=== PATIENT | male | born 1955 | race Caucasian/White ===

== ENCOUNTER 2016-07-26 18:18 | Inpatient (IN) | payer OTHER ==
[~2016-07-26] VITALS: Ht 182.9 cm; Wt 72.1 kg
[~2016-07-26 18:18] MED LIST: ALBU8.5H2 INHALATION; BUDE10.2 INHALATION; ETOD400T PO; GABA-502 PO; LORA-303 PO; METH750T3 PO; METR45GE TOP; MORP-32 PO; PREN1TAB25 PO; TIOT18CA3 IH; TRAM50TA2 PO; Thiamine PO; VENL150C98 PO; [UNRECOGNIZED DRUG - CODE] PO
[2016-07-26] MEDS ORDERED: Ketamine 100 mg/mL 5 mL Inj IV ONE (18:25)
[2016-07-26] MEDS ORDERED: 0.9% Sodium Chloride 1,000 ML IV ONE ×2 (18:25)
--- NOTE | 2016-07-26 18:29 | ED.REPORT ---
HPI-Altered Mental Status Date of Service Jul 26, 2016 ED Provider: Chet Avina MD Pt is a 61 year old male with a hx of ETOH, marijuana, and morphine abuse and possible lung cancer (per EMS, not confirmed by records from [facility]) presenting to the ED via EMS due to being found unresponsive in his chair by his neighbor. The pt's neighbor last saw the pt normal several hours ago. EMS reports that the neighbor indicates patient is heavy ETOH abuser. Medics report that the pt had aspirated vomit when they firest arrived and his highest GCS for them was 7. The pt's blood pressure in the field was 60/p and he was intubated by medics - the indicate he waas a difficult airway. . The pt was given 30 etomidate, 100 succinylcholine, 200 ketamine at 1815. Nursing Notes Stated Complaint: UNRESPONSIVE Chief Complaint: DECREASED LOC Nursing Notes Reviewed: Yes (Zuldi, SheerID not reconciled) Allergies: Coded Allergies: No Known Allergies (Verified , 06/02/16) Uncoded Allergies: No Known Allergies (Allergy, Severe, 08/02/03) Scheduled ([Thiamine]) 100 MG TABLET 100 MG PO DAILY Budesonide/Formoterol 80-4.5 mcg Inh (Symbicort 80-4.5 mcg Inh) 120 Puff Inhaler 2 PUFF INHALATION BID Etodolac (Etodolac) 400 Mg Tablet 400 MG PO BID Gabapentin (Gabapentin) 300 Mg Capsule 600 MG PO TID Metronidazole (Metronidazole Gel) 1 Applic/0.25 Gm Gel 1 APPLIC TOP DAILY for Rosacea Morphine Sulfate ER (Morphine Sulfate ER) 15 Mg Tablet 15 MG PO BID Vit#96/Ferrous Fum/FA ( Tablet) 1 Each Tablet 1 TABLET PO DAILY Tiotropium [place] (Spiriva) 18 Mcg Cap.w.dev 18 MCG IH DAILY Venlafaxine ER (Venlafaxine ER) 150 Mg Cap.er.24h 150 MG PO HS Scheduled PRN Albuterol HFA (Proair HFA) 8.5 Gm Hfa.aer.ad 2 PUFFS INHALATION Q4H PRN PRN For Shortness of Breath Guaifenesin/Dextromethorphan (Robafen Dm Cgh-Chest Compa Liq) 100 Mg-10 Mg/5 Ml Liquid 15 ML PO TID PRN PRN For Cough Lorazepam (Ativan) 1 Mg Tablet 1 MG PO TID PRN PRN For Anxiety Methocarbamol (Methocarbamol) 750 Mg Tablet 1-2 TABLET PO TID PRN PRN For Spasm Tramadol (Tramadol) 50 Mg Tablet 50 MG PO BID PRN PRN LAST FILLED 12/13/15 56# Miscellaneous Medications Grape Seed Extract (Grape Seed) 50 Mg Tablet 50 MG PO [place]-3 Fatty Acids/Fish Oil (Fish Oil Dr 1,000 mg Softgel) 1 Each Capsule.dr 1 EACH PO General Time Seen by MD: 18:19 Chief Complaint Unresponsive Hx Obtained From: EMS Arrived By: Ambulance Sudden in Onset?: Yes Onset Occurred: Onset unknown Symptom Duration: Since onset Progression since Onset: Unchanged Recent Healthcare: No recent doctor visit, No recent hospitalization Past Medical History Past Medical History Initially unknown, records obtained from the [facility]: Chronic shoulder and left elbow and left knee pain COPD History of obstructive sleep apnea History of alcohol use History of hospitalization for pneumonia in September 2015 History of colon polyps History of orthostasis Past Surgical History Unknown (none listed in records obtained from [facility]) Smoking History Never Smoker (her records at [facility]) Social History Alcohol Use: >5 per day (per neighbor per EMS) Drug Use: Den[facility]) Review of Systems Unable to Obtain ROS Intubated Physical Exam Initial Vital Signs See RN, patient afebile, normal o2 on 100%, vented, hypotensive Initial VS: Reviewed, Vital signs abnormal Lymphatic: No lymphadenopathy General/Constitutional: Not toxic appearing Unresponsive and intubated. Please note EMS report difficult intubation. Highest GCS was 7. No visible signs of trauma. Lots of secretions. Head / Eyes: No nystagmus, Conjunctiva NL, Cornea clear Pupils 5mm minimally reactive bilaterally. Neck: Atraumatic Respiratory / Chest: Atraumatic Rales / Rhonchi: Positive: Rhonchi diffuse (In all tracy) Cardiovascular: No gallop, No murmurs, No rubs Decreased pulses Abdomen: Soft, Non-tender Skin: Warm Upper Extremity / MS: No edema No purposeful movement of extremities. No modeling. Lower Extremity / Pelvis / MS: No edema Interpretation & Diagnostics Lab Results Interpretation Result Diagram: 07/26/16 1830 07/26/16 1830 Test 07/26/16 18:30 07/26/16 18:32 White Blood Count 13.5th/mm3 (3.8-10.1) Red Blood Count 4.32mil/mm3 (4.40-5.80) Hemoglobin 14.2g/dL (13.8-17.2) Hematocrit 42.6% (41.0-50.0) Mean Corpuscular Volume 98.6fL (81-100) Mean Corpuscular Hemoglobin 32.9pg (27.0-35.0) Mean Corpuscular Hemoglobin Concent 33.3% (32.0-37.0) Red Cell Distribution Width 14.0% (12.3-15.4) Platelet Count 270bil/L (150-400) Neutrophils (%) (Auto) 78.3% (40-74) Lymphocytes (%) (Auto) 14.9% (14-46) Monocytes (%) (Auto) 6.3% (4-12) Eosinophils (%) (Auto) 0.1% (0-5) Basophils (%) (Auto) 0.3% (0-3) Prothrombin Time 9.1sec (8.1-12.5) Prothromb Time International Ratio 0.85ratio Sodium Level 137mEq/L (134-144) Potassium Level 3.9mEq/L (3.5-5.2) Chloride Level 93mEq/L (97-108) Carbon Dioxide Level 21mmol/L (18-29) Blood Urea Nitrogen 15mg/dL (8-27) Creatinine 0.60mg/dL (0.76-1.27) Estimat Glomerular Filtration Rate 146mL/min (>59) Glucose Level 89mg/dL (60-99) Lactic Acid Level 3.4mmol/L (0.4-2.0) Calcium Level 8.5mg/dL (8.5-10.1) Magnesium Level 2.0mg/dL (1.6-2.6) Total Bilirubin 0.5mg/dL (0.0-1.2) Aspartate Amino Transf (AST/SGOT) 52U/L (0-50) Alanine Aminotransferase (ALT/SGPT) 38U/L (0-44) Alkaline Phosphatase 104U/L (25-160) Total Creatine Kinase 109U/L (21-232) Troponin T < 0.010ug/L (0.0-0.011) Total Protein 7.4g/dL (6.4-8.4) Albumin 4.1g/dL (3.4-5.0) Salicylates Level < 3.0ug/mL (30-250) Acetaminophen Level < 15.0ug/mL Rx (10-25) Alcohol, Quantitative 567mg/dL (0-10) Urine Color Yellow (YELLOW) Urine Appearance Clear (CLEAR,HAZY) Urine pH 6.0 (5.0-8.0) Urine Specific [place] 1.020 (1.003-1.035) Urine Protein Tracemg/dL (NEG,TRACE) Urine Glucose (UA) Negativemg/dL (NEGATIVE) Urine Ketones 15mg/dL (NEGATIVE) Urine Occult Blood Trace (NEGATIVE) Urine Nitrite Negative (NEGATIVE) Urine Bilirubin Negative (NEGATIVE) Urine Urobilinogen Normalmg/dL (NORMAL) Urine Leukocyte Esterase Negative (NEGATIVE) Urine RBC 0-2/hpf (0-2) Urine WBC 0-5/hpf (0-5) Urine Epithelial Cells Few/hpf (NONE-MOD) Urine Crystals Amorphous urates (NONE Urine Bacteria Few/hpf (NONE-FEW) Urine Hyaline Casts None/lpf (NONE) Urine Granular Casts None seen (NONE SEEN) Urine Waxy Casts None seen (NONE SEEN) Urine Red Blood Cell Casts None seen (NONE SEEN) Urine White Blood Cell Casts None seen (NONE SEEN) Urine Mucus Present (None Seen) Urine Trichomonas None seen (NONE SEEN) Urine Yeast None (NONE SEEN) Urinalysis Comment None Urine Culture Reflexed Not indicated Lab Results Interpretation: CBC positive leukocytosis next point seem P normal History of severely elevated Lactic acid elevated Tylenol negative Salicylates negative next one U tox positive for THC Blood cultures 2 pending Tracheal aspirate sputum culture pending Arterial BLOOD GAS: pH: 7.330 pCO2: 42 pO2: 114.0 cHCO3: 21.3 ECG Interpretation ECG Interpretation: Rate 77. No ischemic changes. No QRS widening. Prolonged QTC of 519 unclear if artefact related. Time: 19:08 Interpreted by: ED physician Normal ECG Interpretation: Normal sinus rhythm X-Ray Chest Interpretation Chest Xray Interpretation: IMPRESSION: ET and NG tube as described above. Trace right-sided pleural fluid collection. Dictated by: Alma Chen MD, PhD on 07/26/2016 at 19:02 View: Portable, 1 view Interpretation / Wet Read by: Interpret - Radiologist CT Head Interpretation IMPRESSION: No acute intracranial disease process. Dictated by: Alma Chen MD, PhD on 07/26/2016 at 19:19 Study: Head CT no contrast Interpretation / Wet Read by: Interpret - Radiologist Re-Eval/Medical Decision Med Decision/Clinical Course This is a 61-year-old male brought by EMS intubated at the scene. It was a difficult airway per EMS. They report that the neighbor knows the patient and the neighbor reports the patient is a long-term alcoholic, neighbor last saw the patient number of hours ago went to check on him, and found him unresponsive covered in vomit, with alcohol surrounding. No known overt signs of trauma. Patient had a GCS of 7, blood pressure and the 60s-so was intubated in the field. Accu-Chek was normal. Medical history was was definite, the neighbor indicated a possible history of lung CA[facility] and I do not see a clear confirming history of this on the records that they have sent us. Patient is unresponsive, covered in emesis, and had thick secretions require tracheal suctioning to the ET tube. There is good end-tidal CO2, chest x-ray confirms tube placement, there may be a trace pleural effusion but no anurag infiltrate or foreign bodies evident radiographically at this time. Baseline blood cultures were drawn. CT of the brain was negative. Blood work is notable for an elevated white count, a lactic acidosis, and a severely elevated alcohol that may be explanatory of the entire presentation. Patient was initially hypotensive, blood pressures responded to crystalloid resuscitation by the time 2 L were administered, the patient's blood pressures have normalized. He initially received additional ketamine for sedation to permit evaluation while waiting for his blood pressures to improve in response to resuscitation, but then once blood pressures normalized he received benzodiazepines, and was started on a propofol drip. Patient is being admitted for continued management. Source of Hx: Old records (none in EMR), EMS Re-Evaluation/Progress #1: Time of Eval: 19:13 Patient Status: Condition improved Re-Evaluation/Progress Note: The pt's eyes are now open but he does not respond to verbal stimulation. Re-Evaluation/Progress #2: Time of Eval: 18:50 Patient Status: Condition improved Re-Evaluation/Progress Note: PT is in CT. Re-Evaluation/Progress #3: Time of Eval: 19:37 Patient Status: Condition improved Re-Evaluation/Progress Note: BP: 130/89 Re-Evaluation/Progress #4: Time of Eval: 19:38 Patient Status: Condition improved Re-Evaluation/Progress Note: Pt is doing much better. Consultation : Referral / Consult Name: Tyler Mai MD Consulted With: Hospitalist Call Returned at: 19:43 Product Design Specialist: Will see patient, Agrees with plan, Accepts admit Counseled Regarding: Diagnosis, Lab results, Need for follow-up, When/why to return to ED Patient Discharge & Departure Impression: Primary Impression: Alcohol intoxication Complication of substance-induced condition: uncomplicated Qualified Code: F10.120 - Alcohol abuse with intoxication, uncomplicated Additional Impressions: Alcohol abuse Aspiration into airway Encounter type: initial encounter Qualified Code: T17.908A - Unspecified foreign body in respiratory tract, part unspecified causing other injury, initial encounter Altered mental status Altered mental status type: unspecified Qualified Code: R41.82 - Altered mental status, unspecified Disposition: ADMITTED TO HOSPITAL Discharge Condition All VS Reviewed: Yes Condition: Improved Crit Care Except Billable Proc Time Spent: 30-74 minutes Services Performed: Patient management by me, Time spent at bedside, Reviewing test results, Reviewing imaging, Discussing patient care, Documentation in record Scribe Attestation Portions of this note were transcribed by Margoth Couch. I, Dr. Avina personally performed the history, physical exam and medical decision-making; I reviewed and confirmed the accuracy of the information in the transcribed note. Signed by: Lamine Sevilla, 07/26/16 and 2011. Chet Avina MD Jul 26, 2016 18:28 MARGOTH COUCH Jul 26, 2016 18:34
--- NOTE | 2016-07-26 18:35 | ABG ---
DateTimeAnalyzed 18:29:00 -_ pH ____7.330 - 7.201 7.300 pCO2 ___41.6__ -mmHg 40.0 50.9 pO2 114 -mmHg 45.0 70.0 HCO3- ___21.3__ -mmol/L 20.0 24.0 ABE ___-3.9__ -mmol/L tHb ___13.0__ -g/dL O2Hb ___93.6__ -% COHb ____1.8__ -% MetHb ____1.1__ -% sO2 ___96.4__ -% FIO2 ___50.0__ -% PEEP ____5.0__ -cmH2O Set_RR ___16.0__ -b/min Vt __500.0__ -L Drawn By as - Date/Time Notified____ 18:34:00 -_ Oxygen Device 1 VENTILATOR - Notified By AMS - Notified Whom DR STEPHEN - B 751 -mmHg tO2 ___17.2__ -Vol% Regan test N/A -
[2016-07-26 18:44] LABS: BASOPHILS % (AUTO) 0.3 % (0-3); EOSINOPHILS % (AUTO) 0.1 % (0-5); MONOCYTES % (AUTO) 6.3 % (4-12); Mean Corpuscular Hemoglobin 32.9 pg (27.0-35.0); Mean Corpuscular Volume 98.6 fL (81-100); NEUTROPHILS % (AUTO) 78.3 % (40-74); Platelet Count 270 bil/L (150-400)
--- NOTE | 2016-07-26 19:03 | DRSVH ---
PROCEDURE: X-RAY CHEST ONE VIEW, PORTABLE ([id number]) INDICATIONS: post intubation TECHNIQUE: One view of the chest was acquired. COMPARISON: None. FINDINGS: Surgical changes and devices: ET tube projects approximately 4.2 cm superior to the olayinka. NG tube projects across the GE junction. Surgical sutures project over the right hilum. Lungs and pleura: Trace right-sided pleural fluid collection. Lungs are clear. Mediastinum: Mediastinal contours appear normal. Heart size is normal. Bones and chest wall: No suspicious bony lesions. Overlying soft tissues appear unremarkable. IMPRESSION: ET and NG tube as described above. Trace right-sided pleural fluid collection. Dictated by: Alam Chen MD, PhD on 07/26/2016 at 19:02 Approved by: Alma Chen MD, PhD on 07/26/2016 at 19:02
[2016-07-26 19:05] LABS: INR 0.85 ratio
[2016-07-26] MEDS ORDERED: ETOD400T PO (19:07)
[2016-07-26] MEDS ORDERED: GABA-502 PO (19:07)
[2016-07-26] MEDS ORDERED: GARL600T2 PO ×2 (19:07→22:08)
[2016-07-26] MEDS ORDERED: METH750T3 PO ×2 (19:07→22:08)
[2016-07-26] MEDS ORDERED: CHOL10008 PO (19:07)
[2016-07-26] MEDS ORDERED: MULT-1073 PO (19:07)
[2016-07-26] MEDS ORDERED: OMEG500C PO (19:07)
[2016-07-26] MEDS ORDERED: CYAN500 PO (19:07)
[2016-07-26] MEDS ORDERED: MORP15TA PO (19:07)
[2016-07-26] MEDS ORDERED: VENL75TA3 PO (19:07)
[2016-07-26] MEDS ORDERED: GRAP25CA PO (19:07)
[2016-07-26 19:15] LABS: TROPONIN T < 0.010 ug/L (0.0-0.011)
[2016-07-26] MEDS ORDERED: Propofol 10,000 mCg/mL 100 mL Inj ONE (19:20)
[2016-07-26] MEDS: Propofol Inj 1,000,000 MCG in IV Premix 1 EACH IV SCH (19:20)
[2016-07-26 19:30] VITALS: O2SAT 99
[2016-07-26] MEDS ORDERED: Multivitamin w/Vit K Inj 10 ML, Thiamine Inj 100 MG, Folic Acid Inj 1 MG, Magnesium Sul... IV ONE ×10 (19:38→21:12)
--- NOTE | 2016-07-26 19:44 | PCM.HPMED ---
Subjective Date of Service Jul 26, 2016 Primary Provider: Admitting Physician: Primary Care Physician: Gabriel Collins MD Attending Physician: Chief Complaint: Found unconscious surrounded by alcohol with a blood alcohol of 518 History of Present Illness: 61-year-old with known all abuse history and COPD found down by a neighbor now intubated. Remainder of history and physical is obtained from the chart and physical exam as patient is unconscious and nothing else is known and he is not able to respond. Review of Systems: Not obtainable as patient is intubated and unconscious Allergies Coded Allergies: No Known Allergies (Verified , 06/02/16) Uncoded Allergies: No Known Allergies (Allergy, Severe, 08/02/03) Home Medications Per January 2016 discharge summary Budesonide/Formoterol 80-4.5 mcg Inh (Symbicort 80-4.5 mcg Inh) 120 Puff Inhaler 2 PUFF INHALATION BID (Reported) Etodolac (Etodolac) 400 Mg Tablet 400 MG PO BID (Reported) Gabapentin (Gabapentin) 300 Mg Capsule 600 MG PO TID (Reported) Metronidazole (Metronidazole Gel) 1 Applic/0.25 Gm Gel 1 APPLIC TOP DAILY ( Reported) for Rosacea Morphine Sulfate ER (Morphine Sulfate ER) 15 Mg Tablet 15 MG PO BID (Reported) Prednisone (Deltasone) 20 Mg Tablet 40 MG PO DAILY Prescribed by: KOSTA MOLINA MD Tiotropium [place] (Spiriva) 18 Mcg Cap.w.dev 18 MCG IH DAILY (Reported) Venlafaxine ER (Venlafaxine ER) 150 Mg Cap.er.24h 150 MG PO HS (Reported) As needed Albuterol HFA (Proair HFA) 8.5 Gm Hfa.aer.ad 2 PUFFS INHALATION Q4H PRN PRN For Shortness of Breath (Reported) Guaifenesin/Dextromethorphan (Robafen Dm Cgh-Chest Compa Liq) 100 Mg-10 Mg/5 Ml Liquid 15 ML PO TID PRN PRN For Cough (Reported) Methocarbamol (Methocarbamol) 750 Mg Tablet 1-2 TABLET PO TID PRN PRN For Spasm (Reported) Tramadol (Tramadol) 50 Mg Tablet 50 MG PO BID PRN PRN For Pain (Reported) PMH Obtained from last H&P done in January 2016 COPD Alcohol dependence Obstructive sleep apnea Surgical History Bilateral total hip arthroplasty Right lower lobe lobectomy Ear surgery Family History Father: Coronary artery disease Social History Hx Alcohol Use: Yes (last drink 06/25/13) Hx Substance Use: No Hx Tobacco Use: No Smoking Status: Former Smoker Exam Vital Signs 120/60 with a rate 72, oxygen 100% on ventilator, afebrile Exam Gen.-Patient actually opens his eyes and head squeeze my hand to command no apparent distress. Eyes- open conjunctiva clear, pupils equal nonicteric, pupils still dilated secondary to ketamine ENT- ears normal, nose normal Neck- supple/trach midline CVS- RRR no murmur or gallop Lungs CTA, vent sounds GI- NABS/NT soft Musc- moving 4 no obvious deformity Neuro- cranial nerves II through XII intact to gross examination, nonfocal Skin- warm and dry Psych-intubated, but wakes up and needed propofol for sedation Lab and Diagnostics Result Diagram: 07/26/16182907/26/161829 X-Rays, CTs and MRIs CXR clear, no active cardiopulmonary disease, ET and NG tube in place personally reviewed by me 12-lead ECG Sinus rhythm rate 77, QTC 519 ms, no acute ST segment changes personally reviewed by me Additional Diagnostics: Troponin normal, LFTs only mildly elevated, lactic acid 3.4 probably from being down and hypoxic Assessment & Plan Patient arrives intubated with a lethal dose of alcohol on board. I do not have urine toxicology to suggest whether something else is there in addition. I have ordered this. Patient is intubated despite having been noted to be a DO NOT RESUSCITATE at the time of the last admission. Prior to that and his age would suggest that perhaps we should reevaluate this and wait till the patient is awake and coherent and determine whether this was a suicide attempt and whether he needs inpatient psychiatry or simply aggressive drug and alcohol cessation counseling and management. Patient arrives as a carbon copy of his last admission except that his respiratory status is worse, he was found down surrounded by alcohol and urine. Acute respiratory failure-patient is on a ventilator, when patient wakes up to probably be extubated he does not need any sedation he did that himself Acute alcohol intoxication-[facility] protocol, alcohol cessation Probable polypharmacy whether this is legal or prescribed drugs not clear- checking urine toxicology COPD/bronchiectasis-patient does not seem to be having an acute event, not giving steroids or antibiotics continuing bronchodilators as able Chronic continuous opiate abuse with chronic pain-hold all narcotics and sedatives for now until the patient wakes up then we will likely need to resume some to prevent withdrawal Depression?-Patient might benefit from psychiatric consult in addition to regular social work Rosacea-home med ordered GIORGIO with sleep apnea on CPAP-perhaps his roommate will bring him his CPAP when he is extubated Hx prediabetes-we will place the patient on sliding scale insulin Prophylaxis-DVT patient will be on Lovenox and SCDs, GI patient will be placed on PPI IV Disposition- not entirely clear patient was DO NOT RESUSCITATE last visit but full code the last visit comes from home where somebody found him, so he does not appear to be completely homeless unless of course he is couch surfing. At the time I saw the patient he required propofol to remain sedated. I had a long discussion with his daughter who lives in [place] they do not really know much about him. They simply get the phone calls. She describes last time in May that staff here tried to get her to "commit him" which does not make any sense. She would like him in treatment, but my sense is this patient is waking up and might be lucid by tomorrow and might even extubate himself without propofol he might even do it with propofol. I think his blood alcohol level normalized and he will be cleared for discharge. She is understandably worried about what happens next time when he does he actually kill himself. She denies that he is ever even gone through withdrawal nothing happened to him during his May hospitalization and then they do not really know what happened. I reassured her at this point time. It does not appear that he is going to now, but I could not see anything as to what was going to happen tomorrow or in the future given his extreme alcohol intake and tolerance. Greater than 90 minutes of ICU time Tyler Mai MD Jul 26, 2016 19:44
[2016-07-26 20:04] LABS: APPEARANCE,URINE CLEAR (CLEAR,HAZY); COLOR,URINE YELLOW (YELLOW)
[2016-07-26 20:05] LABS: OCCULT BLOOD,URINE TRACE (NEGATIVE); UROBILINOGEN,URINE NORMAL (NORMAL)
[2016-07-26] MEDS ORDERED: Ondansetron 2 mg/mL 2 mL Inj IVPUSH ONE (20:05)
[2016-07-26] MEDS ORDERED: Alum-Mag Hydrox-Simeth 30 mL Suspension PO PRN (20:20)
[2016-07-26] MEDS ORDERED: Ondansetron 2 mg/mL 2 mL Inj IVPUSH PRN (20:20)
[2016-07-26] MEDS ORDERED: diphenhydrAMINE 25 mg Capsule PO PRN (21:15)
[2016-07-26] MEDS ORDERED: Thiamine Inj 100 MG, Folic Acid Inj 1 MG, Magnesium Sulfate 50% Inj 2 GM, Multivitamins... IV ONE ×5 (21:15)
[2016-07-26] MEDS ORDERED: guaiFENesin DM 200-20 mg/10 mL Syrup PO PRN (21:25)
[2016-07-26 21:35] VITALS: BP 109/69; PULSE 78; RESP 22; O2SAT 100
[2016-07-26 21:55] VITALS: BP 121/74; PULSE 87; RESP 18; O2SAT 99
[2016-07-26] MEDS ORDERED: GRAP50TA2 PO (22:01)
[2016-07-26] MEDS ORDERED: FISH OIL DR 1,1 EAC1 PO (22:01)
[2016-07-26] MEDS ORDERED: CYAN10008 PO (22:08)
[2016-07-26] MEDS ORDERED: Glucose 40% Oral Gel 15 Gm Tube PO PRN (22:15)
[2016-07-26] MEDS ORDERED: CHOL200047 PO (22:16)
[2016-07-26] MEDS: D5 0.45% NaCl + KCl 20 mEq/L 1,000 ML IV SCH (22:27)
[2016-07-26] MEDS: Multivit-Miner-Folic Acid-Iron Tablet PO SCH ×2 (22:31→23:24)
[2016-07-26] MEDS: Pantoprazole 4 mg/mL 10 mL Inj IVPUSH SCH (22:31)
[2016-07-26] MEDS: 0.9% Sodium Chloride 1,000 ML IV SCH (22:31)
[2016-07-26 23:55] VITALS: BP 116/77; O2SAT 99
[2016-07-27] VITALS (9 sets, daily range): BP systolic 88–127; BP diastolic 48–66; PULSE 61–106; RESP 16–20; O2SAT 95–100
[2016-07-27] MEDS: Albuterol HFA 60 Puff 8 Gm Inhaler INHALATION SCH ×3 (00:30→16:30)
[2016-07-27] MEDS: Ondansetron 2 mg/mL 2 mL Inj IVPUSH PRN (02:45)
[2016-07-27] MEDS: Ampicillin-Sulbactam Inj 3,000 MG in 0.9% Sodium Chloride 100 ML IV SCH ×4 (02:58→21:09)
[2016-07-27 03:40] LABS: BASOPHILS % (AUTO) 0.3 % (0-3); EOSINOPHILS % (AUTO) 0.1 % (0-5); MONOCYTES % (AUTO) 6.7 % (4-12); Mean Corpuscular Hemoglobin 32.8 pg (27.0-35.0); Mean Corpuscular Volume 100.3 fL (81-100); NEUTROPHILS % (AUTO) 83.3 % (40-74); Platelet Count 175 bil/L (150-400)
[2016-07-27] MEDS ORDERED: Calcium GLUCO 10% (Gm) Inj 2 GM in Dextrose 5% 100 ML IV ONE (04:50)
--- NOTE | 2016-07-27 05:51 | NUR ---
Admission Pt admitted to CCU Room # 2015 from the ER. Pt accompanied by his daughter, RT and TESTER OPERATOR HELPER. Pt intubated and ventilated with ambu-bag. Propofol gtt at 10mcg/kg/minute. Pt incontinent of urine and smelling strongly of vomiting and alcohol. Banana bag infusing at 500ml/hour. x2 PIV patent and infusing in bilateral wrists. MRSA swab collected and sent for analysis as per CCU protocol. All medications reviewed and sent to pharmacy; Morphine SO4 placed & counted with Commercial Attorney down in pharmacy along with additional single empty bottle of Morphine SO4. Pupils dilated and slow to react to light and accommodation. Critical Lab value Calcium=6.6, 2,000mg Ca Gluconate administered per MD order. D5 1/2NS with 20Meq KCL infusing at 100ml/hour along with NS at 100ml/hour. Propofol titrated per effect and currently near maximum of 45mcg/kg/minute (50 MAX). Pt only mildly sedated and remains easy to arouse. Secretions frequently suctioned with Yankauer from oral along with ET suction.
[2016-07-27] MEDS: Insulin LISPRO 300 Unit/3 mL Inj SUBQ SCH ×4 (08:00→22:00)
[2016-07-27] MEDS: D5 0.45% NaCl + KCl 20 mEq/L 1,000 ML IV SCH (08:09)
[2016-07-27] MEDS: 0.9% Sodium Chloride 1,000 ML IV SCH ×2 (08:10→18:28)
[2016-07-27] MEDS: Pantoprazole 4 mg/mL 10 mL Inj IVPUSH SCH (08:10)
[2016-07-27] MEDS: Influenza (Adult) Vaccine 0.5 mL Syringe IM ONE ×2 (08:21→08:26)
[2016-07-27] MEDS: Tiotropium 18mcg/Cap 5 Capsule Inhaler Kit INHALATION SCH (08:30)
[2016-07-27] MEDS: fentaNYL 2,500 mCg/250 mL 2,500 MCG in IV Premix 1 EACH IV SCH (11:55)
[2016-07-27] MEDS: Thiamine Inj 100 MG in Dextrose 5% 50 ML IV SCH (11:56)
[2016-07-27] MEDS: Dexmedetomidine 400 mCg/100 mL 400 MCG in IV Premix 1 EACH IV SCH (11:56)
[2016-07-27] MEDS: LORazepam 0.5 mg Tablet PO PRN (11:57)
[2016-07-27] MEDS: Propofol Inj 1,000,000 MCG in IV Premix 1 EACH IV SCH ×2 (11:57→19:00)
--- NOTE | 2016-07-27 16:29 | NUR ---
Intermittent violent shaking/tremors, somewhat "seizure like", but patient opens eyes and tracks, follows commands during them. Fentanyl, Precedex started, titrating Propofol rate down; receiving IV Valium and Ativan as well. Labs noted, Lactic acid decreasing. MD updated throughout the shift. Appears comfortable with intermittent awakening, responding to bolus doses of propofol and fentanyl. Blood sugars 130s, stopping D5 IVFs per MD; continue SQ insulin protocol. Daughter updated by phone this morning. Sinus rhythm on tele, occasional PVC.
--- NOTE | 2016-07-27 17:48 | PCM.PNMED ---
Subjective Date of Service Jul 27, 2016 Subjective Patricio Cardozo is a 61-year-old male with a history of substance abuse including : alcohol, marijuana and morphine, COPD, GIORGIO and right lower lobe lobectomy who presented to the ED via EMS after he was found unconscious by neighbor and intubated in the field. Admitted for acute alcohol intoxication with a blood alcohol level of 567 and acute respiratory failure. Hospital day #1. Admitted to the CCU overnight. Patient is intubated and mechanically ventilated. Unable to obtain history or review of systems due to patient condition. He appears comfortable and in no acute distress. Thick, dark secretions noted in ET tube. Exam Vital Signs Vital Sign - Last Date Time Temp Pulse Resp B/P Pulse Ox O2 Delivery O2 Flow Rate FiO2 07/27/16 08:00 107 106/61 95 40 07/27/16 08:00 36.6 18 Mechanical Ventilator Intake and Output 07/26/16 07/26/16 07/27/16 Cumulative From/Thru 15:00 23:00 07:00 07/26/16 19:00 - 07/27/16 06:13 Intake Total 3000 ml 2659 ml 5659 ml Output Total 2950 ml 2950 ml Balance 3000 ml -291 ml 2709 ml Intake Oral 0 ml 0 ml IV Total 3000 ml 2659 ml 5659 ml Output Urine Total 2750 ml 2750 ml Gastric Drainage Total 200 ml 200 ml # Bowel Movements 0 0 Exam General: Patient sedated, Intubated and mechanically ventilated. In no acute distress. HEENT: Normocephalic, atraumatic. External ears without defect. PERRLA, no scleral icterus, mucosa moist. Neck: No jugular venous distension. No bruits. No lymphadenopathy or thyromegaly. Cardiovascular: Regular rate and rhythm with no murmurs, rubs, or gallops appreciated Pulmonary: Symmetric chest rise with equal air entry bilaterally, lungs overall clear to auscultation bilaterally with no crackles, wheezes, or rhonchi. Abdomen: Bowel tones present. Soft, nondistended. No hepatosplenomegaly or masses appreciated. Extremities: No clubbing, cyanosis, edema, or lymphadenopathy appreciated. Skin: Normal temperature, turgor, and texture; no rash, ulcers, or subcutaneous nodules appreciated. Neurological: Difficult to asses due to patient condition. Pt is moving all four extremities, withdraws from pain. No known gait impairment. Psychiatric: Will need to revaluate when patient more awake. IVs and Medications Medications Reviewed: Medications were reviewed in detail Lab and Diagnostics White Blood Count 7.9, Red Blood Count 3.60, Hemoglobin 11.8, Hematocrit 36.1, Mean Corpuscular Volume 100.3, Mean Corpuscular Hemoglobin 32.8, Mean Corpuscular Hemoglobin Concent 32.7, Red Cell Distribution Width 14.0, Platelet Count 175, Neutrophils (%) (Auto) 83.3, Lymphocytes (%) (Auto) 9.5, Monocytes (% ) (Auto) 6.7, Eosinophils (%) (Auto) 0.1, Basophils (%) (Auto) 0.3 Sodium Level 143, Potassium Level 4.1, Chloride Level 107, Carbon Dioxide Level 19, Blood Urea Nitrogen 12, Creatinine 0.55, Estimat Glomerular Filtration Rate 161, Glucose Level 95, Lactic Acid Level 3.0 Calcium Level 7.2, Procalcitonin 1.62, Thyroid Stimulating Hormone (TSH) 1.330 Result Diagram: 07/27/16 0333 07/27/16 0333 Microbiology Influenza scree negative. Sputum culture with few gram positive cocci, rare epithelial cells and rare polys. MRSA screen and blood cultures pending. X-Rays, CTs and MRIs X-RAY CHEST ONE VIEW, PORTABLE (07/26/16) IMPRESSION: ET and NG tube as described above. Trace right-sided pleural fluid collection. Dictated and approved by: Alma Chen MD, PhD on 07/26/2016 at 19:02 12-lead ECG Sinus rhythm rate 77, QTC 519 ms, no acute ST segment changes Assessment & Plan Patricio Cardozo is a 61-year-old male with a history of substance abuse including : alcohol, marijuana and morphine, COPD, GIORGIO and right lower lobe lobectomy who presented to the ED via EMS after he was found unconscious by neighbor and intubated in the field. Admitted for acute alcohol intoxication with a blood alcohol level of 567 and acute respiratory failure. Hospital day #1. 1. Possible acute respiratory failure, present on admission. Active - Pt with hx of heavy alcohol abuse, COPD and possible polysubstance use. Found by a neighbor unresponsive and covered in vomit. - Reported by medics to have a GCS of 7. Pt Intubated in the field, despite being DNR/DNI during last admission. - CXR- trace right-sided pleural fluid, no infiltrate. - Pt with lethal dose of alcohol, on admission. Noted by EMS to have aspirated vomit. - Lactic acid, WBC trending down (elevated on admission, likely due to hypoxia) . - Continue ventilatory support, pressure support trial with possible extubation tomorrow. 2. Acute alcohol intoxication, present on admission. Active. - Unclear whether this was a suicide attempt. CT of the brain was negative. - CIWA protocol and IV thiamine, start Dexmedetomidine as well as scheduled lorazepam while pt mechanically ventilated - Will need to reevaluate, as pt is more awake. - Consider inpatient psychiatry or simple drug and alcohol cessation counseling 3. Probable polypharmacy, present on admission. Active. - Urine toxicology screen positive for Cannabinoids. - Reportedly hx of morphine abuse. - Discharge summary January 2016, morphine sulfate 15mg po bid on active med list. - Start Fentanyl drip and monitored for signs/symptoms of opioid withdrawal. 4. COPD, present on admission. Active. - Does not appear in acute exacerbation. - Continue bronchodilators and antibiotics - Pressure support trial when pt more awake 5. Chronic pain with long-term opiate use, present on admission. Active. - Monitor for signs/symptoms of withdrawal and continue Fentanyl, as above. - Reassess narcotics as patient wakes up. 6. History of depression, present on admission. Active. - Patient reportedly with hx of mental health issues, heavy alcohol and opiate abuse. - Unclear whether this was a suicide attempt. Patient's daughter is listed as DPOA. - Reevaluate when extubated and more awake. - Consider psychiatric consult in addition to regular social work. 7. Rosacea, chronic. present on admission. Active. -Continue home Metronidazole for Rosacea 8. Obstructive sleep apnea, chronic and reportedly with CPAP at home. present on admission. - Pt intubated and mechanically ventilated. - Will re-evaluate once extubated. - Attempt to contact pt's roommate, to potentially bring home CPAP 9. History of prediabetes, present on admission. Active - Serum glucose on admission, 89. Today 95. - HbA1c pending, continue to bedside glucose monitoring. - Add low-dose correctional insulin, if necessary. Acetaminophen-fever/headache/mild/moderate pain Antiemetics, as needed Bowel regimen, as needed. Disposition: Anticipated discharge in 2-3 days pending resolution of alcohol withdrawal and evaluation of patient's mental status when more awake and extubated. High-risk medication: IV fentanyl, lorazepam, and diazepam. Pain Evaluation: Adequate Pain Control GI Prophylaxis: Proton Pump Inhibitor VTE Prophylaxis: Sub-Q Enoxaparin VTE Mechanical Devices: Intermittant Pneumatic CD Resuscitation Status: CPR: Attempt Resuscitation Limited Interventions: Compressions Attending Statement The patient was seen and examined together with Dr. Pan on 07-27-16 and I agree with the history, exam and plan as outlined in the note above. Elvia Pan DO Jul 27, 2016 10:50 Roderick Macedo MD Jul 28, 2016 15:47
--- NOTE | 2016-07-27 17:51 | NUR ---
Social Work Note: Screen Note Data& Assessment: EMR reviewed. Pt is intubated. Patricio Cardozo is a 61 year old male admitted on 07/26/2016 for shock. Pt was found down by neighbor with a BAL level of 518. Pt has [employer] insurance coverage and goes to the [facility] clinic for primary care. Pt lives in [place]. SW briefly met pt neighbor José Luis today, he explained that he was the one who found the pt. He was here to visit pt but realized pt was sedated at the time and will be coming back when pt is more appropriate. SW to follow up with pt regarding CD assessment and discharge planning post extubation and when appropriate. SW to continue to follow. Plan: Pt is intubated at this time. SW to follow up with pt regarding CD assessment and discharge planning post extubation and when appropriate. SW to continue to follow. WENDY Spicer
[2016-07-27] MEDS: Fluticasone-Salmeterol 100-50 Inhaler INHALATION SCH (20:30)
[2016-07-27] MEDS ORDERED: Venlafaxine XR 75 mg ER24 Capsule PO SCH (21:00)
[2016-07-28] VITALS (16 sets, daily range): BP systolic 118–138; BP diastolic 70–89; PULSE 45–77; RESP 10–17; O2SAT 98–100
[2016-07-28] MEDS: Albuterol HFA 60 Puff 8 Gm Inhaler INHALATION SCH ×3 (00:30→16:30)
[2016-07-28] MEDS: Dexmedetomidine 400 mCg/100 mL 400 MCG in IV Premix 1 EACH IV SCH ×3 (00:53→22:59)
[2016-07-28] MEDS: Propofol Inj 1,000,000 MCG in IV Premix 1 EACH IV SCH ×2 (02:06→12:56)
[2016-07-28] MEDS: Ampicillin-Sulbactam Inj 3,000 MG in 0.9% Sodium Chloride 100 ML IV SCH ×4 (02:44→20:02)
[2016-07-28] MEDS: Chlorhexidine 0.12% 15 mL Oral Solution MT SCH ×6 (02:53→20:03)
[2016-07-28 03:32] LABS: BASOPHILS % (AUTO) 0.1 % (0-3); EOSINOPHILS % (AUTO) 0.4 % (0-5); Mean Corpuscular Hemoglobin 32.7 pg (27.0-35.0); NEUTROPHILS % (AUTO) 79.4 % (40-74); Platelet Count 100 bil/L (150-400)
[2016-07-28 04:14] LABS: Magnesium 1.9 mg/dL (1.6-2.6)
[2016-07-28] MEDS: 0.9% Sodium Chloride 1,000 ML IV SCH ×3 (04:45→19:13)
--- NOTE | 2016-07-28 04:53 | NUR ---
vented/sedation .40 fio2 per vent, sats upper 90's, oral care done, hob up, resp rate 16-, ls- course scattered rhonchi, sml amount of solano sputum per ett, sedated on propofol gtt at 15mcg/kg/min--decreased from 20mcg/kg/min, precedex gtt at 0.2 up to 0.2 and now 0.3mcg/kg/hr, effective for pt's tremors and sweat on his brow, hr sinus chaz at 50, bp stable, fentanyl gtt at 50mcg/hr also, pt asleep this am with hr at 50, hr during night upper 50's-60 when awake, pt appears to understand info when spoken to, non pitting pedal/ankle/upper extremity edema, scd's on, turn q2hrs, full bed bath given, ogt placement checked -wnl, lis, brownish output, no bm, bt present, adequate thi uop per f/c, ivf per orders, piv time two, see ccu flow sheet, plan:resp support, ciwa /etoh withdrawal support, ?narcotic withdrawal support,
--- NOTE | 2016-07-28 05:12 | ABG ---
DateTimeAnalyzed 05:07:00 -_ pH ____7.448 - 7.350 7.450 pCO2 ___30.7__ -mmHg 35.0 45.0 pO2 156 -mmHg 69.0 116 HCO3- ___20.9__ -mmol/L 22.0 26.0 ABE ___-2.0__ -mmol/L -2.0 2.0 tHb ___10.2__ -g/dL O2Hb ___97.1__ -% COHb ____0.9__ -% MetHb ____1.1__ -% sO2 ___99.1__ -% 25.0 FIO2 ___40.0__ -% PEEP ____5.0__ -cmH2O Set_RR ___16.0__ -b/min Vt __370.0__ -L Drawn By AF - Date/Time Notified____ 05:12:00 -_ Spontaneous_RR ___16.0__ -b/min Oxygen Device 1 VENTILATOR - Notified By AF - Notified Whom ____Nurse - B 764 -mmHg tO2 ___14.3__ -Vol% Regan test _Positive -
[2016-07-28] MEDS: Multivit-Miner-Folic Acid-Iron Tablet PO SCH (08:00)
[2016-07-28] MEDS: Pantoprazole 4 mg/mL 10 mL Inj IVPUSH SCH (08:00)
[2016-07-28] MEDS: Insulin LISPRO 300 Unit/3 mL Inj SUBQ SCH ×4 (08:00→22:00)
[2016-07-28] MEDS: Fluticasone-Salmeterol 100-50 Inhaler INHALATION SCH ×2 (08:30→20:30)
--- NOTE | 2016-07-28 08:52 | DRSVH ---
PROCEDURE: X-RAY CHEST ONE VIEW, PORTABLE ([id number]) INDICATIONS: intubation, hx of aspiration TECHNIQUE: One view of the chest was acquired. COMPARISON: [facility], CR, XR CHEST 1VW (PORTABLE), 07/26/2016, 18:33. [facility], CR, XR CHEST 1VW (PORTABLE), 03/13/2016, 15:03. [facility], CR, XR CHEST 1VW (POR TABLE), 02/16/2016, 12:53. FINDINGS: Surgical changes and devices: An NGT is present, tip of which is in the gastric lumen. ETT is present , tip of which is roughly 55 mm above the olayinka. Lungs and pleura: No pleural effusions or pneumothorax. Mild left basilar patchy airspace opacity is present, new since the prior examination. Mediastinum: Mediastinal contours appear normal. Heart size is normal. Bones and chest wall: No suspicious bony lesions. Overlying soft tissues appear unremarkable. IMPRESSION: New left medial basilar aspiration versus atelectasis versus pneumonia. Dictated by: Anne Isaac M.D. on 07/28/2016 at 8:50 Approved by: Anne Isaac M.D. on 07/28/2016 at 8:50
--- NOTE | 2016-07-28 09:05 | PCM.PNMED ---
Subjective Date of Service Jul 28, 2016 Subjective Patricio Cardozo is a 61-year-old male with a history of substance abuse including : alcohol, marijuana and morphine, COPD, GIORGIO and right lower lobe lobectomy who presented to the ED via EMS after he was found unconscious by neighbor and intubated in the field. Admitted for acute alcohol intoxication with a blood alcohol level of 567 and acute respiratory failure. Hospital day #2. Patient is found intubated and mechanically ventilated. He appears agitated and is somewhat tremulous, received IV diazepam per protocol and shakes/agitation improved. No acute events overnight. Per nursing, patient noted to have intermittent seizure like activity but was able to follow commands during these episodes. Sedated on propofol gtt at 15mcg/kg/min--decreased from 20mcg/kg/min, Precedex gtt at 0.3mcg/kg/hr, effective for patient's tremors; Fentanyl gtt at 50mcg/hr. Exam Vital Signs Vital Sign - Last Date Time Temp Pulse Resp B/P Pulse Ox O2 Delivery O2 Flow Rate FiO2 07/28/16 05:16 45 129/78 99 40 07/28/16 04:00 Ventilator 07/28/16 04:00 36.8 16 Intake and Output 07/27/16 07/27/16 07/28/16 Cumulative From/Thru 15:00 23:00 07:00 07/26/16 19:00 - 07/28/16 06:19 Intake Total 2706 ml 2925 ml 66869 ml Output Total 700 ml 500 ml 4150 ml Balance 2006 ml 2425 ml 7140 ml Intake Oral 0 ml 0 ml 0 ml IV Total 2706 ml 2925 ml 23904 ml Output Urine Total 450 ml 450 ml 3650 ml Gastric Drainage Total 250 ml 50 ml 500 ml # Bowel Movements 0 0 0 Exam General: Patient alert, tremulous, able to follow commands, Intubated and mechanically ventilated. In no acute distress. HEENT: Normocephalic, atraumatic. External ears without defect. PERRLA, no scleral icterus, mucosa moist. Neck: No jugular venous distension. No bruits. No lymphadenopathy or thyromegaly. Cardiovascular: Regular rate and rhythm with no murmurs, rubs, or gallops appreciated Pulmonary: Symmetric chest rise with equal air entry bilaterally, lung with diffuse coarse rhonchi and expiratory wheezing. Abdomen: Bowel tones present. Soft, nondistended. No hepatosplenomegaly or masses appreciated. Extremities: Trace edema bilateral lower extremities, No clubbing, cyanosis, or lymphadenopathy appreciated. Skin: Normal temperature, turgor, and texture; no rash, ulcers, or subcutaneous nodules appreciated. Neurological: Difficult to asses due to patient condition. Pt is moving all four extremities, withdraws from pain. No known gait impairment. Psychiatric: Will need to revaluate when patient more awake. IVs and Medications Medications Reviewed: Medications were reviewed in detail Lab and Diagnostics White Blood Count 7.7, Red Blood Count 3.06, Hemoglobin 10.0, Hematocrit 31.2, Mean Corpuscular Volume 102.0, Mean Corpuscular Hemoglobin 32.7, Mean Corpuscular Hemoglobin Concent 32.1, Red Cell Distribution Width 13.6, Platelet Count 100, Neutrophils (%) (Auto) 79.4, Lymphocytes (%) (Auto) 12.3, Monocytes ( %) (Auto) 7.0, Eosinophils (%) (Auto) 0.4, Basophils (%) (Auto) 0.1 Sodium Level 144, Potassium Level 4.1, Chloride Level 111, Carbon Dioxide Level 21, Blood Urea Nitrogen 13, Creatinine 0.64, Estimat Glomerular Filtration Rate 135, Glucose Level 158, Calcium Level 7.5, Magnesium Level 1.9, Total Bilirubin 0.6, Aspartate Amino Transf (AST/SGOT) 27, Alanine Aminotransferase (ALT/SGPT) 24, Alkaline Phosphatase 57, Total Protein 4.5, Albumin 2.6 Result Diagram: 07/28/16 0307 07/28/16 0307 Microbiology Influenza screen negative. Sputum culture with few gram positive cocci, rare epithelial cells and rare polys.Blood cultures with no growth. MRSA screen pending. X-Rays, CTs and MRIs X-RAY CHEST ONE VIEW, PORTABLE (07/26/16) IMPRESSION: ET and NG tube as described above. Trace right-sided pleural fluid collection. Dictated and approved by: Alma Chen MD, PhD on 07/26/2016 at 19:02 12-lead ECG Sinus rhythm rate 77, QTC 519 ms, no acute ST segment changes Additional Diagnostics Troponin normal, LFTs only mildly elevated, lactic acid 3.4 probably from being down and hypoxic Assessment & Plan Patricio Cardozo is a 61-year-old male with a history of substance abuse including : alcohol, marijuana and morphine, COPD, GIORGIO and right lower lobe lobectomy who presented to the ED via EMS after he was found unconscious by neighbor and intubated in the field. Admitted for acute alcohol intoxication with a blood alcohol level of 567 and acute respiratory failure. Hospital day #2 1. Possible acute respiratory failure, present on admission. Active - Pt with hx of heavy alcohol abuse, COPD and possible polysubstance use. Found by a neighbor unresponsive and covered in vomit. - Reported by medics to have a GCS of 7. Pt Intubated in the field, despite being DNR/DNI during last admission. - CXR- trace right-sided pleural fluid, no infiltrate. - Pt with lethal dose of alcohol, on admission. Noted by EMS to have aspirated vomit. - Lactic acid, WBC trending down (elevated on admission, likely due to hypoxia) . - Continue ventilatory support, pressure support trial this morning. Pt with agitation, tremors. - Pulmonology consulted and following. Possible extubation today. 2. Acute alcohol intoxication, present on admission. Active. - Unclear whether this was a suicide attempt. CT of the brain was negative. - Continue IV thiamine, dexmedetomidine and CIWA protocol (diazepam) - Will need to reevaluate, as pt is more awake. - Consider inpatient psychiatry or simple drug and alcohol cessation counseling 3. Probable polypharmacy, present on admission. Active. - Urine toxicology screen positive for Cannabinoids. - Reportedly hx of morphine abuse. - Discharge summary January 2016, morphine sulfate 15mg po bid on active med list. - Continue Fentanyl drip and monitored for signs/symptoms of opioid withdrawal. 4. COPD, present on admission. Active. - Does not appear in acute exacerbation. - Continue bronchodilators and antibiotics - Pressure support trial when pt more not actively withdrawing from alcohol. 5. Chronic pain with long-term opiate use, present on admission. Active. - Monitor for signs/symptoms of withdrawal and continue Fentanyl, as above. - Reassess narcotics as patient wakes up. 6. History of depression, present on admission. Active. - Patient reportedly with hx of mental health issues, heavy alcohol and opiate abuse. - Unclear whether this was a suicide attempt. Patient's daughter is listed as DPOA. - Reevaluate when extubated and more awake. - Consider psychiatric consult in addition to regular social work. 7. Rosacea, chronic. present on admission. Active. -Continue home Metronidazole for Rosacea 8. Obstructive sleep apnea, chronic and reportedly with CPAP at home. present on admission. - Pt intubated and mechanically ventilated. - Will re-evaluate once extubated. - Attempt to contact pt's roommate, to potentially bring home CPAP 9. History of prediabetes, present on admission. Active - Serum glucose on admission, 89. Today 95. - HbA1c pending, continue to bedside glucose monitoring. - Add low-dose correctional insulin, if necessary. Acetaminophen-fever/headache/mild/moderate pain Antiemetics, as needed Bowel regimen, as needed. Disposition: Anticipated discharge in 2-3 days pending resolution of alcohol withdrawal and evaluation of patient's mental status when more awake and extubated. High-risk medication: IV fentanyl, lorazepam, and diazepam. Pain Evaluation: Adequate Pain Control GI Prophylaxis: Proton Pump Inhibitor VTE Prophylaxis: Sub-Q Enoxaparin VTE Mechanical Devices: Intermittant Pneumatic CD Resuscitation Status: CPR: Attempt Resuscitation Attending Statement The patient was seen and examined together with Dr. Pan on 07-28-16 and I agree with the history, exam and plan as outlined in the note above. Elvia Pan DO Jul 28, 2016 07:45 Roderick Macedo MD Jul 29, 2016 08:05
[2016-07-28] MEDS: Thiamine Inj 100 MG in Dextrose 5% 50 ML IV SCH (09:17)
[2016-07-28] MEDS: Azithromycin Inj 500 MG in Dextrose 5% w/Vial Mate 250 ML IV SCH (09:59)
[2016-07-28] MEDS: Tiotropium 18mcg/Cap 5 Capsule Inhaler Kit INHALATION SCH (10:03)
--- NOTE | 2016-07-28 10:19 | NUR ---
NUTRITION ASSESSMENT Assess: 61 YO M admitted to CCU with shock, acute alcohol intoxication, and aspiration pneumonia requiring intubation. Pt has been NPO X 2 days. Pt on CIWA. Pt on pressure support trials. PMHX: COPD, ETOH abuse, GIORGIO. DIET: NPO. LABS: Cr 0.64, Glu 158, Ca 7.5, Alb 2.6 MEDICATIONS: Reviewed. Precedex, Fentanyl, Propofol at 7 ml/hr providing 185 kcal/day. GI: No BM noted. SKIN: Wound eval pending. WEIGHT: 78.8 kg, BMI 23.6 kg/m2, Admit wt: 74.6 kg. ESTIMATED NEEDS: VENT Calories: 2043-5024 kcal/day (20-25 kcal/kg BW) Protein: 118-142 g/day (1.5-1.8 g/kg BW) NUTRITION DIAGNOSIS: 1) Inadequate oral intake related to decreased ability to consume sufficient energy as evidenced by NPO/Vent status. INTERVENTION: 1) If pt unable to be extubated, recommend starting nutrition support in the next 24 hours. MONITOR/EVALUATE: NPO/Vent status, labs, POC, GI/nutrition status. Follow per high nutrition risk guidelines.
[2016-07-28] MEDS: fentaNYL 2,500 mCg/250 mL 2,500 MCG in IV Premix 1 EACH IV SCH (10:45)
--- NOTE | 2016-07-28 11:56 | CONS ---
[address] [address] CONSULTATION REPORT PATIENT: MARINA JOSUE : 1955 MR#: [id number] ADMIT: 07/26/2016 JOB ID: [id number] DATE OF SERVICE: 07/28/2016 PULMONARY CONSULTATION: PROBLEM: 1. Acute alcohol intoxication. 2. Alcohol withdrawal. 3. Loss of consciousness. 4. Intubated. 5. Chronic obstructive pulmonary disease. HISTORY PRESENT ILLNESS: The patient unable to give any history whatsoever. Chart notes indicate he was admitted two days ago. He was found down by a neighbor. Has apparently been admitted on previous occasions for acute and chronic alcohol abuse requiring withdrawal protocols. Past medical history listed are COPD, continuous pain utilizing opiates, rosacea, obstructive sleep apnea requiring CPAP for control. The patient required intubation in the field, apparently. No further details were not obtainable at this time. The staff has been having problems sedating him. Currently receiving fentanyl for his opiate withdrawal to protect him against opiate withdrawal, Ativan and dexmedetomidine. Getting routine meds along with considerable amounts of IV supplement medication. ALLERGIES: None known. REVIEW OF SYSTEMS: Unable. OBJECTIVE: Temperature 37, pulse 52-64, respiratory rate 10-12, blood pressure 127/85, O2 sat on FiO2 of 40% and PEEP of 5 is 98%. General appearance: Currently sedated on a ventilator. Nurses have just given him medications for agitation, requiring them quite frequently. Chest: Slightly decreased breath sounds. Lung tracy are relatively clear. Maybe a suggestion of a few pulmonary adventitial sounds. No wheeze. The patient currently on pressure support with variable response depending on his level of sedation. At times quite animated, other times quite lethargic. Heart: Distant tones. Heart tones seem normal. Abdomen is soft. Quiet. Extremities: No pretibial edema. IMAGING: Chest x-ray shows right-sided pleural fluid with the lungs otherwise clear. Repeat study describes some patchy left basilar opacification. LABORATORY DATA: Shows white count of 7700 with 79 polymorphonuclears, 12 lymphs, 7 monocytes. Hemoglobin 10, down from 14.2 (the patient 4.7 L positive over the past 24 hours). Sodium 144, potassium 4.1, chloride 111, CO2 is 21, BUN 13, creatinine 0.6, glucose 158. Lactic acid 1.9, being 3.4 on admission. Calcium 7.5, with albumin of 2.6. Transaminases, total bilirubin and alkaline phosphatase all normal. Procalcitonin 1.66. INR is 0.85. Platelet count has gone from 270 to 100 in approximately 33 hours. ASSESSMENT: 1. I think rather than have the patient on a pressure support trial where agitation related to the pressure support trial plus alcohol withdrawal are potential problems interfering with evaluation of his agitation versus just alcohol withdrawal alone are both in play at this point. Therefore, I think the easier approach would be to place the patient on PRBC, get control of his withdrawal symptoms and then decide whether he can be extubated. Currently taking goodly doses of fentanyl, dexmedetomidine and some benzodiazepine. By having him on the ventilator, agitation would presumably be due to the alcohol withdrawal. We can determine his medication needs and see if he could spontaneously breathe. 2. Platelet count has dropped considerably. Possibly representing disseminated intravascular coagulation. Would wonder about aspiration. His hemoglobin has dropped. It seems to be a bit more than one would expect from hemodilution alone. White count, however, has decreased. Whether this represents a response to the stress and its improvement or whether represents some element of marrow failure is unclear. 3. Chest x-ray shows a left basilar infiltrate. Would wonder about aspiration. Currently on appropriate antibiotics for aspiration pneumonia. Influenza screen is negative. Given the paucity of historical details, would consider respiratory viral panel, as the community is being inundated with variants at the moment. PLAN: 1. Place the patient back on PRBC. 2. Continue with alcohol withdrawal program determining his needs for sedation. 3. Viral respiratory panel. 4. Urine for strep and legionella antigen. 5. Evaluation for DIC. Thank you so much, Dr. Pan for asking the Pulmonary service to evaluate this most interesting and ill individual. Will follow his respiratory status closely along with you.
--- NOTE | 2016-07-28 16:26 | NUR ---
Pressure ulcer protocol Spoke with RN no issues related to pressure and skin at this time, pt on appropriate bed.
--- NOTE | 2016-07-28 16:37 | NUR ---
Attempted PS trial this morning, anxious, coughing, overbreathing vent. Unable to find comfortable spot with sedation and wakefulness for successful weaning trial, returned to sedation per MD. Appears comfortable and calm this afternoon, less tremulous when he does wake up, sleeping in intervals. Does not follow commands, but makes eye contact, appears tracking. Vitals stable, SR, SB on tele, afebrile. UOP low/no change. Remains NPO. No vent changes this shift. Thick solano ETT secretions, lungs sound coarse. Skin intact; redness to bottom, frequent turning/repositioning.
[2016-07-29] VITALS (13 sets, daily range): BP systolic 107–134; BP diastolic 77–88; PULSE 42–66; RESP 16–22; O2SAT 98–100
[2016-07-29] MEDS: Propofol Inj 1,000,000 MCG in IV Premix 1 EACH IV SCH ×3 (00:01→15:28)
[2016-07-29] MEDS: Chlorhexidine 0.12% 15 mL Oral Solution MT SCH ×6 (00:02→20:54)
[2016-07-29] MEDS: fentaNYL 2,500 mCg/250 mL 2,500 MCG in IV Premix 1 EACH IV SCH (00:17)
[2016-07-29] MEDS: Albuterol HFA 60 Puff 8 Gm Inhaler INHALATION SCH ×2 (00:30→07:58)
[2016-07-29] MEDS ORDERED: 0.9% Sodium Chloride 500 ML IV ONE (00:35)
[2016-07-29] MEDS: Ampicillin-Sulbactam Inj 3,000 MG in 0.9% Sodium Chloride 100 ML IV SCH ×4 (02:03→20:54)
[2016-07-29 03:46] LABS: Mean Corpuscular Hemoglobin 32.2 pg (27.0-35.0); Mean Corpuscular Volume 101.8 fL (81-100)
--- NOTE | 2016-07-29 06:42 | NUR ---
P) DT's/cardiac/ Pt. wakes easily, agitated, severe tremors when awake, eyes track and he follows some commands, cardiac rhythm sinus chaz, generally in the 40's with some brief dips into the 30's, maintaining BP WNL. Urine very dark thi, foul odor, averaging 30ml/hr. T-max 37.3 orally I) Discussed with hospitalist, 500ml NS challenge given, output increased to 47ml for 1 hour only. Consulted hospitalist again, will discuss with day crew. Passive cooling measures, turning q2h and floating heels as pt. allows. E) Currently resting quietly with eyes closed.
[2016-07-29] MEDS: Insulin LISPRO 300 Unit/3 mL Inj SUBQ SCH ×4 (07:41→22:00)
[2016-07-29] MEDS: Azithromycin Inj 500 MG in Dextrose 5% w/Vial Mate 250 ML IV SCH (07:42)
[2016-07-29] MEDS: Pantoprazole 4 mg/mL 10 mL Inj IVPUSH SCH (07:43)
[2016-07-29] MEDS: Multivit-Miner-Folic Acid-Iron Tablet PO SCH (07:43)
[2016-07-29] MEDS: Dexmedetomidine 400 mCg/100 mL 400 MCG in IV Premix 1 EACH IV SCH ×2 (07:46→18:45)
[2016-07-29] MEDS: Thiamine Inj 100 MG in Dextrose 5% 50 ML IV SCH (07:54)
[2016-07-29] MEDS: Tiotropium 18mcg/Cap 5 Capsule Inhaler Kit INHALATION SCH (07:54)
[2016-07-29] MEDS: Fluticasone-Salmeterol 100-50 Inhaler INHALATION SCH (07:58)
--- NOTE | 2016-07-29 08:02 | PCM.PNMED ---
Subjective Date of Service Jul 29, 2016 Subjective Patricio Cardozo is a 61-year-old male with a history of substance abuse including : alcohol, marijuana and morphine, COPD, GIORGIO and right lower lobe lobectomy who presented to the ED via EMS after he was found unconscious by neighbor and intubated in the field. Admitted for acute alcohol intoxication with a blood alcohol level of 567 and acute respiratory failure. Hospital day #2. No acute events overnight. Per nursing, patient wakes easily and appears agitated with tremors when awake. Sinus bradycardia with heart rate in the 40s and urine output decreased to about 30ml/hr. Today, patient remains bradycardic and nursing titrating drips. Current gtt Fentanyl 50mcg/hr, propofol 25mcg/kg/min and Precedex 0.4mcg/kg/min. Patient maintaining normal BP. He opens his eyes on command and instantly appears quite agitated and starts to shake his head but calms down when left alone. Exam Vital Signs Vital Sign - Last Date Time Temp Pulse Resp B/P Pulse Ox O2 Delivery O2 Flow Rate FiO2 07/29/16 04:35 42 130/84 100 40 07/29/16 04:00 36.7 22 Mechanical Ventilator Intake and Output 07/28/16 07/28/16 07/29/16 Cumulative From/Thru 15:00 23:00 07:00 07/26/16 19:00 - 07/29/16 06:36 Intake Total 1283 ml 2216 ml 72954 ml Output Total 350 ml 450 ml 4950 ml Balance 933 ml 1766 ml 9839 ml Intake Oral 0 ml 0 ml IV Total 1283 ml 2216 ml 04237 ml Output Urine Total 350 ml 300 ml 4300 ml Gastric Drainage Total 150 ml 650 ml # Bowel Movements 0 Exam General: Sedated but wakes easily, tremulous, Intubated and mechanically ventilated. In no acute distress. HEENT: Normocephalic, atraumatic. External ears without defect. PERRLA, no scleral icterus, mucosa moist. Neck: No jugular venous distension. No bruits. No lymphadenopathy or thyromegaly. Cardiovascular: Regular rate and rhythm with no murmurs, rubs, or gallops appreciated Pulmonary: Symmetric chest rise with equal air entry bilaterally, mild expiratory wheezing. Abdomen: Bowel tones present. Soft, nondistended. No hepatosplenomegaly or masses appreciated. Extremities: Trace edema bilateral lower extremities, No clubbing, cyanosis, or lymphadenopathy appreciated. Skin: Normal temperature, turgor, and texture; no rash, ulcers, or subcutaneous nodules appreciated. Neurological: Difficult to asses due to patient condition. Pt is moving all four extremities, withdraws from pain. No known gait impairment. Psychiatric: Will need to revaluate when patient more awake. IVs and Medications Medications Reviewed: Medications were reviewed in detail Lab and Diagnostics White Blood Count 8.7, Red Blood Count 3.29, Hemoglobin 10.6, Hematocrit 33.5, Mean Corpuscular Volume 101.8, Mean Corpuscular Hemoglobin 32.2, Mean Corpuscular Hemoglobin Concent 31.6, Red Cell Distribution Width 13.6, Platelet Count 106 Sodium Level 144, Potassium Level 3.9, Chloride Level 109, Carbon Dioxide Level 20, Blood Urea Nitrogen 14, Creatinine 0.51, Estimat Glomerular Filtration Rate 176, Glucose Level 126, Calcium Level 7.7, Total Bilirubin 0.4, Aspartate Amino Transf (AST/SGOT) 29, Alanine Aminotransferase (ALT/SGPT) 22, Alkaline Phosphatase 77, Total Protein 4.6, Albumin 2.6 Result Diagram: 07/29/16 0300 07/29/16 0300 Microbiology Influenza screen negative. Sputum culture with few gram positive cocci, rare epithelial cells and rare polys.Blood cultures with no growth. MRSA screen pending. X-Rays, CTs and MRIs X-RAY CHEST ONE VIEW, PORTABLE (07/26/16) IMPRESSION: ET and NG tube as described above. Trace right-sided pleural fluid collection. Dictated and approved by: Alma Chen MD, PhD on 07/26/2016 at 19:02 X-RAY CHEST ONE VIEW, PORTABLE (07/28/16) IMPRESSION: New left medial basilar aspiration versus atelectasis versus pneumonia. Dictated and approved by: Anne Isaac M.D. on 07/28/2016 at 8:50 12-lead ECG Sinus rhythm rate 77, QTC 519 ms, no acute ST segment changes Additional Diagnostics Troponin normal, LFTs only mildly elevated, lactic acid 3.4 probably from being down and hypoxic Assessment & Plan Patricio Cardozo is a 61-year-old male with a history of substance abuse including : alcohol, marijuana and morphine, COPD, GIORGIO and right lower lobe lobectomy who presented to the ED via EMS after he was found unconscious by neighbor and intubated in the field. Admitted for acute alcohol intoxication with a blood alcohol level of 567 and acute respiratory failure. Hospital day #4 1. Acute respiratory failure, present on admission. Active - hx of COPD and heavy alcohol abuse with a lethal dose of alcohol on admission. Found by a neighbor unresponsive and covered in vomit. - GCS of 7, per Medics and pt intubated in the field, despite being DNR/DNI during last admission. - CXR 07/28/16- shows new left medial basilar aspiration vs atelectasis vs pneumonia. - Lactic acid, WBC normalized (elevated on admission, likely due to hypoxia). - Continue ventilatory support and pressure support trials, per Pulmonology. 2. Acute alcohol intoxication, present on admission. Active. - Unclear whether this was a suicide attempt. CT of the brain was negative. - Continue IV thiamine, dexmedetomidine and CIWA protocol (diazepam) - Will need to reevaluate, as pt is more awake. - Consider inpatient psychiatry or simple drug and alcohol cessation counseling 3. Probable polypharmacy, present on admission. Active. - Urine toxicology screen positive for Cannabinoids. - Reportedly hx of morphine abuse. - Discharge summary January 2016, morphine sulfate 15mg po bid on active med list. - Continue Fentanyl drip and monitored for signs/symptoms of opioid withdrawal. 4. COPD, present on admission. Active. - Does not appear in acute exacerbation. - Continue bronchodilators and antibiotics - Pressure support trial when pt more not actively withdrawing from alcohol. 5. Chronic pain with long-term opiate use, present on admission. Active. - Monitor for signs/symptoms of withdrawal and continue Fentanyl, as above. - Reassess narcotics as patient wakes up. 6. History of depression, present on admission. Active. - Patient reportedly with hx of mental health issues, heavy alcohol and opiate abuse. - Unclear whether this was a suicide attempt. Patient's daughter is listed as DPOA. - Reevaluate when extubated and more awake. - Consider psychiatric consult in addition to regular social work. 7. Rosacea, chronic. present on admission. Active. -Continue home Metronidazole for Rosacea 8. Obstructive sleep apnea, chronic and reportedly with CPAP at home. present on admission. - Pt intubated and mechanically ventilated. - Will re-evaluate once extubated. - Attempt to contact pt's roommate, to potentially bring home CPAP 9. History of prediabetes, present on admission. Active - Serum glucose on admission, 89. Today 95. - HbA1c pending, continue to bedside glucose monitoring. - Add low-dose correctional insulin, if necessary. Acetaminophen-fever/headache/mild/moderate pain Antiemetics, as needed Bowel regimen, as needed. Disposition: Anticipated discharge in 2-3 days pending resolution of alcohol withdrawal and evaluation of patient's mental status when more awake and extubated. High-risk medication: IV fentanyl, lorazepam, and diazepam Pain Evaluation: Adequate Pain Control GI Prophylaxis: Proton Pump Inhibitor VTE Prophylaxis: Sub-Q Enoxaparin VTE Mechanical Devices: Intermittant Pneumatic CD Resuscitation Status: CPR: Attempt Resuscitation Limited Interventions: Compressions Attending Statement The patient was seen and examined together with Dr. Pan on 07-29-16 and I agree with the history, exam and plan as outlined in the note above. Elvia Pan DO Jul 29, 2016 06:48 Roderick Macedo MD Jul 30, 2016 08:01
[2016-07-29] MEDS: Polyethylene Glycol (PEG) 17 Gm Powder PO PRN (09:36)
--- NOTE | 2016-07-29 10:17 | DRSVH ---
CORRECTED MRN NUMBER ON 07/29/16 PROCEDURE: CT BRAIN WITHOUT CONTRAST ([id number]) INDICATIONS: altered LOC TECHNIQUE: Noncontrast 4.5 mm thick angled axial sections acquired from the foramen magnum to the vertex, with c oronal reformats. COMPARISON: None. FINDINGS: Image quality: Excellent. CSF spaces: Basal cisterns are patent. No extra-axial fluid collections. The ventricles are symmet damon in size and shape. Brain: No intracranial bleeds or masses. There is cerebral volume loss for age, with resultant vent ricular and sulcal prominence. There are periventricular and deep white matter chronic small vessel ischemic changes. Incidental note made of cavum septum pellucidum. There is intracranial internal ca rotid artery atherosclerosis. Skull and face: Calvarium and visualized facial bones appear intact, without suspicious lesions. Sinuses: Mild mucosal thickening noted in the maxillary sinuses bilaterally. The mastoids are clear . IMPRESSION: No acute intracranial disease process. Dictated by: Alma Chen MD, PhD on 07/26/2016 at 19:19 Approved by: Alma Chen MD, PhD on 07/26/2016 at 19:19
[2016-07-29] MEDS: Budesonide 0.5 mg/2 mL Inhalation Solution NEB SCH ×2 (11:17→20:02)
[2016-07-29] MEDS: Albuterol 2.5 mg/3 mL Inhalation Solution NEB PRN ×2 (11:17→15:59)
--- NOTE | 2016-07-29 11:29 | PCM.PNMED ---
Subjective Date of Service Jul 29, 2016 Subjective ICU/Pulmonology progress note: This is a 61 year old male who presented after being found down. He was intubated in the field. Blood alcohol level on admission was 567 and tox screen positive for cannabinoids. The patient remains intubated and sedated today. ROS not obtainable. Exam Vital Signs Vital Sign - Last Date Time Temp Pulse Resp B/P Pulse Ox O2 Delivery O2 Flow Rate FiO2 07/29/16 08:00 36.1 42 16 121/79 99 Mechanical Ventilator 40 Intake and Output 07/28/16 07/28/16 07/29/16 Cumulative From/Thru 15:00 23:00 07:00 07/26/16 19:00 - 07/29/16 06:36 Intake Total 1283 ml 2216 ml 37291 ml Output Total 350 ml 450 ml 4950 ml Balance 933 ml 1766 ml 9839 ml Intake Oral 0 ml 0 ml IV Total 1283 ml 2216 ml 78184 ml Output Urine Total 350 ml 300 ml 4300 ml Gastric Drainage Total 150 ml 650 ml # Bowel Movements 0 Exam General: Intubated and sedated. HEENT: Normocephalic, atraumatic. External ears without defect. no scleral icterus Neck: No jugular venous distension. Cardiovascular: Regular rate and rhythm with no murmurs, rubs, or gallops appreciated Pulmonary: Clear to auscultation bilaterally. Abdomen: Bowel tones present. Soft, nondistended. No hepatosplenomegaly or masses appreciated. Extremities: Trace edema bilateral lower extremities, No clubbing, cyanosis, or lymphadenopathy appreciated. Skin: Normal temperature, turgor, and texture; no rash, ulcers, or subcutaneous nodules appreciated. Psychiatric: Intubated and sedated. Lab and Diagnostics Result Diagram: 07/29/16 0300 07/29/16 0300 Microbiology Influenza screen negative. Sputum culture with few gram positive cocci, rare epithelial cells and rare polys.Blood cultures with no growth. MRSA screen pending. X-Rays, CTs and MRIs X-RAY CHEST ONE VIEW, PORTABLE (07/26/16) IMPRESSION: ET and NG tube as described above. Trace right-sided pleural fluid collection. Dictated and approved by: Alma Chen MD, PhD on 07/26/2016 at 19:02 X-RAY CHEST ONE VIEW, PORTABLE (07/28/16) IMPRESSION: New left medial basilar aspiration versus atelectasis versus pneumonia. Dictated and approved by: Anne Isaac M.D. on 07/28/2016 at 8:50 12-lead ECG Sinus rhythm rate 77, QTC 519 ms, no acute ST segment changes Additional Diagnostics Troponin normal, LFTs only mildly elevated, lactic acid 3.4 probably from being down and hypoxic Assessment & Plan This is a 61 year old male who presented after being intubated in the field after he was found unresponsive and subsequently found to have blood alcohol level of 567: Acute respiratory failure: -Intubated and sedated. -Unasyn and azithromycin for potential pneumonia (likely aspiration). Acute Alcohol Withdrawal: -Patient continues to be intubated. -Patient to remain intubated as we treat his withdrawal. -Sedated with propofol, Precedex, and fentanyl. -Ativan given for withdrawal symptoms. -Thiamin and multivitamin. COPD: -History noted of COPD. -Continue on albuterol, Spiriva, and Advair. Thrombocytopenia: -Initial platelet count 270. On 07/29/2015 platelet count 106. -Possibly due to stress response, BM suppression due alcohol use, polysubstance abuse, hemodilution. GI prophylaxis: protonix. DVT prophylaxis with enoxaparin GI Prophylaxis: Proton Pump Inhibitor VTE Prophylaxis: Sub-Q Enoxaparin VTE Mechanical Devices: Intermittant Pneumatic CD Resuscitation Status: CPR: Attempt Resuscitation Limited Interventions: Compressions Attending Statement The patient was seen and examined together with Dr. Miles on 07/29/2016 and I agree with the history, exam and plan as outlined in the note above. Jeremiah Miles DO Jul 29, 2016 11:29 Jeremy Gresham MD Aug 26, 2016 17:18
--- NOTE | 2016-07-29 12:52 | NUR ---
NUTRITION FOLLOW-UP: Assess: 61 YO M admitted to CCU with shock, acute alcohol intoxication, and aspiration pneumonia requiring intubation. Pt is on CIWA protocol. Received verbal orders to start TF today. Pt has been NPOx3 days. PMHX: COPD, ETOH abuse, GIORGIO. DIET: NPO. LABS: Reviewed. Cl 109, Ignition Specialist .51, Glu 126, Ca 7.7, Alb 2.6 MEDICATIONS: Reviewed. Precedex, Fentanyl, Propofol at 9 ml/hr providing 237 kcal/day. GI: No BM noted. SKIN: no PU per WC WEIGHT: 81.3kg, BMI 24.3 kg/m2, Admit wt: 74.6 kg. ESTIMATED NEEDS: VENT Calories: 4006-1304 kcal/day (20-25 kcal/kg BW) Protein: 115-140 g/day (1.5-1.8 g/kg BW) Fluids: ~1970ml/day (25cc/kg) NUTRITION DIAGNOSIS: 1) Inadequate oral intake related to decreased ability to consume sufficient energy as evidenced by NPO/Vent status.--PERSISTS INTERVENTION: 1) Received verbal orders to start TF. Recommend start Pulmocare at 10ml/hr. Once tolerated, advance TF by 10ml q 4 hrs until reach goal rate of 53ml/hr to provide 1749kcal (1986kcal w/propofol) and 73g pro (100% kcal and 65% pro needs) . If no IVF, flush 125ml q 3 hrs. 2) Once at goal rate, recommend addition of 1 packet prosource QID to better meet pro needs. 3) Adjust goal rate based on propofol rate MONITOR/EVALUATE: NPO/Vent status, TF start/staci, labs, POC, GI/nutrition status. Follow per high nutrition risk guidelines.
--- NOTE | 2016-07-29 17:37 | NUR ---
Less tremulous today and evening. Opens eyes to voice, does not follow commands or answer to yes/no questions. Purposefully turns away, shaking his head to oral care or face washing. Skin intact, buttocks & [place] red, blanchable. Morrell cath in place, UOP 450 for 12 hours, which is an improvement. Appears comfortable and less distressed when awake. Remains on Propofol, Fentanyl and Precedex with bolus' of scheduled Ativan and PRN Valium for sedation, DTs, discomfort. No PS trial done today. Maintaining sats 90s, no vent changes today. Suctioning thick, solano ETT secretions. No fevers. BP stable. Sinus/bradycardia on tele. Blood sugars normal, no insulin indicated. Daughter and DPOA, Radha, called today for update, asked that the patient's brother, Jose, be allowed information on the patient should he call for an update.
[2016-07-29] MEDS: 0.9% Sodium Chloride 1,000 ML IV SCH (20:54)
[2016-07-30] VITALS (10 sets, daily range): BP systolic 94–138; BP diastolic 62–96; PULSE 60–102; RESP 15–24; O2SAT 96–99
[2016-07-30] MEDS: fentaNYL 2,500 mCg/250 mL 2,500 MCG in IV Premix 1 EACH IV SCH (00:16)
[2016-07-30] MEDS: Chlorhexidine 0.12% 15 mL Oral Solution MT SCH ×3 (00:37→10:05)
[2016-07-30] MEDS: Propofol Inj 1,000,000 MCG in IV Premix 1 EACH IV SCH ×2 (01:39→07:29)
[2016-07-30] MEDS: Ampicillin-Sulbactam Inj 3,000 MG in 0.9% Sodium Chloride 100 ML IV SCH ×4 (02:26→20:08)
[2016-07-30 03:34] LABS: BASOPHILS % (AUTO) 0.4 % (0-3); EOSINOPHILS % (AUTO) 2.6 % (0-5); MONOCYTES % (AUTO) 13.2 % (4-12); Mean Corpuscular Hemoglobin 32.6 pg (27.0-35.0); NEUTROPHILS % (AUTO) 58.6 % (40-74); Platelet Count 90 bil/L (150-400)
[2016-07-30] MEDS: Dexmedetomidine 400 mCg/100 mL 400 MCG in IV Premix 1 EACH IV SCH ×4 (03:42→22:20)
[2016-07-30 03:57] LABS: Magnesium 1.6 mg/dL (1.6-2.6); Phosphorus 2.8 mg/dL (2.5-4.9)
--- NOTE | 2016-07-30 04:58 | ABG ---
DateTimeAnalyzed 04:54:00 -_ pH ____7.490 - 7.350 7.450 pCO2 ___32.7__ -mmHg 35.0 45.0 pO2 ___91.5__ -mmHg 69.0 116 HCO3- ___24.7__ -mmol/L 22.0 26.0 ABE ____2.0__ -mmol/L -2.0 2.0 tHb ___10.0__ -g/dL O2Hb ___95.6__ -% COHb ____0.9__ -% MetHb ____1.0__ -% sO2 ___97.5__ -% 25.0 FIO2 ___40.0__ -% PEEP ____5.0__ -cmH2O Vt __500.0__ -L Drawn By af - Date/Time Notified____ 04:58:00 -_ Spontaneous_RR ___16.0__ -b/min Oxygen Device 1 VENTILATOR - Notified By AF - Notified Whom ____nurse - B 766 -mmHg tO2 ___13.6__ -Vol% Regan test _Positive -
[2016-07-30] MEDS ORDERED: Potassium Chloride 20 mEq/15 mL 15mL Oral Soln TUBE ONE (05:30)
[2016-07-30] MEDS: Budesonide 0.5 mg/2 mL Inhalation Solution NEB SCH ×2 (07:55→20:14)
[2016-07-30] MEDS: Albuterol 2.5 mg/3 mL Inhalation Solution NEB PRN ×2 (07:56→20:14)
[2016-07-30] MEDS: Insulin LISPRO 300 Unit/3 mL Inj SUBQ SCH ×4 (08:00→22:00)
[2016-07-30] MEDS: Tiotropium 18mcg/Cap 5 Capsule Inhaler Kit INHALATION SCH ×2 (08:30→17:45)
--- NOTE | 2016-07-30 09:09 | DRSVH ---
PROCEDURE: X-RAY CHEST ONE VIEW, PORTABLE ([id number]) INDICATIONS: On vent TECHNIQUE: One view of the chest was acquired. COMPARISON: [facility], CR, XR CHEST 1VW (PORTABLE), 07/28/2016, 3:17. FINDINGS: Surgical changes and devices: None. Lungs and pleura: Multifocal areas of patchy opacity are present within the left lung as well as the right base. It is most prominent in the retrocardiac region. Overall appearance is more prominent whe n compared to prior exam. Mediastinum: Mediastinal contours appear normal. Heart size is normal. Bones and chest wall: No suspicious bony lesions. Overlying soft tissues appear unremarkable. IMPRESSION: Prominent appearance of multifocal opacities suggestive of airspace disease including pne umonia and/or atelectasis. Small areas of underlying edema cannot be definitively excluded. Dictated by: Margarita Briggs M.D. on 07/30/2016 at 9:06 Approved by: Margarita Briggs M.D. on 07/30/2016 at 9:06
[2016-07-30] MEDS: LORazepam 0.5 mg Tablet PO PRN ×2 (10:00→17:50)
[2016-07-30] MEDS: Pantoprazole 4 mg/mL 10 mL Inj IVPUSH SCH (10:04)
[2016-07-30] MEDS: Multivit-Miner-Folic Acid-Iron Tablet PO SCH (10:05)
--- NOTE | 2016-07-30 11:27 | PROG NOTE ---
[address] [address] PROGRESS NOTE PATIENT: MARINA JOSUE : 1955 MR#: [id number] ADMIT: 07/26/2016 JOB ID: [id number] DATE: 07/30/2016 NOTE: The patient was seen and evaluated with resident physician, Dr. Antonio Miles. Refer to his separate detailed note for additional information. The following is an addendum. PULMONARY CRITICAL CARE PROGRESS NOTE: The patient is a 61-year-old man with history of alcohol abuse, found down at home, unresponsive in respiratory failure, intubated, being treated for alcohol withdrawal. INTERVAL HISTORY: He is passing a spontaneous breathing trial currently, doing well. He continues to require IV Valium for alcohol withdrawal. He is on multiple sedative meds. REVIEW OF SYSTEMS: Unable to obtain. PHYSICAL EXAM: Vital signs reviewed and notable for vent with FiO2 of 40%, PEEP of 5 cm. General: Eyes open, tracking. Chest clear to auscultation. LABORATORIES: Reviewed. Show normal CBC, chemistry, and a procalcitonin 1.66 on July 28, unchanged compared. Cultures, no growth on blood cultures. Sputum growing strep pneumoniae. Respiratory viral PCR is negative. Chest x-ray reviewed and shows left greater than right infiltrates. ASSESSMENT AND RECOMMENDATIONS: 1. Acute hypoxic respiratory failure. 2. Aspiration pneumonitis/pneumonia. 3. Acute alcohol withdrawal. 4. Sepsis. 5. Streptococcus pneumoniae pneumonia. A 61-year-old man with history of alcohol abuse found down at home, unresponsive, intubated for respiratory failure and treated for aspiration pneumonia. Sputum culture was positive for streptococcus pneumoniae. He is doing well on a spontaneous breathing trial today, so we will go ahead and extubate him. He is on Augmentin for aspiration pneumonia. Erythromycin was discontinued today. He is on appropriate deep venous thrombosis and gastrointestinal prophylaxis. From an alcohol withdrawal standpoint, currently he is on propofol, Precedex, as well as p.r.n. Valium. We are going to stop the propofol for extubation, switch to a nasal feeding tube so he can be given medications as needed, and schedule the diazepam 5 mg every 4 hours in anticipation of withdrawal issues. I would like to also weaned off the Precedex as tolerated once we have the diazepam going. CRITICAL CARE TIME: 45 minutes.
[2016-07-30] MEDS: 0.9% Sodium Chloride 1,000 ML IV SCH ×2 (12:21→17:44)
[2016-07-30] MEDS: Morphine 20 mg/mL Oral Syringe SL/PO SCH ×3 (12:30→20:30)
--- NOTE | 2016-07-30 12:38 | PCM.PNMED ---
Subjective Date of Service Jul 30, 2016 Subjective ICU/Pulmonology progress note: This is a 61 year old male who presented after being found down. He was intubated in the field. Blood alcohol level on admission was 567 and tox screen positive for cannabinoids. The patient remains intubated and sedated today. His sedation has been decreased overnight and he is able to follow commands. He remains tremulous. ROS not obtainable. Exam Vital Signs Vital Sign - Last Date Time Temp Pulse Resp B/P Pulse Ox O2 Delivery O2 Flow Rate FiO2 07/30/16 08:06 71 94/62 99 40 07/30/16 04:30 36.8 16 Mechanical Ventilator Intake and Output 07/29/16 07/29/16 07/30/16 Cumulative From/Thru 15:00 23:00 07:00 07/26/16 19:00 - 07/30/16 06:08 Intake Total 1712 ml 2021 ml 45461 ml Output Total 450 ml 1800 ml 7200 ml Balance 1262 ml 221 ml 19737 ml Intake Oral 0 ml 0 ml IV Total 1642 ml 1604 ml 62656 ml Tube Feeding 30 ml 297 ml 327 ml Tube Irrigant 40 ml 120 ml 160 ml Output Urine Total 450 ml 1800 ml 6550 ml Gastric Drainage Total 0 ml 0 ml 650 ml # Bowel Movements 0 0 0 Exam General: Intubated and sedated. HEENT: Normocephalic, atraumatic. External ears without defect. no scleral icterus Neck: No jugular venous distension. Cardiovascular: Regular rate and rhythm with no murmurs, rubs, or gallops appreciated Pulmonary: Clear to auscultation bilaterally. Abdomen: Bowel tones present. Soft, nondistended. No hepatosplenomegaly or masses appreciated. Extremities: Trace edema bilateral lower extremities, No clubbing, cyanosis, or lymphadenopathy appreciated. Skin: Normal temperature, turgor, and texture; no rash, ulcers, or subcutaneous nodules appreciated. Psychiatric: Intubated and sedated. Lab and Diagnostics Result Diagram: 07/30/1631407/30/16314 Microbiology Influenza screen negative. Sputum culture with few gram positive cocci, rare epithelial cells and rare polys.Blood cultures with no growth. MRSA screen pending. X-Rays, CTs and MRIs X-RAY CHEST ONE VIEW, PORTABLE (07/26/16) IMPRESSION: ET and NG tube as described above. Trace right-sided pleural fluid collection. Dictated and approved by: Alma Chen MD, PhD on 07/26/2016 at 19:02 X-RAY CHEST ONE VIEW, PORTABLE (07/28/16) IMPRESSION: New left medial basilar aspiration versus atelectasis versus pneumonia. Dictated and approved by: Anne Isaac M.D. on 07/28/2016 at 8:50 12-lead ECG Sinus rhythm rate 77, QTC 519 ms, no acute ST segment changes Additional Diagnostics Troponin normal, LFTs only mildly elevated, lactic acid 3.4 probably from being down and hypoxic Assessment & Plan This is a 61 year old male who presented after being intubated in the field after he was found unresponsive and subsequently found to have blood alcohol level of 567: Acute respiratory failure: -Intubated and sedated. -SBT today with planned extubation. Aspiration pneumonia: -Sputum culture positive for strep pneumo. -Unasyn. Stopped Azithromycin. Acute Alcohol Withdrawal: -Patient continues to be intubated. -Patient to remain intubated as we treat his withdrawal. -Sedated with propofol, Precedex, and fentanyl. Will add scheduled diazepam 5mg q4h. COPD: -History noted of COPD. -Continue on albuterol, Spiriva, and Advair. Thrombocytopenia: -Initial platelet count 270. On 07/29/2015 platelet count 106. -Possibly due to stress response, BM suppression due alcohol use, polysubstance abuse, hemodilution. GI prophylaxis: protonix. DVT prophylaxis with enoxaparin GI Prophylaxis: Proton Pump Inhibitor VTE Prophylaxis: Sub-Q Enoxaparin VTE Mechanical Devices: Intermittant Pneumatic CD Resuscitation Status: CPR: Attempt Resuscitation Limited Interventions: Compressions Attending Statement I have seen and examined this patient with the resident physician. Vital signs , labs, imaging have been reviewed. I agree with the assessment and plan above. Please refer to my separately dictated progress note for any modifications to above. Eram Bailon M.D. Pulmonary and Critical Care medicine Pager [phone] Jeremiah Miles DO Jul 30, 2016 10:35 Erma Bailon MD Jul 31, 2016 14:43
--- NOTE | 2016-07-30 13:00 | NUR ---
Extubated to 2Lnc/CIWA/Pt safety Pt following direction intermittently; forgetful, disoriented. CIWA 26; Diazepam q4h with prn IV extra doses for agitation, tremors as per CIWA. Also Lorazepam, Oral Morphine admin. For pt safety [place] alarm on as per protocol, plus soft wrist restraints necessary as pt repeatedly pulling out NGT.
--- NOTE | 2016-07-30 13:23 | PCM.PNMED ---
Subjective Date of Service Jul 30, 2016 Subjective Patricio Cardozo is a 61-year-old male with a history of substance abuse including : alcohol, marijuana and morphine, COPD, GIORGIO and right lower lobe lobectomy who presented to the ED via EMS after he was found unconscious by neighbor and intubated in the field. Admitted for acute alcohol intoxication with a blood alcohol level of 567 and acute respiratory failure. Hospital day #5 No acute events overnight. Patient intubated and sedated but arouses easily, appears comfortable. In No acute distress. Per nursing, patient less tremulous and opening eyes to voice but not following commands or answer to yes/no questions. Exam Vital Signs Vital Sign - Last Date Time Temp Pulse Resp B/P Pulse Ox O2 Delivery O2 Flow Rate FiO2 07/30/16 08:06 71 94/62 99 40 07/30/16 04:30 36.8 16 Mechanical Ventilator Intake and Output 07/29/16 07/29/16 07/30/16 Cumulative From/Thru 15:00 23:00 07:00 07/26/16 19:00 - 07/30/16 06:08 Intake Total 1712 ml 2021 ml 95306 ml Output Total 450 ml 1800 ml 7200 ml Balance 1262 ml 221 ml 31371 ml Intake Oral 0 ml 0 ml IV Total 1642 ml 1604 ml 66975 ml Tube Feeding 30 ml 297 ml 327 ml Tube Irrigant 40 ml 120 ml 160 ml Output Urine Total 450 ml 1800 ml 6550 ml Gastric Drainage Total 0 ml 0 ml 650 ml # Bowel Movements 0 0 0 Exam General: Sedated but wakes easily, tremulous, Intubated and mechanically ventilated. In no acute distress. HEENT: Normocephalic, atraumatic. External ears without defect. PERRLA, no scleral icterus, mucosa moist. Neck: No jugular venous distension. No bruits. No lymphadenopathy or thyromegaly. Cardiovascular: Regular rate and rhythm with no murmurs, rubs, or gallops appreciated Pulmonary: Symmetric chest rise with equal air entry bilaterally, mild expiratory wheezing. Abdomen: Bowel tones present. Soft, nondistended. No hepatosplenomegaly or masses appreciated. Extremities: Trace edema bilateral lower extremities, No clubbing, cyanosis, or lymphadenopathy appreciated. Skin: Normal temperature, turgor, and texture; no rash, ulcers, or subcutaneous nodules appreciated. Neurological: Difficult to asses due to patient condition. Pt is moving all four extremities, withdraws from pain. No known gait impairment. Psychiatric: Will need to revaluate when patient more awake. IVs and Medications Medications Reviewed: Medications were reviewed in detail Lab and Diagnostics White Blood Count 5.7, Red Blood Count 3.04, Hemoglobin 9.9, Hematocrit 30.7, Mean Corpuscular Volume 101.0, Mean Corpuscular Hemoglobin 32.6, Mean Corpuscular Hemoglobin Concent 32.2, Red Cell Distribution Width 13.3, Platelet Count 90, Neutrophils (%) (Auto) 58.6, Lymphocytes (%) (Auto) 24.5, Monocytes (% ) (Auto) 13.2, Eosinophils (%) (Auto) 2.6, Basophils (%) (Auto) 0.4 Sodium Level 145, Potassium Level 3.3, Chloride Level 106, Carbon Dioxide Level 23, Blood Urea Nitrogen 9, Creatinine 0.42, Estimat Glomerular Filtration Rate 220, Glucose Level 96, Calcium Level 7.7, Phosphorus Level 2.8, Magnesium Level 1.6, Total Bilirubin 0.3, Aspartate Amino Transf (AST/SGOT) 23, Alanine Aminotransferase (ALT/SGPT) 18, Alkaline Phosphatase 84, Total Protein 4.3, Albumin 2.4, Prealbumin 11 Result Diagram: 07/30/16 0315 07/30/16 0315 Microbiology Influenza screen negative. Sputum culture with few gram positive cocci, rare epithelial cells and rare polys.Blood cultures with no growth. MRSA screen pending. X-Rays, CTs and MRIs X-RAY CHEST ONE VIEW, PORTABLE (07/26/16) IMPRESSION: ET and NG tube as described above. Trace right-sided pleural fluid collection. Dictated and approved by: Alma Chen MD, PhD on 07/26/2016 at 19:02 X-RAY CHEST ONE VIEW, PORTABLE (07/28/16) IMPRESSION: New left medial basilar aspiration versus atelectasis versus pneumonia. Dictated and approved by: Anne Isaac M.D. on 07/28/2016 at 8:50 X-RAY CHEST ONE VIEW, PORTABLE (07/30/16)) IMPRESSION: Prominent appearance of multifocal opacities suggestive of airspace disease including pneumonia and/or atelectasis. Small areas of underlying edema cannot be definitively excluded. Dictated and approved by: Margarita Briggs M.D. on 07/30/2016 at 9:06 CT BRAIN WITHOUT CONTRAST (07/26/16) IMPRESSION: No acute intracranial disease process. Dictated and approved by: Alma Chen MD, PhD on 07/26/2016 at 19:19 12-lead ECG Sinus rhythm rate 77, QTC 519 ms, no acute ST segment changes Assessment & Plan Patricio Cardozo is a 61-year-old male with a history of substance abuse including : alcohol, marijuana and morphine, COPD, GIORGIO and right lower lobe lobectomy who presented to the ED via EMS after he was found unconscious by neighbor and intubated in the field. Admitted for acute alcohol intoxication with a blood alcohol level of 567 and acute respiratory failure. Hospital day #5 1. Acute hypoxic respiratory failure, present on admission. Active - hx of COPD and heavy alcohol abuse with a lethal dose of alcohol on admission. - Found by a neighbor unresponsive and covered in vomit. GCS reportedly 7. Intubated in the field. - CXR shows multifocal opacities - Lactic acid, WBC normalized (elevated on admission, likely due to hypoxia). - Continue ventilatory support and pressure support trials, per Pulmonology. 2. Acute alcohol intoxication, present on admission. Active. - Unclear whether this was a suicide attempt. CT of the brain was negative. - Will need to reevaluate, as pt is more awake. Consider psychiatric eval. - Sedation and alcohol withdrawal management, per Critical Care team. 3. Pneumonia, aspiration and community acquired. present on admission. Active - Pt found unresponsive, aspiration noted by medics. - Sputum culture grew Strep pneumoniae - Continue antibiotics, bronchodilators - Ventilator management and pressure support trials, per Pulmonology. - Monitor infectious markers. 4. Probable polypharmacy, present on admission. Active. - Urine toxicology screen positive for Cannabinoids. - Reportedly hx of opiate abuse - Discharge in January 2016, morphine sulfate 15mg po bid on active med list. - Monitor for signs/symptoms of opioid withdrawal. Narcotics per Critical Care. 5. COPD, present on admission. Active. - Does not appear in acute exacerbation. - Continue bronchodilators and antibiotics - Pressure support trial, per Pulmonology. 6. Chronic pain with long-term opiate use, present on admission. Active. - Monitor for signs/symptoms of opioid withdrawal. Narcotics/sedatives per Critical Care. - Reassess narcotics as patient wakes up. 7. History of depression, present on admission. Active. - Patient reportedly with hx of mental health issues, heavy alcohol and opiate abuse. - Unclear whether this was a suicide attempt. Patient's daughter is listed as DPOA. - Reevaluate when extubated and more awake. - Consider psychiatric consult in addition to regular social work. 8. Rosacea, chronic. present on admission. Active. -Continue home Metronidazole for Rosacea 9. Obstructive sleep apnea, chronic and reportedly with CPAP at home. present on admission. - Pt intubated and mechanically ventilated. - Will re-evaluate once extubated. - Attempt to contact pt's roommate, to potentially bring home CPAP 10. History of prediabetes, present on admission. Active - Serum glucose on admission, 89. Today 95. - HbA1c pending, continue to bedside glucose monitoring. - Add low-dose correctional insulin, if necessary. Acetaminophen-fever/headache/mild/moderate pain Antiemetics, as needed Bowel regimen, as needed. Disposition: Anticipated discharge in 2-3 days pending resolution of alcohol withdrawal and evaluation of patient's mental status when more awake and extubated. Pain Evaluation: Adequate Pain Control GI Prophylaxis: Proton Pump Inhibitor VTE Prophylaxis: Sub-Q Enoxaparin VTE Mechanical Devices: Intermittant Pneumatic CD Resuscitation Status: CPR: Attempt Resuscitation Limited Interventions: Compressions Attending Statement The patient was seen and examined together with Dr. Pan on 07-30-16 and I agree with the history, exam and plan as outlined in the note above. High risk meds include IV diazepam for etoh withdrawal. Elvia Pan DO Jul 30, 2016 09:26 Roderick Macedo MD Jul 31, 2016 08:04
[2016-07-30] MEDS: Thiamine Inj 100 MG in Dextrose 5% 50 ML IV SCH (13:35)
--- NOTE | 2016-07-30 14:24 | NUR ---
NUTRITION FOLLOW-UP: Assess: 61 YO M admitted to CCU with shock, acute alcohol intoxication, and aspiration pneumonia requiring intubation. Pts most recent CIWA was 16. Pt extubated today. OG was replaced with NG prior to extubation in anticipation of pt possibly not passing swallow eval. Prior to extubation pt was near goal rate for his nutrition. PMHX: COPD, ETOH abuse, GIORGIO. DIET: NPO. LABS: Reviewed. Na 145, K3.3, Cr 0.42, Ca 7.7, Albumin 2.4, Prealbumin 11 MEDICATIONS: Reviewed. Precedex GI: No BM noted. SKIN: no PU per WC WEIGHT: 82.7 kg, BMI 24.7 kg/m2, Admit wt: 80 kg. ESTIMATED NEEDS: Calories: 2123-5732 kcal/day (25-30 kcal/kg BW) Protein: 83-125 g/day (1-1.5 g/kg BW) Fluids: 0591-7604 ml/day (25-30 ml/kg) NUTRITION DIAGNOSIS: 1) Inadequate oral intake related to decreased ability to consume sufficient energy as evidenced by NPO/Vent status.--PERSISTS INTERVENTION: 1) Recommend new goal rate of [facility] @ 70 ml/hr to provide 2310 kcal/d and 96 g/d protein to meeting 100% of est needs. 2) If no IVF, recommend free fluid flush w/ 140 ml q 3 hrs to provide 2330 ml/d H2O. MONITOR/EVALUATE: ST, TF, labs, POC, GI/nutrition status. Follow per high nutrition risk guidelines.
--- NOTE | 2016-07-30 15:16 | NUR ---
Evaluation completed. Please go to "Notes" then click on "Assessments and Notes" (bottom left corner of screen). Then select appropriate discipline tab on top of screen.
[2016-07-30] MEDS: Polyethylene Glycol (PEG) 17 Gm Powder PO PRN (17:50)
[2016-07-31] VITALS (9 sets, daily range): BP systolic 116–131; BP diastolic 75–89; PULSE 66–88; RESP 16–22; O2SAT 91–99
[2016-07-31] MEDS: Ampicillin-Sulbactam Inj 3,000 MG in 0.9% Sodium Chloride 100 ML IV SCH ×3 (02:29→15:13)
[2016-07-31] MEDS: Morphine 20 mg/mL Oral Syringe SL/PO SCH ×6 (02:33→21:38)
[2016-07-31 03:56] LABS: BASOPHILS % (AUTO) 0.6 % (0-3); EOSINOPHILS % (AUTO) 2.2 % (0-5); MONOCYTES % (AUTO) 18.9 % (4-12); Mean Corpuscular Hemoglobin 32.7 pg (27.0-35.0); Mean Corpuscular Volume 100.3 fL (81-100); NEUTROPHILS % (AUTO) 54.2 % (40-74); Platelet Count 115 bil/L (150-400)
[2016-07-31 04:31] LABS: Magnesium 1.5 mg/dL (1.6-2.6)
--- NOTE | 2016-07-31 05:19 | NUR ---
Respiratory, Ciwa Vs as noted. Sats on 2l/nc mid 90s. Found on room air x2 with sats 90-91%. Denies shortness of breath. Encouraged to cough and deep breath. Complains of chest discomforts only with deep breathing treated effectively with pNGT morphine. Ciwa 9-8 this shift. Valium held 0400. Precedex 0.5mcg/kg/h continues. Tele sinus rhythm 70s. Tolerating tube feeds, now to goal 70ml/h, without residuals. No stools.
[2016-07-31] MEDS ORDERED: Potassium Chloride 20 mEq/15 mL 15mL Oral Soln TUBE ONE (07:10)
[2016-07-31] MEDS: Insulin LISPRO 300 Unit/3 mL Inj SUBQ SCH ×4 (08:00→22:00)
[2016-07-31] MEDS ORDERED: Magnesium Sulf 4 Gm/100 mL H2O 4 GM in IV Premix 1 EACH IV ONE (08:10)
[2016-07-31] MEDS: Multivit-Miner-Folic Acid-Iron Tablet PO SCH (08:30)
[2016-07-31] MEDS: Pantoprazole 4 mg/mL 10 mL Inj IVPUSH SCH (08:42)
[2016-07-31] MEDS: 0.9% Sodium Chloride 1,000 ML IV SCH ×2 (08:52→21:46)
[2016-07-31] MEDS: Albuterol 2.5 mg/3 mL Inhalation Solution NEB PRN (09:21)
[2016-07-31] MEDS: Budesonide 0.5 mg/2 mL Inhalation Solution NEB SCH ×2 (09:21→20:04)
--- NOTE | 2016-07-31 09:24 | PCM.PNMED ---
Subjective Date of Service Jul 31, 2016 Subjective Patricio Cardozo is a 61-year-old male with a history of substance abuse including : alcohol, marijuana and morphine, COPD, GIORGIO and right lower lobe lobectomy who presented to the ED via EMS after he was found unconscious by neighbor and intubated in the field. Admitted for acute alcohol intoxication with a blood alcohol level of 567 and acute respiratory failure. Hospital day #5 No acute events overnight. Patient extubated 07/30/16 without complications, SpO2 91% on room air and 98% on 2L nasal cannula. Alert and oriented x3 and states that he feels terrible. He denies fever, chills, abdominal pain, nausea, vomiting or diarrhea and endorses pain in his chest that is worse with deep inspiration. Per nursing, most recent CIWA score of 9, Precedex at 0.5mcg/kg/h and diazepam per CIWA protocol. Tolerating tubes at goal without residuals. Exam Vital Signs Vital Sign - Last Date Time Temp Pulse Resp B/P Pulse Ox O2 Delivery O2 Flow Rate FiO2 07/31/16 04:00 37.1 66 16 121/75 91 Room Air 07/31/16 00:00 2.00 07/30/16 08:30 40 Intake and Output 07/30/16 07/30/16 07/31/16 Cumulative From/Thru 15:00 23:00 07:00 07/26/16 19:00 - 07/31/16 05:17 Intake Total 1906 ml 1677 ml 15286 ml Output Total 1200 ml 2000 ml 00447 ml Balance 706 ml -323 ml 92143 ml Intake Oral 60 ml 60 ml IV Total 1568 ml 968 ml 33846 ml Tube Feeding 198 ml 669 ml 1194 ml Tube Irrigant 80 ml 40 ml 280 ml Output Urine Total 1200 ml 2000 ml 9750 ml Gastric Drainage Total 0 ml 650 ml # Bowel Movements 0 0 Exam General: Alert and oriented, appears uncomfortable but In no acute distress. HEENT: Normocephalic, atraumatic. External ears without defect. PERRLA, no scleral icterus, mucosa moist. Neck: No jugular venous distension. No bruits. No lymphadenopathy or thyromegaly. Cardiovascular: Regular rate and rhythm with no murmurs, rubs, or gallops appreciated Pulmonary: Symmetric chest rise with equal air entry bilaterally, mild expiratory wheezing. Abdomen: Bowel tones present. Soft, nondistended. No hepatosplenomegaly or masses appreciated. Extremities: No edema, clubbing,cyanosis, or lymphadenopathy appreciated. Skin: Normal temperature, turgor, and texture; no rash, ulcers, or subcutaneous nodules appreciated. Neurological: Cranial nerves II-XII grossly intact, no focal deficit. Psychiatric: Mood and affect appropriate. IVs and Medications Medications Reviewed: Medications were reviewed in detail Lab and Diagnostics White Blood Count 5.3, Red Blood Count 3.18, Hemoglobin 10.4, Hematocrit 31.9, Mean Corpuscular Volume 100.3, Mean Corpuscular Hemoglobin 32.7, Mean Corpuscular Hemoglobin Concent 32.6, Red Cell Distribution Width 13.0, Platelet Count 115, Neutrophils (%) (Auto) 54.2, Lymphocytes (%) (Auto) 23.0, Monocytes ( %) (Auto) 18.9, Eosinophils (%) (Auto) 2.2, Basophils (%) (Auto) 0.6 Sodium Level 139, Potassium Level 3.2, Chloride Level 100, Carbon Dioxide Level 26, Blood Urea Nitrogen 6, Creatinine 0.34, Estimat Glomerular Filtration Rate 280, Glucose Level 104, Calcium Level 8.0, Magnesium Level 1.5, Total Bilirubin 0.3, Aspartate Amino Transf (AST/SGOT) 22, Alanine Aminotransferase (ALT/SGPT) 17, Alkaline Phosphatase 90, Total Protein 5.3, Albumin 2.2, Procalcitonin 0.33 Result Diagram: 07/31/16 0345 07/31/16 0345 Microbiology Influenza screen negative. Sputum culture with few gram positive cocci, rare epithelial cells and rare polys.Blood cultures with no growth. MRSA screen pending. X-Rays, CTs and MRIs X-RAY CHEST ONE VIEW, PORTABLE (07/26/16) IMPRESSION: ET and NG tube as described above. Trace right-sided pleural fluid collection. Dictated and approved by: Alma Chen MD, PhD on 07/26/2016 at 19:02 X-RAY CHEST ONE VIEW, PORTABLE (07/28/16) IMPRESSION: New left medial basilar aspiration versus atelectasis versus pneumonia. Dictated and approved by: Anne Isaac M.D. on 07/28/2016 at 8:50 X-RAY CHEST ONE VIEW, PORTABLE (07/30/16)) IMPRESSION: Prominent appearance of multifocal opacities suggestive of airspace disease including pneumonia and/or atelectasis. Small areas of underlying edema cannot be definitively excluded. Dictated and approved by: Margarita Briggs M.D. on 07/30/2016 at 9:06 CT BRAIN WITHOUT CONTRAST (07/26/16) IMPRESSION: No acute intracranial disease process. Dictated and approved by: Alma Chen MD, PhD on 07/26/2016 at 19:19 12-lead ECG Sinus rhythm rate 77, QTC 519 ms, no acute ST segment changes Additional Diagnostics Troponin normal, LFTs only mildly elevated, lactic acid 3.4 probably from being down and hypoxic Assessment & Plan Patricio Cardozo is a 61-year-old male with a history of substance abuse including : alcohol, marijuana and morphine, COPD, GIORGIO and right lower lobe lobectomy who presented to the ED via EMS after he was found unconscious by neighbor and intubated in the field. Admitted for acute alcohol intoxication with a blood alcohol level of 567 and acute respiratory failure. Hospital day #6 1. Acute hypoxic respiratory failure, present on admission. Improving - hx of COPD and heavy alcohol abuse with a lethal dose of alcohol on admission. - Found by a neighbor unresponsive and covered in vomit. GCS reportedly 7 and patient intubated in the field. - CXR shows persistent multifocal opacities - Lactic acid, WBC normalized (elevated on admission, likely due to hypoxia). - Continue supplemental oxygen, titrate as tolerated. 2. Alcohol withdrawal, acute. not present on admission. Active. - Patient intoxicated on admission with blood alcohol level of 567. - Continue Precedex gtt and diazepam per [facility] protocol - Consider psychiatric consult, unclear whether this was suicide attempt. 3. Pneumonia, aspiration and community acquired. present on admission. Active - Pt found unresponsive, aspiration noted by medics. - Sputum culture grew Strep pneumoniae - Continue antibiotics, bronchodilators and titrate supplemental oxygen as tolerated - Monitor infectious markers. 4. Probable polypharmacy, present on admission. Active. - Urine toxicology screen positive for Cannabinoids. - Reportedly hx of opiate abuse - Discharge in January 2016, morphine sulfate 15mg po bid on active med list. - Monitor for signs/symptoms of opioid withdrawal. 5. COPD, present on admission. Stable. - Does not appear in acute exacerbation. - Continue bronchodilators 6. Chronic pain with long-term opiate use, present on admission. Active. - Monitor for signs/symptoms of opioid withdrawal. - Oral morhpine prn 7. History of depression, present on admission. Active. - Patient reportedly with hx of mental health issues, heavy alcohol and opiate abuse. - Unclear whether this was a suicide attempt. Patient's daughter is listed as DPOA. - Consider psychiatric consult in addition to regular social work. 8. Rosacea, chronic. present on admission. Active. -Continue home Metronidazole for Rosacea 9. Obstructive sleep apnea, chronic and reportedly with CPAP at home. present on admission. - Attempt to contact pt's roommate, to potentially bring home CPAP 10. History of prediabetes, present on admission. Active - Serum glucose on admission, 89. Today 105. - HbA1c pending, continue to bedside glucose monitoring. - Add low-dose correctional insulin, if necessary. 11. Acute alcohol intoxication, present on admission. Resolved. Acetaminophen-fever/headache/mild/moderate pain Antiemetics, as needed Bowel regimen, as needed. Disposition: Anticipated discharge in 2-3 days pending resolution of alcohol withdrawal and evaluation of patient's mental status. Pain Evaluation: Adequate Pain Control GI Prophylaxis: Proton Pump Inhibitor VTE Prophylaxis: Sub-Q Enoxaparin VTE Mechanical Devices: Intermittant Pneumatic CD Resuscitation Status: CPR: Attempt Resuscitation Limited Interventions: Compressions Attending Statement The patient was seen and examined together with Dr. Pan on 07-31-16 and I agree with the history, exam and plan as outlined in the note above. patient is on prn IV diazepam for etoh withdrawal. Elvia Pan DO Jul 31, 2016 09:24 Roderick Macedo MD Aug 01, 2016 15:10
[2016-07-31] MEDS: Thiamine Inj 100 MG in Dextrose 5% 50 ML IV SCH (10:28)
--- NOTE | 2016-07-31 11:38 | PROG NOTE ---
[address] [address] PROGRESS NOTE PATIENT: MARINA JOSUE : 1955 MR#: [id number] ADMIT: 07/26/2016 JOB ID: [id number] DATE: 07/31/2016 PULMONARY PROGRESS NOTE: SUBJECTIVE: The patient is a 61-year-old man with history of alcohol abuse, found down unresponsive, in respiratory failure. Intubated and being treated for alcohol withdrawal. INTERVAL HISTORY: He was extubated yesterday and has been doing well from a respiratory standpoint. He has continued to receive diazepam IV although his morning dose of 10 mg was held in the early hours today. He continues to score somewhat high on the CIWA scale periodically and has tremors but he is speaking to me appropriately, although somewhat lethargic. REVIEW OF SYSTEMS: Denies any chest pain, cough, fevers, chills. PHYSICAL EXAMINATION: Vital signs reviewed. Temperature 37.1, pulse 66, respiratory rate 16, BP 121/75, sats 91% on room air and 98% on 2 L nasal cannula. General: He is somewhat lethargic, but appropriately answering questions. Tremulous. Chest is clear to auscultation. LABORATORIES: Reviewed. WBC 5.3, hemoglobin 10.4, platelets 115. Chemistry also reviewed. Procalcitonin is down to 0.33. Cultures: Strep pneumo from the sputum on July 26. ASSESSMENT: 1. Acute hypoxic respiratory failure-intubated July 26, extubated July 30. 2. Aspiration pneumonitis/pneumonia. 3. Pneumococcal pneumonia. 4. Acute alcohol withdrawal. 5. Sepsis. RECOMMENDATIONS: A 61-year-old man found down unresponsive at home, intubated in the field, and being treated for alcohol withdrawal and pneumococcal pneumonia. He was extubated yesterday and has been doing well from a respiratory standpoint, but still going through alcohol withdrawal. His diazepam was increased to 10 mg q.6 h. yesterday and will cut back down to 5 mg q.4 h. today because his wood room hand dose was held. Precedex has been turned off and the plan is to transition him to [facility] status today. Pulmonary service is available for issues if needed, but will not plan on following the patient. He is getting Unasyn and I recommend completing a seven day course of this.
--- NOTE | 2016-07-31 13:19 | NUR ---
NUTRITION FOLLOW-UP: Assess: 61 YO M admitted to CCU with shock, acute alcohol intoxication, and aspiration pneumonia requiring intubation. Pt. extubated yesterday; OG replaced by NG prior to extubation to continue enteral feeding until PO intake consistently meeting > 50% nutrient needs. Enteral feeding currently at goal rate, well tolerated. Diet advanced today to stimulation texture, no liquids, which will provide minimal nutrition. CIWA protocol remains in effect, with CIWA scores in the 8 - 9 range today. PMHX: COPD, ETOH abuse, GIORGIO. DIET: Stimulation, no liquids. Pulmocare at goal rate 70 ml/hr, providing 2310 kcal/d and 96 g/d protein to meeting 100% of est needs. LABS: Reviewed. K+ 3.2, BUN 6, Cr 0.34, Glu 104, Ca 8.0, Mg 1.5, Alb 2.2. MEDICATIONS: Reviewed. Precedex, valium. GI: No BM noted since admit x 5 D. SKIN: No PU per WC. Gomez 16. WEIGHT: 82.9 kg, BMI 24.0 kg/m2, Admit wt: 80 kg. ESTIMATED NEEDS: Calories: 5837-0548 kcal/day (25-30 kcal/kg BW) Protein: 83-125 g/day (1-1.5 g/kg BW) Fluids: 2129-0112 ml/day (25-30 ml/kg) NUTRITION DIAGNOSIS: 1) Inadequate oral intake related to decreased ability to consume sufficient energy as evidenced by NPO/Vent status - IMPROVED WITH DIET ADVANCE AND ENTERAL FEEDING AT GOAL RATE. INTERVENTION: 1) once diet advanced, will add appropriate supplements to trays. 2)If no IVF and patient not fluid overloaded, recommend free fluid flush w/ 140 ml q 3 hrs to provide 2330 ml/d H2O. MONITOR/EVALUATE: Enter feeding tolerance, diet advance / tolerance, labs, POC, GI/nutrition status. Follow per moderate nutrition risk guidelines.
[2016-07-31] MEDS: Ondansetron 2 mg/mL 2 mL Inj IVPUSH PRN (13:59)
--- NOTE | 2016-07-31 16:29 | NUR ---
Transfer Pt transferred from CCU status to PCU status at 0830. Pt transferred out of room #2015 to #2006 at 1615. Report given to DARIEL Choudhury.
--- NOTE | 2016-07-31 19:15 | NUR ---
[facility] Care of pt. transferred to [place] around 1630. Pt. denies chest pain, SOB, N/V. Does complain of strong back pain. Morphine administered. CIWA score of 1. Only positive finding is slight tremors. Pt. Does not have any questions and concerns at this time. Oriented to call light.
[2016-08-01] VITALS (10 sets, daily range): BP systolic 110–145; BP diastolic 74–86; PULSE 70–91; RESP 16–20; O2SAT 93–97
[2016-08-01] MEDS: Ampicillin-Sulbactam Inj 3,000 MG in 0.9% Sodium Chloride 100 ML IV SCH ×5 (00:29→20:49)
[2016-08-01] MEDS: Morphine 20 mg/mL Oral Syringe SL/PO SCH ×6 (00:37→21:25)
[2016-08-01 03:52] LABS: Mean Corpuscular Volume 99.7 fL (81-100)
[2016-08-01 04:01] LABS: BASOPHILS % (AUTO) 1.2 % (0-3); EOSINOPHILS % (AUTO) 3.2 % (0-5); NEUTROPHILS % (AUTO) 45.3 % (40-74); Platelet Count 165 bil/L (150-400)
[2016-08-01 04:17] LABS: Magnesium 1.9 mg/dL (1.6-2.6); Phosphorus 3.7 mg/dL (2.5-4.9)
--- NOTE | 2016-08-01 04:51 | NUR ---
Pain/sleep. C/O pain shoulder 02/01 , unable to sleep , gave 4 Mg PO liquid Morphine per schedule Gave scheduled 5 Mg IV Diazepam. 2 L O2 per [place] Tele SR=mid 80's/ NS@ 80, Morrell draining yellow urine to gravity . A&O x3 using call light appropriately .
[2016-08-01] MEDS: Insulin LISPRO 300 Unit/3 mL Inj SUBQ SCH ×4 (08:00→21:32)
[2016-08-01] MEDS: Multivit-Miner-Folic Acid-Iron Tablet PO SCH (08:14)
[2016-08-01] MEDS: Pantoprazole 4 mg/mL 10 mL Inj IVPUSH SCH (08:14)
[2016-08-01] MEDS: Budesonide 0.5 mg/2 mL Inhalation Solution NEB SCH ×2 (10:01→19:48)
[2016-08-01] MEDS: Dexmedetomidine 400 mCg/100 mL 400 MCG in IV Premix 1 EACH IV SCH (10:45)
[2016-08-01] MEDS: Tiotropium 18mcg/Cap 5 Capsule Inhaler Kit INHALATION SCH (11:19)
[2016-08-01] MEDS: Thiamine Inj 100 MG in Dextrose 5% 50 ML IV SCH (11:20)
--- NOTE | 2016-08-01 12:37 | NUR ---
NUTRITION FOLLOW-UP: Assess: 61 YO M admitted to CCU with shock, acute alcohol intoxication, and aspiration pneumonia requiring intubation. Pt. extubated 07/30; OG replaced by NG prior to extubation to continue enteral feeding until PO intake consistently meeting > 50% nutrient needs. Enteral feeding was currently at goal rate yesterday; however, it seems that it was not continued once patient transferred to [facility] yesterday. The RN stated in case management rounds thir morning that enteral feeding order was not passed on in report. There is no mention of discontinuation of enteral feeding in [employer] Diet advanced yesterday to stimulation texture, no liquids, which will provide minimal nutrition. CIWA protocol remains in effect, with CIWA scores low today. PMHX: COPD, ETOH abuse, GIORGIO. DIET: Stimulation, no liquids. ENTERAL FEEDING DISCONTINUED: Pulmocare at goal rate 70 ml/hr, providing 2310 kcal/d and 96 g/d protein to meeting 100% of est needs. LABS: Reviewed. CO2 30, BUN 6, Cr 0.55, Ca 8.3, Alb 2.3. MEDICATIONS: Reviewed. Valium, thiamine, insulin. GI: BM x 2 yesterday. SKIN: No PU per WC. Gomez 17. WEIGHT: 71.9 kg, BMI 21.0 kg/m2, Admit wt: 80 kg. ESTIMATED NEEDS: Calories: 9326-6119 kcal/day (25-30 kcal/kg BW) Protein: 83-125 g/day (1-1.5 g/kg BW) Fluids: 1445-0651 ml/day (25-30 ml/kg) NUTRITION DIAGNOSIS: 1) Inadequate oral intake related to decreased ability to consume sufficient energy as evidenced by NPO status - PERSISTS. INTERVENTION: 1) In the event diet unable to be advanced today, strongly recommend restart enteral feeding, per previous recommendations. 2)Once diet advanced, will add appropriate supplements to trays. MONITOR/EVALUATE: Diet advance / tolerance, labs, POC, GI/nutrition status. Follow per high nutrition risk guidelines.
--- NOTE | 2016-08-01 15:26 | NUR ---
Social Work Continued Discharge Planning D: EMR reviewed. Pt is on dya 6 of hospitalization for Shock. Pt is not medically stable at this time. Pt likely requiring another 2+ days of hospitalization. Pt extubated. Pt's CIWA scores are low at this time. Pt ambulating independently. Pt is [facility] and requires a CD assessment prior to discharge. SW to offer [facility] as CD resource at time of assessment. SW to follow and complete CD. A: Pt with CD resources P: Pt is [facility] and requires a CD assessment prior to discharge. SW to offer [facility] as CD resource at time of assessment. SW to follow and complete CD. WENDY Vanessa
--- NOTE | 2016-08-01 18:18 | PCM.PNMED ---
Subjective Date of Service Aug 01, 2016 Subjective Patricio Cardozo is a 61-year-old male with a history of substance abuse including : alcohol, marijuana and morphine, COPD, GIORGIO and right lower lobe lobectomy who presented to the ED via EMS after he was found unconscious by neighbor and intubated in the field. Admitted for acute alcohol intoxication with a blood alcohol level of 567 and acute respiratory failure. Hospital day #5 Overnight: There are no acute events. The patient received morphine for shoulder pain with moderate relief. Telemetry overnight: Sinus rhythm, heart rate 70s to 90s, occasional PACs. The patient is resting in bed comfortably and in no acute distress. He denies headache, palpitations, chest pain, shortness of breath, tremulousness, abdominal pain, nausea, vomiting, diarrhea, or constipation. He endorses sore throat. Per nursing, most recent CIWA score of 2-3. Continue diazepam per CIWA protocol. Patient has normal appetite and his diet is being slowly advanced by speech therapy. He continues to work with physical therapy daily. . Exam Vital Signs Vital Sign - Last Date Time Temp Pulse Resp B/P Pulse Ox O2 Delivery O2 Flow Rate FiO2 08/01/16 15:42 37.0 76 18 124/82 95 Nasal Cannula 2.00 07/30/16 08:30 40 Intake and Output 07/31/16 07/31/16 08/01/16 Cumulative From/Thru 14:59 22:59 06:59 07/26/16 19:00 - 08/01/16 06:02 Intake Total 602 ml 1209 ml 94270 ml Output Total 3650 ml 1300 ml 56137 ml Balance -3048 ml -91 ml 8566 ml Intake Oral 602 ml 200 ml 862 ml IV Total 1009 ml 46215 ml Tube Feeding 1194 ml Tube Irrigant 280 ml Output Urine Total 3650 ml 1300 ml 51705 ml Gastric Drainage Total 650 ml # Bowel Movements 2 2 Exam General: Alert and oriented, appears uncomfortable and in no acute distress. HEENT: Normocephalic, atraumatic. External ears without defect. Pupils equal, round, reactive to light. No scleral icterus, mucosa moist. Neck: Supple with normal range of motion. No lymphadenopathy or thyromegaly. Cardiovascular: Regular rate and rhythm with no murmurs, rubs, or gallops appreciated Pulmonary: Symmetric chest rise with equal air entry bilaterally, mild expiratory wheezing. Abdomen: Soft, nontender, nondistended, bowel sounds present. No hepatosplenomegaly or masses appreciated. Extremities: No edema, clubbing, or cyanosis. Skin: Normal temperature, turgor, and texture; no rash, ulcers, or subcutaneous nodules appreciated. Neurological: Cranial nerves II-XII grossly intact, no focal deficit. Psychiatric: Mood and affect appropriate. . IVs and Medications Medications Reviewed: Medications were reviewed in detail Lab and Diagnostics Item Value Date Time Calcium Level 8.3 mg/dL L 08/01/16 0320 Phosphorus Level 3.7 mg/dL 08/01/16 0320 Magnesium Level 1.9 mg/dL 08/01/16 0320 Total Bilirubin 0.4 mg/dL 08/01/16 0320 Aspartate Amino Transf (AST/SGOT) 26 U/L 08/01/16 0320 Alanine Aminotransferase (ALT/SGPT) 15 U/L 08/01/16 0320 Alkaline Phosphatase 80 U/L 08/01/16 0320 Total Protein 5.4 g/dL L 08/01/16 0320 Albumin 2.3 g/dL L 08/01/16 0320 Procalcitonin 0.20 ng/mL 08/01/16 0320 Result Diagram: 08/01/16 0320 08/01/16 032 Microbiology Influenza screen negative. Sputum culture grew Streptococcus pneumoniae resistant to erythromycin. Blood cultures with no growth x5 days. MRSA screen negative. Respiratory viral PCR negative. Strep pneumonia and Legionella urine antigens negative. . X-Rays, CTs and MRIs X-RAY CHEST ONE VIEW, PORTABLE (07/26/16) IMPRESSION: ET and NG tube as described above. Trace right-sided pleural fluid collection. Dictated and approved by: Alma Chen MD, PhD on 07/26/2016 at 19:02 X-RAY CHEST ONE VIEW, PORTABLE (07/28/16) IMPRESSION: New left medial basilar aspiration versus atelectasis versus pneumonia. Dictated and approved by: Anne Isaac M.D. on 07/28/2016 at 8:50 X-RAY CHEST ONE VIEW, PORTABLE (07/30/16)) IMPRESSION: Prominent appearance of multifocal opacities suggestive of airspace disease including pneumonia and/or atelectasis. Small areas of underlying edema cannot be definitively excluded. Dictated and approved by: Margarita Briggs M.D. on 07/30/2016 at 9:06 CT BRAIN WITHOUT CONTRAST (07/26/16) IMPRESSION: No acute intracranial disease process. Dictated and approved by: Alma Chen MD, PhD on 07/26/2016 at 19:19 12-lead ECG Sinus rhythm rate 77, QTC 519 ms, no acute ST segment changes Additional Diagnostics Troponin normal, LFTs only mildly elevated, lactic acid 3.4 probably from being down and hypoxic Assessment & Plan Patricio Cardozo is a 61-year-old male with a history of substance abuse including : alcohol, marijuana and morphine, COPD, GIORGIO and right lower lobe lobectomy who presented to the ED via EMS after he was found unconscious by neighbor and intubated in the field. Admitted for acute alcohol intoxication with a blood alcohol level of 567 and acute respiratory failure. Hospital day #6 1. Acute hypoxic respiratory failure, present on admission. Improving - History of COPD and heavy alcohol abuse with a lethal dose of alcohol on admission. - Found by a neighbor unresponsive and covered in vomit. GCS reportedly 7 and patient intubated in the field. - CXR shows persistent multifocal opacities. - Lactic acid, WBC normalized (elevated on admission, likely due to hypoxia). - Continue supplemental oxygen, titrate as tolerated. 2. Alcohol withdrawal, acute. not present on admission. Active. - Patient intoxicated on admission with blood alcohol level of 567. - Continue Precedex gtt and diazepam per [facility] protocol - Consider psychiatric consult, unclear whether this was suicide attempt. 3. Pneumonia, aspiration and community acquired. present on admission. Active - Pt found unresponsive, aspiration noted by medics. - Sputum culture grew Strep pneumoniae resistant to erythromycin as above. - Continue Unasyn, bronchodilators and titrate off of supplemental oxygen as tolerated. - Monitor infectious markers. 4. Probable polypharmacy, present on admission. Active. - Urine toxicology screen positive for Cannabinoids. - Reportedly hx of opiate abuse. - Discharge in January 2016, morphine sulfate 15mg po bid on active med list. - Monitor for signs/symptoms of opioid withdrawal. 5. COPD, present on admission. Stable. - Does not appear in acute exacerbation. - Continue bronchodilators. 6. Chronic pain with long-term opiate use, present on admission. Active. - Monitor for signs/symptoms of opioid withdrawal. - Oral morphine Prn. 7. History of depression, present on admission. Active. - Patient reportedly with hx of mental health issues, heavy alcohol and opiate abuse. - Unclear whether this was a suicide attempt. Patient's daughter is listed as DPOA. - Consider psychiatric consult in addition to regular social work. 8. Rosacea, chronic. present on admission. Active. -Continue home Metronidazole for Rosacea. 9. Obstructive sleep apnea, chronic and reportedly with CPAP at home. present on admission. - Attempt to contact pt's roommate, to potentially bring home CPAP 10. History of prediabetes, present on admission. Active - Serum glucose on admission, 89. Today 105. - HbA1c pending, continue to bedside glucose monitoring. - Add low-dose correctional insulin, if necessary. 11. Acute alcohol intoxication, present on admission. Resolved. Acetaminophen-fever/headache/mild/moderate pain Antiemetics, as needed Bowel regimen, as needed. Disposition: Anticipated discharge in 2-3 days pending resolution of alcohol withdrawal and evaluation of patient's mental status. . GI Prophylaxis: Proton Pump Inhibitor VTE Prophylaxis: Sub-Q Enoxaparin VTE Mechanical Devices: Intermittant Pneumatic CD Resuscitation Status: CPR: Attempt Resuscitation Limited Interventions: Compressions Attending Statement The patient was seen and examined together with Dr. Garcia on 08-01-16 and I agree with the history, exam and plan as outlined in the note above. Patient is on prn IV Valium as part of etoh withdrawal protocol. Matilda Garcia DO Aug 01, 2016 18:18 Roderick Macedo MD Aug 02, 2016 08:34
--- NOTE | 2016-08-01 19:35 | NUR ---
Activity Pt willing to work briefly with PT today, see PT note for details. Pt verbalized that he had been instructed to stay in bed, Pt encouraged to call for assistance with getting up OOB, Pt verbalized that he would.
[2016-08-02] MEDS: Morphine 20 mg/mL Oral Syringe SL/PO SCH ×4 (01:41→12:26)
[2016-08-02 02:58] VITALS: PULSE 80
[2016-08-02 03:05] LABS: BASOPHILS % (AUTO) 1.4 % (0-3); MONOCYTES % (AUTO) 24.1 % (4-12); Mean Corpuscular Hemoglobin 32.5 pg (27.0-35.0); Mean Corpuscular Volume 99.1 fL (81-100); NEUTROPHILS % (AUTO) 40.1 % (40-74); Platelet Count 177 bil/L (150-400)
[2016-08-02] MEDS: Ampicillin-Sulbactam Inj 3,000 MG in 0.9% Sodium Chloride 100 ML IV SCH ×2 (03:08→08:06)
[2016-08-02 03:24] LABS: Magnesium 1.7 mg/dL (1.6-2.6)
--- NOTE | 2016-08-02 03:46 | NUR ---
Pain: Pt. complaining of 6-8/10 bilateral shoulder pain during shift. Scheduled morphine administered, with good effect. After each morphine administration, pt. appeared to be sleeping soundly in room. Pt. states tolerable pain level as 5/10. No overt signs or symptoms of distress during shift. Pt. calm throughout shift with flat affect.
[2016-08-02 04:25] VITALS: BP 122/75; PULSE 73; RESP 16; O2SAT 95
[2016-08-02] MEDS ORDERED: 0.9% Sodium Chloride 250 ML ONE (07:56)
[2016-08-02] MEDS: Insulin LISPRO 300 Unit/3 mL Inj SUBQ SCH ×2 (08:00→12:00)
[2016-08-02] MEDS: Pantoprazole 4 mg/mL 10 mL Inj IVPUSH SCH (08:07)
[2016-08-02] MEDS: Multivit-Miner-Folic Acid-Iron Tablet PO SCH (08:07)
[2016-08-02] MEDS: Tiotropium 18mcg/Cap 5 Capsule Inhaler Kit INHALATION SCH (08:08)
[2016-08-02 08:10] VITALS: BP 144/89; PULSE 80; RESP 18; O2SAT 96
[2016-08-02] MEDS: Budesonide 0.5 mg/2 mL Inhalation Solution NEB SCH (08:32)
[2016-08-02 08:33] VITALS: PULSE 82; RESP 18; O2SAT 96
[2016-08-02] MEDS: Albuterol 2.5 mg/3 mL Inhalation Solution NEB PRN (08:33)
[2016-08-02] MEDS: Thiamine Inj 100 MG in Dextrose 5% 50 ML IV SCH (09:04)
[2016-08-02 09:58] VITALS: PULSE 83
--- NOTE | 2016-08-02 10:27 | PCM.DIMED ---
Elvia Pan DO 08/02/16 1017: Discharge Instructions Date of Service Aug 02, 2016 Dates of Hospitalization Jul 26, 2016 at 20:30 Discharge Diagnosis Discharge Diagnosis 1. Acute hypoxic respiratory failure, present on admission. Resolved 2. Acute alcohol intoxication, present on admission. Resolved. 3. Acute alcohol withdrawal, not present on admission. Resolved 4. Pneumonia, aspiration and community acquired. present on admission. Treated. Resolved 5. Probable polypharmacy, present on admission. Active. 6. COPD, present on admission. Stable. 7. Chronic pain with long-term opiate use, present on admission. Stable 8. History of depression, present on admission. Ongoing 9. Rosacea, chronic. present on admission. Stable. 10. Obstructive sleep apnea, chronic and reportedly with CPAP at home. present on admission. Stable 11. History of prediabetes, present on admission. Stable Diet Low fat, Low Sodium, Heart Healthy Activity No restrictions Call your provider Fever or Chills, Shortness of breath, Chest pain, Weakness (unilateral) Patient Instructions You were treated for pneumonia during this hospital stay and it is important that you follow up with your primary physician. The pneumonia was treated with antibiotics but can persist on chest xrays for several weeks and you will need to have repeat chest xrays. You were also treated for alcohol intoxication and alcohol withdrawal. We recommend follow up with your primary care physician within one week to discuss this hospital stay and options for alcohol treatment programs and/or counseling. Please review the resources for alcohol treatment programs that were supplied to you at the time of discharge with your primary physician. . Follow-up plan Follow up with primary care provider within one week. [facility] [address] [place] [address] . Follow-up Provider: [facility] Follow-up with PCP in: 1 week Roderick Macedo MD 08/10/16 0918: Discharge Instructions Attending's Statement The patient was seen and examined together with Dr. Pan on 08-02-16 and I agree with the history, exam and plan as outlined in the note above. Elvia Pan DO Aug 02, 2016 10:17 Roderick Macedo MD Aug 10, 2016 09:18
[2016-08-02] MEDS: Dexmedetomidine 400 mCg/100 mL 400 MCG in IV Premix 1 EACH IV SCH (10:45)
--- NOTE | 2016-08-02 11:17 | NUR ---
Social Work Chemical Dependency/Discharge Pt is medically stable and discharging home via POV with sober roommate to provide transport/support at discharge. Pt provide with CD resources and Crisis Line Number Current Circumstances/Reason for Referral: Pt os a 61 Y old male who arrived to [facility] vis EMS on 07/26/16. Pt intubated with BAL over 500. 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 Pt reports occasion THC use. Pt reports drinking 1 quart of Vodka/day on a daily basis. History of Treatment Programs: Pt reports he has engaged in both inpatient and outpatient CD services, again without providing time line. History of Withdrawal Symptoms: Pt denies seizure with withdrawal. Pt reports shaking and insomnia. Family History: Pt reports father was an alcoholic. No other family history History of Sobriety and Supports: Pt reports engaging in AA/NA/CA meetings in the past Patients Perception of use-Contemplating Change: Pt stated "I think I've learned my lesson this time." Pt reports his roommate is a strong sober support. Pt reports he plans on returning to AA meetings. Suicide Risk Assessment: Pt denies any historical/current SI/HI. Recommendation for referral and follow up: Pt provided with [facility] contact information as well as local outpt resources. SW provided Pt with "Rethinking Drinking" and the Crisis Line Number.
[2016-08-02 12:12] VITALS: BP 142/83; PULSE 80; RESP 20; O2SAT 96
--- NOTE | 2016-08-02 13:25 | NUR ---
Discharge Pt. discharged with friend and took all belongings with hi, PT. instructed to call and make an appointment with the [place] [facility] in [facility] tomorrow for a follow up appointment with his PCP, Pt. verbalized understanding. Pt. IV on right forearm DC'D and intact, mullins DC'd as well ~1110. Pt. voided on 225mL on his own. Pt. given educational material on alcohol abuse.
--- NOTE | 2016-08-02 20:28 | PCM.DC.MED ---
Discharge Summary Date of Service Aug 02, 2016 Dates of Hospitalization Date of Hospital Admission Jul 26, 2016 at 20:30 Date of Discharge: Aug 02, 2016 Providers: Admitting Physician: Tyler Mai MD [facility] Attending Physician: Tyler Mai MD Diagnosis at Time of Discharge Diagnosis at Time of Discharge 1. Acute hypoxic respiratory failure, present on admission. Resolved 2. Acute alcohol intoxication, present on admission. Resolved. 3. Acute alcohol withdrawal, not present on admission. Resolved 4. Pneumonia, aspiration and community acquired. present on admission. Treated. Resolved 5. Probable polypharmacy, present on admission. Active. 6. COPD, present on admission. Stable. 7. Chronic pain with long-term opiate use, present on admission. Stable 8. History of depression, present on admission. Ongoing 9. Rosacea, chronic. present on admission. Stable. 10. Obstructive sleep apnea, chronic and reportedly with CPAP at home. present on admission. Stable 11. History of prediabetes, present on admission. Stable Procedures XRay, CTs & MRIs X-RAY CHEST ONE VIEW, PORTABLE (07/26/16) IMPRESSION: ET and NG tube as described above. Trace right-sided pleural fluid collection. Dictated and approved by: Alma Chen MD, PhD on 07/26/2016 at 19:02 X-RAY CHEST ONE VIEW, PORTABLE (07/28/16) IMPRESSION: New left medial basilar aspiration versus atelectasis versus pneumonia. Dictated and approved by: Anne Isaac M.D. on 07/28/2016 at 8:50 X-RAY CHEST ONE VIEW, PORTABLE (07/30/16)) IMPRESSION: Prominent appearance of multifocal opacities suggestive of airspace disease including pneumonia and/or atelectasis. Small areas of underlying edema cannot be definitively excluded. Dictated and approved by: Margarita Briggs M.D. on 07/30/2016 at 9:06 CT BRAIN WITHOUT CONTRAST (07/26/16) IMPRESSION: No acute intracranial disease process. Dictated and approved by: Alma Chen MD, PhD on 07/26/2016 at 19:19 ECG 12 Lead Sinus rhythm rate 77, QTC 519 ms, no acute ST segment changes Brief History Per admission history and physical (07/26/16) Tyler Mai MD 61-year-old with known all abuse history and COPD found down by a neighbor now intubated. Remainder of history and physical is obtained from the chart and physical exam as patient is unconscious and nothing else is known and he is not able to respond. Found unconscious surrounded by alcohol with a blood alcohol of 567. Hospital Course Patricio Cardozo is a 61-year-old male with a history of substance abuse including : alcohol, marijuana and morphine, COPD, GIORGIO and right lower lobe lobectomy who presented to the ED via EMS after he was found unconscious by neighbor and intubated in the field. Admitted for acute alcohol intoxication with a blood alcohol level of 567 and acute respiratory failure. 1. Acute hypoxic respiratory failure, present on admission. Resolved - Patient was found by a neighbor unresponsive and covered in vomit. Per EMS, GCS 7 on arrival and patient intubated in the field. - Secondary to alcohol intoxication and pneumonia. CXR showed persistent multifocal opacities. - Patient completed 7 day course of ampicillin-sulbactam for aspiration pneumonia. - Extubated 07/30/16 without complications and received supplemental oxygen as needed. 2. Acute alcohol intoxication, present on admission. Resolved. - Patient intoxicated on admission with blood alcohol level of 567. - Admitted to the CCU, intubated and sedated. Treatment for withdrawal as below. 3. Acute alcohol withdrawal, not present on admission. Active. - Received IV Diazepam, Precedex and ativan per [facility] protocol as well as daily thiamine, 100mg. 4. Pneumonia, aspiration and community acquired. present on admission. Treated/ Resolved. - Patient found unresponsive, aspiration noted by medics. Sputum culture grew Strep pneumoniae. - Antibiotics as above in #1. - Recommend repeat CXR in several weeks to assess for resolution of pneumonia as well as possible underlying malignancy. 5. Probable polypharmacy, present on admission. Ongoing - Urine toxicology screen positive for Cannabinoids and patient reportedly with hx of opiate abuse. - He was discharged in January of 2016 with morphine sulfate, 15mg po bid on active med list. - Patient was monitored for signs/symptoms of opioid withdrawal and received IV fentanyl while intubated/sedated and low doses oxycodone when taking PO for pain /possible opiate withdrawal. 6. COPD, present on admission. Stable. - Patient with history of COPD, did not appear to be in acute exacerbation. - Continued bronchodilators equivalent to home regimen 7. Chronic pain with long-term opiate use, present on admission. Stable. - Patient was monitored for signs/symptoms of opioid withdrawal. - Opiates as above, #5. 8. History of depression, present on admission. Active. - Patient reportedly with hx of mental health issues, heavy alcohol and opiate abuse. - Unclear whether this was a suicide attempt. Recommend outpatient psychiatric evaluation and counseling. 9. Rosacea, chronic. present on admission. Stable. -Continued home Metronidazole for Rosacea. 10. Obstructive sleep apnea, chronic and reportedly with CPAP at home. present on admission. Stable 11. History of prediabetes, present on admission. Stable - Serum glucose on admission, 89. - Monitored blood glucose. - Did not require insulin. - HbA1c pending at time of discharge, Exam Vital Signs (Last) Date Time Temp Pulse Resp B/P Pulse Ox O2 Delivery O2 Flow Rate FiO2 08/02/16 09:58 83 08/02/16 08:33 18 96 Nasal Cannula 2.00 08/02/16 04:25 36.9 122/75 07/30/16 08:30 40 Exam General: Alert and oriented, appears uncomfortable but In no acute distress. HEENT: Normocephalic, atraumatic. External ears without defect. PERRLA, no scleral icterus, mucosa moist. Neck: No jugular venous distension. No bruits. No lymphadenopathy or thyromegaly. Cardiovascular: Regular rate and rhythm with no murmurs, rubs, or gallops appreciated Pulmonary: Symmetric chest rise with equal air entry bilaterally,lungs clear to auscultation bilaterally. Abdomen: Bowel tones present. Soft, nondistended. No hepatosplenomegaly or masses appreciated. Extremities: No edema, clubbing,cyanosis, or lymphadenopathy appreciated. Skin: Normal temperature, turgor, and texture; no rash, ulcers, or subcutaneous nodules appreciated. Neurological: Cranial nerves II-XII grossly intact, no focal deficit. Psychiatric: Mood and affect appropriate. Test 07/26/16 18:30 07/26/16 18:32 07/27/16 11:30 07/27/16 16:35 Prothrombin Time 9.1sec (8.1-12.5) Prothromb Time International Ratio 0.85ratio Total Creatine Kinase 109U/L (21-232) Troponin T < 0.010ug/L (0.0-0.011) Salicylates Level < 3.0ug/mL (30-250) Acetaminophen Level < 15.0ug/mL Rx (10-25) Alcohol, Quantitative 567mg/dL (0-10) Urine Color Yellow (YELLOW) Urine Appearance Clear (CLEAR,HAZY) Urine pH 6.0 (5.0-8.0) Urine Specific [place] 1.020 (1.003-1.035) Urine Protein Tracemg/dL (NEG,TRACE) Urine Glucose (UA) Negativemg/dL (NEGATIVE) Urine Ketones 15mg/dL (NEGATIVE) Urine Occult Blood Trace (NEGATIVE) Urine Nitrite Negative (NEGATIVE) Urine Bilirubin Negative (NEGATIVE) Urine Urobilinogen Normalmg/dL (NORMAL) Urine Leukocyte Esterase Negative (NEGATIVE) Urine RBC 0-2/hpf (0-2) Urine WBC 0-5/hpf (0-5) Urine Epithelial Cells Few/hpf (NONE-MOD) Urine Crystals Amorphous urates (NONE Urine Bacteria Few/hpf (NONE-FEW) Urine Hyaline Casts None/lpf (NONE) Urine Granular Casts None seen (NONE SEEN) Urine Waxy Casts None seen (NONE SEEN) Urine Red Blood Cell Casts None seen (NONE SEEN) Urine White Blood Cell Casts None seen (NONE SEEN) Urine Mucus Present (None Seen) Urine Trichomonas None seen (NONE SEEN) Urine Yeast None (NONE SEEN) Urinalysis Comment None Urine Culture Reflexed Not indicated Urine Opiates Screen Negative Urine Methadone Screen Negative Urine Barbiturates Screen Negative Urine Amphetamines Screen Negative Urine Benzodiazepines Screen Negative Urine Cocaine Metabolite Screen Negative Urine Cannabinoids Screen Positive Urine Legionella pneumophilia Ag Negative (Negative) Ionized Calcium 1.10mmol/L (1.17-1.32) Thyroid Stimulating Hormone (TSH) 1.330uIU/mL (0.450-4.500) Lactic Acid Level 1.9mmol/L (0.4-2.0) Test 07/28/16 12:00 07/28/16 15:00 07/30/16 03:15 08/01/16 03:20 Activated Partial Thromboplast Time 35.7sec (22.8-33.0) Fibrinogen 638mg/dL (157-380) Hold Urine Received (Received) Prealbumin 11mg/dL (20-40) Phosphorus Level 3.7mg/dL (2.5-4.9) Procalcitonin 0.20ng/mL (See Comment) Test 08/02/16 02:45 White Blood Count 5.6th/mm3 (3.8-10.1) Red Blood Count 3.35mil/mm3 (4.40-5.80) Hemoglobin 10.9g/dL (13.8-17.2) Hematocrit 33.2% (41.0-50.0) Mean Corpuscular Volume 99.1fL (81-100) Mean Corpuscular Hemoglobin 32.5pg (27.0-35.0) Mean Corpuscular Hemoglobin Concent 32.8% (32.0-37.0) Red Cell Distribution Width 12.7% (12.3-15.4) Platelet Count 177bil/L (150-400) Neutrophils (%) (Auto) 40.1% (40-74) Lymphocytes (%) (Auto) 29.8% (14-46) Monocytes (%) (Auto) 24.1% (4-12) Eosinophils (%) (Auto) 3.0% (0-5) Basophils (%) (Auto) 1.4% (0-3) Sodium Level 137mEq/L (134-144) Potassium Level 3.6mEq/L (3.5-5.2) Chloride Level 97mEq/L (97-108) Carbon Dioxide Level 28mmol/L (18-29) Blood Urea Nitrogen 7mg/dL (8-27) Creatinine 0.47mg/dL (0.76-1.27) Estimat Glomerular Filtration Rate 193mL/min (>59) Glucose Level 86mg/dL (60-99) Calcium Level 8.7mg/dL (8.5-10.1) Magnesium Level 1.7mg/dL (1.6-2.6) Total Bilirubin 0.3mg/dL (0.0-1.2) Aspartate Amino Transf (AST/SGOT) 17U/L (0-50) Alanine Aminotransferase (ALT/SGPT) 13U/L (0-44) Alkaline Phosphatase 76U/L (25-160) Total Protein 5.9g/dL (6.4-8.4) Albumin 2.5g/dL (3.4-5.0) Microbiology Results Influenza screen negative. Sputum culture grew Streptococcus pneumoniae resistant to erythromycin. Blood cultures with no growth x5 days. MRSA screen negative. Respiratory viral PCR negative. Strep pneumonia and Legionella urine antigens negative. . Discharge Medications Discharge Medications ([Thiamine]) 100 MG TABLET 100 MG PO DAILY Prescribed by: TRENT KING DO Budesonide/Formoterol 80-4.5 mcg Inh (Symbicort 80-4.5 mcg Inh) 120 Puff Inhaler 2 PUFF INHALATION BID (Reported) Cholecalciferol (Vitamin D3) (Vitamin D3) 2,000 Unit Capsule 2,000 UNIT PO DAILY (Reported) Cyanocobalamin (Vitamin B12) 500 Mcg Tablet 1,000 MCG PO DAILY (Reported) Etodolac (Etodolac) 400 Mg Tablet 400 MG PO BID (Reported) Etodolac (Etodolac) 400 Mg Tablet 400 MG PO BID (Reported) Gabapentin (Gabapentin) 300 Mg Capsule 600 MG PO TID (Reported) Gabapentin (Gabapentin) 300 Mg Capsule 600 MG PO TID (Reported) Metronidazole (Metronidazole Gel) 1 Applic/0.25 Gm Gel 1 APPLIC TOP DAILY ( Reported) for Rosacea Morphine Sulfate (Morphine Sulfate) 15 Mg Tablet 15 MG PO BID (Reported) Morphine Sulfate ER (Morphine Sulfate ER) 15 Mg Tablet 15 MG PO BID (Reported) Multivits-Min/FA/Lycopene/Lut (Centrum Silver Tablet) 1 Each Tablet 1 EACH PO DAILY (Reported) Vit#96/Ferrous Fum/FA ( Tablet) 1 Each Tablet 1 TABLET PO DAILY Prescribed by: TRENT KING DO Tiotropium [place] (Spiriva) 18 Mcg Cap.w.dev 18 MCG IH DAILY (Reported) Venlafaxine (Venlafaxine) 75 Mg Tablet 150 MG PO DAILY (Reported) Venlafaxine ER (Venlafaxine ER) 150 Mg Cap.er.24h 150 MG PO HS (Reported) As needed Albuterol HFA (Proair HFA) 8.5 Gm Hfa.aer.ad 2 PUFFS INHALATION Q4H PRN PRN For Shortness of Breath (Reported) Cholecalciferol (Vitamin D3) (Vitamin D3) 1,000 Unit Tab.chew 1,000 UNIT PO daiily PRN PRN daily (Reported) Guaifenesin/Dextromethorphan (Robafen Dm Cgh-Chest Compa Liq) 100 Mg-10 Mg/5 Ml Liquid 15 ML PO TID PRN PRN For Cough (Reported) Lorazepam (Ativan) 1 Mg Tablet 1 MG PO TID PRN PRN For Anxiety Prescribed by: TOMAS PINTO DO Methocarbamol (Methocarbamol) 750 Mg Tablet 1-2 TABLET PO TID PRN PRN For Spasm (Reported) Methocarbamol (Methocarbamol) 750 Mg Tablet 750-1,500 MG PO TID PRN PRN For Spasm (Reported) Tramadol (Tramadol) 50 Mg Tablet 50 MG PO BID PRN PRN LAST FILLED 12/13/15 56# ( Reported) Miscellaneous Medications Cyanocobalamin (Vitamin B-12) (Vitamin B-12) 1,000 Mcg Tablet 1,000 MCG PO ( Reported) Garlic Extract (Garlipure) 600 Mg Tablet 500 MG PO (Reported) Garlic Extract (Garlipure) 600 Mg Tablet 600 MG PO (Reported) Grape Seed Extract (Grape Seed) 25 Mg Capsule 0 PO (Reported) Grape Seed Extract (Grape Seed) 50 Mg Tablet 50 MG PO (Reported) [place]-3 Fatty Acids (Fish Oil) 500 Mg Capsule.dr 1,000 MG PO (Reported) [place]-3 Fatty Acids/Fish Oil (Fish Oil Dr 1,000 mg Softgel) 1 Each Capsule.dr 1 EACH PO (Reported) Followup Plan Follow-up plan Follow up with primary care provider within one week. [facility] [address] [place] [address] . Discharge Diet: Low fat, Low Sodium, Heart Healthy Discharge Activity: No restrictions Patient Instructions You were treated for pneumonia during this hospital stay and it is important that you follow up with your primary physician. The pneumonia was treated with antibiotics but can persist on chest xrays for several weeks and you will need to have repeat chest xrays. You were also treated for alcohol intoxication and alcohol withdrawal. We recommend follow up with your primary care physician within one week to discuss this hospital stay and options for alcohol treatment programs and/or counseling. Please review the resources for alcohol treatment programs that were supplied to you at the time of discharge with your primary physician. . Follow-up Provider: [facility] Follow-up with PCP in: 1 week Attending Statement The patient was seen and examined together with Dr. Pan on 08-02-16 and I agree with the history, exam and plan as outlined in the note above. copies to: [facility] Elvia Pan DO Aug 02, 2016 10:40 Roderick Macedo MD Aug 10, 2016 09:19
== END 2016-08-02 13:36 | disposition home or self-care (01) | DRG 208 ==
LOC: EDUNIT# 18:18 → SED 18:18 → EDBD 18:18 → CCU 20:30 → PCC 07-31 08:22
PROVIDERS: ADMIT Hospitalist; ATTEND Hospitalist
PROC: 5A1945Z Respiratory Ventilation, 24-96 Consecutive Hours (ICD-10-PCS; principal; 2016-07-26)
PROC: 4A033R1 Measurement of Arterial Saturation, Peripheral, Percutaneous Approach (ICD-10-PCS; 2016-07-26)
DX: J96.01 Acute respiratory failure with hypoxia (principal); J69.0 Pneumonitis due to inhalation of food and vomit; J13 Pneumonia due to Streptococcus pneumoniae; E87.2 Acidosis; F10.239 Alcohol dependence with withdrawal, unspecified; F10.220 Alcohol dependence with intoxication, uncomplicated; Y90.8 Blood alcohol level of 240 mg/100 ml or more; G47.33 Obstructive sleep apnea (adult) (pediatric); Z96.643 Presence of artificial hip joint, bilateral; R73.03 Prediabetes; Z90.2 Acquired absence of lung [part of]; J44.9 Chronic obstructive pulmonary disease, unspecified; G89.29 Other chronic pain; L71.9 Rosacea, unspecified; R40.2431 Glasgow coma scale score 3-8, in the field [EMT or ambulance]; D69.6 Thrombocytopenia, unspecified; F32.9 Major depressive disorder, single episode, unspecified; F11.10 Opioid abuse, uncomplicated; F12.10 Cannabis abuse, uncomplicated

== ENCOUNTER 2016-08-14 12:45 | Day surgery (SDC) | payer OTHER ==
[~2016-08-14] VITALS: Ht 182.9 cm; Wt 77.1 kg
[~2016-08-14 12:45] MED LIST changes: +CHOL10008 PO; +CHOL200047 PO; +CYAN10008 PO; +CYAN500 PO; +FISH OIL DR 1,1 EAC1 PO; +GARL600T2 PO; +GRAP25CA PO; +GRAP50TA2 PO; +MORP15TA PO; +MULT-1073 PO; +OMEG500C PO; +VENL75TA3 PO
[2016-08-14] MEDS ORDERED: Propofol 10,000 mCg/mL 20 mL Inj ONE (12:46)
[2016-08-14 13:31] VITALS: BP 123/75; PULSE 63; RESP 18; O2SAT 98
[2016-08-14] MEDS ORDERED: Lactated Ringer's 1,000 ML IV SCH (13:41)
--- NOTE | 2016-08-14 13:41 | PCM.HPANE ---
Patient Data Surgeon Admitting Provider: Attending Provider:José Luis Cruz MD [facility] Other Provider:Chidi Paul Anesthesia Reason for Visit Tubular Ademoma Of Colon Ht/WT & BMI Height (Feet): 6 Height (Inches): 0 Weight (Kilograms): 77.1 Body Mass Index 23.00 Allergies Coded Allergies: No Known Allergies (Verified , 08/13/16) Past Anesthesia History Anesthesia History: Denies:: Abnormal Airway, Anesthesia Reactions, Difficult Intubation, Fam Anesthesia Reaction, Fam Malignant Hypertherm, Malignant Hyperthermia Diabetes History Hx Diabetes?: No Glycemic Control: Diet Controlled Current Bedside Blood Glucose: 98 MRSA MRSA: No Medications Active Scripts Vit#96/Ferrous Fum/FA ( Tablet)1 Each Tablet1 Tablet PO DAILY # 30 TABLET Ref 5 Prov:KINGTRENT Ezequiel DO 06/05/16 [Thiamine] (Vitamin B1)100 MG TABLET No Conflict Stlpi799 Mg PO DAILY #30 TABLET Ref 5 Prov:TRENT KING DO 06/05/16 Reported Medications Cholecalciferol (Vitamin D3) (Vitamin D3)2,000 Unit Capsule2,000 Unit PO DAILY 07/26/16 Cyanocobalamin (Vitamin B-12) (Vitamin B-12)1,000 Mcg Tablet1,000 Mcg PO 07/26/16 Garlic Extract (Garlipure)600 Mg Fylgor721 Mg PO 07/26/16 [place]-3 Fatty Acids/Fish Oil (Fish Oil Dr 1,000 mg Softgel)1 Each Capsule.dr1 Each PO 07/26/16 Grape Seed Extract (Grape Seed)50 Mg Cxrotp48 Mg PO 07/26/16 Multivits-Min/FA/Lycopene/Lut (Centrum Silver Tablet)1 Each Tablet1 Each PO DAILY 07/26/16 Cyanocobalamin (Vitamin B12)500 Mcg Tablet1,000 Mcg PO DAILY 07/26/16 Grape Seed Extract (Grape Seed)25 Mg Capsule Po 07/26/16 Garlic Extract (Garlipure)600 Mg Kkbnqm472 Mg PO 07/26/16 [place]-3 Fatty Acids (Fish Oil)500 Mg Capsule.dr1,000 Mg PO 07/26/16 Morphine Sulfate 15 Mg Aivohg90 Mg PO BID 07/26/16 Venlafaxine 75 Mg Cfizps659 Mg PO DAILY Ref 0 07/26/16 Cholecalciferol (Vitamin D3) (Vitamin D3)1,000 Unit Tab.chew1,000 Unit PO daiily PRN daily 07/26/16 Methocarbamol 750 Mg Yodzga120-6,500 Mg PO BID PRN For Spasm Ref 0 07/26/16 Venlafaxine ER 150 Mg Cap.er.17z188 Mg PO HS 07/25/15 Tiotropium [place] (Spiriva)18 Mcg Cap.w.dev18 Mcg IH DAILY #1 07/25/15 Metronidazole (Metronidazole Gel)1 Applic/0.25 Gm Gel1 Applic TOP DAILY for Rosacea 07/25/15 Gabapentin 300 Mg Fhfppzb410 Mg PO TID 07/25/15 Etodolac 400 Mg Rwssro315 Mg PO TID 07/25/15 Guaifenesin/Dextromethorphan (Robafen Dm Cgh-Chest Compa Liq)100 Mg-10 Mg/5 Ml Bumdme35 Ml PO TID PRN For Cough 07/25/15 Budesonide/Formoterol 80-4.5 mcg Inh (Symbicort 80-4.5 mcg Inh)120 Puff Inhaler2 Puff INHALATION BID #1 07/25/15 Albuterol HFA (Proair HFA)8.5 Gm Hfa.aer.ad2 Puffs INHALATION Q4H PRN For Shortness of Breath 07/25/15 Discontinued Reported Medications Gabapentin 300 Mg Uyzabqo147 Mg PO TID Ref 0 07/26/16 Etodolac 400 Mg Zgsdmv037 Mg PO BID 07/26/16 Morphine Sulfate ER 15 Mg Aolubw62 Mg PO BID LAST FILL 12/13/15 56# 01/10/16 Tramadol 50 Mg Recfwd11 Mg PO BID PRN LAST FILLED 12/13/15 56# 07/25/15 Methocarbamol 750 Mg Tablet1-2 Tablet PO TID PRN For Spasm 07/25/15 Discontinued Scripts Lorazepam (Ativan)1 Mg Tablet1 Mg PO TID PRN For Anxiety #14 TABLET Ref 0 Prov:Stacy Gutierrez DO 06/05/16 History History of ENT Problems?: No HEENT History: Positive for:: Hearing Problem (LEFT AT HOME) Denies:: Abnormal Airway Cataracts Difficult Intubation Dysphagia Sinus Problem TMJ Denture Type: Full- Upper Teeth Condition: Missing Teeth Hx of Heart Problems?: No Cardiovascular History: Denies:: Cardiac Surgery Chest Pain Congestive Heart Failure Edema Heart Murmur Hypertension Pacemaker Thrombophlebitis Hx of Respiratory Problem?: Yes Respiratory History: Positive for:: COPD (RESTRICTED LUNG DISEASE) Chest Surgery (LOWER R LOBECTOMY) Dyspnea Pneumonia (RECENT INPT FOR PNEUMONIA) Denies:: Asthma Emphysema Hemoptysis Oxygen Administration Tuberculosis Use of C-PAP Machine Hx Neurologic Problems?: Yes Neurological History: Positive for:: Dizziness ([place]) Headaches (seldom) Denies:: Alzheimer's Disease CVA Dementia Parkinson's Disease Seizures Hx of GI Problems?: Yes Gastrointestinal History: Positive for:: Hiatal Hernia (repaired 4 or 5yrs ago ) Denies:: Cirrhosis Diverticulitis Gastroesphageal Reflux Gastrointestinal Bleeding Heartburn Hepatitis Rectal Bleeding Hx of Problems?: No Genitourinary History: Denies:: HX of Hemodialysis Kidney Stones Urinary Tract Infection HX of Peritoneal Dialysis: No Male Hx: Positive for:: Prostate Problems (Enlarged ) Denies:: Scrotal Mass Testicular Surgery Skin History: Denies:: History Skin Disorders? Hx Musculoskeletal Problems?: Yes Musculoskeletal History: Positive for:: Joint Replacement (BILAT HIPS) Musculoskeletal Trauma (2 KNEE SCOPES) Denies:: Back Injury ("throughout my body, every joint I have. I've lived a hard life.") Hx of Psycho/Social Problems?: Yes Psycho Social History: Positive for:: Hx Depression Denies:: Anxiety Bipolar Disorder Suicide Attempt Hx Surgeries?: Yes (BILAT TOTAL HIPS, RL LOBE RESECTION, KNEES, T&A) Hx Any Other Health Problems?: Yes Other History: Positive for:: Hospitalization Denies:: Cancer Endocrine Disease Thyroid Disease History Blood Transfusions: Denies:: Blood Transfuse Reaction Blood Transfusions Hx Diabetes: NoBedside Blood Glucose: 98 Hx Alcohol Use: Yes (07/26/16)Hx Substance Use: Yes Smoking Status: Never Smoker Have You Smoked inLast 12 mo: No Stop/Bang Treated for Sleep Apnea?: Yes Do You Have a CPAP Machine?: Yes GIORGIO Risk Assessment: High Risk, =/>3 Yes Risk Assessment Category Category 1A: Patient has history of documented sleep apnea, and HAS NOT received any narcotic, sedative or anesthesia administration during this stay. Category 1B: Patient has history of documented sleep apnea, and HAS received any narcotic , sedative or anesthesia administration during this stay Category 2: Patient has SUSPECTED Obstructive Sleep Apnea, and HAS received any narcotic , sedative or anesthesia administration during this stay. Category 3: Patient has SUSPECTED Obstructive Sleep Apnea and HAS NOT received narcotic, sedative or anesthesia administration during this stay. Category 4: Outpatient in Procedural Areas with known sleep apnea or who screen positive for High Risk via the STOP/BANG questionnaire. Exam Exam Vital Signs Vital Signs Date Time Temp Pulse Resp B/P Pulse Ox O2 Delivery O2 Flow Rate FiO2 08/14/16 13:31 37.8 63 18 123/75 98 Room Air General Appearance: Oriented X3 HEENT/AIRWAY: MP 2 Lungs: Normal Air Movement Heart: Regular Rate/Rhythm Meds/Labs/Diagnostics Bedside Blood Glucose: 98 Plan Impression Patient chart reviewed, patient interviewed and anesthestic plan with risks, benefits, and alternatives discussed, and informed consent obtained. ASA Physical Status: ASA3 Severe Disease Anesthetic Plan: MAC Bene/Risks/Altern/Consents: Yes HP Complete Prior to Induction: Yes Armando Crespo MD Aug 14, 2016 13:41
[2016-08-14] MEDS ORDERED: MetoCLOpramide 5 mg/mL 2 mL Inj IVPUSH PRN (13:45)
[2016-08-14] MEDS ORDERED: Ondansetron 2 mg/mL 2 mL Inj IVPUSH PRN (13:45)
[2016-08-14] MEDS: Lactated Ringer's 1,000 ML IV ONE ×2 (13:49→13:59)
[2016-08-14 14:07] VITALS: BP 102/63; PULSE 66; RESP 17; O2SAT 97
--- NOTE | 2016-08-14 14:13 | PCM.ANEP1 ---
Post Anesthesia Phase 1 PACU Phase 1 Assessment Vital Signs Vital Signs Date Time Temp Pulse Resp B/P Pulse Ox O2 Delivery O2 Flow Rate FiO2 08/14/16 13:31 37.8 63 18 123/75 98 Room Air Anesthetic Administered: MAC Level of Alertness: Awake, talking Pain: No Nausea or Vomiting: No Oxygen Delivery: Room Air Lungs: Normal Air Movement Armando Crespo MD Aug 14, 2016 14:13
--- NOTE | 2016-08-14 14:14 | PCM.ANEP2 ---
Post Anesthesia Evaluation ASA/CMS Post Anesthesia VS in Patient's Normal Range?: Yes Resp Stable; Airway Patent?: Yes CV Function & Hydration Stable: Yes Mental Status Recovered?: Yes Pain control Satisfactory?: Yes N/V Control Satisfactory?: Yes Armando Crespo MD Aug 14, 2016 14:14
[2016-08-14 14:17] VITALS: BP 111/66; PULSE 63; RESP 17; O2SAT 96
--- NOTE | 2016-08-14 14:23 | ENDO ---
[address] [address] ENDOSCOPY PROCEDURE PATIENT: MARINA JOSUE : 1955 MR#: [id number] ADMIT: 08/14/2016 JOB ID: [id number] TYPE OF OPERATION: Colonoscopy with snare polypectomy. PREOPERATIVE DIAGNOSIS(ES): History of tubular adenoma and polyps. POSTOPERATIVE DIAGNOSIS(ES): 1. An 8 mm sigmoid polyp removed by hot snare polypectomy. 2. Moderate sigmoid diverticulosis. ANESTHESIA: Monitored anesthesia care. COMPLICATIONS: None. BLOOD LOSS: Minimal. DESCRIPTION OF PROCEDURE: After the risks and benefits were explained to the patient, informed consent was obtained. After anesthesia was administered, the colonoscope was inserted from the rectum to the cecum and the mucosa carefully examined. Prep of the patient was fair. After the procedure was done, the scope was withdrawn and the procedure terminated. FINDINGS: Upon inspection of the anus, no masses, hemorrhoids, ulcers, or fissures there were seen. Throughout the entire examination there was an 8 mm sigmoid polyp removed by hot snare polypectomy. There was also moderate sigmoid diverticulosis. No other polyps or masses were seen. Retroflexion was normal. IMPRESSIONS: 1. Moderate sigmoid diverticulosis. 2. An 8 mm sigmoid colon polyp removed by hot snare polypectomy. RECOMMENDATIONS: 1. Await pathology results. 2. Follow up with repeat colonoscopy in five years.
[2016-08-14 14:27] VITALS: BP 113/69; PULSE 66; RESP 17; O2SAT 97
--- NOTE | 2016-08-18 12:04 | PATH ---
SURGICAL PATHOLOGY Attending Physician:José Luis Cruz MD CASE STATUS: Signed Out PATIENT NAME: MARINA JOSUE PID: [id number] : 1955 DATE COLLECTED:08/14/2016 00:00 SPECIMEN: Colon, Biopsy CLINICAL HISTORY: SIGMOID COLON POLYP FINAL DIAGNOSIS: Sigmoid Colon Polyp: Polypoid mixed tubular and villiform adenoma apparently excised in the plane of section. ICD10 D12.5 GROSS DESCRIPTION: The specimen is received in one formalin filled container labeled with the patient's name, sublabeled "sigmoid colon polyp" and consists of a 0.6-0.6 x 0.7 CM portion of tissue. The specimen is bisected and totally submitted in one cassette. 08/17/2016 [facility] ICD-9 CODES: CPT CODES: 1: 50595 Electronically Signed Out Arjun Gibbs MD [facility] Pathology [facility], [place] [address] Technical component performed at [facility], [address] [place] [address] Ave[address], [place], [address]
== END 2016-08-14 23:59 | disposition home or self-care (01) ==
LOC: END 12:45
PROVIDERS: ATTEND Internal Medicine Gastroenterology
DX: Z12.11 Encounter for screening for malignant neoplasm of colon (principal); D12.5 Benign neoplasm of sigmoid colon; K57.30 Diverticulosis of large intestine without perforation or abscess without bleeding; Z86.010 Personal history of colon polyps; J44.9 Chronic obstructive pulmonary disease, unspecified; G47.33 Obstructive sleep apnea (adult) (pediatric); G47.00 Insomnia, unspecified; G25.81 Restless legs syndrome; Z79.51 Long term (current) use of inhaled steroids
CPT/HCPCS: 45385; J2250; J7120

== ENCOUNTER 2016-09-09 13:15 | Emergency (ER) | payer OTHER ==
[~2016-09-09] VITALS: Ht 182.9 cm; Wt 79.5 kg
[~2016-09-09 13:15] MED LIST changes: -LORA-303 PO; -MORP-32 PO; -TRAM50TA2 PO
[2016-09-09 13:19] VITALS: BP 104/69; PULSE 80; RESP 14; O2SAT 98
[2016-09-09 13:55] VITALS: BP 119/74; PULSE 71; RESP 17; O2SAT 100
[2016-09-09] MEDS ORDERED: 0.9% Sodium Chloride 1,000 ML IV ONE ×2 (14:37→15:40)
[2016-09-09 14:44] LABS: BASOPHILS % (AUTO) 0.4 % (0-3); EOSINOPHILS % (AUTO) 0.7 % (0-5); MONOCYTES % (AUTO) 13.3 % (4-12); Mean Corpuscular Volume 96.8 fL (81-100); NEUTROPHILS % (AUTO) 62.6 % (40-74); Platelet Count 139 bil/L (150-400)
[2016-09-09 14:54] LABS: Magnesium 1.6 mg/dL (1.6-2.6)
[2016-09-09 15:00] LABS: TROPONIN T < 0.010 ug/L (0.0-0.011)
--- NOTE | 2016-09-09 15:07 | ED.REPORT ---
HPI-General Illness Date of Service Sep 09, 2016 ED Provider: Arjun Dale MD A 61 year old male with a history of COPD and chronic pain s/p lower right lung lobectomy presents to the ED reporting intermittent orthostatic hypotension and near-syncope onset eight months ago, worsening today. Associated symptoms include malaise, confusion, shortness of breath, dizziness, and shakiness. Today , the patient recorded his blood pressure at 105/70 while sitting, dropping to 78/60 upon standing. The patient also complains of hypoglycemia but his finger stick blood sugar measures 104 in the ED. He denies fever, nausea, chest pain, hematemesis, hematochezia, or vomiting. The patient has been seen at the DC since onset of his symptoms, but did not feel as though his situation was adequately addressed. He has been using morphine, Methocarbamol, and gabapentin regularly for the past two years and denies recent medication change. The patient has been seen in the ED twice with similar complaints since onset of his symptoms. Nursing Notes Stated Complaint: LOW BLOOD SUGAR Chief Complaint: General Complaint Nursing Notes Reviewed: Yes Allergies: Coded Allergies: No Known Allergies (Verified , 09/09/16) Scheduled ([Thiamine]) 100 MG TABLET 100 MG PO DAILY Budesonide/Formoterol 80-4.5 mcg Inh (Symbicort 80-4.5 mcg Inh) 120 Puff Inhaler 2 PUFF INHALATION BID Cholecalciferol (Vitamin D3) (Vitamin D3) 2,000 Unit Capsule 2,000 UNIT PO DAILY Cyanocobalamin (Vitamin B12) 500 Mcg Tablet 1,000 MCG PO DAILY Etodolac (Etodolac) 400 Mg Tablet 400 MG PO TID Gabapentin (Gabapentin) 300 Mg Capsule 600 MG PO TID Metronidazole (Metronidazole Gel) 1 Applic/0.25 Gm Gel 1 APPLIC TOP DAILY for Rosacea Morphine Sulfate (Morphine Sulfate) 15 Mg Tablet 15 MG PO BID Multivits-Min/FA/Lycopene/Lut (Centrum Silver Tablet) 1 Each Tablet 1 EACH PO DAILY Vit#96/Ferrous Fum/FA ( Tablet) 1 Each Tablet 1 TABLET PO DAILY Tiotropium [place] (Spiriva) 18 Mcg Cap.w.dev 18 MCG IH DAILY Venlafaxine (Venlafaxine) 75 Mg Tablet 150 MG PO DAILY Venlafaxine ER (Venlafaxine ER) 150 Mg Cap.er.24h 150 MG PO HS Scheduled PRN Albuterol HFA (Proair HFA) 8.5 Gm Hfa.aer.ad 2 PUFFS INHALATION Q4H PRN PRN For Shortness of Breath Cholecalciferol (Vitamin D3) (Vitamin D3) 1,000 Unit Tab.chew 1,000 UNIT PO daiily PRN PRN daily Guaifenesin/Dextromethorphan (Robafen Dm Cgh-Chest Compa Liq) 100 Mg-10 Mg/5 Ml Liquid 15 ML PO TID PRN PRN For Cough Methocarbamol (Methocarbamol) 750 Mg Tablet 750-1,500 MG PO BID PRN PRN For Spasm Miscellaneous Medications Cyanocobalamin (Vitamin B-12) (Vitamin B-12) 1,000 Mcg Tablet 1,000 MCG PO Garlic Extract (Garlipure) 600 Mg Tablet 500 MG PO Garlic Extract (Garlipure) 600 Mg Tablet 600 MG PO Grape Seed Extract (Grape Seed) 25 Mg Capsule 0 PO Grape Seed Extract (Grape Seed) 50 Mg Tablet 50 MG PO [place]-3 Fatty Acids (Fish Oil) 500 Mg Capsule.dr 1,000 MG PO Armstrong-3 Fatty Acids/Fish Oil (Fish Oil Dr 1,000 mg Softgel) 1 Each Capsule.dr 1 EACH PO General Time Seen by MD: 15:04 Chief Complaint Other (Orthostatic Hypotension) Hx Obtained From: Patient Arrived By: Walk-in Sudden in Onset?: No Onset Occurred: More than a week ago... (8 months, worsening today) Symptom Duration: Intermittent Severity: Current: No pain currently Severity: Maximum: No pain Associated with: Reports: Dizziness, Denies: Fever, Nausea, Vomiting Exacerbated by: Standing up Pertinent Negative: Relieved by nothing Context Related History: Reports COPD, Reports Depression Recent Healthcare: Recent doctor visit Similar Sx Previous: Yes Past Medical History Past Medical History Notes: Seen in ED 01/24 and 02/16/2016 for orthostatic hypotension Past Medical History Chronic shoulder and left elbow and left knee pain COPD Depression History of obstructive sleep apnea History of alcohol use History of hospitalization for pneumonia in September 2015 History of colon polyps History of orthostasis Past Surgical History Lower right lung lobectomy Hiatal hernia repair Bilateral hips Knee Tonsillectomy Adenoidectomy Family History Non-contributory. Smoking History Never Smoker Social History Alcohol Use: >5 per day Drug Use: THC Other Social History: Good social support, Local resident Ambulatory Status Independent Review of Systems + Orthostatic hypotension (drop of 30 systolic), hypoglycemia Full Review of Systems Constitutional: Reports: Malaise, Denies: Fever Respiratory: Reports: Shortness of breath Cardiovascular: Denies: Chest pain GI: Denies: Hematemesis, Hematochezia, Nausea, Vomiting Neurologic: Reports: Confusion, Dizziness, Shaking (Shakiness), Syncope (Near- Syncope) Complete sys rev & neg: except as marked. Physical Exam Vital Signs Vital Signs Date Time Temp Pulse Resp B/P Pulse Ox O2 Delivery O2 Flow Rate FiO2 09/09/16 18:07 79 16 128/68 97 Room Air 09/09/16 16:41 79 128/68 09/09/16 16:40 76 16 130/72 97 Room Air 09/09/16 16:02 69 14 127/86 97 Room Air 09/09/16 13:55 71 17 119/74 100 Room Air 09/09/16 13:19 36.4 80 14 104/69 98 Room Air Initial VS: Reviewed Head / Eyes: Atraumatic, Normocephalic ENT: Conjunctiva normal, No scleral icterus Respiratory: Breath sounds normal, Clear to auscultation, No respiratory distress Skin: Warm, Dry Neurologic: Alert, Oriented, Nonfocal Psychiatric: Mood/affect normal, Behavior normal, Normal thought content General/Constitutional: Awake, Alert Cardiovascular: Heart rate NL, Regular rhythm, No gallop, No murmurs, No rubs Distant heart sounds Abdomen: Soft, Non-tender, No palpable mass Interpretation & Diagnostics Lab Results Interpretation Result Diagram: 09/09/16 1338 09/09/16 1338 Test 09/09/16 13:38 09/09/16 16:06 White Blood Count 7.1th/mm3 (3.8-10.1) Red Blood Count 4.10mil/mm3 (4.40-5.80) Hemoglobin 13.1g/dL (13.8-17.2) Hematocrit 39.7% (41.0-50.0) Mean Corpuscular Volume 96.8fL (81-100) Mean Corpuscular Hemoglobin 32.0pg (27.0-35.0) Mean Corpuscular Hemoglobin Concent 33.0% (32.0-37.0) Red Cell Distribution Width 14.8% (12.3-15.4) Platelet Count 139bil/L (150-400) Neutrophils (%) (Auto) 62.6% (40-74) Lymphocytes (%) (Auto) 22.7% (14-46) Monocytes (%) (Auto) 13.3% (4-12) Eosinophils (%) (Auto) 0.7% (0-5) Basophils (%) (Auto) 0.4% (0-3) Hold Purple Top Tube Received (Received) Hold Blue Top Tube Received (Received) Sodium Level 136mEq/L (134-144) Potassium Level 4.0mEq/L (3.5-5.2) Chloride Level 95mEq/L (97-108) Carbon Dioxide Level 23mmol/L (18-29) Blood Urea Nitrogen 18mg/dL (8-27) Creatinine 0.90mg/dL (0.76-1.27) Estimat Glomerular Filtration Rate 91mL/min (>59) Glucose Level 107mg/dL (60-99) Calcium Level 9.3mg/dL (8.5-10.1) Magnesium Level 1.6mg/dL (1.6-2.6) Total Bilirubin 0.5mg/dL (0.0-1.2) Aspartate Amino Transf (AST/SGOT) 31U/L (0-50) Alanine Aminotransferase (ALT/SGPT) 30U/L (0-44) Alkaline Phosphatase 85U/L (25-160) Troponin T < 0.010ug/L (0.0-0.011) Total Protein 7.0g/dL (6.4-8.4) Albumin 4.2g/dL (3.4-5.0) Hold Red Top Tube Received (Received) Hold [place] Top Tube Received (Received) Hold [place] Top Tube Received (Received) Hold Urine Received (Received) ECG Interpretation ECG Interpretation: Sinus rhythm rate 70 Abnormal T, consider ischemia, anterolateral leads No change from 06/02/16 Time: 14:44 Interpreted by: ED physician Re-Eval/Medical Decision Source of Hx: Old records Time of Eval: 17:45 Re-Evaluation/Progress Note: Discussed with patient EKG and lab results, diagnosis, and plan for discharge. Follow-up and return to the ER instructions given. Patient agrees with plan for care and all questions were addressed. Counseled Regarding: Diagnosis, Lab results, Need for follow-up, When/why to return to ED Discharge & Departure Primary Impression: Orthostatic hypotension Disposition: Home Discharge Condition All VS Reviewed: Yes Condition: Stable Additional Instructions: ED evaluation included interview, exam, labs and ECG. Prior records were reviewed. We gave 2L on IV fluids. No emergent medical condition was found today. Follow up with primary care asher for further evaluation and advice. Return to ED for chest pain, shortness of breath. or other new symptom. [facility] Scribe Attestation Portions of this note were transcribed by Marilu Whitaker. I, Dr. Dale, personally performed the history, physical exam, and medical decision-making; I reviewed and confirmed the accuracy of the information in the transcribed note. Signed by: Lamine Flores, 09/09/2016, 18:00 copies to: [facility] Arjun Dale MD Sep 09, 2016 15:07 MARILU WHITAKER Sep 09, 2016 15:47
[2016-09-09 16:02] VITALS: BP 127/86; PULSE 69; RESP 14; O2SAT 97
[2016-09-09 16:40] VITALS: BP 130/72; PULSE 76; RESP 16; O2SAT 97
[2016-09-09 16:41] VITALS: BP 128/68; PULSE 79
[2016-09-09 18:07] VITALS: BP 128/68; PULSE 79; RESP 16; O2SAT 97
== END 2016-09-09 18:12 | disposition home or self-care (01) ==
LOC: SED 13:15
DX: I95.1 Orthostatic hypotension (principal); R53.83 Other fatigue; R25.1 Tremor, unspecified; R06.02 Shortness of breath; J44.9 Chronic obstructive pulmonary disease, unspecified
CPT/HCPCS: 36415; 80053; 83735; 84484; 85025; 93005; 96360; 99285; J7030

== ENCOUNTER 2016-09-19 07:24 | Emergency (ER) | payer OTHER ==
[~2016-09-19] VITALS: Ht 182.9 cm; Wt 77.3 kg
[2016-09-19 07:27] VITALS: BP 129/82; PULSE 111; RESP 15; O2SAT 97
[2016-09-19 08:29] LABS: BASOPHILS % (AUTO) 0.1 % (0-3); EOSINOPHILS % (AUTO) 0.9 % (0-5); MONOCYTES % (AUTO) 12.9 % (4-12); Mean Corpuscular Hemoglobin 31.7 pg (27.0-35.0); Mean Corpuscular Volume 91.3 fL (81-100); NEUTROPHILS % (AUTO) 67.2 % (40-74); Platelet Count 228 bil/L (150-400)
--- NOTE | 2016-09-19 09:02 | ED.REPORT ---
HPI-Dyspnea / Wheezing Date of Service Sep 19, 2016 ED Provider: Paulie Manjarrez MD Patient is a 61 year old male with a history of restricted lung disease and lower R lung lobectomy who presents to the ED complaining of trouble breathing onset yesterday. Associated symptoms include chills, sharp abdominal pain, malaise, myalgia, and productive cough with some bloody sputum (cough onset 2 days ago, bloody sputum onset today). He denies fever, headache, nausea, vomiting, or any other symptoms. Patient reports that he stayed in the hospital for several days but records report that he had a single ED visit on 09/09. He was discharged with prescriptions but they have not come yet. Nursing Notes Stated Complaint: PNEUMONIA Chief Complaint: Respiratory Complaints Nursing Notes Reviewed: Yes Allergies: Coded Allergies: No Known Allergies (Verified , 09/09/16) Scheduled ([Thiamine]) 100 MG TABLET 100 MG PO DAILY Azithromycin (Azithromycin) 500 Mg Tablet 250 MG PO DAILY One half tablet daily for 4 days. First dose September 20 Budesonide/Formoterol 80-4.5 mcg Inh (Symbicort 80-4.5 mcg Inh) 120 Puff Inhaler 2 PUFF INHALATION BID Cholecalciferol (Vitamin D3) (Vitamin D3) 2,000 Unit Capsule 2,000 UNIT PO DAILY Cyanocobalamin (Vitamin B12) 500 Mcg Tablet 1,000 MCG PO DAILY Etodolac (Etodolac) 400 Mg Tablet 400 MG PO TID Gabapentin (Gabapentin) 300 Mg Capsule 600 MG PO TID Metronidazole (Metronidazole Gel) 1 Applic/0.25 Gm Gel 1 APPLIC TOP DAILY for Rosacea Morphine Sulfate (Morphine Sulfate) 15 Mg Tablet 15 MG PO BID Multivits-Min/FA/Lycopene/Lut (Centrum Silver Tablet) 1 Each Tablet 1 EACH PO DAILY Vit#96/Ferrous Fum/FA ( Tablet) 1 Each Tablet 1 TABLET PO DAILY Tiotropium [place] (Spiriva) 18 Mcg Cap.w.dev 18 MCG IH DAILY Venlafaxine (Venlafaxine) 75 Mg Tablet 150 MG PO DAILY Venlafaxine ER (Venlafaxine ER) 150 Mg Cap.er.24h 150 MG PO HS Scheduled PRN Albuterol HFA (Proair HFA) 8.5 Gm Hfa.aer.ad 2 PUFFS INHALATION Q4H PRN PRN For Shortness of Breath Cholecalciferol (Vitamin D3) (Vitamin D3) 1,000 Unit Tab.chew 1,000 UNIT PO daiily PRN PRN daily Guaifenesin/Dextromethorphan (Robafen Dm Cgh-Chest Compa Liq) 100 Mg-10 Mg/5 Ml Liquid 15 ML PO TID PRN PRN For Cough Methocarbamol (Methocarbamol) 750 Mg Tablet 750-1,500 MG PO BID PRN PRN For Spasm Miscellaneous Medications Cyanocobalamin (Vitamin B-12) (Vitamin B-12) 1,000 Mcg Tablet 1,000 MCG PO Garlic Extract (Garlipure) 600 Mg Tablet 500 MG PO Garlic Extract (Garlipure) 600 Mg Tablet 600 MG PO Grape Seed Extract (Grape Seed) 25 Mg Capsule 0 PO Grape Seed Extract (Grape Seed) 50 Mg Tablet 50 MG PO [place]-3 Fatty Acids (Fish Oil) 500 Mg Capsule.dr 1,000 MG PO [place]-3 Fatty Acids/Fish Oil (Fish Oil Dr 1,000 mg Softgel) 1 Each Capsule.dr 1 EACH PO General Time Seen by MD: 09:00 Chief Complaint Shortness of breath Hx Obtained From: Patient Arrived By: Walk-in Recent Healthcare: Recent doctor visit Similar Sx Previous: Yes Risk Factors Well's Criteria for PE Hemoptysis (1) Well's PE Score: 0-2 pts (low risk 3.6%) Past Medical History Past Medical History Notes: Seen in ED 01/24 and 02/16/2016 for orthostatic hypotension Past Medical History Chronic shoulder and left elbow and left knee pain COPD Depression History of obstructive sleep apnea History of alcohol use History of hospitalization for pneumonia in September 2015 History of colon polyps History of orthostasis Restricted lung disease Past Surgical History Lower right lung lobectomy Hiatal hernia repair Bilateral hips Knee Tonsillectomy Adenoidectomy Family History Non-contributory. Smoking History Former Smoker Social History hx of EtOH abuse Alcohol Use: In recovery Drug Use: THC Other Social History: Good social support, Local resident Ambulatory Status Cane Review of Systems Constitutional: Reports: Chills, Malaise, Denies: Fever Respiratory: Reports: Prod cough, bloody, Shortness of breath Musculoskeletal: Reports: Myalgia Complete sys rev & neg: except as marked. GI: Reports: Abdominal pain, Denies: Nausea, Vomiting Neurologic: Denies: Headache Physical Exam Initial Vital Signs Vital Signs (First) Date Time Temp Pulse Resp B/P Pulse Ox O2 Delivery O2 Flow Rate FiO2 09/19/16 07:27 35.5 111 15 129/82 97 Room Air Initial VS: Reviewed Head / Eyes: Atraumatic, Normocephalic Neurologic: Alert, Oriented, Nonfocal Psychiatric: Mood/affect normal, Behavior normal, Normal thought content General/Constitutional: Awake, Alert, Well developed Neck: No adenopathy Respiratory / Chest: Breath sounds NL, Breath sounds = bilat, No respiratory distress Cardiovascular: Heart rate NL, Regular rhythm, Heart sounds NL, No gallop, No murmurs, No rubs ENT: Airway patent, Pharynx NL Abdomen: Soft, Non-tender Interpretation & Diagnostics Lab Results Interpretation Result Diagram: 09/19/16 0812 09/19/16 0812 Test 09/19/16 08:12 White Blood Count 6.7th/mm3 (3.8-10.1) Red Blood Count 4.26mil/mm3 (4.40-5.80) Hemoglobin 13.5g/dL (13.8-17.2) Hematocrit 38.9% (41.0-50.0) Mean Corpuscular Volume 91.3fL (81-100) Mean Corpuscular Hemoglobin 31.7pg (27.0-35.0) Mean Corpuscular Hemoglobin Concent 34.7% (32.0-37.0) Red Cell Distribution Width 14.6% (12.3-15.4) Platelet Count 228bil/L (150-400) Neutrophils (%) (Auto) 67.2% (40-74) Lymphocytes (%) (Auto) 18.6% (14-46) Monocytes (%) (Auto) 12.9% (4-12) Eosinophils (%) (Auto) 0.9% (0-5) Basophils (%) (Auto) 0.1% (0-3) D-Dimer 1.4mg/L (<0.50) Sodium Level 136mEq/L (134-144) Potassium Level 3.7mEq/L (3.5-5.2) Chloride Level 92mEq/L (97-108) Carbon Dioxide Level 26mmol/L (18-29) Blood Urea Nitrogen 5mg/dL (8-27) Creatinine 0.66mg/dL (0.76-1.27) Estimat Glomerular Filtration Rate 130mL/min (>59) Glucose Level 104mg/dL (60-99) Lactic Acid Level 2.1mmol/L (0.4-2.0) Calcium Level 9.5mg/dL (8.5-10.1) Total Bilirubin 0.7mg/dL (0.0-1.2) Aspartate Amino Transf (AST/SGOT) 18U/L (0-50) Alanine Aminotransferase (ALT/SGPT) 12U/L (0-44) Alkaline Phosphatase 103U/L (25-160) Troponin T < 0.010ug/L (0.0-0.011) Pro-B-Type Natriuretic Peptide 321.8pg/mL (0-210) Total Protein 7.5g/dL (6.4-8.4) Albumin 4.1g/dL (3.4-5.0) Lab Results Interpretation: 9:07 AM 09/19/2016 hr 86 bp: 122/73 room air: 97 resp. rate: 15 X-Ray Chest Interpretation Chest Xray Interpretation: IMPRESSION: Improving pneumonia left mid and lower lung, minimal residual stranding in that area remains with reference to the prior studies from last month.. Dictated by: Donaldo Sunshine M.D. on 09/19/2016 at 9:09 Approved by: Donaldo Sunshine M.D. on 09/19/2016 at 9:10 View: Portable, 1 view Interpretation / Wet Read by: Interpret - Radiologist Re-Eval/Medical Decision Med Decision/Clinical Course I have interviewed Mr. Cardozo in detail as noted above and examined him carefully and reviewed recent hospital data. The patient states that he was hospitalized mid month in August but there is no Hospital data her documentation to corroborate this. When I queried him as to the possibility of his confusing this hospitalization with an early July hospitalization he admitted that this might in fact be possible as he has been somewhat confused lately. He does say that it has been many weeks since his last alcohol ingestion. He says that the current cough complaint has only been present for about 2 days. He is not sure whether or not he has had fever. The hemoptysis this morning is the thing that prompted the ER visit today. He reports chronic stable orthostatic hypotension which has been no worse than usual just lately. He says that he was prescribed some outpatient antibiotics relatively recently but has been unable to fill them because of financial considerations. Given the improved appearance of the x-ray and the entirely normal physical examination with the exception of heart rate elevation upon standing consistent with chronic orthostatic hypotension, I believe that outpatient therapy is appropriate. I have prescribed Zithromax to the [facility] pharmacy and encourage the patient to borrow money from friends to get the prescription filled. The patient describes that orthostatic hypotension is been incompletely evaluated and I therefore recommend cardiology consultation to discuss further evaluation. I do not believe the risk for pulmonary embolism is significant here. He has no resting tachycardia nor pleuritic pain nor other risk factors for same. He has an infiltrate consistent with pneumonia which would explain the d-dimer elevation. The orthostatic hypotension is chronic. Tachycardia was not persistent. Re-Evaluation/Progress : Time of Eval: 09:49 )( Re-Eval Resp / Chest: Breath sounds normal Re-Evaluation/Progress Note: Rechecked patient. Discussed x-ray results and plan for discharge. Patient understands and agrees with plan. All questions addressed at this time. He reports that he has no way to get [facility] Counseled Regarding: Diagnosis, Lab results, Need for follow-up, When/why to return to ED Discharge & Departure Impression: Primary Impression: Pneumonia Pneumonia type: due to unspecified organism Laterality: unspecified laterality Lung location: unspecified part of lung Qualified Code: B99.9 - Unspecified infectious disease Additional Impression: Orthostatic hypotension Disposition: Home Patient Instructions: Community-acquired Pneumonia (ED) Additional Instructions: No unstable medical condition is discovered. The fact that you were coughing blood with a recent diagnosis of pneumonia off antibiotics prompts me to recommend that you continue or begin taking outpatient antibiotics. I recommend azithromycin once daily for the next 4 days. We have given you the first dose today so there are are only 4 doses remaining. This should not be very expensive. The prescription was sent electronically to [facility] in [place]. I recommend follow-up with cardiology to further or more completely evaluate the orthostatic hypotension you have been suffering from for some time now. Follow-up with the clinic in a few days to make sure that your pneumonia is improving. Return to the emergency department if you are getting much worse. Referrals: [place] ([facility]) Scribe Attestation Portions of this note were transcribed by Kaiden Charles. I, Dr. Manjarrez personally performed the history, physical exam and medical decision-making; I reviewed and confirmed the accuracy of the information in the transcribed note. Signed by: Kaiden Charles 09/19/16, 1004 copies to: [facility] Paulie Manjarrez MD Sep 19, 2016 09:02 KAIDEN CHARLES Sep 19, 2016 09:18
[2016-09-19 09:03] LABS: TROPONIN T < 0.010 ug/L (0.0-0.011)
--- NOTE | 2016-09-19 09:10 | DRSVH ---
PROCEDURE: X-RAY CHEST ONE VIEW, PORTABLE ([id number]) INDICATIONS: sob, cough and cp TECHNIQUE: One view of the chest was acquired. COMPARISON: [facility], CR, XR CHEST 1VW (PORTABLE), 07/30/2016, 4:32. [facility], CR, XR CHEST 1VW (PORTABLE), 07/28/2016, 3:17. FINDINGS: Surgical changes and devices: None. Lungs and pleura: No pleural effusions or pneumothorax. Lungs are abnormal with a mild alveolar inf iltration pattern improving at the left mid and lower lung. Mediastinum: Mediastinal contours appear normal. Heart size is normal. Bones and chest wall: No suspicious bony lesions. Overlying soft tissues appear unremarkable. IMPRESSION: Improving pneumonia left mid and lower lung, minimal residual stranding in that area lissette ins with reference to the prior studies from last month.. Dictated by: Donaldo Sunshine M.D. on 09/19/2016 at 9:09 Approved by: Donaldo Sunshine M.D. on 09/19/2016 at 9:10
[2016-09-19] MEDS ORDERED: Morphine ER 15 mg (MS Contin) Tablet PO ONE (09:15)
[2016-09-19 09:54] VITALS: BP_SYST 127; BP_SYST 131; BP_DIAS 70; BP_DIAS 72; PULSE 83; PULSE 90; O2SAT 98; O2SAT 99
[2016-09-19 09:55] VITALS: BP 120/79; PULSE 126; O2SAT 98
[2016-09-19] MEDS ORDERED: AZIT500T5 PO (10:09)
[2016-09-19 10:15] VITALS: BP 120/79; PULSE 126; RESP 15; O2SAT 98
== END 2016-09-19 10:16 | disposition home or self-care (01) ==
LOC: SED 07:24
DX: J18.9 Pneumonia, unspecified organism (principal); J44.9 Chronic obstructive pulmonary disease, unspecified; I95.1 Orthostatic hypotension; Z87.891 Personal history of nicotine dependence; Z79.899 Other long term (current) drug therapy; Z87.01 Personal history of pneumonia (recurrent)

== ENCOUNTER 2016-09-21 10:53 | Emergency (ER) | payer OTHER ==
[~2016-09-21] VITALS: Ht 182.9 cm; Wt 77.3 kg
[~2016-09-21 10:53] MED LIST changes: +AZIT500T5 PO
[2016-09-21 10:58] VITALS: BP 104/65; PULSE 87; RESP 18; O2SAT 98
--- NOTE | 2016-09-21 11:08 | ED.REPORT ---
HPI-URI / Cough / Cold Date of Service Sep 21, 2016 ED Provider: Zara Padilla History of Present Illness: taking antibiotics, feels it is getting worse. coughing with phelgm. [facility] with roommm[facility] helpful. right lower lung removed in 76. No fevers. Patient initally states seen 2 weeks ago. States is taking his medication Nursing Notes Stated Complaint: POSSIBLE PNEUMONIA Chief Complaint: Chest Pain-Non Cardiac Nature Nursing Notes Reviewed: Yes Allergies: Coded Allergies: No Known Allergies (Verified , 09/09/16) Scheduled ([Thiamine]) 100 MG TABLET 100 MG PO DAILY Azithromycin (Azithromycin) 500 Mg Tablet 250 MG PO DAILY One half tablet daily for 4 days. First dose September 20 Budesonide/Formoterol 80-4.5 mcg Inh (Symbicort 80-4.5 mcg Inh) 120 Puff Inhaler 2 PUFF INHALATION BID Cholecalciferol (Vitamin D3) (Vitamin D3) 2,000 Unit Capsule 2,000 UNIT PO DAILY Cyanocobalamin (Vitamin B12) 500 Mcg Tablet 1,000 MCG PO DAILY Etodolac (Etodolac) 400 Mg Tablet 400 MG PO TID Gabapentin (Gabapentin) 300 Mg Capsule 600 MG PO TID Metronidazole (Metronidazole Gel) 1 Applic/0.25 Gm Gel 1 APPLIC TOP DAILY for Rosacea Morphine Sulfate (Morphine Sulfate) 15 Mg Tablet 15 MG PO BID Multivits-Min/FA/Lycopene/Lut (Centrum Silver Tablet) 1 Each Tablet 1 EACH PO DAILY Vit#96/Ferrous Fum/FA ( Tablet) 1 Each Tablet 1 TABLET PO DAILY Tiotropium [place] (Spiriva) 18 Mcg Cap.w.dev 18 MCG IH DAILY Venlafaxine (Venlafaxine) 75 Mg Tablet 150 MG PO DAILY Venlafaxine ER (Venlafaxine ER) 150 Mg Cap.er.24h 150 MG PO HS Scheduled PRN Albuterol HFA (Proair HFA) 8.5 Gm Hfa.aer.ad 2 PUFFS INHALATION Q4H PRN PRN For Shortness of Breath Cholecalciferol (Vitamin D3) (Vitamin D3) 1,000 Unit Tab.chew 1,000 UNIT PO daiily PRN PRN daily Guaifenesin/Dextromethorphan (Robafen Dm Cgh-Chest Compa Liq) 100 Mg-10 Mg/5 Ml Liquid 15 ML PO TID PRN PRN For Cough Methocarbamol (Methocarbamol) 750 Mg Tablet 750-1,500 MG PO BID PRN PRN For Spasm Miscellaneous Medications Cyanocobalamin (Vitamin B-12) (Vitamin B-12) 1,000 Mcg Tablet 1,000 MCG PO Garlic Extract (Garlipure) 600 Mg Tablet 500 MG PO Garlic Extract (Garlipure) 600 Mg Tablet 600 MG PO Grape Seed Extract (Grape Seed) 25 Mg Capsule 0 PO Grape Seed Extract (Grape Seed) 50 Mg Tablet 50 MG PO [place]-3 Fatty Acids (Fish Oil) 500 Mg Capsule. 1,000 MG PO [place]-3 Fatty Acids/Fish Oil (Fish Oil Dr 1,000 mg Softgel) 1 Each Capsule.dr 1 EACH PO General Time Seen by MD: 11:06 Chief Complaint Cough, productive... (Yellow) Hx Obtained From: Patient Onset Occurred: 2 days ago Past Medical History Past Medical History Notes: Seen in ED 01/24 and 02/16/2016 for orthostatic hypotension on chronic pain management morphine ER 15 [facility] 09/21/2016 meds are mailed and will not show on [employer] Past Medical History Chronic shoulder and left elbow and left knee pain COPD Depression History of obstructive sleep apnea History of alcohol use History of hospitalization for pneumonia in September 2015 History of colon polyps History of orthostasis Restricted lung disease Past Surgical History Lower right lung lobectomy Hiatal hernia repair Bilateral hips Knee Tonsillectomy Adenoidectomy Family History Non-contributory. Smoking History Former Smoker Social History hx of EtOH abuse has a nebulizer and 3 inhalers Alcohol Use: In recovery Drug Use: THC Other Social History: Good social support, Local resident Occupation lives with roommate, no work or school 09/21/2016 Ambulatory Status Cane Review of Systems Basic Review of Systems : No dysuria, No frequency Psychiatric: Normal thought content Physical Exam Initial Vital Signs Vital Signs (First) Date Time Temp Pulse Resp B/P Pulse Ox O2 Delivery O2 Flow Rate FiO2 09/21/16 10:58 36.0 87 18 104/65 98 09/21/16 14:25 Room Air Initial VS: Reviewed, Vital signs normal Head / Eyes: Atraumatic, Normocephalic, PERRL Neck: Supple, Non-tender, Full range of motion Cardiovascular: Regular rate & rhythm, Heart sounds normal, Intact distal pulses Abdomen / GI: Soft, Non-tender, No guarding, No rebound, No distention Back: No CVA tenderness Lymphatic: No lymphadenopathy Extremities: Vascular intact, Neuro intact, No swelling, No tenderness Skin: Warm, Dry, No cyanosis Neurologic: Alert, Oriented, Nonfocal Psychiatric: Mood/affect normal, Behavior normal, Normal thought content General/Constitutional: Awake, Alert, No acute distress ENT: Atraumatic, Airway patent, Mucous membranes moist, Pharynx NL Respiratory / Chest: Atraumatic, Breath sounds NL, Breath sounds = bilat, No respiratory distress Head / Eyes: Atraumatic, Normocephalic, PERRL Cardiovascular: Heart rate NL, Regular rhythm, Heart sounds NL, No gallop Abdomen: Atraumatic, Soft, Non-tender, McBurney's non-tender Interpretation & Diagnostics Interpretation & Diagnostics: ROCEDURE: CT ANGIO CHEST PULMONARY EMBOLISM ([id number]) INDICATIONS: worsening cough, elevated D-dimer TECHNIQUE: After the administration of intravenous contrast, 2 mm thick sections acquired from the pulmonary apices to the posterior costophrenic angles. 3-dimensional maximum intensity projection (MIP) coronal and sagittal reformats were then acquired through the thorax. For radiation dose reduction, the following was used: automated exposure control, adjustment of mA and/or kV according to patient size. COMPARISON: [facility], CT, CT CHEST W CON, 10/05/2015, 12:28. [facility], CT, CT ANGIO CHEST PE, 07/23/2015, 16:53. FINDINGS: Image quality: Excellent. Pulmonary arteries: Pulmonary arteries are normal in size, and demonstrate no intraluminal filling defects to suggest central pulmonary embolism. Lungs and pleura: No evidence of acute pneumonia, or edema. No change in right posterior lung base scarring. No change in 4 mm groundglass nodule within the lateral lingula. There is mild ill-defined multifocal multinodular groundglass density within the right upper lobe No pleural effusions or pneumothorax. Central and peripheral airways are patent. Mediastinum: Heart size is normal, without pericardial effusion. There is calcification of the coronary vasculature. No mediastinal or hilar adenopathy. Thoracic aorta is normal in caliber and enhancement. Esophagus is normal in caliber, without hiatal hernia. Bones and chest wall: No suspicious bony lesions. Ribs and thoracic spine appear intact throughout. Thyroid gland is within normal limits. No axillary or supraclavicular adenopathy. Abdomen: Visualized upper abdominal solid organs appear normal in the early arterial phase of enhancement. IMPRESSION: 1. No pulmonary embolus. 2. Right upper lobe pneumonia; followup noncontrast low-dose chest CT in 3 months is recommended to ensure resolution, and to exclude underlying neoplasm. 3. No change in groundglass nodular density within the lingula. 4. Coronary artery disease. Dictated by: Anne Isaac M.D. on 09/21/2016 at 13:31 Approved by: Anne Isaac M.D. on 09/21/2016 at 13:35 ADDENDUM PROCEDURE: CT ANGIO CHEST PULMONARY EMBOLISM ([id number]) INDICATIONS: worsening cough, elevated D-dimer TECHNIQUE: After the administration of intravenous contrast, 2 mm thick sections acquired from the pulmonary apices to the posterior costophrenic angles. 3-dimensional maximum intensity projection (MIP) coronal and sagittal reformats were then acquired through the thorax. For radiation dose reduction, the following was used: automated exposure control, adjustment of mA and/or kV according to patient size. COMPARISON: [facility], CT, CT CHEST W CON, 10/05/2015, 12:28. [facility], CT, CT ANGIO CHEST PE, 07/23/2015, 16:53. FINDINGS: Image quality: Excellent. Pulmonary arteries: Pulmonary arteries are normal in size, and demonstrate no intraluminal filling defects to suggest central pulmonary embolism. Lungs and pleura: No evidence of edema. No change in right posterior lung base scarring. No change in 4 mm groundglass nodule within the lateral lingula. There is mild ill-defined multifocal multinodular groundglass density within the right upper lobe. No pleural effusions or pneumothorax. Central and peripheral airways are patent. Mediastinum: Heart size is normal, without pericardial effusion. There is calcification of the coronary vasculature. No mediastinal or hilar adenopathy. Thoracic aorta is normal in caliber and enhancement. Esophagus is normal in caliber, without hiatal hernia. Bones and chest wall: No suspicious bony lesions. Ribs and thoracic spine appear intact throughout. Thyroid gland is within normal limits. No axillary or supraclavicular adenopathy. Lab Results Interpretation Result Diagram: 09/21/16 1140 09/21/16 1140 Test 09/21/16 11:40 White Blood Count 7.5th/mm3 (3.8-10.1) Red Blood Count 3.88mil/mm3 (4.40-5.80) Hemoglobin 12.2g/dL (13.8-17.2) Hematocrit 37.4% (41.0-50.0) Mean Corpuscular Volume 96.4fL (81-100) Mean Corpuscular Hemoglobin 31.4pg (27.0-35.0) Mean Corpuscular Hemoglobin Concent 32.6% (32.0-37.0) Red Cell Distribution Width 13.9% (12.3-15.4) Platelet Count 210bil/L (150-400) Neutrophils (%) (Auto) 61.1% (40-74) Lymphocytes (%) (Auto) 22.6% (14-46) Monocytes (%) (Auto) 13.3% (4-12) Eosinophils (%) (Auto) 1.3% (0-5) Basophils (%) (Auto) 0.9% (0-3) Sodium Level 137mEq/L (134-144) Potassium Level 3.9mEq/L (3.5-5.2) Chloride Level 98mEq/L (97-108) Carbon Dioxide Level 25mmol/L (18-29) Blood Urea Nitrogen 12mg/dL (8-27) Creatinine 0.81mg/dL (0.76-1.27) Estimat Glomerular Filtration Rate 103mL/min (>59) Glucose Level 112mg/dL (60-99) Lactic Acid Level 1.0mmol/L (0.4-2.0) Calcium Level 9.1mg/dL (8.5-10.1) Magnesium Level 1.4mg/dL (1.6-2.6) Total Bilirubin 0.5mg/dL (0.0-1.2) Aspartate Amino Transf (AST/SGOT) 16U/L (0-50) Alanine Aminotransferase (ALT/SGPT) 13U/L (0-44) Alkaline Phosphatase 93U/L (25-160) Pro-B-Type Natriuretic Peptide 270.0pg/mL (0-210) Total Protein 6.2g/dL (6.4-8.4) Albumin 3.6g/dL (3.4-5.0) X-Ray Interpretation Xray Interpretation: TECHNIQUE: 2 views of the chest were acquired. COMPARISON: 09/19/2016 FINDINGS: Surgical changes and devices: Surgical sutures and clips over the right hilum.. Lungs and pleura: No pleural effusions or pneumothorax. Lungs are hyperlucent at the base, suggestive of COPD. No recurrent pneumonia identified.. Mediastinum: Mediastinal contours are normal. Heart size is normal. Bones and chest wall: No suspicious bony abnormalities. Soft tissues appear unremarkable. IMPRESSION: 1. No residual or recurrent pneumonia identified. Dictated by: Macario Rogers M.D. on 09/21/2016 at 12:08 Re-Eval/Medical Decision Med Decision/Clinical Course Med Decision/Clinical Course: 61 year old male returns reporting worsening of pneumonia. Resting comfortable, minimal cough. did get his presecription picked up and is taking. Labs are normal, CT indicates no PE, Right upper lobe pneumonia. consult with Dr. Manjarrez Discharge & Departure Impression: Primary Impression: Cough Disposition: Home Additional Instructions: The chest x-ray does not show any evidence of pneumonia. The CT does not show any pulmonary embolus. It does show a resolving pneumonia. They are recommending a non contrast CT in 3 months to make sure it is resolved. Your labs are looking good. Please schedule this with the [facility]. They can order this on an out patient basis. Finish the antibiotics you were prescribed. You can use delsym over the counter to help with the cough or tessalon perles. Referrals: [facility] ([facility]) EDSupervising Provider for APC: Paulie Manjarrez MD copies to: [facility] ZbigniewZara cowart JAYMIE Sep 21, 2016 11:08
[2016-09-21 11:50] LABS: BASOPHILS % (AUTO) 0.9 % (0-3); EOSINOPHILS % (AUTO) 1.3 % (0-5); MONOCYTES % (AUTO) 13.3 % (4-12); Mean Corpuscular Hemoglobin 31.4 pg (27.0-35.0); Mean Corpuscular Volume 96.4 fL (81-100); NEUTROPHILS % (AUTO) 61.1 % (40-74); Platelet Count 210 bil/L (150-400)
--- NOTE | 2016-09-21 12:11 | DRSVH ---
PROCEDURE: X-RAY CHEST, TWO VIEWS ([id number]) INDICATIONS: feels worse TECHNIQUE: 2 views of the chest were acquired. COMPARISON: 09/19/2016 FINDINGS: Surgical changes and devices: Surgical sutures and clips over the right hilum.. Lungs and pleura: No pleural effusions or pneumothorax. Lungs are hyperlucent at the base, suggesti ve of COPD. No recurrent pneumonia identified.. Mediastinum: Mediastinal contours are normal. Heart size is normal. Bones and chest wall: No suspicious bony abnormalities. Soft tissues appear unremarkable. IMPRESSION: 1. No residual or recurrent pneumonia identified. Dictated by: Macario Rogers M.D. on 09/21/2016 at 12:08 Approved by: Macario Rogers M.D. on 09/21/2016 at 12:10
[2016-09-21 12:14] LABS: Magnesium 1.4 mg/dL (1.6-2.6)
--- NOTE | 2016-09-21 13:37 | DRSVH ---
PROCEDURE: CT ANGIO CHEST PULMONARY EMBOLISM ([id number]) INDICATIONS: worsening cough, elevated D-dimer TECHNIQUE: After the administration of intravenous contrast, 2 mm thick sections acquired from the pulmonary api geeta to the posterior costophrenic angles. 3-dimensional maximum intensity projection (MIP) coronal a nd sagittal reformats were then acquired through the thorax. For radiation dose reduction, the follo wing was used: automated exposure control, adjustment of mA and/or kV according to patient size. COMPARISON: [facility], CT, CT CHEST W CON, 10/05/2015, 12:28. [facility], C T, CT ANGIO CHEST PE, 07/23/2015, 16:53. FINDINGS: Image quality: Excellent. Pulmonary arteries: Pulmonary arteries are normal in size, and demonstrate no intraluminal filling d efects to suggest central pulmonary embolism. Lungs and pleura: No evidence of acute pneumonia, or edema. No change in right posterior lung base sc arring. No change in 4 mm groundglass nodule within the lateral lingula. There is mild ill-defined mu ltifocal multinodular groundglass density within the right upper lobe No pleural effusions or pneumot horax. Central and peripheral airways are patent. Mediastinum: Heart size is normal, without pericardial effusion. There is calcification of the coron angelo vasculature. No mediastinal or hilar adenopathy. Thoracic aorta is normal in caliber and enhance ment. Esophagus is normal in caliber, without hiatal hernia. Bones and chest wall: No suspicious bony lesions. Ribs and thoracic spine appear intact throughout. Thyroid gland is within normal limits. No axillary or supraclavicular adenopathy. Abdomen: Visualized upper abdominal solid organs appear normal in the early arterial phase of enhanc ement. IMPRESSION: 1. No pulmonary embolus. 2. Right upper lobe pneumonia; followup noncontrast low-dose chest CT in 3 months is recommended to e nsure resolution, and to exclude underlying neoplasm. 3. No change in groundglass nodular density within the lingula. 4. Coronary artery disease. Dictated by: Anne Isaac M.D. on 09/21/2016 at 13:31 Approved by: Anne Isaac M.D. on 09/21/2016 at 13:35
[2016-09-21 14:25] VITALS: BP 125/70; PULSE 73; RESP 15; O2SAT 100
== END 2016-09-21 14:23 | disposition home or self-care (01) ==
LOC: SED 10:53
DX: R05 Cough (principal); J44.9 Chronic obstructive pulmonary disease, unspecified; Z90.2 Acquired absence of lung [part of]; Z87.891 Personal history of nicotine dependence
CPT/HCPCS: 36415; 71020; 71275; 80053; 82075; 83605; 83735; 83880; 85025; 87040; 99284; Q9967

== ENCOUNTER 2016-12-04 03:03 | Emergency (ER) | payer OTHER ==
[~2016-12-04] VITALS: Ht 182.9 cm; Wt 75.0 kg
[2016-12-04 03:05] VITALS: BP 99/68; PULSE 110; RESP 22; O2SAT 99
--- NOTE | 2016-12-04 03:12 | ED.REPORT ---
HPI-General Illness Date of Service December 04, 2016 ED Provider: Jeremiah Delaney MD 61 year old male with a history of alcoholism presents to the ER due to alcohol withdrawal, requesting assistance with recovery. Typically he drinks a quart of vodka daily, but he states that he has not consumed any alcohol in four days. Currently he complains of shaking and nausea. He also reports multiple falls over the past few days which he attributes to not using his walking stick, though he denies any head or neck trauma, and any other significant injuries secondary to these falls. Patient also complains that he has not slept more than three hours over the past four days. Nursing Notes Stated Complaint: ALCOHOL WITHDRAWAL Chief Complaint: Substance Abuse Nursing Notes Reviewed: Yes Allergies: Coded Allergies: No Known Allergies (Verified , 09/09/16) Scheduled ([Thiamine]) 100 MG TABLET 100 MG PO DAILY Azithromycin (Azithromycin) 500 Mg Tablet 250 MG PO DAILY One half tablet daily for 4 days. First dose September 20 Budesonide/Formoterol 80-4.5 mcg Inh (Symbicort 80-4.5 mcg Inh) 120 Puff Inhaler 2 PUFF INHALATION BID Cholecalciferol (Vitamin D3) (Vitamin D3) 2,000 Unit Capsule 2,000 UNIT PO DAILY Cyanocobalamin (Vitamin B12) 500 Mcg Tablet 1,000 MCG PO DAILY Etodolac (Etodolac) 400 Mg Tablet 400 MG PO TID Gabapentin (Gabapentin) 300 Mg Capsule 600 MG PO TID Metronidazole (Metronidazole Gel) 1 Applic/0.25 Gm Gel 1 APPLIC TOP DAILY for Rosacea Morphine Sulfate (Morphine Sulfate) 15 Mg Tablet 15 MG PO BID Multivits-Min/FA/Lycopene/Lut (Centrum Silver Tablet) 1 Each Tablet 1 EACH PO DAILY Vit#96/Ferrous Fum/FA ( Tablet) 1 Each Tablet 1 TABLET PO DAILY Tiotropium [place] (Spiriva) 18 Mcg Cap.w.dev 18 MCG IH DAILY Venlafaxine (Venlafaxine) 75 Mg Tablet 150 MG PO DAILY Venlafaxine ER (Venlafaxine ER) 150 Mg Cap.er.24h 150 MG PO HS Scheduled PRN Albuterol HFA (Proair HFA) 8.5 Gm Hfa.aer.ad 2 PUFFS INHALATION Q4H PRN PRN For Shortness of Breath Cholecalciferol (Vitamin D3) (Vitamin D3) 1,000 Unit Tab.chew 1,000 UNIT PO daiily PRN PRN daily Guaifenesin/Dextromethorphan (Robafen Dm Cgh-Chest Compa Liq) 100 Mg-10 Mg/5 Ml Liquid 15 ML PO TID PRN PRN For Cough Methocarbamol (Methocarbamol) 750 Mg Tablet 750-1,500 MG PO BID PRN PRN For Spasm Miscellaneous Medications Cyanocobalamin (Vitamin B-12) (Vitamin B-12) 1,000 Mcg Tablet 1,000 MCG PO Garlic Extract (Garlipure) 600 Mg Tablet 500 MG PO Garlic Extract (Garlipure) 600 Mg Tablet 600 MG PO Grape Seed Extract (Grape Seed) 25 Mg Capsule 0 PO Grape Seed Extract (Grape Seed) 50 Mg Tablet 50 MG PO [place]-3 Fatty Acids (Fish Oil) 500 Mg Capsule.dr 1,000 MG PO [place]-3 Fatty Acids/Fish Oil (Fish Oil Dr 1,000 mg Softgel) 1 Each Capsule.dr 1 EACH PO General Time Seen by MD: 03:12 Chief Complaint Other (Alcohol Withdrawal) Hx Obtained From: Patient Arrived By: Walk-in Sudden in Onset?: No Onset Occurred: 4 days ago Symptom Duration: Since onset Associated with: Reports: Nausea Additional Notes: Shaking Similar Sx Previous: Yes Past Medical History Past Medical History Notes: Seen in ED 01/24 and 02/16/2016 for orthostatic hypotension on chronic pain management [facility] 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 Smoking History Former Smoker Social History hx of EtOH abuse has a nebulizer and 3 inhalers Alcohol Use: In recovery Drug Use: THC Other Social History: Good social support, Local resident Occupation lives with roommate, no work or school 09/21/2016 Ambulatory Status Cane Review of Systems Full Review of Systems GI: Reports: Nausea Musculoskeletal: Denies: Back pain, Lumbar pain, Neck pain Neurologic: Reports: Shaking, Denies: Headache, Syncope Complete sys rev & neg: except as marked. Physical Exam Vital Signs Vital Signs Date Time Temp Pulse Resp B/P Pulse Ox O2 Delivery O2 Flow Rate FiO2 12/04/16 05:34 100 16 105/63 99 Room Air 12/04/16 03:05 36.2 110 22 99/68 99 Room Air Initial VS: Reviewed Skin: Warm, Dry, No cyanosis Psychiatric: Mood/affect normal, Behavior normal, Normal thought content General/Constitutional: Awake, Alert, Well developed, Well nourished Head / Eyes: Atraumatic, Normocephalic Neck: Supple, No meningismus, Full range of motion, No swelling, Non-tender, No masses Respiratory / Chest: Breath sounds NL, No respiratory distress, No rales, No rhonchi, No wheezing Lower right rib tenderness. Cardiovascular: Heart rate NL, Regular rhythm, Heart sounds NL, Cap refill not delayed, Peripheral circulation NL Abdomen: Soft, Non-tender, No guarding, No rebound, No distention Back: Inspection NL, Painless range of motion, Non-tender, No CVA tenderness Upper Extremities Upper Extremity / MS: Full range of motion, Neurologic intact, Vascular intact Multiple bruises on forearms of varying ages. Lower Extremity / Pelvis / MS: Inspection NL, No swelling, Non-tender, No erythema, No deformity, Neurologic intact, Vascular intact, No edema Neurologic: Oriented X3, Speech NL, No sensory deficits Tremulous. Interpretation & Diagnostics Lab Results Interpretation Result Diagram: 12/04/16 0345 12/04/16 0345 Test 12/04/16 03:45 White Blood Count 6.7th/mm3 (3.8-10.1) Red Blood Count 4.04mil/mm3 (4.40-5.80) Hemoglobin 13.6g/dL (13.8-17.2) Hematocrit 40.4% (41.0-50.0) Mean Corpuscular Volume 100.0fL (81-100) Mean Corpuscular Hemoglobin 33.7pg (27.0-35.0) Mean Corpuscular Hemoglobin Concent 33.7% (32.0-37.0) Red Cell Distribution Width 14.4% (12.3-15.4) Platelet Count 90bil/L (150-400) Neutrophils (%) (Auto) 71.4% (40-74) Lymphocytes (%) (Auto) 16.2% (14-46) Monocytes (%) (Auto) 10.8% (4-12) Eosinophils (%) (Auto) 0.7% (0-5) Basophils (%) (Auto) 0.3% (0-3) Prothrombin Time 10.3sec (8.1-12.5) Prothromb Time International Ratio 0.96ratio Sodium Level 135mEq/L (134-144) Potassium Level 3.2mEq/L (3.5-5.2) Chloride Level 88mEq/L (97-108) Carbon Dioxide Level 15mmol/L (18-29) Blood Urea Nitrogen 16mg/dL (8-27) Creatinine 0.88mg/dL (0.76-1.27) Estimat Glomerular Filtration Rate 94mL/min (>59) Glucose Level 81mg/dL (60-99) Calcium Level 9.2mg/dL (8.5-10.1) Magnesium Level 1.6mg/dL (1.6-2.6) Total Bilirubin 1.1mg/dL (0.0-1.2) Aspartate Amino Transf (AST/SGOT) 39U/L (0-50) Alanine Aminotransferase (ALT/SGPT) 33U/L (0-44) Alkaline Phosphatase 116U/L (25-160) Total Protein 7.2g/dL (6.4-8.4) Albumin 3.9g/dL (3.4-5.0) Lipase 37U/L (13-60) X-Ray Chest Interpretation Chest Xray Interpretation: No acute cardiopulmonary disease. View: AP & lat Interpretation / Wet Read by: Wet read ED physician Re-Eval/Medical Decision Med Decision/Clinical Course 61-year-old with heavy alcohol abuse by history presents four days after ceasing alcohol. He is tremulous but not tachycardic and in no overt distress. Begun with Ativan here with improvement of his tremulousness. Provided with a Ativan go pack and specific instructions. He has an appointment at [facility] for a ten-day detox and will keep that. [facility]. Medicines were displaced in the course of a move, and he has normal axis, but refuses prescriptions for replacements, as he would have to pay for them. The [facility] would mail them after a ten day waiting period. He expects to have his primary medicines back before then. He is discharged now stable condition. Source of Hx: Old records Time of Eval: 05:17 Re-Evaluation/Progress Note: Discussed lab and imaging results and plan to discharge. Patient is amenable to the plan. Return precautions given. All other questions addressed. Counseled Regarding: Diagnosis, Lab results, Need for follow-up, When/why to return to ED Discharge & Departure Primary Impression: Alcohol abuse Additional Impressions: Alcohol withdrawal COPD (chronic obstructive pulmonary disease) Disposition: Home Discharge Condition All VS Reviewed: Yes Condition: Improved Additional Instructions: Continue to abstain from alcohol. Begin Ativan per label directions, three times a day today and taper as directed. Follow-up with your doctor in the office Return if any immediate problems. Referrals: [facility] (PC[facility]) Lamine Attestation Portions of this note were transcribed by Toby Moore. I, Dr. Delaney, personally performed the history, physical exam and medical decision-making; I reviewed and confirmed the accuracy of the information in the transcribed note. Signed by: Lamine Rahman, 12/04/2016 at 05:28 copies to: [facility] Jeremiah Delaney MD December 04, 2016 03:12 TOBY MOORE December 04, 2016 03:29
[2016-12-04] MEDS ORDERED: 0.9% Sodium Chloride 1,000 ML IV ONE (03:26)
[2016-12-04] MEDS ORDERED: Pantoprazole 4 mg/mL 10 mL Inj IVPUSH ONE (03:30)
[2016-12-04] MEDS ORDERED: Ondansetron 2 mg/mL 2 mL Inj IVPUSH ONE (03:30)
[2016-12-04] MEDS ORDERED: LORazepam 2 mg Tablet PO ONE (03:30)
[2016-12-04] MEDS ORDERED: Thiamine Inj 100 MG in Dextrose 5% 50 ML IV ONE (03:30)
[2016-12-04 03:55] LABS: BASOPHILS % (AUTO) 0.3 % (0-3); EOSINOPHILS % (AUTO) 0.7 % (0-5); MONOCYTES % (AUTO) 10.8 % (4-12); Mean Corpuscular Hemoglobin 33.7 pg (27.0-35.0); NEUTROPHILS % (AUTO) 71.4 % (40-74); Platelet Count 90 bil/L (150-400)
[2016-12-04 04:20] LABS: INR 0.96 ratio
[2016-12-04 04:27] LABS: Magnesium 1.6 mg/dL (1.6-2.6)
[2016-12-04] MEDS ORDERED: _LORazepam 2 MG Tablet PO SCH (04:55)
[2016-12-04 05:34] VITALS: BP 105/63; PULSE 100; RESP 16; O2SAT 99
--- NOTE | 2016-12-04 08:20 | DRSVH ---
PROCEDURE: X-RAY CHEST, TWO VIEWS ([id number]) INDICATIONS: falls, withdrawal TECHNIQUE: 2 views of the chest were acquired. COMPARISON: [facility], CR, XR CHEST 2VW, 09/21/2016, 11:50. FINDINGS: Surgical changes and devices: Staple line again projects in the right perihilar region. Lungs and pleura: No pleural effusions or pneumothorax. Lungs are clear. Mediastinum: Mediastinal contours are normal. Heart size is normal. Bones and chest wall: No suspicious bony abnormalities. Soft tissues appear unremarkable. IMPRESSION: No acute disease or interval change. Dictated by: Brennen Fernandez M.D. on 12/04/2016 at 8:17 Approved by: Brennen Fernandez M.D. on 12/04/2016 at 8:18
== END 2016-12-04 05:35 | disposition home or self-care (01) ==
LOC: SED 03:03
DX: F10.230 Alcohol dependence with withdrawal, uncomplicated (principal); J44.9 Chronic obstructive pulmonary disease, unspecified; M25.519 Pain in unspecified shoulder; M25.522 Pain in left elbow; M25.562 Pain in left knee; G89.29 Other chronic pain; F32.9 Major depressive disorder, single episode, unspecified; Z87.891 Personal history of nicotine dependence; Z91.81 History of falling
CPT/HCPCS: 36415; 71020; 80053; 83690; 83735; 85025; 85610; 96361; 96374; 96375; 99285; J2405; J7030

== ENCOUNTER 2016-12-04 07:32 | Emergency (ER) | payer OTHER ==
[~2016-12-04] VITALS: Ht 182.9 cm; Wt 75.0 kg
[2016-12-04 07:39] VITALS: BP 96/68; PULSE 107; RESP 14; O2SAT 100
--- NOTE | 2016-12-04 07:57 | ED.REPORT ---
HPI-Trauma Minor / Fall Date of Service December 04, 2016 ED Provider: Yumiko Sacnhez MD Patient is a 61 year old male who was seen this morning for alcohol withdraw who presents to the ED due to a fall. Associated symptoms include head pain, bilateral elbow pain, bilateral shoulder pain and difficulty walking. He reports that he was discharged before feeling like he could walk properly and hit his head when he fell. The patient states he has not drank for the past four days and plans to go to detox next week. Nursing Notes Stated Complaint: GOING THROUGH DT'S AND HARD TO WALK Chief Complaint: Multiple Trauma/Fall Nursing Notes Reviewed: Yes Allergies: Coded Allergies: No Known Allergies (Verified , 09/09/16) Scheduled ([Thiamine]) 100 MG TABLET 100 MG PO DAILY Azithromycin (Azithromycin) 500 Mg Tablet 250 MG PO DAILY One half tablet daily for 4 days. First dose September 20 Budesonide/Formoterol 80-4.5 mcg Inh (Symbicort 80-4.5 mcg Inh) 120 Puff Inhaler 2 PUFF INHALATION BID Cholecalciferol (Vitamin D3) (Vitamin D3) 2,000 Unit Capsule 2,000 UNIT PO DAILY Cyanocobalamin (Vitamin B12) 500 Mcg Tablet 1,000 MCG PO DAILY Etodolac (Etodolac) 400 Mg Tablet 400 MG PO TID Gabapentin (Gabapentin) 300 Mg Capsule 600 MG PO TID Metronidazole (Metronidazole Gel) 1 Applic/0.25 Gm Gel 1 APPLIC TOP DAILY for Rosacea Morphine Sulfate (Morphine Sulfate) 15 Mg Tablet 15 MG PO BID Multivits-Min/FA/Lycopene/Lut (Centrum Silver Tablet) 1 Each Tablet 1 EACH PO DAILY Vit#96/Ferrous Fum/FA ( Tablet) 1 Each Tablet 1 TABLET PO DAILY Tiotropium [place] (Spiriva) 18 Mcg Cap.w.dev 18 MCG IH DAILY Venlafaxine (Venlafaxine) 75 Mg Tablet 150 MG PO DAILY Venlafaxine ER (Venlafaxine ER) 150 Mg Cap.er.24h 150 MG PO HS Scheduled PRN Albuterol HFA (Proair HFA) 8.5 Gm Hfa.aer.ad 2 PUFFS INHALATION Q4H PRN PRN For Shortness of Breath Cholecalciferol (Vitamin D3) (Vitamin D3) 1,000 Unit Tab.chew 1,000 UNIT PO daiily PRN PRN daily Guaifenesin/Dextromethorphan (Robafen Dm Cgh-Chest Compa Liq) 100 Mg-10 Mg/5 Ml Liquid 15 ML PO TID PRN PRN For Cough Methocarbamol (Methocarbamol) 750 Mg Tablet 750-1,500 MG PO BID PRN PRN For Spasm Miscellaneous Medications Cyanocobalamin (Vitamin B-12) (Vitamin B-12) 1,000 Mcg Tablet 1,000 MCG PO Garlic Extract (Garlipure) 600 Mg Tablet 500 MG PO Garlic Extract (Garlipure) 600 Mg Tablet 600 MG PO Grape Seed Extract (Grape Seed) 25 Mg Capsule 0 PO Grape Seed Extract (Grape Seed) 50 Mg Tablet 50 MG PO [place]-3 Fatty Acids (Fish Oil) 500 Mg Capsule.dr 1,000 MG PO [place]-3 Fatty Acids/Fish Oil (Fish Oil Dr 1,000 mg Softgel) 1 Each Capsule.dr 1 EACH PO General Time Seen by MD: 07:56 Chief Complaint Fall Hx Obtained From: Patient Arrived By: Walk-in Onset Occurred: Just prior to arrival Symptom Duration: Since onset Caused by: Accidental, Fall on ground Location: Elbow left Elbow right Head Shoulder left Shoulder right Recent Healthcare: Recent doctor visit, Recent hospitalization Past Medical History Past Medical History Notes: Seen in ED 01/24 and 02/16/2016 for orthostatic hypotension on chronic pain management morphine [facility]2016 meds are mailed and will not show on [employer] Past Medical History Chronic shoulder and left elbow and left knee pain COPD Depression History of obstructive sleep apnea History of alcohol use History of hospitalization for pneumonia in September 2015 History of colon polyps History of orthostasis Restricted lung disease Past Surgical History Lower right lung lobectomy Hiatal hernia repair Bilateral hips Knee Tonsillectomy Adenoidectomy Family History Non-contributory. Smoking History Former Smoker Social History hx of EtOH abuse has a nebulizer and 3 inhalers Alcohol Use: In recovery Drug Use: THC Other Social History: Local resident Occupation lives with roommate, no work or school 09/21/2016 Ambulatory Status Cane Review of Systems Review of Systems Note: head pain Musculoskeletal: Reports: Extremity pain (both elbows and shoulders) Neurologic: Reports: Problem walking Complete sys rev & neg: except as marked. Physical Exam Initial Vital Signs Vital Signs (First) Date Time Temp Pulse Resp B/P Pulse Ox O2 Delivery O2 Flow Rate FiO2 12/04/16 07:39 36.4 107 14 96/68 100 12/04/16 11:44 Room Air Initial VS: Reviewed, Vital signs abnormal General/Constitutional: Awake, Alert, No acute distress Neck: Atraumatic, Full range of motion Head / Eyes: Atraumatic, Normocephalic, PERRL, EOMI Respiratory / Chest: Atraumatic, Breath sounds NL, Breath sounds = bilat, No respiratory distress Cardiovascular: Regular rhythm, Heart sounds NL Heart Rate / Rhythm: Positive: Tachycardia Abdomen: Atraumatic, Soft, Non-tender Back: Non-tender, No paraspinal tenderness bilateral thoracic area bruising Upper Extremity / MS: Atraumatic, Full range of motion bruising to upper extremities erythema around right elbow Lower Extremity / Pelvis / MS: Atraumatic, Full range of motion, No deformity Skin: Atraumatic, Color NL, No rash, Warm, Dry Neurologic: Oriented X3, Speech NL, No motor deficits, No sensory deficits Psychiatric: Affect NL, Mood NL Interpretation & Diagnostics Lab Results Interpretation Test 12/04/16 09:25 Hold Urine Received (Received) X-Ray Interpretation Xray Interpretation: IMPRESSION: No acute bony injuries of the right elbow. Dictated by: Manuel Castano M.D. on 12/04/2016 at 8:48 Approved by: Manuel Castano M.D. on 12/04/2016 at 8:48 X-Ray Ordered: Elbow right Interpretation / Wet Read by: Interpret - Radiologist CT Head Interpretation IMPRESSION: No acute intracranial abnormalities after fall. Dictated by: Manuel Castano M.D. on 12/04/2016 at 8:27 Approved by: Manuel Castano M.D. on 12/04/2016 at 8:31 Interpretation / Wet Read by: Interpret - Radiologist Re-Eval/Medical Decision Med Decision/Clinical Course The patient presents after another fall, he has the same complaints as when he came in last night however he says he hit his head. The patient again was not using his cane when he fell. The patient does not meet criteria for admission. Had a PT evaluation he does fine when he uses his walking stick. He had labs last night which were normal aside from hypokalemia. Is also found out that patient has not been eating regularly which could contribute to some of his weakness. The patient was given a prescription for some Ativan to help, he did not want prescriptions for his usual medication because [facility]. Source of Hx: Old records Re-Evaluation/Progress : Time of Eval: 08:00 Re-Evaluation/Progress Note: Discussed plan for treatment and discharge during initial interview. The patient understands and agrees to the plan for discharge. All questions were addressed. Counseled Regarding: Diagnosis, Lab results, Need for follow-up, When/why to return to ED Discharge & Departure Impression: Primary Impression: History of alcohol abuse Disposition: Home Discharge Condition All VS Reviewed: Yes Condition: Stable Patient Instructions: Abuse of Alcohol (GEN), Alcohol Withdrawal (GEN) Additional Instructions: You need to use your cane every time you walk. When standing, stay in one place for 30 seconds to 1 minute before you start to walk. Keep your appointment on Wednesday for detox. [facility]. You need to be eating regularly. Return to the emergency department if you develop any new or worsening symptoms. Referrals: [facility] Ricibcinthia Attestation Portions of this note were transcribed by Scarlet Anderson. I, Dr. Sanchez personally performed the history, physical exam and medical decision-making; I reviewed and confirmed the accuracy of the information in the transcribed note. Signed by: Lamine Doherty, 12/04/16 and 1042 copies to: [facility] Yumiko Sanchez MD December 04, 2016 07:57 Yolie Anderson December 04, 2016 08:07
[2016-12-04] MEDS ORDERED: 0.9% Sodium Chloride 1,000 ML IV ONE (08:10)
--- NOTE | 2016-12-04 08:32 | DRSVH ---
PROCEDURE: CT BRAIN WITHOUT CONTRAST ([id number]) INDICATIONS: 61 year-old male with head trauma after fall. TECHNIQUE: Noncontrast 4.5 mm thick angled axial sections acquired from the foramen magnum to the vertex, with c oronal reformats. COMPARISON: [facility], CT, CT BRAIN WO CON, 07/26/2016, 18:31. FINDINGS: Image quality: Excellent. CSF spaces: Basal cisterns are patent. No extra-axial fluid collections. Ventricles are normal in size and shape. Brain: No midline shift. No intracranial masses or hemorrhage. Dixon-white matter interface is norm al. Skull and face: Calvarium and visualized facial bones are intact, without suspicious lesions. Sinuses: Visualized sinuses and mastoids are clear. IMPRESSION: No acute intracranial abnormalities after fall. Dictated by: Manuel Castano M.D. on 12/04/2016 at 8:27 Approved by: Manuel Castano M.D. on 12/04/2016 at 8:31
--- NOTE | 2016-12-04 08:50 | DRSVH ---
PROCEDURE: X-RAY RIGHT ELBOW COMPLETE, MINIMUM THREE VIEWS ([id number]) INDICATIONS: 61 year-old male with right elbow pain after fall. TECHNIQUE: 3 views of the elbow were acquired. COMPARISON: None. FINDINGS: Bones: No fractures or dislocations. No suspicious bony lesions. Soft tissues: No elbow joint effusion. No suspicious soft tissue calcifications. IMPRESSION: No acute bony injuries of the right elbow. Dictated by: Manuel Castano M.D. on 12/04/2016 at 8:48 Approved by: Manuel Castano M.D. on 12/04/2016 at 8:48
[2016-12-04] MEDS ORDERED: Potassium Chloride 20 mEq SR Tablet PO ONE (09:45)
[2016-12-04 11:44] VITALS: BP 112/76; PULSE 102; RESP 17; O2SAT 99
--- NOTE | 2016-12-04 12:01 | NUR ---
Evaluation completed. Please go to "Notes" then click on "Assessments and Notes" (bottom left corner of screen). Then select appropriate discipline tab on top of screen.
== END 2016-12-04 11:20 | disposition home or self-care (01) ==
LOC: SED 07:32
DX: F10.10 Alcohol abuse, uncomplicated (principal); R51 Headache; M25.521 Pain in right elbow; M25.522 Pain in left elbow; M25.511 Pain in right shoulder; M25.512 Pain in left shoulder; W01.198A Fall on same level from slipping, tripping and stumbling with subsequent striking against other object, initial encounter; Y93.89 Activity, other specified; Y92.89 Other specified places as the place of occurrence of the external cause; Y99.8 Other external cause status; Z87.891 Personal history of nicotine dependence
CPT/HCPCS: 70450; 73080; 81002; 82075; 90791; 96361; 96374; 97161; 99285; J3360; J7030

== ENCOUNTER 2016-12-18 10:14 | Inpatient (IN) | payer OTHER ==
[~2016-12-18] VITALS: Ht 182.9 cm; Wt 70.0 kg
[2016-12-18] VITALS (9 sets, daily range): BP systolic 114–155; BP diastolic 70–133; PULSE 72–98; RESP 15–20; O2SAT 95–98
--- NOTE | 2016-12-18 10:24 | ED.REPORT ---
HPI-General Illness Date of Service December 18, 2016 ED Provider: Roberta Brizuela MD The patient is a 61 year old male with a medical history including COPD, restrictive lung disease, and alcohol abuse who presents to the ED in alcohol withdrawal requesting detox assistance and reporting that his last alcoholic drink was two days ago. Associated symptoms include anxiety, abdominal pain, nausea, subjective fever, shortness of breath (chronic), and recent frequent falls. The patient reportedly hasn't eaten or slept in four days. He has been drinking an average of one quart of vodka per day and does not remember when he was last sober for an extended period of time. The patient has a history of inpatient treatment for alcohol withdrawal but does not remember when. He is not currently taking his prescribed medications and has been living in a hotel. The patient was recently seen in the ED on 12/04/16 after a ground level fall related to alcohol abuse. He denies chills, headache, vision change, hallucinations, or other symptoms. [facility] who [facility] to [facility]. Nursing Notes Stated Complaint: DETOX Chief Complaint: Substance Abuse Nursing Notes Reviewed: Yes Allergies: Coded Allergies: No Known Allergies (Verified , 12/18/16) Scheduled Budesonide/Formoterol 80-4.5 mcg Inh (Symbicort 80-4.5 mcg Inh) 120 Puff Inhaler 2 PUFF INHALATION BID Cholecalciferol (Vitamin D3) (Vitamin D3) 2,000 Unit Capsule 2,000 UNIT PO DAILY Cyanocobalamin (Vitamin B-12) (Vitamin B-12) 1,000 Mcg Tablet 1,000 MCG PO DAILY Etodolac (Etodolac) 400 Mg Tablet 400 MG PO TID Gabapentin (Gabapentin) 300 Mg Capsule 600 MG PO TID Garlic Extract (Garlipure) 600 Mg Tablet 600 MG PO DAILY Grape Seed Extract (Grape Seed) 50 Mg Tablet 50 MG PO DAILY Morphine Sulfate (Morphine Sulfate) 15 Mg Tablet 15 MG PO BID Multivits-Min/FA/Lycopene/Lut (Centrum Silver Tablet) 1 Each Tablet 1 EACH PO DAILY [place]-3/Dha/Epa/Fish Oil (Fish Oil 1,000 mg Softgel) 1 Each Capsule 1 EACH PO DAILY Thiamine Mononitrate (Vitamin B-1) 100 Mg Tablet 100 MG PO DAILY Tiotropium [place] (Spiriva) 18 Mcg Cap.w.dev 18 MCG IH DAILY Venlafaxine ER (Venlafaxine ER) 150 Mg Cap.er.24h 150 MG PO HS Scheduled PRN Albuterol HFA (Proair HFA) 8.5 Gm Hfa.aer.ad 2 PUFFS INHALATION Q4H PRN PRN For Shortness of Breath Methocarbamol (Methocarbamol) 750 Mg Tablet 750-1,500 MG PO BID PRN PRN For Spasm Metronidazole (Metronidazole Gel) 1 Applic/0.25 Gm Gel 1 APPLIC TOP DAILY PRN PRN rosacea General Time Seen by MD: 10:22 Chief Complaint Other (Alcohol Withdrawal) Hx Obtained From: Patient Arrived By: Walk-in Sudden in Onset?: No Onset Occurred: 2 days ago Symptom Duration: Since onset Location: : Abdomen Quality: Painful Severity: Current: Moderate Severity: Maximum: Moderate Pertinent Negative: Relieved by nothing Context Related History: Reports COPD Recent Healthcare: Recent doctor visit Similar Sx Previous: Yes Past Medical History Past Medical History Notes: Seen in ED 01/24 and 02/16/2016 for orthostatic hypotension on chronic pain management morphine ER [facility] 09/[facility]/2016 meds are mailed and will not show on [employer] Past Medical History Chronic shoulder and left elbow and left knee pain COPD Depression History of obstructive sleep apnea History of alcohol use History of hospitalization for pneumonia in September 2015 History of colon polyps History of orthostasis Restricted lung disease Past Surgical History Lower right lung lobectomy Hiatal hernia repair Bilateral hips Bilateral knees Tonsillectomy Adenoidectomy Family History Non-contributory. Smoking History Former Smoker Social History Hx of EtOH abuse has a nebulizer and 3 inhalers Alcohol Use: >5 per day Drug Use: THC Other Social History: Local resident Occupation lives with roommate, no work or school 09/21/2016 Ambulatory Status Cane Review of Systems + Alcohol withdrawal and detox assistance request, recent frequent falls Full Review of Systems Constitutional: Reports: Fever (Subjective), Denies: Chills Respiratory: Reports: Shortness of breath (Chronic), Denies: Non-productive cough GI: Reports: Abdominal pain, Nausea, Denies: Diarrhea, Vomiting Neurologic: Denies: Headache, Vision change Psychiatric: Reports: Anxiety, Denies: Hallucinations, auditory, Hallucinations, visual Complete sys rev & neg: except as marked. Physical Exam Vital Signs Vital Signs Date Time Temp Pulse Resp B/P Pulse Ox O2 Delivery O2 Flow Rate FiO2 12/18/16 13:33 77 18 114/70 95 Room Air 12/18/16 13:17 88 20 155/133 95 Room Air 12/18/16 10:17 36.9 98 20 123/84 97 Initial VS: Reviewed Head / Eyes: Atraumatic, Normocephalic ENT: Conjunctiva normal, No scleral icterus Neck: Supple, Full range of motion Psychiatric: Mood/affect normal, Behavior normal, Normal thought content General/Constitutional: Awake, Alert Smells of alcohol Respiratory / Chest: Breath sounds = bilat, No respiratory distress Fine diffuse crackles Cardiovascular: Regular rhythm, Heart sounds NL, No murmurs Heart Rate / Rhythm: Positive: Tachycardia Abdomen: Soft, Non-tender Skin: Warm, Dry Healing abrasion to left forearm Bruises to insides of both forearms Diffuse cuts and scratches Neurologic: Oriented X3, Speech NL Tremulous Interpretation & Diagnostics Interpretation & Diagnostics: States no ETOH for 48 hrs, no sleep for 4 days, no food for 4 days. ETOH level is 261. Lab Results Interpretation Result Diagram: 12/18/16 1100 12/18/16 1100 Test 12/18/16 11:00 White Blood Count 5.9th/mm3 (3.8-10.1) Red Blood Count 3.80mil/mm3 (4.40-5.80) Hemoglobin 12.8g/dL (13.8-17.2) Hematocrit 37.3% (41.0-50.0) Mean Corpuscular Volume 98.2fL (81-100) Mean Corpuscular Hemoglobin 33.7pg (27.0-35.0) Mean Corpuscular Hemoglobin Concent 34.3% (32.0-37.0) Red Cell Distribution Width 14.1% (12.3-15.4) Platelet Count 247bil/L (150-400) Neutrophils (%) (Auto) 59.3% (40-74) Lymphocytes (%) (Auto) 28.3% (14-46) Monocytes (%) (Auto) 10.1% (4-12) Eosinophils (%) (Auto) 0.9% (0-5) Basophils (%) (Auto) 0.9% (0-3) Sodium Level 145mEq/L (134-144) Potassium Level 3.4mEq/L (3.5-5.2) Chloride Level 100mEq/L (97-108) Carbon Dioxide Level 25mmol/L (18-29) Blood Urea Nitrogen 7mg/dL (8-27) Creatinine 0.59mg/dL (0.76-1.27) Estimat Glomerular Filtration Rate 148mL/min (>59) Glucose Level 106mg/dL (60-99) Calcium Level 8.6mg/dL (8.5-10.1) Phosphorus Level 3.2mg/dL (2.5-4.9) Magnesium Level 1.7mg/dL (1.6-2.6) Total Bilirubin 0.3mg/dL (0.0-1.2) Aspartate Amino Transf (AST/SGOT) 37U/L (0-50) Alanine Aminotransferase (ALT/SGPT) 23U/L (0-44) Alkaline Phosphatase 128U/L (25-160) Total Protein 6.8g/dL (6.4-8.4) Albumin 3.6g/dL (3.4-5.0) Lipase 26U/L (13-60) Alcohols 261mg/dL (0-10) Re-Eval/Medical Decision Med Decision/Clinical Course States no ETOH for 48 hrs, no sleep for 4 days, no food for 4 days. ETOH level is 261. CIWA on arrival, with ETOH at 261: 3 nausea, 5 tremor, 2 sweat, 5 anxiety, 3 agitation, 2 tactile, 0 visual, 0 auditory, 1 orientation= 21 Needs in patient detox for alcohol 0 auditory, disturbance, Source of Hx: Old records Time of Eval: 12:35 Patient Status: Condition improved Re-Evaluation/Progress Note: The patient is feeling better after his initial dose of Valium. Discussed with patient lab results, diagnosis, and plan for admit. Patient prefers transfer to [facility]. He agrees with plan for care and all questions were addressed. Consultation #1: Call Returned at: 12:47 Note: [facility]: No beds available Consultation #2: Referral / Consult Name: John Dewitt MD Consulted With: Hospitalist Call Returned at: 13:16 Highway Engineer: Agrees with eval, Agrees with plan Counseled Regarding: Diagnosis, Lab results, Need for admission Discharge & Departure Primary Impression: Alcohol withdrawal Complication of substance-induced condition: uncomplicated Qualified Code: F10.230 - Alcohol dependence with withdrawal, uncomplicated Disposition: ADMITTED TO HOSPITAL Discharge Condition All VS Reviewed: Yes Condition: Improved [facility] Lamine Attestation Portions of this note were transcribed by Marilu Whitaker. Dr. Gelacio Granados, personally performed the history, physical exam, and medical decision-making; I reviewed and confirmed the accuracy of the information in the transcribed note. Signed by: Lamine Flores, 12/18/2016, 13:25 copies to: [facility] Roberta Brizuela MD December 18, 2016 10:24 MARILU WHITAKER December 18, 2016 10:39 Portions of this note were transcribed by Marilu Whitaker. Dr. Gelacio Granados, personally performed the history, physical exam, and medical decision-making; I reviewed and confirmed the accuracy of the information in the transcribed note. Signed by: Lamine Flores, 12/18/2016, 13:25 copies to: [facility] Roberta Brizuela MD December 18, 2016 10:24 MARILU WHITAKER December 18, 2016 10:39
[2016-12-18] MEDS ORDERED: Ondansetron 2 mg/mL 2 mL Inj IVPUSH PRN (10:40)
[2016-12-18] MEDS ORDERED: Thiamine Inj 100 MG, Folic Acid Inj 1 MG, Magnesium Sulfate 50% Inj 2 GM, Multivitamins... IV ONE ×5 (10:40)
[2016-12-18 11:28] LABS: BASOPHILS % (AUTO) 0.9 % (0-3); EOSINOPHILS % (AUTO) 0.9 % (0-5); MONOCYTES % (AUTO) 10.1 % (4-12); Mean Corpuscular Hemoglobin 33.7 pg (27.0-35.0); Mean Corpuscular Volume 98.2 fL (81-100); NEUTROPHILS % (AUTO) 59.3 % (40-74); Platelet Count 247 bil/L (150-400)
[2016-12-18 11:40] LABS: Magnesium 1.7 mg/dL (1.6-2.6); Phosphorus 3.2 mg/dL (2.5-4.9)
[2016-12-18] MEDS ORDERED: Polyethylene Glycol (PEG) 17 Gm Powder PO PRN (13:25)
[2016-12-18] MEDS ORDERED: Alum-Mag Hydrox-Simeth 30 mL Suspension PO PRN (13:25)
[2016-12-18] MEDS ORDERED: THIA100T64 PO (13:34)
[2016-12-18] MEDS ORDERED: OMEG-38 PO (13:34)
[2016-12-18] MEDS: 0.9% Sodium Chloride 1,000 ML IV SCH (14:46)
--- NOTE | 2016-12-18 16:51 | PCM.HPMED ---
Subjective Date of Service December 18, 2016 Primary Provider: Admitting Physician: John Dewitt MD [facility] Attending Physician: John Dewitt MD Chief Complaint: Alcohol withdrawal History of Present Illness: Patricio Cardozo is a 61-year-old man with past medical history significant for restrictive lung disease and alcohol abuse who presents to the [facility] emergency department due to alcohol withdrawal with request of detox assistance. He reports his last drink 2 days ago. She he states that he normally drinks 1 quart of vodka per day. He has undergone alcohol withdrawal in the past multiple times. He denies any withdrawal seizures. Patient notes that he feels anxious, he has abdominal pain, nausea, subjective fever, shortness of breath, gait instability. He notes that he has had several falls recently. The patient reports he has any new slept in several days. The patient states that he has been sober before and the longest lasting period was 18 months. Patient is not taking his normally prescribed medications. The patient was seen in the emergency department on 12/04/16 due to a ground level fall due to intoxication. She denies any hallucinations, headache, vision changes. Patient denies any history of cirrhosis, GI bleed, varices, esophagitis. In the ED his vitals were stable. He was given an infusion of thiamine and started on the CIWA protocol. Review of Systems: Comprehensive review of systems was conducted and is negative except as noted above in history of present illness. Allergies Coded Allergies: No Known Allergies (Verified , 12/18/16) Home Medications Scheduled Budesonide/Formoterol 80-4.5 mcg Inh (Symbicort 80-4.5 mcg Inh) 120 Puff Inhaler 2 PUFF INHALATION BID Cholecalciferol (Vitamin D3) (Vitamin D3) 2,000 Unit Capsule 2,000 UNIT PO DAILY Cyanocobalamin (Vitamin B-12) (Vitamin B-12) 1,000 Mcg Tablet 1,000 MCG PO DAILY Etodolac (Etodolac) 400 Mg Tablet 400 MG PO TID Gabapentin (Gabapentin) 300 Mg Capsule 600 MG PO TID Garlic Extract (Garlipure) 600 Mg Tablet 600 MG PO DAILY Grape Seed Extract (Grape Seed) 50 Mg Tablet 50 MG PO DAILY Morphine Sulfate (Morphine Sulfate) 15 Mg Tablet 15 MG PO BID Multivits-Min/FA/Lycopene/Lut (Centrum Silver Tablet) 1 Each Tablet 1 EACH PO DAILY [place]-3/Dha/Epa/Fish Oil (Fish Oil 1,000 mg Softgel) 1 Each Capsule 1 EACH PO DAILY Thiamine Mononitrate (Vitamin B-1) 100 Mg Tablet 100 MG PO DAILY Tiotropium [place] (Spiriva) 18 Mcg Cap.w.dev 18 MCG IH DAILY Venlafaxine ER (Venlafaxine ER) 150 Mg Cap.er.24h 150 MG PO HS Scheduled PRN Albuterol HFA (Proair HFA) 8.5 Gm Hfa.aer.ad 2 PUFFS INHALATION Q4H PRN PRN For Shortness of Breath Methocarbamol (Methocarbamol) 750 Mg Tablet 750-1,500 MG PO BID PRN PRN For Spasm Metronidazole (Metronidazole Gel) 1 Applic/0.25 Gm Gel 1 APPLIC TOP DAILY PRN PRN rosacea PMH Chronic shoulder and left elbow and left knee pain COPD Depression History of obstructive sleep apnea History of alcohol use History of hospitalization for pneumonia in September 2015 History of colon polyps History of orthostasis Restricted lung disease Surgical History Lower right lung lobectomy Hiatal hernia repair Bilateral hips Bilateral knees Tonsillectomy Adenoidectomy Family History High blood pressure Social History Hx Alcohol Use: Yes (1 QUART VODKA/DAY) Hx Substance Use: Yes (MARIJAUNA daily) Hx Tobacco Use: No Smoking Status: Former Smoker Exam Vital Signs Vital Sign - Last Date Time Temp Pulse Resp B/P Pulse Ox O2 Delivery O2 Flow Rate FiO2 12/18/16 16:31 36.8 72 18 127/80 96 Room Air Exam General: Well-developed man in hospital bed in mild discomfort HEENT: Normocephalic, atraumatic. External ears without defect. Pupils equal, round, and reactive to light and accommodation. Anicteric sclerae, moist conjunctivae, and no lid lag. Oropharynx free of erythema and cobble stoning with moist mucosa. Neck: Supple with full range of motion. No jugular venous distension. No lymphadenopathy or thyromegaly. Cardiovascular: Regular rate and rhythm with no murmurs, rubs, or gallops appreciated Pulmonary: Diffuse wheezing auscultated. Normal respiratory effort with no use of accessory muscles. Abdomen: Bowel tones present. Soft, nontender, nondistended. No hepatosplenomegaly or masses appreciated. Extremities: No clubbing, cyanosis, edema, or lymphadenopathy appreciated. Skin: Normal temperature, turgor, and texture; no rash, ulcers, or subcutaneous nodules appreciated. Neurological: Cranial nerves grossly intact. Normal muscle strength, tone, and bulk. Reflexes, coordination, and sensory function within normal limits. Resting tremor noted Psychiatric: Normal mood and affect. Alert and oriented to person, place, and time. Lab and Diagnostics Labs Alcohol level: 261 Result Diagram: 12/18/16 1100 12/18/16 1100 Assessment & Plan Patricio Cardozo is a 61-year-old man with past medical history significant for restrictive lung disease and alcohol abuse who presents to the [facility] emergency department due to alcohol withdrawal with request of detox assistance. Alcohol withdrawal without history of seizures -[facility] protocol -Seizure precaution -Thiamine supplementation -Chemical dependency counseling Mild hypovolemic hypernatremia secondary to dehydration -Likely due to EtOH intoxication and poor by mouth intake -Encourage by mouth intake, IV fluids -Recheck BMP in the morning Restrictive lung disease -We will restart patient's outpatient inhalers: Symbicort, Spiriva, albuterol Depression -Restart patient's outpatient medications: Venlafaxine Objective sleep apnea -Nocturnal oxygen as needed CODE STATUS: FULL CODE Patient is admitted under inpatient status with expected length of stay greater than 2 midnights due to severity of presenting symptoms, risk of adverse event, and complexity of treatment plan. VTE Prophylaxis: Sub-Q Heparin (Unfractionated) Resuscitation Status: CPR: Attempt Resuscitation Attending Statement I interviewed and examined the patient at the time of admission. I agree with the assessment and plan as stated above. Cheli Funes DO December 18, 2016 16:36 John Dewitt MD December 18, 2016 19:24
[2016-12-18 17:14] LABS: INR 0.91 ratio
--- NOTE | 2016-12-18 18:15 | NUR ---
Transfer/CIWA Pt. was transferred from the ED to room 2028 PCC. Pt. is here for alcohol withdrawal and his last drink he states was 2 days ago. Pt. has scored a CIWA of 14 and I administered 10mg IV valium at ~ 1440. The latest CIWA score was a 9 at ~ 1800. Pt. is RA SpO2 96% VS stable and he is on a heart monitor, SR 70s per tele. Will continue to monitor.
[2016-12-18] MEDS: Ondansetron 2 mg/mL 2 mL Inj IVPUSH PRN (20:55)
[2016-12-19] VITALS (8 sets, daily range): BP systolic 109–133; BP diastolic 67–82; PULSE 65–79; RESP 16–17; O2SAT 94–99
[2016-12-19] MEDS: Heparin 5,000 Unit/mL Inj SUBQ SCH ×3 (00:28→18:27)
[2016-12-19] MEDS: 0.9% Sodium Chloride 1,000 ML IV SCH ×3 (00:28→19:22)
--- NOTE | 2016-12-19 06:31 | NUR ---
CIWA Patient's CIWA scores 4-14 overnight. Valium 5 mg given with good effect. Patient asks for valium, but often without a corresponding CIWA score to warrant dosing. Patient reported nausea once which improved with 4mg IV zofran. Continue to monitor.
[2016-12-19] MEDS: Ondansetron 2 mg/mL 2 mL Inj IVPUSH PRN ×3 (06:43→13:47)
[2016-12-19] MEDS: Multivit-Miner-Folic Acid-Iron Tablet PO SCH (09:23)
[2016-12-19] MEDS: Thiamine Inj 200 MG in Dextrose 5% 50 ML IV SCH (11:44)
--- NOTE | 2016-12-19 12:33 | PCM.PNMED ---
Subjective Date of Service December 19, 2016 Subjective 61-year-old male with history of chronic lung disease and alcoholism presents with acute alcohol intoxication and withdrawal. Reports feeling generally better overnight. No acute cardiac, respiratory or GI symptoms. Tolerating oral diet. Complains of his chronic pain. Exam Vital Signs Vital Sign - Last Date Time Temp Pulse Resp B/P Pulse Ox O2 Delivery O2 Flow Rate FiO2 12/19/16 11:47 37.3 73 16 121/71 97 Room Air Intake and Output 12/18/16 12/18/16 12/19/16 Cumulative From/Thru 15:00 23:00 07:00 12/18/16 10:17 - 12/19/16 06:35 Intake Total 1000 ml 1175 ml 1610 ml 3785 ml Output Total 0 ml 1050 ml 1050 ml Balance 1000 ml 1175 ml 560 ml 2735 ml Intake Oral 800 ml 400 ml 1200 ml IV Total 1000 ml 375 ml 1210 ml 2585 ml Output Urine Total 0 ml 1050 ml 1050 ml Exam General: Generally healthy-appearing, no acute distress HEENT: sclerae anicteric, oral mucosa moist Neck: no JVD Chest: clear to auscultation, no wheeze Cardiac: S1S2, no murmur Abdomen: BS normal, non-tender Extremities: No edema Neuro: A&O, cranial nerves symmetric, motor strength 5/5, coordination normal, mild tremor, no asterixis IVs and Medications Medications Reviewed: Medications were reviewed in detail Lab and Diagnostics Result Diagram: 12/18/16 1100 12/18/16 1100 Assessment & Plan Patricio Cardozo is a 61-year-old man with past medical history significant for restrictive lung disease and alcohol abuse who presents to the [facility] emergency department due to alcohol withdrawal with request of detox assistance. Alcohol withdrawal without history of seizures; present on admission. Medical course improving. She was score still elevated. -Continue CIWA protocol -Discontinue Seizure precaution -Thiamine supplementation -Chemical dependency counseling Mild hypovolemic hypernatremia secondary to dehydration -Encourage by mouth intake, IV fluids Restrictive lung disease -We will restart patient's outpatient inhalers: Symbicort, Spiriva, - No albuterol as he has no wheezes or obstructive disease and this will complicate assessment of his tremor. Albuterol Depression -Restart patient's outpatient medications: Venlafaxine Chronic pain - Continue his outpatient prescription for morphine 15 mg twice a day Objective sleep apnea -Nocturnal oxygen as needed CODE STATUS: FULL CODE Discharge planning: Expect discharge to home when CIWA scores are normal likely 1-2 days. VTE Prophylaxis: Sub-Q Heparin (Unfractionated) Resuscitation Status: CPR: Attempt Resuscitation Time spent 35 minutes John Dewitt MD December 19, 2016 12:33
[2016-12-19] MEDS: Morphine ER 15 mg (MS Contin) Tablet PO SCH ×2 (13:48→20:20)
--- NOTE | 2016-12-19 14:57 | NUR ---
Social Work- Brief Note Data: EMR reviewed. Pt is a 61 year old male admitted 12/18/16 for alcohol withdrawal per H&P. SW received order from for chemical dependency assessment. Per chart review, pt's last CIWA score was 5. Pt's insurance is [employer] and PCP is [facility]. SW met with pt at bedside regarding discharge plan, substance use. Pt was residing in a hotel in [place] where he is independent at baseline. Pt declined any interest in [facility] at this time. Pt uses a cane to ambulate. Pt reports drinking 1 quart of vodka every day until he "got tired of it" and came to the hospital. Pt reports having a sponsor and being connected with AA, NA, and [place]. Pt declined speaking with CDP through [employer] as he would much rather connect with his sponsor and work his programs. SW discussed completing CD assessment at bedside, pt reports his head is fuzzy and he doesn't want to continue talking with [employer] at this time. Pt agreeable to resources provided regarding housing, outpt chemical dependency, and the [employer] booklet. Pt agreeable to [employer] checking in on him tomorrow. Pt likely to discharge back to homelessness, CD resources provided at bedside. SW to follow up with pt tomorrow to attempt to complete CD assessment. SW will continue to follow for discharge needs. Assessment: Pt who is homeless Plan: Pt likely to discharge back to homelessness, CD resources provided at bedside. SW to follow up with pt tomorrow to attempt to complete CD assessment. SW will continue to follow for discharge needs. WENDY Kam
[2016-12-19] MEDS: Tiotropium 18mcg/Cap 5 Capsule Inhaler Kit INHALATION SCH (15:21)
--- NOTE | 2016-12-19 19:22 | NUR ---
CIWA/Pain Cardiac: Pt. denies CP, Tele: 70-90 Resp: Pt. denies SOB SPo2 mid to high 90s on RA. GI/: Pt. reports some abdominal pain and some nausea following meals, zofran effective for nausea. Neuro: A&Ox3, REESE; notable tremor of bilateral upper extremities, CIWA 14 this AM, CIWA down to 7 for rest of shift. Pt states, "I feel like I can go home tomorrow". Pt complaining of arthritic shoulder pain. Scheduled morphine effective.
[2016-12-19] MEDS: Fluticasone-Salmeterol 100-50 Inhaler INHALATION SCH (20:20)
[2016-12-19] MEDS ORDERED: BUDESONIDE FORMOT INHALATION SCH (20:30)
[2016-12-19] MEDS ORDERED: Venlafaxine XR 75 mg ER24 Capsule PO SCH (21:00)
[2016-12-20] MEDS: Heparin 5,000 Unit/mL Inj SUBQ SCH ×2 (00:13→07:58)
[2016-12-20 03:17] VITALS: BP 127/77; PULSE 67; RESP 18; O2SAT 96
[2016-12-20 05:13] VITALS: PULSE 69
[2016-12-20] MEDS: 0.9% Sodium Chloride 1,000 ML IV SCH (05:22)
--- NOTE | 2016-12-20 06:24 | NUR ---
Insomnia Pt c/o not being able to sleep at approx. 0200, stated "I've had stretches where I can't sleep for 5 days straight; this has been an ongoing problem for me and I'm going to follow up with my primary when I leave here." Requested sleeping medication while here; paged, one time order for 5mg melatonin obtained and administered - pt sleeping intermittently throughout shift but no prolonged periods of rest. CIWA score of 2 upon assessment. VSS. Tele SR 60s-70s. Reports ongoing pain at approx. 6-02/01, states "It's chronic pain, I'm used to it."
[2016-12-20 07:43] VITALS: BP 135/73; PULSE 58; RESP 16; O2SAT 96
[2016-12-20] MEDS: Morphine ER 15 mg (MS Contin) Tablet PO SCH (07:56)
[2016-12-20] MEDS: Multivit-Miner-Folic Acid-Iron Tablet PO SCH (07:56)
[2016-12-20] MEDS: Fluticasone-Salmeterol 100-50 Inhaler INHALATION SCH (07:59)
[2016-12-20] MEDS: Tiotropium 18mcg/Cap 5 Capsule Inhaler Kit INHALATION SCH (07:59)
--- NOTE | 2016-12-20 10:12 | PCM.DIMED ---
Discharge Instructions Date of Service December 20, 2016 Dates of Hospitalization December 18, 2016 at 13:46 Discharge Diagnosis Discharge Diagnosis Alcohol intoxication; alcohol withdrawal; back pain; chronic lung disease Medication Instructions Additional med instructions We were not able to document your current prescription for morphine. We recommend that you discontinue morphine, and pursue other pain management strategies with your primary care doctor. Diet Discharge Diet: No restrictions Activity Discharge Activity: No restrictions Patient Instructions Patient Instructions We advise you to pursue community resources for alcohol cessation. Follow-up Provider: [facility] Follow-up with PCP in: 1 week (call for a posthospitalization follow-up appointment) John Dewitt MD December 20, 2016 10:12
--- NOTE | 2016-12-20 10:15 | PCM.DC.MED ---
Discharge Summary Date of Service December 20, 2016 Dates of Hospitalization Date of Hospital Admission December 18, 2016 at 13:46 Date of Discharge: December 20, 2016 Providers: Admitting Physician: John Dewitt MD [facility]ending Physician: John Dewitt MD Diagnosis at Time of Discharge Diagnosis at Time of Discharge Alcohol intoxication; alcohol withdrawal; back pain; chronic lung disease Brief History Patricio Cardozo is a 61-year-old man with past medical history significant for restrictive lung disease and alcohol abuse who presents to the [facility] emergency department due to alcohol withdrawal with request of detox assistance. He reports his last drink 2 days ago. She he states that he normally drinks 1 quart of vodka per day. He has undergone alcohol withdrawal in the past multiple times. He denies any withdrawal seizures. Patient notes that he feels anxious, he has abdominal pain, nausea, subjective fever, shortness of breath, gait instability. He notes that he has had several falls recently. The patient reports he has any new slept in several days. The patient states that he has been sober before and the longest lasting period was 18 months. Patient is not taking his normally prescribed medications. The patient was seen in the emergency department on 12/04/16 due to a ground level fall due to intoxication. She denies any hallucinations, headache, vision changes. Patient denies any history of cirrhosis, GI bleed, varices, esophagitis. In the ED his vitals were stable. He was given an infusion of thiamine and started on the CIWA protocol. Hospital Course Alcohol withdrawal without history of seizures; present on admission. Medical course improving. Scores are now normal prior to discharge -Discontinue CIWA protocol -Discontinue Seizure precaution -Thiamine supplementation -Chemical dependency counseling Mild hypovolemic hypernatremia secondary to dehydration -Encourage by mouth intake, IV fluids Restrictive lung disease -We will restart patient's outpatient inhalers: Symbicort, Spiriva, - No albuterol as he has no wheezes or obstructive disease and this will complicate assessment of his tremor. Albuterol Depression -Restart patient's outpatient medications: Venlafaxine Chronic pain -We will check the prescription database and he has only a emergency department prescription for morphine from October 2016 - No renewal of morphine prescription Objective sleep apnea -Nocturnal oxygen as needed CODE STATUS: FULL CODE . Exam Vital Signs (Last) Date Time Temp Pulse Resp B/P Pulse Ox O2 Delivery O2 Flow Rate FiO2 12/20/16 07:43 36.8 58 16 135/73 96 Room Air Exam General: no acute distress HEENT: sclerae anicteric, oral mucosa moist Neck: no JVD Chest: clear to auscultation Cardiac: S1S2, no murmur Abdomen: BS normal, non-tender Extremities: No edema Neuro: A&O, cranial nerves symmetric, motor strength 5/5, coordination normal, no tremor Test 12/18/16 11:00 12/18/16 16:51 12/20/16 08:30 White Blood Count 5.9th/mm3 (3.8-10.1) Red Blood Count 3.80mil/mm3 (4.40-5.80) Hemoglobin 12.8g/dL (13.8-17.2) Hematocrit 37.3% (41.0-50.0) Mean Corpuscular Volume 98.2fL (81-100) Mean Corpuscular Hemoglobin 33.7pg (27.0-35.0) Mean Corpuscular Hemoglobin Concent 34.3% (32.0-37.0) Red Cell Distribution Width 14.1% (12.3-15.4) Platelet Count 247bil/L (150-400) Neutrophils (%) (Auto) 59.3% (40-74) Lymphocytes (%) (Auto) 28.3% (14-46) Monocytes (%) (Auto) 10.1% (4-12) Eosinophils (%) (Auto) 0.9% (0-5) Basophils (%) (Auto) 0.9% (0-3) Phosphorus Level 3.2mg/dL (2.5-4.9) Magnesium Level 1.7mg/dL (1.6-2.6) Total Bilirubin 0.3mg/dL (0.0-1.2) Aspartate Amino Transf (AST/SGOT) 37U/L (0-50) Alanine Aminotransferase (ALT/SGPT) 23U/L (0-44) Alkaline Phosphatase 128U/L (25-160) Total Protein 6.8g/dL (6.4-8.4) Albumin 3.6g/dL (3.4-5.0) Lipase 26U/L (13-60) Alcohols 261mg/dL (0-10) Prothrombin Time 9.7sec (8.1-12.5) Prothromb Time International Ratio 0.91ratio Sodium Level 134mEq/L (134-144) Potassium Level 3.4mEq/L (3.5-5.2) Chloride Level 95mEq/L (97-108) Carbon Dioxide Level 26mmol/L (18-29) Blood Urea Nitrogen 5mg/dL (8-27) Creatinine 0.54mg/dL (0.76-1.27) Estimat Glomerular Filtration Rate 164mL/min (>59) Glucose Level 116mg/dL (60-99) Calcium Level 8.7mg/dL (8.5-10.1) Discharge Medications Discharge Medications Budesonide/Formoterol 80-4.5 mcg Inh (Symbicort 80-4.5 mcg Inh) 120 Puff Inhaler 2 PUFF INHALATION BID (Reported) Cholecalciferol (Vitamin D3) (Vitamin D3) 2,000 Unit Capsule 2,000 UNIT PO DAILY (Reported) Cyanocobalamin (Vitamin B-12) (Vitamin B-12) 1,000 Mcg Tablet 1,000 MCG PO DAILY (Reported) Etodolac (Etodolac) 400 Mg Tablet 400 MG PO TID (Reported) Gabapentin (Gabapentin) 300 Mg Capsule 600 MG PO TID (Reported) Garlic Extract (Garlipure) 600 Mg Tablet 600 MG PO DAILY (Reported) Grape Seed Extract (Grape Seed) 50 Mg Tablet 50 MG PO DAILY (Reported) Multivits-Min/FA/Lycopene/Lut (Centrum Silver Tablet) 1 Each Tablet 1 EACH PO DAILY (Reported) [place]-3/Dha/Epa/Fish Oil (Fish Oil 1,000 mg Softgel) 1 Each Capsule 1 EACH PO DAILY (Reported) Thiamine Mononitrate (Vitamin B-1) 100 Mg Tablet 100 MG PO DAILY (Reported) Tiotropium [place] (Spiriva) 18 Mcg Cap.w.dev 18 MCG IH DAILY (Reported) Venlafaxine ER (Venlafaxine ER) 150 Mg Cap.er.24h 150 MG PO HS (Reported) As needed Albuterol HFA (Proair HFA) 8.5 Gm Hfa.aer.ad 2 PUFFS INHALATION Q4H PRN PRN For Shortness of Breath (Reported) Methocarbamol (Methocarbamol) 750 Mg Tablet 750-1,500 MG PO BID PRN PRN For Spasm (Reported) Metronidazole (Metronidazole Gel) 1 Applic/0.25 Gm Gel 1 APPLIC TOP DAILY PRN PRN rosacea (Reported) Additional med instructions We were not able to document your current prescription for morphine. We recommend that you discontinue morphine, and pursue other pain management strategies with your primary care doctor. Followup Plan Discharge Diet: No restrictions Discharge Activity: No restrictions Patient Instructions We advise you to pursue community resources for alcohol cessation. Follow-up Provider: [facility] Follow-up with PCP in: 1 week (call for a posthospitalization follow-up appointment) Time spent 25 minutes copies to: D[facility]NY [facility] John Barger MD December 20, 2016 10:15
[2016-12-20] MEDS: Thiamine Inj 200 MG in Dextrose 5% 50 ML IV SCH (10:49)
--- NOTE | 2016-12-20 11:12 | NUR ---
Social Work- Readiness for Discharge/Discharge Data: EMR reviewed. Pt is on day 2 of hospitalization for alcohol withdrawal per H&P. Pt to discharge today, pt's CIWA is normal. Discharge orders are active. SW followed up with pt at bedside regarding discharge plan, substance use. Pt declined completing SW assessment but was willing to discuss plans to sobriety at discharge. Pt reports he will be obtaining housing in [place] or [place] and confirms that he has the funds to do so. Pt also reports being connected to the [facility] and [facility]. Pt declined any assistance with this. Pt reports having a sponsor and being connected with . Pt states he has contacted his sponsor. Pt declines any questions or concerns related to discharge at this time. Pt to discharge to homelessness, CD resources provided at bedside. No additional discharge needs identified. Assessment: Pt who is homeless Plan: Pt to discharge back to homelessness, CD resources provided at bedside. Pt reports that he has the financial means to obtain housing, declined [facility]. Pt has resources regarding CD outpt resources, [employer], and community resource sheet. Rekha Quintana MSW
--- NOTE | 2016-12-20 11:36 | NUR ---
Discharge Pt discharged home today at 11:40. Pt off floor via wheelchair with all belongings in the company of the nurse to a taxi. Pt was not given any new prescriptions, was given education regarding finding help for ETOH abuse. Pt given [facility] number for follow up in one week. Pt voiced understanding.
== END 2016-12-20 11:29 | disposition home or self-care (01) | DRG 897 ==
LOC: SED 10:14 → PCC 13:46
PROVIDERS: ADMIT Internal Medicine; ATTEND Internal Medicine
DX: F10.229 Alcohol dependence with intoxication, unspecified (principal); E87.0 Hyperosmolality and hypernatremia; F10.239 Alcohol dependence with withdrawal, unspecified; Y90.8 Blood alcohol level of 240 mg/100 ml or more; F12.90 Cannabis use, unspecified, uncomplicated; E86.0 Dehydration; F32.9 Major depressive disorder, single episode, unspecified; G47.33 Obstructive sleep apnea (adult) (pediatric); G89.29 Other chronic pain; Z79.51 Long term (current) use of inhaled steroids; Z87.891 Personal history of nicotine dependence

== ENCOUNTER 2016-12-28 00:28 | Inpatient (IN) | payer OTHER ==
[~2016-12-28] VITALS: Ht 182.9 cm; Wt 69.5 kg
[2016-12-28] VITALS (9 sets, daily range): BP systolic 112–131; BP diastolic 62–73; PULSE 70–105; RESP 14–18; O2SAT 96–98
[~2016-12-28 00:28] MED LIST changes: -AZIT500T5 PO; -CHOL10008 PO; -CYAN500 PO; -FISH OIL DR 1,1 EAC1 PO; -GRAP25CA PO; -MORP15TA PO; +OMEG-38 PO; -OMEG500C PO; -PREN1TAB25 PO; +THIA100T64 PO; -Thiamine PO; -VENL75TA3 PO; -[UNRECOGNIZED DRUG - CODE] PO
--- NOTE | 2016-12-28 02:54 | ED.REPORT ---
HPI-General Illness Date of Service Dec 28, 2016 ED Provider: Todd Calderon MD The patient is a 61 year old male with a medical history including COPD, alcohol abuse, and restricted lung disease who presents to the ED requesting assistance with alcohol detox. The patient's last alcoholic drink was yesterday and he normally drinks one quart of alcohol per day. He was recently admitted to the hospital for alcohol detox from 12/18-12/20 but immediately began to drink again after being discharged. He requests transfer to the [facility]. Nursing Notes Stated Complaint: DETOX Chief Complaint: Substance Abuse Nursing Notes Reviewed: Yes Allergies: Coded Allergies: No Known Allergies (Verified , 12/28/16) Scheduled Budesonide/Formoterol 80-4.5 mcg Inh (Symbicort 80-4.5 mcg Inh) 120 Puff Inhaler 2 PUFF INHALATION BID Cholecalciferol (Vitamin D3) (Vitamin D3) 2,000 Unit Capsule 2,000 UNIT PO DAILY Cyanocobalamin (Vitamin B-12) (Vitamin B-12) 1,000 Mcg Tablet 1,000 MCG PO DAILY Etodolac (Etodolac) 400 Mg Tablet 400 MG PO TID Gabapentin (Gabapentin) 300 Mg Capsule 600 MG PO TID Garlic Extract (Garlipure) 600 Mg Tablet 600 MG PO DAILY Grape Seed Extract (Grape Seed) 50 Mg Tablet 50 MG PO DAILY Multivits-Min/FA/Lycopene/Lut (Centrum Silver Tablet) 1 Each Tablet 1 EACH PO DAILY [place]-3/Dha/Epa/Fish Oil (Fish Oil 1,000 mg Softgel) 1 Each Capsule 1 EACH PO DAILY Thiamine Mononitrate (Vitamin B-1) 100 Mg Tablet 100 MG PO DAILY Tiotropium [place] (Spiriva) 18 Mcg Cap.w.dev 18 MCG IH DAILY Venlafaxine ER (Venlafaxine ER) 150 Mg Cap.er.24h 150 MG PO HS Scheduled PRN Albuterol HFA (Proair HFA) 8.5 Gm Hfa.aer.ad 2 PUFFS INHALATION Q4H PRN PRN For Shortness of Breath Methocarbamol (Methocarbamol) 750 Mg Tablet 750-1,500 MG PO BID PRN PRN For Spasm Metronidazole (Metronidazole Gel) 1 Applic/0.25 Gm Gel 1 APPLIC TOP DAILY PRN PRN rosacea General Time Seen by : 02:24 Chief Complaint Other (Alcohol Detox Assistance Request) Hx Obtained From: Patient Arrived By: Walk-in Onset Occurred: Yesterday Symptom Duration: Since onset Severity: Current: No pain currently Severity: Maximum: No pain Pertinent Negative: Relieved by nothing Context Related History: Reports COPD, Reports Drug use/abuse suspected Recent Healthcare: Recent hospitalization Similar Sx Previous: Yes Past Medical History Past Medical History Notes: Seen in ED 01/24 and 02/16/2016 for orthostatic hypotension on chronic pain management [facility] meds are mailed and will not show on ENVIRONMENT ARTIST Past Medical History Chronic shoulder and left elbow and left knee pain COPD Depression History of obstructive sleep apnea History of alcohol use History of hospitalization for pneumonia in September 2015 History of colon polyps History of orthostasis Restricted lung disease Past Surgical History Lower right lung lobectomy Hiatal hernia repair Bilateral hips Bilateral knees Tonsillectomy Adenoidectomy Family History High blood pressure Smoking History Former Smoker Social History Hx of EtOH abuse has a nebulizer and 3 inhalers Alcohol Use: >5 per day Drug Use: THC Other Social History: Local resident Occupation lives with roommate, no work or school 09/21/2016 Ambulatory Status Cane Review of Systems + Alcohol detox assistance request Full Review of Systems Constitutional: Denies: Fever Respiratory: Denies: Non-productive cough, Shortness of breath GI: Denies: Diarrhea, Vomiting Complete sys rev & neg: except as marked. Physical Exam Vital Signs Vital Signs Date Time Temp Pulse Resp B/P Pulse Ox O2 Delivery O2 Flow Rate FiO2 12/28/16 00:32 36.4 105 18 114/71 98 Room Air Initial VS: Reviewed, Vital signs normal Head / Eyes: Atraumatic, Normocephalic ENT: Conjunctiva normal, No scleral icterus Neck: Supple, Full range of motion Respiratory: Breath sounds normal, Clear to auscultation, No respiratory distress Skin: Warm, Dry, No cyanosis Psychiatric: Mood/affect normal, Behavior normal, Normal thought content General/Constitutional: Awake, Alert Smells of alcohol Cardiovascular: Regular rhythm, Heart sounds NL Heart Rate / Rhythm: Positive: Tachycardia Abdomen: Soft Tenderness/Guarding/Rebound: Positive: Tender RUQ... No organomegaly Neurologic: Oriented X3, Speech NL Reflex Abnormality: Positive: Diffusely hyperactive Movement Abnormality: Positive: Tremor Interpretation & Diagnostics URINE DRUG SCREEN: + Benzodiazepines Otherwise Negative BREATHALYZER: 0.248 Lab Results Interpretation Result Diagram: 12/28/16 0325 12/28/16 0325 Test 12/28/16 01:12 12/28/16 03:25 Urine Color Yellow (YELLOW) Urine Appearance Clear (CLEAR,HAZY) Urine pH 6.0 (5.0-8.0) Urine Specific [place] 1.009 (1.003-1.035) Urine Protein Tracemg/dL (NEG,TRACE) Urine Glucose (UA) Negativemg/dL (NEGATIVE) Urine Ketones Negativemg/dL (NEGATIVE) Urine Occult Blood Negative (NEGATIVE) Urine Nitrite Negative (NEGATIVE) Urine Bilirubin Negative (NEGATIVE) Urine Urobilinogen Normalmg/dL (NORMAL) Urine Leukocyte Esterase Negative (NEGATIVE) Urine RBC 0-2/hpf (0-2) Urine WBC 0-5/hpf (0-5) Urine Epithelial Cells Occasional/hpf (NONE-MOD) Urine Crystals None seen (NONE SEEN) Urine Bacteria None/hpf (NONE-FEW) Urine Hyaline Casts Occasional/lpf (NONE) Urine Granular Casts None seen (NONE SEEN) Urine Waxy Casts None seen (NONE SEEN) Urine Red Blood Cell Casts None seen (NONE SEEN) Urine White Blood Cell Casts None seen (NONE SEEN) Urine Mucus Present (None Seen) Urine Trichomonas None seen (NONE SEEN) Urine Yeast None (NONE SEEN) Urine Culture Reflexed Not indicated Hold Urine Received (Received) White Blood Count 7.9th/mm3 (3.8-10.1) Red Blood Count 4.08mil/mm3 (4.40-5.80) Hemoglobin 13.9g/dL (13.8-17.2) Hematocrit 41.3% (41.0-50.0) Mean Corpuscular Volume 101.2fL (81-100) Mean Corpuscular Hemoglobin 34.1pg (27.0-35.0) Mean Corpuscular Hemoglobin Concent 33.7% (32.0-37.0) Red Cell Distribution Width 13.4% (12.3-15.4) Platelet Count 209bil/L (150-400) Neutrophils (%) (Auto) 52.7% (40-74) Lymphocytes (%) (Auto) 31.6% (14-46) Monocytes (%) (Auto) 14.1% (4-12) Eosinophils (%) (Auto) 0.9% (0-5) Basophils (%) (Auto) 0.4% (0-3) Prothrombin Time 9.8sec (8.1-12.5) Prothromb Time International Ratio 0.92ratio Sodium Level 142mEq/L (134-144) Potassium Level 3.7mEq/L (3.5-5.2) Chloride Level 98mEq/L (97-108) Carbon Dioxide Level 24mmol/L (18-29) Blood Urea Nitrogen 3mg/dL (8-27) Creatinine 0.58mg/dL (0.76-1.27) Estimat Glomerular Filtration Rate 151mL/min (>59) Glucose Level 81mg/dL (60-99) Calcium Level 8.7mg/dL (8.5-10.1) Magnesium Level 1.8mg/dL (1.6-2.6) Total Bilirubin 0.4mg/dL (0.0-1.2) Aspartate Amino Transf (AST/SGOT) 31U/L (0-50) Alanine Aminotransferase (ALT/SGPT) 18U/L (0-44) Alkaline Phosphatase 119U/L (25-160) Total Protein 6.9g/dL (6.4-8.4) Albumin 3.6g/dL (3.4-5.0) Lipase 19U/L (13-60) Hold Millan Top Tube Received (Received) Re-Eval/Medical Decision Med Decision/Clinical Course 61-year-old male with a history of alcoholism and just recently discharged from a 3 day medical detox. He relapsed and was drinking for 3 days. He is interested in getting back into treatment. He was treated with Valium per the CIWA score. There are no beds available at [facility] . He will be admitted to Dr. Collins. Source of Hx: Old records Time of Eval: 05:00 Patient Status: Condition improved Re-Evaluation/Progress Note: Discussed with patient lab results, diagnosis, and plan for admit. Patient agrees with plan for care and all questions were addressed. Consultation #1: Call Returned at: 04:08 Note: [facility]: No beds available for medical detox Consultation #2: Referral / Consult Name: Gabriel Collins MD Consulted With: Hospitalist Call Returned at: 05:02 Filter Tip Catcher: Agrees with eval, Agrees with plan, Accepts admit Counseled Regarding: Diagnosis, Lab results, Need for admission Discharge & Departure Primary Impression: Alcohol withdrawal Complication of substance-induced condition: uncomplicated Qualified Code: F10.230 - Alcohol dependence with withdrawal, uncomplicated Disposition: ADMITTED TO HOSPITAL Discharge Condition All VS Reviewed: Yes Condition: Improved [facility] Scribcinthia Attestation Portions of this note were transcribed by Marilu Whitaker. I, Dr. Calderon, personally performed the history, physical exam, and medical decision-making; I reviewed and confirmed the accuracy of the information in the transcribed note. Signed by: Lamine Flores, 12/28/2016, 05:40 copies to: [facility] Todd Calderon MD Dec 28, 2016 02:54 MARILU WHITAKER Dec 28, 2016 03:04
[2016-12-28] MEDS ORDERED: Thiamine Inj 100 MG, Folic Acid Inj 1 MG, Magnesium Sulfate 50% Inj 2 GM, Multivitamins... IV ONE ×5 (03:05)
[2016-12-28 03:39] LABS: BASOPHILS % (AUTO) 0.4 % (0-3); EOSINOPHILS % (AUTO) 0.9 % (0-5); MONOCYTES % (AUTO) 14.1 % (4-12); Mean Corpuscular Hemoglobin 34.1 pg (27.0-35.0); Mean Corpuscular Volume 101.2 fL (81-100); NEUTROPHILS % (AUTO) 52.7 % (40-74); Platelet Count 209 bil/L (150-400)
[2016-12-28 03:58] LABS: INR 0.92 ratio
[2016-12-28 04:06] LABS: Magnesium 1.8 mg/dL (1.6-2.6)
[2016-12-28] MEDS ORDERED: Alum-Mag Hydrox-Simeth 30 mL Suspension PO PRN (05:05)
[2016-12-28 05:55] LABS: APPEARANCE,URINE CLEAR (CLEAR,HAZY); COLOR,URINE YELLOW (YELLOW); OCCULT BLOOD,URINE NEGATIVE (NEGATIVE); UROBILINOGEN,URINE NORMAL (NORMAL)
[2016-12-28] MEDS: Dextrose 5% 0.45% NaCl 1,000 ML IV SCH ×2 (06:07→17:12)
--- NOTE | 2016-12-28 06:43 | NUR ---
Admit note: Pt admitted from ER, slide transfer to bed; pt stated inability to stand and transfer "I'm too wasted". Alert and oriented although was unable to state the exact date. Reports generalized pain due to arthritis at 6/10 which he states is tolerable. CIWA on arrival was 10, noticeable tremors to upper extremities. Oriented to room and call light, bed alarm on for safety and call light in reach.
--- NOTE | 2016-12-28 07:31 | PCM.HPMED ---
Subjective Date of Service Dec 28, 2016 Primary Provider: Admitting Physician: Gabriel Collins MD [facility] Attending Physician: Gabriel Collins MD Chief Complaint: Alcohol relapse History of Present Illness: Patient is 61-year-old male past medical history most significant for COPD in addition to alcohol dependence presenting following recent relapse on alcohol following completion of inpatient detox from December 18-. He had planned to enroll in a long-term substance/alcohol dependence program however was unable to enroll immediately and notes he quickly resumed a large amount of alcohol consumption daily. Endorses drinking greater than a quart of hard liquor per day at this point. States he quickly recognize this was not the direction he wanted to go, again experiencing nausea and abdominal pain associated with his abuse, has re-presented requesting assistance again with detox and ideally to transition to a long-term treatment facility thereafter. He has no other acute complaints at this time. Denies any chest pains or shortness of breath. Experiencing fever chills. He had very little attached the case when he is drinking a large amount. Denies any acute complaints at this time. Review of Systems: A 10 point review of systems was conducted and entirely negative excepting pertinent positives and negatives included in above history of present illness Allergies Coded Allergies: No Known Allergies (Verified , 12/28/16) Home Medications Budesonide/Formoterol 80-4.5 mcg Inh (Symbicort 80-4.5 mcg Inh) 120 Puff Inhaler 2 PUFF INHALATION BID Cholecalciferol (Vitamin D3) (Vitamin D3) 2,000 Unit Capsule 2,000 UNIT PO DAILY Cyanocobalamin (Vitamin B-12) (Vitamin B-12) 1,000 Mcg Tablet 1,000 MCG PO DAILY Etodolac (Etodolac) 400 Mg Tablet 400 MG PO TID Gabapentin (Gabapentin) 300 Mg Capsule 600 MG PO TID Garlic Extract (Garlipure) 600 Mg Tablet 600 MG PO DAILY Grape Seed Extract (Grape Seed) 50 Mg Tablet 50 MG PO DAILY Multivits-Min/FA/Lycopene/Lut (Centrum Silver Tablet) 1 Each Tablet 1 EACH PO DAILY [place]-3/Dha/Epa/Fish Oil (Fish Oil 1,000 mg Softgel) 1 Each Capsule 1 EACH PO DAILY Thiamine Mononitrate (Vitamin B-1) 100 Mg Tablet 100 MG PO DAILY Tiotropium [place] (Spiriva) 18 Mcg Cap.w.dev 18 MCG IH DAILY Venlafaxine ER (Venlafaxine ER) 150 Mg Cap.er.24h 150 MG PO HS Scheduled PRN Albuterol HFA (Proair HFA) 8.5 Gm Hfa.aer.ad 2 PUFFS INHALATION Q4H PRN PRN For Shortness of Breath Methocarbamol (Methocarbamol) 750 Mg Tablet 750-1,500 MG PO BID PRN PRN For Spasm Metronidazole (Metronidazole Gel) 1 Applic/0.25 Gm Gel 1 APPLIC TOP DAILY PRN PRN rosacea PMH RECENT Past Medical History Notes: Seen in ED 01/24 and 02/16/2016 for orthostatic hypotension on chronic pain management [facility] meds are mailed and will not show on MOBILE THERAPIST Past Medical History Chronic shoulder and left elbow and left knee pain COPD Depression History of obstructive sleep apnea History of alcohol use History of hospitalization for pneumonia in September 2015 History of colon polyps History of orthostasis Restricted lung disease Surgical History Lower right lung lobectomy Hiatal hernia repair Bilateral hips Bilateral knees Tonsillectomy Adenoidectomy Family History High blood pressure Social History Hx Alcohol Use: Yes (1 QUART VODKA/DAY) Hx Substance Use: Yes (MARIJAUNA daily) Hx Tobacco Use: No Smoking Status: Former Smoker Exam Vital Signs Vital Sign - Last Date Time Temp Pulse Resp B/P Pulse Ox O2 Delivery O2 Flow Rate FiO2 12/28/16 05:49 87 12/28/16 05:40 36.7 18 129/70 98 Room Air Intake and Output 12/27/16 12/27/16 12/28/16 Cumulative From/Thru 15:00 23:00 07:00 12/28/16 00:32 - 12/28/16 06:23 Intake Total 1000 ml 1000 ml Balance 1000 ml 1000 ml Intake IV Total 1000 ml 1000 ml General: Alert, Oriented X3, Moderate Distress, Other (appears tremulous) Eyes: PERRLA, EOMI Mouth: Mucous Membranes Dry Neck: Supple Chest & Lungs: Clear to auscultation & percussion, No adventitious breath sounds Cardiovascular: Regular Rate/Rhythm Abdomen: Non-tender, Non-distended Extremities: No cyanosis/clubbing/edma bilat Neurological: Other (patient is tremulous and obviously anxious, diaphoretic and exhibiting symptoms of alcohol withdrawal. Otherwise nonfocal examination. Damage to through 12 are grossly intact) Lab and Diagnostics Result Diagram: 12/28/16 0325 12/28/16 0325 IVs and Medications Medications Reviewed: Medications were reviewed in detail Assessment & Plan 61 YO M with pmhx sig for alcohol dependence presenting with admitted for further medical management for expectant alchol withdrawal: 1. Alcohol Dependence - CIWA protocol initiated - Continue to monitor medically - Social work consulted for further support - Ideally will establish transition to alcohol rehab prior to discharge to prevent lapse in care which on previous occasion lead to resumed alcohol use. 2. COPD - Continue home medications -Not in acute distress may consider dual nebs if needed for shortness of breath , at which time I will consider holding Spiriva if needed. 3. Macrocytic anemia - Likely secondary to nutrient deficiency in setting of alchol abuse - Folate supplementation provided, in addition to other supports as per alcohol withdrawal protocol. - Continue to monitor daily CBC values Given significant amount of alcohol use over the past week and history of complex withdrawals anticipate patient will be here for greater than 2 midnights for adequate medical stabilization is therefore made inpatient admission. Pain Evaluation: Adequate Pain Control GI Prophylaxis: Not indicated VTE Mechanical Devices: Intermittant Pneumatic CD Resuscitation Status: CPR: Attempt Resuscitation Time spent 45 minutes Vinnie Quevedo DO Dec 28, 2016 07:31
[2016-12-28] MEDS ORDERED: Albuterol 2.5 mg/3 mL Inhalation Solution NEB PRN (09:05)
[2016-12-28] MEDS: Tiotropium 18mcg/Cap 5 Capsule Inhaler Kit INHALATION SCH (12:24)
[2016-12-28] MEDS: Ondansetron 2 mg/mL 2 mL Inj IVPUSH PRN ×2 (13:00→19:54)
--- NOTE | 2016-12-28 13:00 | NUR ---
Nausea Pt reported nausea and was dry heaving after eating his lunch. Administered 8mg Zofran IVP. Reassessed patient who stated that his nausea was still present but tolerable. Continue to monitor
--- NOTE | 2016-12-28 16:00 | NUR ---
Social Work-screening: Data:EMR Reviewed. Pt is a 61 y/o male who was admitted on 12/28/16 for alcohol withdrawal per H&P. Pt's [place] and [place] [facility] [place]. SW met with pt at bedside to discuss discharge planning, SW role explained. Pt is alert and oriented x3. Pt resides at [facility] locally where he remains independent with ADls. Pt drives and does not use any DME. Pt has no HH or SNF history. SW discussed DPOA/ advanced directive, pt confirms he has not completed this and is interested in information, which SW has provided. Pt was admitted for alcohol withdrawal, SW to await MD order for CD assessment. Anticipate pt to discharge back to [facility] when medically stable. Pt states he will pay privately for a taxi home. SW provided phone number and plan on white board in room. SW will continue to follow. Assessment:Pt who is independent at baseline. Plan:Pt to likely discharge back to [facility] when medically stable. SW to await MD orders for CD assessment. SW will continue to follow. WENDY Colbert
--- NOTE | 2016-12-28 16:23 | NUR ---
Spoke with Bere in patient access at [facility] and this patient is 60% service connected and holds no other insurance. Updated PATIENT ACCOUNTS CLERK
--- NOTE | 2016-12-28 17:55 | NUR ---
CIWA Pts CIWA scores ranged from 11-14 for tremors, diaphoresis, anxiety, nausea w/dry heaves. Adminitstered 5mg Valiu, X2, then 10mg X3 during shift. Pt was sleeping @ 1756. Will continue to monitor.
[2016-12-28] MEDS: Fluticasone-Salmeterol 100-50 Inhaler INHALATION SCH (19:54)
[2016-12-28] MEDS: Venlafaxine XR 75 mg ER24 Capsule PO SCH (19:55)
[2016-12-29] VITALS (10 sets, daily range): BP systolic 125–146; BP diastolic 76–85; PULSE 70–88; RESP 16–20; O2SAT 96–98
[2016-12-29] MEDS: Ondansetron 2 mg/mL 2 mL Inj IVPUSH PRN ×2 (03:30→07:38)
[2016-12-29] MEDS: Dextrose 5% 0.45% NaCl 1,000 ML IV SCH ×2 (03:30→13:33)
--- NOTE | 2016-12-29 04:28 | NUR ---
CIWA/NOC Note: Pt scored 10-13 during the night for CIWA, medication administered according to hospital protocol; effective. Pt had emesis x2, medication administered. Pt denied pain, chest pain and SOB, slept off/on throughout the night, pleasant and cooperative with care.
[2016-12-29] MEDS: Omega-3 Fatty Acids 1,000 mg Capsule PO SCH (07:38)
[2016-12-29] MEDS: Tiotropium 18mcg/Cap 5 Capsule Inhaler Kit INHALATION SCH (07:39)
[2016-12-29] MEDS: Fluticasone-Salmeterol 100-50 Inhaler INHALATION SCH ×2 (07:39→21:41)
[2016-12-29] MEDS: Multivit-Miner-Folic Acid-Iron Tablet PO SCH (08:34)
--- NOTE | 2016-12-29 13:47 | PCM.PNMED ---
Subjective Date of Service Dec 29, 2016 Subjective Patient is feeling significantly improved from prior, in regards to the nausea and tremor. States he is still feeling somewhat agitated and anxious, still using some tremor of his arms especially, notes stomach is upset but is unable to eat more this morning. Denies any fever or chills. No dizziness lightheadedness. No reported seizure- like activity. As any hallucinations. Vital signs have been stable. Exam Vital Signs Vital Sign - Last Date Time Temp Pulse Resp B/P Pulse Ox O2 Delivery O2 Flow Rate FiO2 12/29/16 13:18 36.8 75 18 143/85 98 Room Air Intake and Output 12/28/16 12/28/16 12/29/16 Cumulative From/Thru 15:00 23:00 07:00 12/28/16 00:32 - 12/29/16 06:38 Intake Total 3458 ml 1315 ml 5773 ml Output Total 1470 ml 2150 ml 3620 ml Balance 1988 ml -835 ml 2153 ml Intake Oral 2468 ml 425 ml 2893 ml IV Total 990 ml 890 ml 2880 ml Output Urine Total 1470 ml 2150 ml 3620 ml # Bowel Movements 0 0 Exam General: Alert, Oriented X3, Cooperative, Mild Distress/anxiety Eyes: PERRLA, EOMI Mouth: Mucous Membr Moist/[employer] Chest & Lungs: Clear to auscultation & percussion Cardiovascular: Regular Rate/Rhythm Abdomen: Non-tender, Non-distended Extremities: No cyanosis/clubbing/edma bilat Neurological: Grossly Neurologically Intact, mild tremor of upper extremities improved from one day prior. IVs and Medications Medications Reviewed: Medications were reviewed in detail Lab and Diagnostics Result Diagram: 12/28/16 0325 12/28/16 0325 Assessment & Plan 61 YO M with pmhx sig for alcohol dependence presenting with admitted for further medical management for expectant alchol withdrawal: 1. Alcohol Dependence - CIWA protocol continued - Continue to monitor medically, patient stable this time no evidence of complications of alcohol withdrawal - Social work consulted for further support - Ideally will establish transition to alcohol rehab prior to discharge to prevent lapse in care which on previous occasion lead to resumed alcohol use. 2. COPD - Continue home medications -Not in acute distress may consider dual nebs if needed for shortness of breath , at which time I will consider holding Spiriva if needed. 3. Macrocytic anemia - Likely secondary to nutrient deficiency in setting of alcohol abuse - Folate supplementation provided, in addition thymine as per alcohol withdrawal protocol. - Continue to monitor CBC values Given significant amount of alcohol use over the past week and history of complex withdrawals anticipate patient will be here for greater than 2 midnights for adequate medical stabilization is therefore made inpatient admission. Pain Evaluation: Adequate Pain Control GI Prophylaxis: Not indicated VTE Mechanical Devices: Intermittant Pneumatic CD Resuscitation Status: CPR: Attempt Resuscitation Time spent 20 minutes Vinnie Quevedo DO Dec 29, 2016 13:47
--- NOTE | 2016-12-29 16:52 | NUR ---
CIWA Patient was scoring between 5-12 on CIWA protocol. Patient was administered anywhere between 5-10mg Diazepam for symptoms of withdrawal. Patient also would call nurse periodically throughout the day asking if it was time for him to get vallum. At those times asked for medication, patient did not score high enough on CIWA scale. Patient was understanding when told it wasn't time for the medication.
[2016-12-29] MEDS: Venlafaxine XR 75 mg ER24 Capsule PO SCH (21:39)
[2016-12-30] VITALS (7 sets, daily range): BP systolic 114–154; BP diastolic 76–91; PULSE 75–90; RESP 16–18; O2SAT 96–98
[2016-12-30] MEDS: Ondansetron 2 mg/mL 2 mL Inj IVPUSH PRN ×4 (00:06→11:28)
[2016-12-30] MEDS: Dextrose 5% 0.45% NaCl 1,000 ML IV SCH (03:52)
[2016-12-30 06:08] LABS: BASOPHILS % (AUTO) 0.2 % (0-3); EOSINOPHILS % (AUTO) 2.4 % (0-5); MONOCYTES % (AUTO) 11.5 % (4-12); Mean Corpuscular Hemoglobin 34.4 pg (27.0-35.0); Mean Corpuscular Volume 102.1 fL (81-100); NEUTROPHILS % (AUTO) 53.5 % (40-74); Platelet Count 146 bil/L (150-400)
--- NOTE | 2016-12-30 07:38 | NUR ---
CIWA/Nausea/Diarrhea Patients CIWA score highest this shift was 11. he was medicated with 5mg valiumx2 this shift which brought his score down to 0-2.patient c/o mild nausea mild headache mild anxiety. Patient requested Valium throughout the shift but is not scoring high enough for medication no s/s of withdrawal. Patient medicated with zofran for nausea with relief of symptoms. vitals stable. Patient was incontinent of stool this AM. he had loose stools x2 this shift.
--- NOTE | 2016-12-30 09:23 | NUR ---
Social Work-Chemical dependency: Data:EMR Reviewed. Pt is on day 2 of hospitalization for alcohol withdrawal per H&P. Pt is not medically stable. SW followed up with pt to complete CD assessment. Pt states he is ready to be done with drinking, he has had enough. SW discussed CDP from [facility] that could come and meet with pt and he is agreeable to this, interested in treatment. SW had YUVAL signed and referral placed to Sharona OLIVAS from [facility]. Pt has questions about housing assistance. SW provided pt with information for community action. Pt plans on driving himself home at discharge. SW will continue to follow. Assessment:pt who is independent at baseline. Plan:Pt to discharge back to [facility] when medically stable. YUVAL signed for referral to Sharona OLIVAS for [facility]. Sharona to meet with pt and discuss options. TIM will continue to follow. WENDY Colbert
[2016-12-30] MEDS: Omega-3 Fatty Acids 1,000 mg Capsule PO SCH (10:01)
[2016-12-30] MEDS: Multivit-Miner-Folic Acid-Iron Tablet PO SCH (10:01)
[2016-12-30] MEDS: Tiotropium 18mcg/Cap 5 Capsule Inhaler Kit INHALATION SCH (10:01)
[2016-12-30] MEDS: Fluticasone-Salmeterol 100-50 Inhaler INHALATION SCH ×2 (10:01→20:54)
--- NOTE | 2016-12-30 15:05 | PCM.PNMED ---
Subjective Date of Service Dec 30, 2016 Subjective Patient continues to demonstrate improving symptoms of alcohol withdrawal, did require some by last night and reports some anxiety this morning he believes still related to withdrawal symptoms. Today's to talk with social work to set up continued treatment for alcohol dependency on discharge from hospital. Denies any chest pains or shortness of breath. Denies any headache dizziness blurred vision. No seizure like symptoms reported. Vital signs as reported by nurse have been stable overnight. Exam Vital Signs Vital Sign - Last Date Time Temp Pulse Resp B/P Pulse Ox O2 Delivery O2 Flow Rate FiO2 12/30/16 13:04 37.1 84 18 133/85 98 Room Air Intake and Output 12/29/16 12/29/16 12/30/16 Cumulative From/Thru 15:00 23:00 07:00 12/28/16 00:32 - 12/30/16 04:44 Intake Total 3030 ml 977 ml 9780 ml Output Total 1250 ml 2275 ml 7145 ml Balance 1780 ml -1298 ml 2635 ml Intake Oral 1020 ml 400 ml 4313 ml IV Total 2010 ml 577 ml 5467 ml Output Urine Total 1250 ml 2025 ml 6895 ml Emesis 250 ml 250 ml # Bowel Movements 2 1 3 Exam General: Alert, Oriented X3, Cooperative, Mild Distress/anxiety Eyes: PERRLA, EOMI Mouth: Mucous Membr Moist/[place] Chest & Lungs: Clear to auscultation & percussion Cardiovascular: Regular Rate/Rhythm Abdomen: Non-tender, Non-distended Extremities: No cyanosis/clubbing/edma bilat Neurological: Grossly Neurologically Intact, mild tremor of upper extremities nearly resolved IVs and Medications Medications Reviewed: Medications were reviewed in detail Lab and Diagnostics Result Diagram: 12/30/1652912/30/16529 Assessment & Plan 61 YO M with pmhx sig for alcohol dependence presenting with admitted for further medical management for expectant alchol withdrawal: 1. Alcohol Dependence - CIWA protocol continued - Continue to monitor medically, patient stable this time no evidence of complications of alcohol withdrawal - Social work consulted for further support - We will discontinue intravenous fluids at this time as by mouth intake is good , nausea resolving. - Ideally will establish transition to alcohol rehab prior to discharge to prevent lapse in care which on previous occasion lead to resumed alcohol use. 2. COPD - Continue home medications -Not in acute distress may consider dual nebs if needed for shortness of breath , at which time I will consider holding Spiriva if needed. 3. Macrocytic anemia - Likely secondary to nutrient deficiency in setting of alcohol abuse - Folate supplementation provided, in addition thymine as per alcohol withdrawal protocol. - Continue to monitor CBC values Given significant amount of alcohol use over the past week and history of complex withdrawals anticipate patient will be here for greater than 2 midnights for adequate medical stabilization is therefore made inpatient admission. Pain Evaluation: Adequate Pain Control GI Prophylaxis: Not indicated VTE Mechanical Devices: Intermittant Pneumatic CD Resuscitation Status: CPR: Attempt Resuscitation Time spent 25 minutes Vinnie Quevedo DO Dec 30, 2016 15:05
--- NOTE | 2016-12-30 15:43 | NUR ---
Daily update Patient alert and oriented X4. Patient has been up to bathroom with SBA and independently tolerating well, a bit unsteady balance. Patient has score on CIWA 4-7 today and has not needed Diazepam. Patient did have nausea and was administered Zofran, which was effective. Patient has been cooperative with care.
[2016-12-30] MEDS: Venlafaxine XR 75 mg ER24 Capsule PO SCH (20:54)
[2016-12-31] VITALS (7 sets, daily range): BP systolic 112–125; BP diastolic 72–86; PULSE 74–94; RESP 16–18; O2SAT 97–98
[2016-12-31 06:37] LABS: BASOPHILS % (AUTO) 0.3 % (0-3); EOSINOPHILS % (AUTO) 2.3 % (0-5); MONOCYTES % (AUTO) 8.2 % (4-12); Mean Corpuscular Hemoglobin 34.3 pg (27.0-35.0); Mean Corpuscular Volume 102.3 fL (81-100); NEUTROPHILS % (AUTO) 67.1 % (40-74); Platelet Count 136 bil/L (150-400)
--- NOTE | 2016-12-31 07:32 | NUR ---
Shift note CIWA pretty much 2-3, uneventful on c/o is sore throat obtained order for lozenges
--- NOTE | 2016-12-31 09:10 | NUR ---
Social Work: Chemical Dependency update HOME CARE ATTENDANT updated by Ramsey CDP, pt willing to go to inpt CD treatment. Pt unsure of CD coverage with [facility]. CDP plans to follow up with pt today. Plan: Pt will return to hotel at d/c until inpt treatment bed date vs outpt CD treatment if inpt cannot happen. Gin Shipman, HOME CARE ATTENDANT
[2016-12-31] MEDS: Benzocaine-Menthol Lozenge 2/Pkg PO PRN (09:13)
[2016-12-31] MEDS: Ondansetron 2 mg/mL 2 mL Inj IVPUSH PRN (09:15)
[2016-12-31] MEDS: Multivit-Miner-Folic Acid-Iron Tablet PO SCH (09:20)
[2016-12-31] MEDS: Omega-3 Fatty Acids 1,000 mg Capsule PO SCH (09:20)
[2016-12-31] MEDS: Tiotropium 18mcg/Cap 5 Capsule Inhaler Kit INHALATION SCH (09:21)
[2016-12-31] MEDS: Fluticasone-Salmeterol 100-50 Inhaler INHALATION SCH ×2 (09:21→21:03)
[2016-12-31] MEDS: D5 0.45% NaCl + KCl 20 mEq/L 1,000 ML IV SCH (12:50)
--- NOTE | 2016-12-31 17:46 | NUR ---
Mentation: Patient has been calm and cooperative with care. He has remained in his room and he has been using his call light appropriately to ask for assistance when needed.
[2016-12-31] MEDS: Venlafaxine XR 75 mg ER24 Capsule PO SCH (21:02)
[2017-01-01] VITALS (8 sets, daily range): BP systolic 101–124; BP diastolic 68–79; PULSE 66–86; RESP 14–18; O2SAT 97–98
--- NOTE | 2017-01-01 00:13 | PCM.PNMED ---
Subjective Date of Service Dec 31, 2016 Subjective Patient complains of nausea due to withdrawal symptoms. He is asking for Valium IV. Exam Vital Signs Vital Sign - Last Date Time Temp Pulse Resp B/P Pulse Ox O2 Delivery O2 Flow Rate FiO2 12/31/16 21:07 36.4 74 16 118/83 97 Room Air Intake and Output 12/31/16 12/31/16 01/01/17 Cumulative From/Thru 15:00 23:00 07:00 12/28/16 00:32 - 12/31/16 21:05 Intake Total 1350 ml 04204 ml Output Total 650 ml 9370 ml Balance 700 ml 3457 ml Intake Oral 550 ml 6135 ml IV Total 800 ml 6692 ml Output Urine Total 650 ml 9120 ml Emesis 250 ml # Bowel Movements 4 Exam General: Patient appears to be in some distress due to nausea from withdrawal. HEENT: Head is atraumatic and normocephalic. Eyes: Pupils are equally round and reactive to light and accommodation. Extraocular muscles are intact. Sclera are white, anicteric. Subconjunctival mucosa is pink. Ears and nose are unremarkable. Oropharynx: There is no mucosal lesions, there is no thrush, there is no pharyngitis. Neck: Is supple, there are no nodes, or masses or tenderness. Chest: Is clear to auscultation and percussion. There are no rales, rhonchi, wheezes or rubs. Heart: Rate, rhythm is regular. There is no murmur, rub or gallop. Abdomen: Good bowel sounds are present. Abdomen is soft, nontender, no organomegaly or masses were appreciated. Extremities: Are symmetrical and well perfused. There is no edema, there is no cellulitis, no rash. Neurologic: There are no focal neurological deficits. Cranial nerves II through XII are intact. There are no sensory or motor deficits. Psychiatric: Patients mood is calm and shows no sign of agitation. Genital: Deferred Rectal: Deferred Lab and Diagnostics Result Diagram: 12/31/1660412/31/16604 Assessment & Plan 61 YO M with pmhx sig for alcohol dependence presenting with admitted for further medical management for expectant alchol withdrawal: 1. Alcohol Dependence, present at the time of admission. Active with withdrawal. - [facility] protocol continued - Continue to monitor medically, patient stable this time no evidence of complications of alcohol withdrawal - Social work consulted for further support - We will restart IV fluids this patient withdrawal symptoms are worsening with primary symptom at this time is nausea and lack of appetite. - Ideally will establish transition to alcohol rehab prior to discharge to prevent lapse in care which on previous occasion lead to resumed alcohol use. 2. COPD - Continue home medications -Not in acute distress may consider dual nebs if needed for shortness of breath , at which time I will consider holding Spiriva if needed. 3. Macrocytic anemia - Likely secondary to nutrient deficiency in setting of alcohol abuse - Folate supplementation provided, in addition thymine as per alcohol withdrawal protocol. - Continue to monitor CBC values Disposition: as patient is entering the time that he is likely to experience some old with most withdrawal symptoms, patient will likely be here for another 48-72 hours. Pain Evaluation: Adequate Pain Control GI Prophylaxis: Not indicated VTE Mechanical Devices: Intermittant Pneumatic CD Resuscitation Status: CPR: Attempt Resuscitation Jeremiah Murillo MD Jan 01, 2017 00:13
[2017-01-01] MEDS: Benzocaine-Menthol Lozenge 2/Pkg PO PRN ×2 (00:27→09:07)
[2017-01-01] MEDS: D5 0.45% NaCl + KCl 20 mEq/L 1,000 ML IV SCH ×2 (00:28→15:44)
[2017-01-01] MEDS: Ondansetron 2 mg/mL 2 mL Inj IVPUSH PRN (00:42)
[2017-01-01 08:57] LABS: BASOPHILS % (AUTO) 0.3 % (0-3); EOSINOPHILS % (AUTO) 2.1 % (0-5); MONOCYTES % (AUTO) 7.9 % (4-12); Mean Corpuscular Hemoglobin 34.3 pg (27.0-35.0); NEUTROPHILS % (AUTO) 69.9 % (40-74); Platelet Count 131 bil/L (150-400)
[2017-01-01] MEDS: Fluticasone-Salmeterol 100-50 Inhaler INHALATION SCH ×2 (08:57→20:50)
[2017-01-01] MEDS: Omega-3 Fatty Acids 1,000 mg Capsule PO SCH (08:58)
[2017-01-01] MEDS: Multivit-Miner-Folic Acid-Iron Tablet PO SCH (09:07)
[2017-01-01 09:27] LABS: Magnesium 1.5 mg/dL (1.6-2.6)
[2017-01-01] MEDS ORDERED: diphenhydrAMINE 25 mg Capsule PO PRN (15:30)
[2017-01-01] MEDS ORDERED: LORazepam 0.5 mg Tablet PO PRN (15:30)
[2017-01-01] MEDS: Tiotropium 18mcg/Cap 5 Capsule Inhaler Kit INHALATION SCH (15:38)
--- NOTE | 2017-01-01 16:08 | NUR ---
Social Work: Readiness for d/c Data: Pt is on day 4 of hospitalization. EMR reviewed. Pt discussed in rounds, MD states pt likely to d/c tomorrow. DIESEL ROLLER OPERATOR received voice mail from pt requesting DIESEL ROLLER OPERATOR come to his room to answer a question. DIESEL ROLLER OPERATOR spoke wtih Zoë Neri, [place] rn social services, , who states that pt needs to call the [place] self referral line to access either outpt or inpt services for CD, this phone number is [phone]. DIESEL ROLLER OPERATOR gave both of these phone numbers to pt. DIESEL ROLLER OPERATOR offered Crisis Respite on day of d/c, pt declined this stating he plans to stay in a hotel at d/c and go to AA until he can get into treatment. Pt reports no further d/c planning needs. DIESEL ROLLER OPERATOR will continue to follow if needs arise. Assessment: Pt who is independent at baseline. Alcohol abuse. Plan: Pt will d/c to hotel when medically stable, likely tomorrow per . Pt declined [facility]. Pt plans to call [place] self referral service for treatment. Pt reports no further d/c planning needs. DIESEL ROLLER OPERATOR will continue to follow if needs arise. Gin Shipman, WENDY
--- NOTE | 2017-01-01 18:43 | NUR ---
Activity/Nausea: Patient has been up adlib in his room without issues. patients nausea has improved since yesterday. Patient did not need nausea med today. He was able to eat a small amount of his food without emesis. Patient stated that he is only having mild nausea today.
[2017-01-01] MEDS: Venlafaxine XR 75 mg ER24 Capsule PO SCH (20:50)
--- NOTE | 2017-01-01 22:59 | PCM.PNMED ---
Subjective Date of Service Jan 01, 2017 Subjective Patient still complains of nausea and poor appetite. However, his appetite has improved slightly since yesterday. He is still complaining of withdrawal symptoms being the cause of his poor appetite. He has no new complaints. Exam Vital Signs Vital Sign - Last Date Time Temp Pulse Resp B/P Pulse Ox O2 Delivery O2 Flow Rate FiO2 01/01/17 20:53 36.7 68 18 101/70 97 Room Air Intake and Output 12/31/16 12/31/16 01/01/17 Cumulative From/Thru 15:00 23:00 07:00 12/28/16 00:32 - 01/01/17 06:14 Intake Total 1350 ml 400 ml 04544 ml Output Total 650 ml 1900 ml 76803 ml Balance 700 ml -1500 ml 1957 ml Intake Oral 550 ml 400 ml 6535 ml IV Total 800 ml 6692 ml Output Urine Total 650 ml 1900 ml 18958 ml Emesis 250 ml # Bowel Movements 0 4 Exam General: Patient appears to be slightly more comfortable today. HEENT: Head is atraumatic and normocephalic. Eyes: Pupils are equally round and reactive to light and accommodation. Extraocular muscles are intact. Sclera are white, anicteric. Subconjunctival mucosa is pink. Ears and nose are unremarkable. Oropharynx: There is no mucosal lesions, there is no thrush, there is no pharyngitis. Neck: Is supple, there are no nodes, or masses or tenderness. Chest: Is clear to auscultation and percussion. There are no rales, rhonchi, wheezes or rubs. Heart: Rate, rhythm is regular. There is no murmur, rub or gallop. Abdomen: Good bowel sounds are present. Abdomen is soft, nontender, no organomegaly or masses were appreciated. Extremities: Are symmetrical and well perfused. There is no edema, there is no cellulitis, no rash. Neurologic: There are no focal neurological deficits. Cranial nerves II through XII are intact. There are no sensory or motor deficits. Psychiatric: Patients mood is calm and shows no sign of agitation. Genital: Deferred Rectal: Deferred Lab and Diagnostics Result Diagram: 01/01/17 0845 01/01/17 0845 Assessment & Plan 61 YO M with pmhx sig for alcohol dependence presenting with admitted for further medical management for expectant alchol withdrawal: 1. Alcohol Dependence, present at the time of admission. Active with withdrawal. - CIWA protocol continued - Continue to monitor medically, patient stable this time no evidence of complications of alcohol withdrawal - Social work consulted for further support - We will continue IV fluids as this patient's withdrawal symptoms are worsening with primary symptom at this time is nausea and lack of appetite. - Ideally will establish transition to alcohol rehab prior to discharge to prevent lapse in care which on previous occasion lead to resumed alcohol use. Discuss with 7th grade social studies teacher 2. COPD - Continue home medications -Not in acute distress may consider dual nebs if needed for shortness of breath , at which time I will consider holding Spiriva if needed. 3. Macrocytic anemia - Likely secondary to nutrient deficiency in setting of alcohol abuse - Folate supplementation provided, in addition thiamine as per alcohol withdrawal protocol. - Continue to monitor CBC values Disposition: As patient is entering the time that he is likely to experience the most withdrawal symptoms, patient will likely be here for another 24-48 hours. Pain Evaluation: Adequate Pain Control GI Prophylaxis: Not indicated VTE Prophylaxis: Sub-Q Enoxaparin VTE Mechanical Devices: Intermittant Pneumatic CD Resuscitation Status: CPR: Attempt Resuscitation Jeremiah Murillo MD Jan 01, 2017 22:59
[2017-01-02 01:30] VITALS: BP 104/71; PULSE 69; RESP 16; O2SAT 97
[2017-01-02] MEDS: D5 0.45% NaCl + KCl 20 mEq/L 1,000 ML IV SCH ×2 (04:18→14:31)
[2017-01-02 05:52] VITALS: BP 116/72; PULSE 74; RESP 16; O2SAT 98
[2017-01-02 06:16] VITALS: PULSE 66
--- NOTE | 2017-01-02 06:34 | NUR ---
CIWA Score 2 Reports sleeping well throughout night without anxiety or withdrawal symptoms. No Valium/Ativan administration. No c/o nausea and reports decent dinner the night before having eaten salmon/potato's.
[2017-01-02 06:36] LABS: BASOPHILS % (AUTO) 0.3 % (0-3); MONOCYTES % (AUTO) 10.8 % (4-12); Mean Corpuscular Hemoglobin 34.5 pg (27.0-35.0); Mean Corpuscular Volume 104.1 fL (81-100); NEUTROPHILS % (AUTO) 55.2 % (40-74); Platelet Count 122 bil/L (150-400)
[2017-01-02 06:53] LABS: Magnesium 1.6 mg/dL (1.6-2.6)
[2017-01-02] MEDS: Fluticasone-Salmeterol 100-50 Inhaler INHALATION SCH ×2 (09:07→20:29)
[2017-01-02] MEDS: Tiotropium 18mcg/Cap 5 Capsule Inhaler Kit INHALATION SCH (09:07)
[2017-01-02] MEDS: Omega-3 Fatty Acids 1,000 mg Capsule PO SCH (09:08)
[2017-01-02] MEDS: Multivit-Miner-Folic Acid-Iron Tablet PO SCH (09:08)
[2017-01-02 09:44] VITALS: BP 104/70; PULSE 61; RESP 18; O2SAT 97
--- NOTE | 2017-01-02 13:50 | NUR ---
Social Work: Readiness for D/C and Chemical Dependency Update Data: Pt is on day 5 of hospitalization. EMR reviewed. SW spoke with MD, anticipate discharge tomorrow morning. OUTREACH SPECIALIST spoke with pt at bedside regarding discharge plan and CD plan. SW reminded pt that he will need to call [facility] to access intpt or outpt CD treatment services. Pt agreeable to this. OUTREACH SPECIALIST re-wrote self- referral line for patient. Pt has [facility] contact information. OUTREACH SPECIALIST offered Crisis Respite on day of d/c, pt declined this again stating he plans to stay in a hotel at d/c and go to until he can get into treatment. Pt reports that he talks to his sponsor every day. Pt states confidence that this is his plan. SW clarified and challenged pt, asking him what is different this admission since this was the exact plan that he had after last admission. Pt states that he has an increased understanding that he cannot have even 1 drink and that he "doesn't want to be like this anymore." He states motivation to spend time and have a relationship with his grandchildren and children. Pt declined SW offers to connect him to self- referral line at bedside. Pt declined SW offer to connect him by phone to his sponsor today. Pt states he will return to the hotel until he is able to find stable housing. Pt confirms he has the financial resources for this. Pt states his truck is at the hospital and he will transport POV. Pt reports no further d/c planning needs. Assessment: Pt who is independent at baseline. Alcohol abuse. Plan: Pt will d/c to hotel when medically stable, likely tomorrow morning per MD. Pt declined Crisis Respite. Pt plans [facility] treatment. Pt reports no further d/c planning needs. OUTREACH SPECIALIST will continue to follow if needs arise. WENDY Kam
[2017-01-02 17:26] VITALS: BP 120/75; PULSE 64; RESP 18; O2SAT 100
--- NOTE | 2017-01-02 17:57 | PCM.PNMED ---
Subjective Date of Service Jan 02, 2017 Subjective Patient is feeling a little bit better and is able to eat a little bit today. His withdrawal symptoms have improved significantly. He has no other new complaints. Exam Vital Signs Vital Sign - Last Date Time Temp Pulse Resp B/P Pulse Ox O2 Delivery O2 Flow Rate FiO2 01/02/17 17:26 36.9 64 18 120/75 100 Room Air Intake and Output 01/01/17 01/01/17 01/02/17 Cumulative From/Thru 15:00 23:00 07:00 12/28/16 00:32 - 01/02/17 06:06 Intake Total 960 ml 1511 ml 1460 ml 06731 ml Output Total 1550 ml 72307 ml Balance 960 ml 1511 ml -90 ml 4338 ml Intake Oral 736 ml 500 ml 7771 ml IV Total 960 ml 960 ml 8612 ml TPN/PPN 775 ml 775 ml Output Urine Total 1550 ml 68784 ml Emesis 250 ml # Bowel Movements 0 4 Exam General: Patient appears to be slightly more comfortable again today. He is scoring low on the CIWA score. HEENT: Head is atraumatic and normocephalic. Eyes: Pupils are equally round and reactive to light and accommodation. Extraocular muscles are intact. Sclera are white, anicteric. Subconjunctival mucosa is pink. Ears and nose are unremarkable. Oropharynx: There is no mucosal lesions, there is no thrush, there is no pharyngitis. Neck: Is supple, there are no nodes, or masses or tenderness. Chest: Is clear to auscultation and percussion. There are no rales, rhonchi, wheezes or rubs. Heart: Rate, rhythm is regular. There is no murmur, rub or gallop. Abdomen: Good bowel sounds are present. Abdomen is soft, nontender, no organomegaly or masses were appreciated. Extremities: Are symmetrical and well perfused. There is no edema, there is no cellulitis, no rash. Neurologic: There are no focal neurological deficits. Cranial nerves II through XII are intact. There are no sensory or motor deficits. Psychiatric: Patients mood is calm and shows no sign of agitation. Genital: Deferred Rectal: Deferred Lab and Diagnostics Result Diagram: 01/02/1761401/02/17614 Assessment & Plan 61 YO M with pmhx sig for alcohol dependence presenting with admitted for further medical management for expectant alchol withdrawal: 1. Alcohol Dependence, present at the time of admission. Active with withdrawal. - CIWA protocol continued - Continue to monitor medically, patient stable this time with no evidence of complications of alcohol withdrawal. Patient benzodiazepines ordered when necessary - Social work consulted for further support - We will continue IV fluids as this patient's withdrawal symptoms are worsening with primary symptom at this time is nausea and lack of appetite. Although patient is beginning to improve - Ideally will establish transition to alcohol rehab prior to discharge to prevent lapse in care which on previous occasion lead to resumed alcohol use. Discuss with hospice social worker 2. COPD - Continue home medications - Not in acute distress. - Continue Spiriva 3. Macrocytic anemia - Likely secondary to nutrient deficiency in setting of alcohol abuse - Folate supplementation provided, in addition thiamine as per alcohol withdrawal protocol. - Continue to monitor CBC values Disposition: As patient is entering the time that he is likely to experience the most withdrawal symptoms, patient will likely be here for another 24 hours. If patient does well overnight plan for discharge home in a.m. Patient is agreeable to this plan. Pain Evaluation: Adequate Pain Control GI Prophylaxis: Not indicated VTE Prophylaxis: Sub-Q Enoxaparin VTE Mechanical Devices: Intermittant Pneumatic CD Resuscitation Status: CPR: Attempt Resuscitation Jeremiah Murillo MD Jan 02, 2017 17:57
[2017-01-02] MEDS: Ondansetron 2 mg/mL 2 mL Inj IVPUSH PRN (18:14)
--- NOTE | 2017-01-02 18:18 | NUR ---
Anxiety/Nausea: Patient complained of anxiety and nausea and requesting Valium. CIWA score 2 and does not meet Valium protocol. Ativan PO administered for anxiety and Zofran for nausea. Will report to NOC shift to follow up.
[2017-01-02] MEDS: Venlafaxine XR 75 mg ER24 Capsule PO SCH (20:29)
[2017-01-02 21:27] VITALS: BP 107/61; PULSE 77; RESP 20; O2SAT 95
[2017-01-03] MEDS: D5 0.45% NaCl + KCl 20 mEq/L 1,000 ML IV SCH (02:53)
[2017-01-03 05:11] VITALS: BP 126/68; PULSE 77; RESP 20; O2SAT 99
[2017-01-03] MEDS: Tiotropium 18mcg/Cap 5 Capsule Inhaler Kit INHALATION SCH (08:00)
[2017-01-03] MEDS: Fluticasone-Salmeterol 100-50 Inhaler INHALATION SCH (08:01)
[2017-01-03] MEDS: Omega-3 Fatty Acids 1,000 mg Capsule PO SCH (08:01)
[2017-01-03 08:04] LABS: BASOPHILS % (AUTO) 0.5 % (0-3); MONOCYTES % (AUTO) 17.8 % (4-12); Mean Corpuscular Hemoglobin 34.2 pg (27.0-35.0); Mean Corpuscular Volume 103.7 fL (81-100); NEUTROPHILS % (AUTO) 48.4 % (40-74); Platelet Count 157 bil/L (150-400)
[2017-01-03 08:40] LABS: Magnesium 1.7 mg/dL (1.6-2.6)
[2017-01-03] MEDS ORDERED: Magnesium Sulf 2 Gm/50mL Water 2 GM in IV Premix 1 EACH IV ONE ×2 (09:25→10:45)
[2017-01-03] MEDS: Multivit-Miner-Folic Acid-Iron Tablet PO SCH (11:49)
--- NOTE | 2017-01-03 12:25 | PCM.DIMED ---
Discharge Instructions Date of Service Jan 03, 2017 Dates of Hospitalization Dec 28, 2016 at 05:22 Discharge Diagnosis Discharge Diagnosis Alcohol Withdrawal Diet Discharge Diet: No restrictions Activity Discharge Activity: No restrictions Call your provider Call your provider for: Fever or Chills, Shortness of breath, Bleeding, Chest pain, Vomitting, Excessive diarrhea, Weakness (unilateral) Patient Instructions Follow-up Provider: [facility] Follow-up with PCP in: 1 week Jeremiah Murillo MD Jan 03, 2017 12:25
--- NOTE | 2017-01-03 22:58 | PCM.DC.MED ---
Discharge Summary Date of Service Jan 03, 2017 Dates of Hospitalization Date of Hospital Admission Dec 28, 2016 at 05:22 Date of Discharge: Jan 03, 2017 Providers: Admitting Physician: Gabriel Collins MD Primary Care Physician: [facility] Attending Physician: Gabriel Collins MD Diagnosis at Time of Discharge Diagnosis at Time of Discharge Alcohol Withdrawal Brief History Patient is 61-year-old male past medical history most significant for COPD in addition to alcohol dependence presenting following recent relapse on alcohol following completion of inpatient detox from December 18-. He had planned to enroll in a long-term substance/alcohol dependence program however was unable to enroll immediately and notes he quickly resumed a large amount of alcohol consumption daily. Endorses drinking greater than a quart of hard liquor per day at this point. States he quickly recognize this was not the direction he wanted to go, again experiencing nausea and abdominal pain associated with his abuse, has re-presented requesting assistance again with detox and ideally to transition to a long-term treatment facility thereafter. He has no other acute complaints at this time. Denies any chest pains or shortness of breath. Experiencing fever chills. He had very little attached the case when he is drinking a large amount. Denies any acute complaints at this time. The patient was admitted to the hospitalist service for further evaluation and treatment. Hospital Course 61 YO M with pmhx sig for alcohol dependence presenting with admitted for further medical management for expectant alchol withdrawal: 1. Alcohol Dependence, present at the time of admission. Active with withdrawal. - CIWA protocol continued - Continue to monitor medically, patient stable this time with no evidence of complications of alcohol withdrawal. Patient benzodiazepines ordered when necessary - Social work consulted for further support - Patient was continued on IV fluids as this patient's withdrawal symptoms are worsening with primary symptom at this time is nausea and lack of appetite. Although patient is beginning to improve and patient feels he is ready for discharge. 2. COPD - Continue home medications - Not in acute distress. - Continue Spiriva 3. Macrocytic anemia - Likely secondary to nutrient deficiency in setting of alcohol abuse - Folate supplementation provided, in addition thiamine as per alcohol withdrawal protocol. - We continued to monitor CBC values which have been stable. Disposition: As patient is scoring 0 on his CIWA scores and is ready for discharge patient will be discharged home today. He is over the highest risk time for serious withdrawal and is stable for discharge and agrees with this plan and is eager for discharge. Exam Vital Signs (Last) Date Time Temp Pulse Resp B/P Pulse Ox O2 Delivery O2 Flow Rate FiO2 01/03/17 05:11 36.7 77 20 126/68 99 Room Air Exam General: Patient appears to be slightly more comfortable again today. He is scoring low on the CIWA score. HEENT: Head is atraumatic and normocephalic. Eyes: Pupils are equally round and reactive to light and accommodation. Extraocular muscles are intact. Sclera are white, anicteric. Subconjunctival mucosa is pink. Ears and nose are unremarkable. Oropharynx: There is no mucosal lesions, there is no thrush, there is no pharyngitis. Neck: Is supple, there are no nodes, or masses or tenderness. Chest: Is clear to auscultation and percussion. There are no rales, rhonchi, wheezes or rubs. Heart: Rate, rhythm is regular. There is no murmur, rub or gallop. Abdomen: Good bowel sounds are present. Abdomen is soft, nontender, no organomegaly or masses were appreciated. Extremities: Are symmetrical and well perfused. There is no edema, there is no cellulitis, no rash. Neurologic: There are no focal neurological deficits. Cranial nerves II through XII are intact. There are no sensory or motor deficits. Psychiatric: Patients mood is calm and shows no sign of agitation. Genital: Deferred Rectal: Deferred Test 12/28/16 01:12 12/28/16 03:25 01/03/17 07:20 Urine Color Yellow (YELLOW) Urine Appearance Clear (CLEAR,HAZY) Urine pH 6.0 (5.0-8.0) Urine Specific [place] 1.009 (1.003-1.035) Urine Protein Tracemg/dL (NEG,TRACE) Urine Glucose (UA) Negativemg/dL (NEGATIVE) Urine Ketones Negativemg/dL (NEGATIVE) Urine Occult Blood Negative (NEGATIVE) Urine Nitrite Negative (NEGATIVE) Urine Bilirubin Negative (NEGATIVE) Urine Urobilinogen Normalmg/dL (NORMAL) Urine Leukocyte Esterase Negative (NEGATIVE) Urine RBC 0-2/hpf (0-2) Urine WBC 0-5/hpf (0-5) Urine Epithelial Cells Occasional/hpf (NONE-MOD) Urine Crystals None seen (NONE SEEN) Urine Bacteria None/hpf (NONE-FEW) Urine Hyaline Casts Occasional/lpf (NONE) Urine Granular Casts None seen (NONE SEEN) Urine Waxy Casts None seen (NONE SEEN) Urine Red Blood Cell Casts None seen (NONE SEEN) Urine White Blood Cell Casts None seen (NONE SEEN) Urine Mucus Present (None Seen) Urine Trichomonas None seen (NONE SEEN) Urine Yeast None (NONE SEEN) Urine Culture Reflexed Not indicated Hold Urine Received (Received) Prothrombin Time 9.8sec (8.1-12.5) Prothromb Time International Ratio 0.92ratio Lipase 19U/L (13-60) Hold [place] Top Tube Received (Received) White Blood Count 5.6th/mm3 (3.8-10.1) Red Blood Count 3.74mil/mm3 (4.40-5.80) Hemoglobin 12.8g/dL (13.8-17.2) Hematocrit 38.8% (41.0-50.0) Mean Corpuscular Volume 103.7fL (81-100) Mean Corpuscular Hemoglobin 34.2pg (27.0-35.0) Mean Corpuscular Hemoglobin Concent 33.0% (32.0-37.0) Red Cell Distribution Width 12.7% (12.3-15.4) Platelet Count 157bil/L (150-400) Neutrophils (%) (Auto) 48.4% (40-74) Lymphocytes (%) (Auto) 29.6% (14-46) Monocytes (%) (Auto) 17.8% (4-12) Eosinophils (%) (Auto) 3.0% (0-5) Basophils (%) (Auto) 0.5% (0-3) Sodium Level 135mEq/L (134-144) Potassium Level 4.4mEq/L (3.5-5.2) Chloride Level 100mEq/L (97-108) Carbon Dioxide Level 22mmol/L (18-29) Blood Urea Nitrogen 4mg/dL (8-27) Creatinine 0.47mg/dL (0.76-1.27) Estimat Glomerular Filtration Rate 193mL/min (>59) Glucose Level 102mg/dL (60-99) Calcium Level 9.1mg/dL (8.5-10.1) Magnesium Level 1.7mg/dL (1.6-2.6) Total Bilirubin 0.2mg/dL (0.0-1.2) Aspartate Amino Transf (AST/SGOT) 25U/L (0-50) Alanine Aminotransferase (ALT/SGPT) 21U/L (0-44) Alkaline Phosphatase 113U/L (25-160) Total Protein 6.1g/dL (6.4-8.4) Albumin 3.3g/dL (3.4-5.0) Discharge Medications Discharge Medications Budesonide/Formoterol 80-4.5 mcg Inh (Symbicort 80-4.5 mcg Inh) 120 Puff Inhaler 2 PUFF INHALATION BID (Reported) Cholecalciferol (Vitamin D3) (Vitamin D3) 2,000 Unit Capsule 2,000 UNIT PO DAILY (Reported) Cyanocobalamin (Vitamin B-12) (Vitamin B-12) 1,000 Mcg Tablet 1,000 MCG PO DAILY (Reported) Gabapentin (Gabapentin) 300 Mg Capsule 600 MG PO TID (Reported) Garlic Extract (Garlipure) 600 Mg Tablet 600 MG PO DAILY (Reported) Grape Seed Extract (Grape Seed) 50 Mg Tablet 50 MG PO DAILY (Reported) Multivits-Min/FA/Lycopene/Lut (Centrum Silver Tablet) 1 Each Tablet 1 EACH PO DAILY (Reported) [place]-3/Dha/Epa/Fish Oil (Fish Oil 1,000 mg Softgel) 1 Each Capsule 1 EACH PO DAILY (Reported) Thiamine Mononitrate (Vitamin B-1) 100 Mg Tablet 100 MG PO DAILY (Reported) Tiotropium [place] (Spiriva) 18 Mcg Cap.w.dev 18 MCG IH DAILY (Reported) Venlafaxine ER (Venlafaxine ER) 150 Mg Cap.er.24h 150 MG PO HS (Reported) As needed Albuterol HFA (Proair HFA) 8.5 Gm Hfa.aer.ad 2 PUFFS INHALATION Q4H PRN PRN For Shortness of Breath (Reported) Methocarbamol (Methocarbamol) 750 Mg Tablet 750-1,500 MG PO BID PRN PRN For Spasm (Reported) Metronidazole (Metronidazole Gel) 1 Applic/0.25 Gm Gel 1 APPLIC TOP DAILY PRN PRN rosacea (Reported) Followup Plan Disposition: She is being discharged home to his hotel room and from there he is going to find a place to live and get some outpatient treatment for his alcoholism. Patient is determined not to drink anymore. Discharge Diet: No restrictions Discharge Activity: No restrictions Follow-up Provider: [facility] Follow-up with PCP in: 1 week Time spent Time spent on discharging this patient was greater than 35 minutes, over half of which was involved in counseling and coordination of care. Jeremiah Murillo MD Jan 03, 2017 22:58
== END 2017-01-03 15:00 | disposition home or self-care (01) | DRG 897 ==
LOC: SED 00:28 → MPC 05:22
PROVIDERS: ADMIT Hospitalist; ATTEND Family Medicine
DX: F10.230 Alcohol dependence with withdrawal, uncomplicated (principal); J44.9 Chronic obstructive pulmonary disease, unspecified; D52.0 Dietary folate deficiency anemia; Z87.891 Personal history of nicotine dependence

== ENCOUNTER 2017-01-03 17:35 | Emergency (ER) | payer OTHER ==
[~2017-01-03] VITALS: Ht 182.9 cm; Wt 75.0 kg
[2017-01-03 17:47] VITALS: BP 87/60; PULSE 92; RESP 20; O2SAT 99
--- NOTE | 2017-01-03 18:13 | ED.REPORT ---
HPI-General Illness Date of Service Jan 03, 2017 ED Provider: Pierre Lakhani DO This is a very pleasant 61-year-old male who has a history of orthostatic hypotension. He was discharged from hospital earlier today after being treated for 5 days for alcohol withdrawal. When he got home he stood up quickly and he felt lightheaded and he knew that his blood pressure was low. He was concerned that maybe he was dehydrated so he came back in via EMS. He did have a blood pressure 88 in the field. Beyond that he is complaint free. He did not have a headache, neck pain neck stiffness. He did not have any chest pain or shortness of breath. He did not lose consciousness. No stroke type symptoms. No visual acuity loss. No slurred speech. No motor deficits. Nursing Notes Stated Complaint: DIZZY/LIGHT HEADED Chief Complaint: General Complaint Nursing Notes Reviewed: Yes Allergies: Coded Allergies: No Known Allergies (Verified , 12/28/16) Scheduled Budesonide/Formoterol 80-4.5 mcg Inh (Symbicort 80-4.5 mcg Inh) 120 Puff Inhaler 2 PUFF INHALATION BID Cholecalciferol (Vitamin D3) (Vitamin D3) 2,000 Unit Capsule 2,000 UNIT PO DAILY Cyanocobalamin (Vitamin B-12) (Vitamin B-12) 1,000 Mcg Tablet 1,000 MCG PO DAILY Gabapentin (Gabapentin) 300 Mg Capsule 600 MG PO TID Garlic Extract (Garlipure) 600 Mg Tablet 600 MG PO DAILY Grape Seed Extract (Grape Seed) 50 Mg Tablet 50 MG PO DAILY Multivits-Min/FA/Lycopene/Lut (Centrum Silver Tablet) 1 Each Tablet 1 EACH PO DAILY [place]-3/Dha/Epa/Fish Oil (Fish Oil 1,000 mg Softgel) 1 Each Capsule 1 EACH PO DAILY Thiamine Mononitrate (Vitamin B-1) 100 Mg Tablet 100 MG PO DAILY Tiotropium [place] (Spiriva) 18 Mcg Cap.w.dev 18 MCG IH DAILY Venlafaxine ER (Venlafaxine ER) 150 Mg Cap.er.24h 150 MG PO HS Scheduled PRN Albuterol HFA (Proair HFA) 8.5 Gm Hfa.aer.ad 2 PUFFS INHALATION Q4H PRN PRN For Shortness of Breath Methocarbamol (Methocarbamol) 750 Mg Tablet 750-1,500 MG PO BID PRN PRN For Spasm Metronidazole (Metronidazole Gel) 1 Applic/0.25 Gm Gel 1 APPLIC TOP DAILY PRN PRN rosacea General Time Seen by MD: 18:03 Chief Complaint Dizziness Hx Obtained From: Patient Arrived By: Walk-in Sudden in Onset?: Yes Onset Occurred: Just prior to arrival Associated with: Reports: Off balance Recent Healthcare: Recent doctor visit, Recent hospitalization Similar Sx Previous: No Past Medical History Past Medical History Notes: Seen in ED 01/24 and 02/16/2016 for orthostatic hypotension on chronic pain management morphine [facility]2016 meds are mailed and will not show on [employer] Past Medical History Chronic shoulder and left elbow and left knee pain COPD Depression History of obstructive sleep apnea History of alcohol use History of hospitalization for pneumonia in September 2015 History of colon polyps History of orthostasis Restricted lung disease Past Surgical History Lower right lung lobectomy Hiatal hernia repair Bilateral hips Bilateral knees Tonsillectomy Adenoidectomy Family History High blood pressure Smoking History Former Smoker Social History Hx of EtOH abuse has a nebulizer and 3 inhalers Alcohol Use: In recovery Drug Use: THC Other Social History: Local resident Occupation lives with roommate, no work or school 09/21/2016 Ambulatory Status Cane Review of Systems Full Review of Systems Constitutional: Denies: Chills, Fever Respiratory: Denies: Non-productive cough, Shortness of breath, Wheezing Skin: Denies Rash Neurologic: Reports: Dizziness, Lightheaded, Denies: Change LOC, Problem walking, Unable to speak, Weakness Complete sys rev & neg: except as marked. Physical Exam Vital Signs Vital Signs Date Time Temp Pulse Resp B/P Pulse Ox O2 Delivery O2 Flow Rate FiO2 01/03/17 23:06 78 16 107/49 97 Room Air 01/03/17 22:00 71 17 121/67 99 Room Air 01/03/17 20:00 77 17 109/60 98 Room Air 01/03/17 17:47 36.4 92 20 87/60 99 Room Air Initial VS: Reviewed General/Constitutional: Awake, Alert, No acute distress Head / Eyes: Atraumatic, Normocephalic, PERRL, EOMI Neck: Atraumatic, Supple, Full range of motion Respiratory / Chest: Atraumatic, Breath sounds NL, Breath sounds = bilat, No respiratory distress Cardiovascular: Heart rate NL, Regular rhythm, Heart sounds NL hypotensive Upper Extremities Upper Extremity / MS: Atraumatic, Full range of motion Skin: Atraumatic, Color NL, No rash, Warm, Dry Neurologic: Oriented X3, Speech NL, No motor deficits, No sensory deficits, CN II - XII intact Psychiatric: Affect NL, Mood NL Interpretation & Diagnostics Lab Results Interpretation Result Diagram: 01/03/17 1800 01/03/17 1800 Test 01/03/17 18:00 01/03/17 21:48 White Blood Count 7.5th/mm3 (3.8-10.1) Red Blood Count 3.80mil/mm3 (4.40-5.80) Hemoglobin 13.0g/dL (13.8-17.2) Hematocrit 38.9% (41.0-50.0) Mean Corpuscular Volume 102.4fL (81-100) Mean Corpuscular Hemoglobin 34.2pg (27.0-35.0) Mean Corpuscular Hemoglobin Concent 33.4% (32.0-37.0) Red Cell Distribution Width 12.7% (12.3-15.4) Platelet Count 230bil/L (150-400) Neutrophils (%) (Auto) 56.6% (40-74) Lymphocytes (%) (Auto) 22.1% (14-46) Monocytes (%) (Auto) 18.6% (4-12) Eosinophils (%) (Auto) 1.3% (0-5) Basophils (%) (Auto) 0.5% (0-3) Hold Purple Top Tube Received (Received) D-Dimer 0.87mg/L FEU (<0.50) Hold Blue Top Tube Received (Received) Sodium Level 131mEq/L (134-144) Potassium Level 4.5mEq/L (3.5-5.2) Chloride Level 95mEq/L (97-108) Carbon Dioxide Level 19mmol/L (18-29) Blood Urea Nitrogen 8mg/dL (8-27) Creatinine 0.77mg/dL (0.76-1.27) Estimat Glomerular Filtration Rate 109mL/min (>59) Glucose Level 93mg/dL (60-99) Calcium Level 9.9mg/dL (8.5-10.1) Total Bilirubin 0.3mg/dL (0.0-1.2) Aspartate Amino Transf (AST/SGOT) 26U/L (0-50) Alanine Aminotransferase (ALT/SGPT) 22U/L (0-44) Alkaline Phosphatase 119U/L (25-160) Total Protein 7.0g/dL (6.4-8.4) Albumin 3.7g/dL (3.4-5.0) Hold [place] Top Tube Received (Received) Hold [place] Top Tube Received (Received) Troponin T 0.010ug/L (0.0-0.011) ECG Interpretation Time: 18:23 Interpreted by: ED physician Normal ECG Interpretation: Normal rate (74), Normal sinus rhythm CT Chest Interpretation IMPRESSION: 1. No central pulmonary embolism. 2. Mild right basilar scarring without consolidation. Dictated by: Troy Camarillo M.D. on 01/03/2017 at 21:52 Approved by: Troy Camarillo M.D. on 01/03/2017 at 21:56 Study type: CT pulm angiogram Interpretation / Wet Read by: Interpret - Radiologist Re-Eval/Medical Decision Med Decision/Clinical Course Patient had an elevated D-Dimer, proceeded with CT to rule out PE EKG and serial troponins rule out acute coronary syndrome. Plus he did not have any chest pain and he has a long history of orthostatic hypotension. Pulmonary emboli was ruled out. Electrolytes were reassuring. He received 2 L of saline in the orthostatic hypotension resolved. At discharge his vitals were normal. He was recently admitted and just discharged today. I do not feel he is undergoing alcohol withdrawal. No evidence of stroke or stroke type symptoms. This is clearly orthostatic hypotension and was treated appropriately. Recommend outpatient follow-up. Time of Eval: 19:24 Re-Evaluation/Progress Note: Discussed elevated D-Dimer and plan for CT Counseled Regarding: Diagnosis, Lab results, Need for follow-up, When/why to return to ED Discharge & Departure Primary Impression: Orthostatic hypotension Disposition: Home Discharge Condition All VS Reviewed: Yes Condition: Critical Patient Instructions: Alcohol Withdrawal (ED), Near Syncope (ED) Additional Instructions: The CAT scan of the chest was negative for blood clot. Your heart labs were normal. Your EKG does not show signs of heart injury. I suspect that the lightheadedness was from your low blood pressure when you stood up. It is important that you drink plenty of nonalcoholic beverages. Beverages with electrolytes would be best. Stand up slowly. Keep a close eye on your blood pressure. Follow-up with your doctor on Wednesday. Do not drive until all symptoms are resolved. Do not drive tonight. Return if any problems or any new or worsening symptoms. Referrals: [facility] (PCP) Scribcinthia Attestation Portions of this note were transcribed by Scarlet Anderson. I, Dr. Lakhani personally performed the history, physical exam and medical decision-making; I reviewed and confirmed the accuracy of the information in the transcribed note. Signed by: Scarlet Raman, 01/03/17 and 1830. copies to: [facility] Pierre Lakhani DO Jan 03, 2017 18:12 Yolie Anderson Jan 03, 2017 18:17
[2017-01-03] MEDS ORDERED: 0.9% Sodium Chloride 1,000 ML IV SCH (18:20)
[2017-01-03 18:58] LABS: BASOPHILS % (AUTO) 0.5 % (0-3); EOSINOPHILS % (AUTO) 1.3 % (0-5); MONOCYTES % (AUTO) 18.6 % (4-12); Mean Corpuscular Hemoglobin 34.2 pg (27.0-35.0); Mean Corpuscular Volume 102.4 fL (81-100); NEUTROPHILS % (AUTO) 56.6 % (40-74); Platelet Count 230 bil/L (150-400)
[2017-01-03 19:16] LABS: TROPONIN T < 0.010 ug/L (0.0-0.011)
[2017-01-03 20:00] VITALS: BP 109/60; PULSE 77; RESP 17; O2SAT 98
--- NOTE | 2017-01-03 21:58 | DRSVH ---
PROCEDURE: CT ANGIO CHEST PULMONARY EMBOLISM ([id number]) INDICATIONS: near syncope, hypotension, recent immobilization, TECHNIQUE: After the administration of intravenous contrast, 2 mm thick sections acquired from the pulmonary api geeta to the posterior costophrenic angles. 3-dimensional maximum intensity projection (MIP) coronal a nd sagittal reformats were then acquired through the thorax. For radiation dose reduction, the follo wing was used: automated exposure control, adjustment of mA and/or kV according to patient size. COMPARISON: [facility], CT, CT ANGIO CHEST PE, 09/21/2016, 13:16. FINDINGS: Image quality: Excellent. Pulmonary arteries: Pulmonary arteries are normal in size, and demonstrate no intraluminal filling d efects to suggest central pulmonary embolism. Lungs and pleura: There is mild pleural thickening and subpleural scarring redemonstrated within the right lower lobe. There is a stable small 4 mm ground glass nodule within the left lingula. No acut e consolidation. No pleural effusions or pneumothorax. Central and peripheral airways are patent. Mediastinum: Heart size is normal, without pericardial effusion. There is coronary arterial vascula r calcification. No mediastinal or hilar adenopathy. Thoracic aorta is normal in caliber and enhanc ement. Esophagus is normal in caliber, without hiatal hernia. Bones and chest wall: No suspicious bony lesions. Ribs and thoracic spine appear intact throughout. Thyroid gland demonstrates no discrete nodules. No axillary or supraclavicular adenopathy. Abdomen: Visualized upper abdominal solid organs appear normal in the early arterial phase of enhanc ement. IMPRESSION: 1. No central pulmonary embolism. 2. Mild right basilar scarring without consolidation. Dictated by: Troy Camarillo M.D. on 01/03/2017 at 21:52 Approved by: Troy Camarillo M.D. on 01/03/2017 at 21:56
[2017-01-03 22:00] VITALS: BP 121/67; PULSE 71; RESP 17; O2SAT 99
[2017-01-03 23:06] VITALS: BP 107/49; PULSE 78; RESP 16; O2SAT 97
== END 2017-01-03 23:06 | disposition home or self-care (01) ==
LOC: SED 17:35
DX: I95.1 Orthostatic hypotension (principal); R42 Dizziness and giddiness; J44.9 Chronic obstructive pulmonary disease, unspecified; Z87.891 Personal history of nicotine dependence
CPT/HCPCS: 36415; 71275; 80053; 84484; 85025; 85378; 93005; 96360; 99285; J7030; Q9967

== ENCOUNTER 2017-01-12 12:04 | Inpatient (IN) | payer OTHER ==
[2017-01-12] VITALS (11 sets, daily range): BP systolic 86–176; BP diastolic 53–100; PULSE 99–142; RESP 18–24; O2SAT 93–100
[~2017-01-12] VITALS: Ht 182.9 cm; Wt 71.0 kg
[~2017-01-12 12:04] MED LIST changes: +AZIT500T5 PO; +CHOL10008 PO; +CYAN500 PO; +FISH OIL DR 1,1 EAC1 PO; +GRAP25CA PO; +MORP15TA PO; +OMEG500C PO; +PREN1TAB25 PO; +Thiamine PO; +VENL75TA3 PO; +Vancomycin Dose per Pharmacist XX ONE; +[UNRECOGNIZED DRUG - CODE] PO
[2017-01-12] MEDS ORDERED: 0.9% Sodium Chloride 1,000 ML IV ONE ×2 (12:16→12:47)
--- NOTE | 2017-01-12 12:18 | ED.REPORT ---
HPI-General Illness Date of Service Jan 12, 2017 ED Provider: Pa Reeder DO The patient is a 61 year old male w/ a hx of alcoholism and COPD who presents to the ED via EMS due to severe alcohol withdrawal. Associated symptoms include diffuse shakes and tachycardia. The pt is on gabapentin, inhalers, venlafaxine, and etodolac. Pt was discharged on 01/03/17 after 5 days in the hospital for alcohol withdrawal. Nursing Notes Stated Complaint: ALTERED LEVEL OF CONCIOUSNESS Nursing Notes Reviewed: Yes Allergies: Coded Allergies: No Known Allergies (Verified , 12/28/16) Scheduled Budesonide/Formoterol 80-4.5 mcg Inh (Symbicort 80-4.5 mcg Inh) 120 Puff Inhaler 2 PUFF INHALATION BID Cholecalciferol (Vitamin D3) (Vitamin D3) 2,000 Unit Capsule 2,000 UNIT PO DAILY Cyanocobalamin (Vitamin B-12) (Vitamin B-12) 1,000 Mcg Tablet 1,000 MCG PO DAILY Gabapentin (Gabapentin) 300 Mg Capsule 600 MG PO TID Garlic Extract (Garlipure) 600 Mg Tablet 600 MG PO DAILY Grape Seed Extract (Grape Seed) 50 Mg Tablet 50 MG PO DAILY Multivits-Min/FA/Lycopene/Lut (Centrum Silver Tablet) 1 Each Tablet 1 EACH PO DAILY [place]-3/Dha/Epa/Fish Oil (Fish Oil 1,000 mg Softgel) 1 Each Capsule 1 EACH PO DAILY Thiamine Mononitrate (Vitamin B-1) 100 Mg Tablet 100 MG PO DAILY Tiotropium [place] (Spiriva) 18 Mcg Cap.w.dev 18 MCG IH DAILY Venlafaxine ER (Venlafaxine ER) 150 Mg Cap.er.24h 150 MG PO HS Scheduled PRN Albuterol HFA (Proair HFA) 8.5 Gm Hfa.aer.ad 2 PUFFS INHALATION Q4H PRN PRN For Shortness of Breath Methocarbamol (Methocarbamol) 750 Mg Tablet 750-1,500 MG PO BID PRN PRN For Spasm Metronidazole (Metronidazole Gel) 1 Applic/0.25 Gm Gel 1 APPLIC TOP DAILY PRN PRN rosacea General Time Seen by MD: 12:16 Chief Complaint Other (alcohol withdrawal) Hx Obtained From: EMS Arrived By: Ambulance Sudden in Onset?: Yes Onset Occurred: Just prior to arrival Context of Onset: EtOH use Symptom Duration: Since onset Recent Healthcare: Recent doctor visit Similar Sx Previous: Yes Past Medical History Past Medical History Notes: Seen in ED 01/24 and 02/16/2016 for orthostatic hypotension on chronic pain management morphine [facility]2016 meds are mailed and will not show on [employer] Past Medical History Chronic shoulder and left elbow and left knee pain COPD Depression History of obstructive sleep apnea History of alcohol use History of hospitalization for pneumonia in September 2015 History of colon polyps History of orthostasis Restricted lung disease Past Surgical History Lower right lung lobectomy Hiatal hernia repair Bilateral hips Bilateral knees Tonsillectomy Adenoidectomy Family History High blood pressure Smoking History Former Smoker Social History Hx of EtOH abuse has a nebulizer and 3 inhalers Alcohol Use: In recovery Drug Use: THC Other Social History: Local resident Occupation lives with roommate, no work or school 09/21/2016 Ambulatory Status Cane Review of Systems Unable to Obtain ROS Patient condition, Intoxicated Complete sys rev & neg: except as marked. Physical Exam Vital Signs Vital Signs Date Time Temp Pulse Resp B/P Pulse Ox O2 Delivery O2 Flow Rate FiO2 01/12/17 13:27 105 20 126/75 97 Room Air 01/12/17 13:10 110 24 139/84 99 Room Air 01/12/17 13:00 38.9 01/12/17 12:31 38.9 142 18 142/60 94 Room Air Initial VS: Reviewed General/Constitutional: Awake tremulous febrile altered Head / Eyes: Atraumatic, Normocephalic, PERRL Neck: Atraumatic, Supple Respiratory / Chest: Atraumatic, No respiratory distress Heart Rate / Rhythm: Positive: Tachycardia Abdomen: Atraumatic, Non-tender Upper Extremities Upper Extremity / MS: Atraumatic, Inspection NL, No deformity Wrist / Hand: Atraumatic, Inspection NL, No deformity Lower Extremity / Pelvis / MS: Atraumatic, Inspection NL, No deformity moving all 4 extremities Ankle / Foot: Atraumatic, Inspection NL, No deformity Skin: Atraumatic, Warm, Dry Interpretation & Diagnostics Lab Results Interpretation Result Diagram: 01/12/17 1227 01/12/17 1227 Test 01/12/17 12:27 01/12/17 13:45 White Blood Count 14.5th/mm3 (3.8-10.1) Red Blood Count 3.57mil/mm3 (4.40-5.80) Hemoglobin 12.0g/dL (13.8-17.2) Hematocrit 36.0% (41.0-50.0) Mean Corpuscular Volume 100.8fL (81-100) Mean Corpuscular Hemoglobin 33.6pg (27.0-35.0) Mean Corpuscular Hemoglobin Concent 33.3% (32.0-37.0) Red Cell Distribution Width 13.1% (12.3-15.4) Platelet Count 360bil/L (150-400) Neutrophils (%) (Auto) 86.2% (40-74) Lymphocytes (%) (Auto) 5.9% (14-46) Monocytes (%) (Auto) 7.2% (4-12) Eosinophils (%) (Auto) 0% (0-5) Basophils (%) (Auto) 0.4% (0-3) Prothrombin Time 10.5sec (8.1-12.5) Prothromb Time International Ratio 0.98ratio Sodium Level 134mEq/L (134-144) Potassium Level 4.6mEq/L (3.5-5.2) Chloride Level 89mEq/L (97-108) Carbon Dioxide Level 22mmol/L (18-29) Blood Urea Nitrogen 8mg/dL (8-27) Creatinine 0.84mg/dL (0.76-1.27) Estimat Glomerular Filtration Rate 99mL/min (>59) Glucose Level 162mg/dL (60-99) Osmolality 284 (275-300) Calcium Level 8.7mg/dL (8.5-10.1) Magnesium Level 1.1mg/dL (1.6-2.6) Total Bilirubin 0.7mg/dL (0.0-1.2) Aspartate Amino Transf (AST/SGOT) 47U/L (0-50) Alanine Aminotransferase (ALT/SGPT) 21U/L (0-44) Alkaline Phosphatase 128U/L (25-160) Total Creatine Kinase 388U/L (21-232) Troponin T < 0.010ug/L (0.0-0.011) Total Protein 7.0g/dL (6.4-8.4) Albumin 3.8g/dL (3.4-5.0) Lipase 17U/L (13-60) Procalcitonin 0.12ng/mL (0.00-0.08) Alcohols < 10mg/dL (0-10) Hepatitis C Comment . Lactic Acid Level 2.5mmol/L (0.4-2.0) ECG Interpretation ECG Interpretation: nonspecific ST changes QT 504 Time: 15:07 Interpreted by: ED physician Rhythm / Conduction: Tachycardia (rate 112) X-Ray Chest Interpretation Chest Xray Interpretation: IMPRESSION: Stable chest. No acute cardiopulmonary process is evident. Dictated by: Kemal Nguyen M.D. on 01/12/2017 at 13:24 Approved by: Kemal Nguyen M.D. on 01/12/2017 at 13:25 IMPRESSION: 1. Endotracheal tube is positioned approximately 4 cm above the olayinka. 2. Mild basilar atelectasis. Dictated by: Kemal Nguyen M.D. on 01/12/2017 at 13:32 Approved by: Kmeal Nguyen M.D. on 01/12/2017 at 13:34 View: Portable Interpretation / Wet Read by: Interpret - Radiologist CT Head Interpretation IMPRESSION: No acute intracranial disease process. Dictated by: Alma Chen MD, PhD on 01/12/2017 at 15:12 Approved by: Alma Chen MD, PhD on 01/12/2017 at 15:16 Study: Head CT no contrast Interpretation / Wet Read by: Interpret - Radiologist Procedures Intubation Time: 14:13 Procedure Performed by: ED physician Consent / Setup / Site Prep: Informed consent provided, Oxygen administered , Pulse oximeter applied, hall monitor applied, Hand hygiene observed, Stand sterile technique Patient Position: Neutral position Blade / ET Tube / Route: Route: oral Procedural Sedation/Analgesia: Sedation: Etomidate Neuromuscular Agent: Rocuronium ET Confirmation: Direct visualization, BS equal, End tidal CO2 device, CXR Secured / Marked: Tube marked at ___ cm (24), Tube marked at lip Complications: Vomiting Post-Procedure: Condition improved, Tolerated procedure well, Patient stable Lumbar Puncture Time: 15:17 Procedure Performed by: ED physician Consent / Setup / Site Prep: Informed consent provided, Time-out performed, Hand hygiene observed, Stand sterile technique, Sterile drapes applied, Patient right lateral Skin Preparation Agent: Betadine Procedural Sedation/Analgesia: Sedation: Etomidate Inserted Needle at: L4 L5 Post-Procedure / Complications: Antibiotic oint applied, Dressing applied, No complications, Tolerated procedure well, Patient stable Re-Eval/Medical Decision Med Decision/Clinical Course Encephalopathy likely due to alcohol withdrawal versus other infectious etiology, chest x-ray, urinalysis were unremarkable and CSF studies are pending. Patient received multiple doses of IV Valium, and a Precedex and Ativan drip be initiated. The severity of the patient's encephalopathy, although he was able to maintain his airway, and the refractory nature of this despite aggressive IV benzodiazepines had precluded us in the emergency department from effectively evaluating and diagnosing his medical condition. While we know that he has a history of alcohol abuse, with the fever today we were unable to perform urinalysis, head CT, lumbar puncture, and could not adequately work up the patient, without performing intubation. A total of 65 grams of IV Valium were given prior to making the decision to intubate. IV vancomycin and Zosyn are ordered after cultures have been obtained. Time of Eval: 12:47 Re-Evaluation/Progress Note: Pt rechecked. Heart rate has lowered and shakiness has decreased. Time of Eval: 14:03 ( ) Re-Evaluation/Progress Note: Pt rechecked. Pt is diffusely shaking. Consultation #1: Referral / Consult Name: John Dewitt MD Consulted With: Hospitalist Call Returned at: 13:46 Note: Case discussed. Dr. Dewitt accepts admit. Consultation #2: Referral / Consult Name: Alma Chen MD, PhD Call Returned at: 15:12 Marketing Services Specialist: Agrees with eval, Agrees with plan Note: Case discussed. Dr. Chen advises to go ahead with the LP. Consultation #3: Referral / Consult Name: John Dewitt MD Consulted With: Hospitalist Call Returned at: 15:31 Marketing Services Specialist: Agrees with eval, Agrees with plan Note: Case discussed. Counseled Regarding: Diagnosis, Lab results, Need for admission Discharge & Departure Primary Impression: Alcohol withdrawal Complication of substance-induced condition: with unspecified complication Qualified Code: F10.239 - Alcohol dependence with withdrawal, unspecified Disposition: ADMITTED TO HOSPITAL Discharge Condition All VS Reviewed: Yes Condition: Stable Referrals: [facility] Crit Care Except Billable Proc Time Spent: 105-134 minutes Services Performed: Patient management by me, Time spent at bedside, Reviewing test results Critical Care Notes: See MDM Scribe Attestation Portion of this note were transcribed by Sissy Hamilton. I, Dr. Reeder, personally performed the history, physical exam, and medical decision-making: I reviewed and confirmed the accuracy for the information in the transcribed note. Signed by: rivas Reyes, 01/12/17 1400 copies to: [facility] Pa Reeder DO Jan 12, 2017 12:18 Sissy Hamilton Jan 12, 2017 12:34
[2017-01-12] MEDS ORDERED: Ondansetron 2 mg/mL 2 mL Inj IVPUSH PRN ×2 (12:20→13:55)
[2017-01-12] MEDS ORDERED: Thiamine Inj 100 MG, Folic Acid Inj 1 MG, Magnesium Sulfate 50% Inj 2 GM, Multivitamins... IV ONE ×10 (12:20→13:55)
[2017-01-12 12:48] LABS: BASOPHILS % (AUTO) 0.4 % (0-3); EOSINOPHILS % (AUTO) 0 % (0-5); MONOCYTES % (AUTO) 7.2 % (4-12); Mean Corpuscular Hemoglobin 33.6 pg (27.0-35.0); Mean Corpuscular Volume 100.8 fL (81-100); NEUTROPHILS % (AUTO) 86.2 % (40-74); Platelet Count 360 bil/L (150-400)
[2017-01-12 13:00] LABS: INR 0.98 ratio
[2017-01-12 13:27] LABS: TROPONIN T < 0.010 ug/L (0.0-0.011)
[2017-01-12 13:33] LABS: Magnesium 1.1 mg/dL (1.6-2.6)
[2017-01-12] MEDS ORDERED: Magnesium Sulf 4 Gm/100 mL H2O 4 GM in IV Premix 1 EACH IV ONE ×2 (13:35→17:05)
[2017-01-12] MEDS ORDERED: Dexmedetomidine Inj 400 MCG in 0.9% Sodium Chloride 100 ML IV SCH (13:50)
[2017-01-12] MEDS ORDERED: Senna-Docusate 8.6-50 mg Tablet PO PRN (13:55)
[2017-01-12] MEDS ORDERED: Polyethylene Glycol (PEG) 17 Gm Powder PO PRN (13:55)
[2017-01-12] MEDS ORDERED: Alum-Mag Hydrox-Simeth 30 mL Suspension PO PRN (13:55)
[2017-01-12 14:25] LABS: Creatine Kinase 388 U/L (21-232); Lipase 17 U/L (13-60)
--- NOTE | 2017-01-12 14:27 | DRSVH ---
PROCEDURE: X-RAY CHEST ONE VIEW, PORTABLE ([id number]) INDICATIONS: fever TECHNIQUE: One view of the chest was acquired. COMPARISON: , CT, CT ANGIO CHEST PE, 01/03/2017, 20:58. , CR, XR CHEST 2VW, 12/04/2016, 3:43. FINDINGS: Surgical changes and devices: Postoperative changes within the right hilar region are noted. Lungs and pleura: The aeration of the lungs is similar to the prior study. There is no focal consoli dation, effusion, or pneumothorax. Mediastinum: Mediastinal contours appear normal. Heart size is normal. Bones and chest wall: No suspicious bony lesions. Overlying soft tissues appear unremarkable. IMPRESSION: Stable chest. No acute cardiopulmonary process is evident. Dictated by: Kemal Nguyen M.D. on 01/12/2017 at 13:24 Approved by: Kemal Nguyen M.D. on 01/12/2017 at 13:25
--- NOTE | 2017-01-12 14:35 | DRSVH ---
PROCEDURE: X-RAY CHEST ONE VIEW, PORTABLE ([id number]) INDICATIONS: intubated TECHNIQUE: One view of the chest was acquired. COMPARISON: [facility], CR, XR CHEST 1VW (PORTABLE), 01/12/2017, 13:17. FINDINGS: Surgical changes and devices: An endotracheal tube is seen overlying the upper trachea, positioned ap proximately 4.5 cm above the level of the olayinka. Postoperative changes of the right hilum are prese nt. Lungs and pleura: There may be mild right basilar atelectasis. The lung volumes are decreased since the prior study. No pneumothorax or large effusion is evident. No lobar consolidation is identified . Mediastinum: Mediastinal contours appear normal. Heart size is normal. Bones and chest wall: No suspicious bony lesions. Overlying soft tissues appear unremarkable. IMPRESSION: 1. Endotracheal tube is positioned approximately 4 cm above the olayinka. 2. Mild basilar atelectasis. Dictated by: Kemal Nguyen M.D. on 01/12/2017 at 13:32 Approved by: Kemal Nguyen M.D. on 01/12/2017 at 13:34
[2017-01-12] MEDS ORDERED: Dexmedetomidine 400 mCg/100 mL NS Premix IV SCH (14:45)
[2017-01-12] MEDS ORDERED: Piperacillin-Tazo 3.375 Gm Inj 3.375 GM in Dextrose 5% Minibag Plus 50 ML IV ONE (15:05)
[2017-01-12 15:09] LABS: APPEARANCE,URINE CLEAR (CLEAR,HAZY); COLOR,URINE YELLOW (YELLOW); OCCULT BLOOD,URINE NEGATIVE (NEGATIVE); PH,URINE 8.5 (5.0-8.0); UROBILINOGEN,URINE NORMAL (NORMAL)
--- NOTE | 2017-01-12 15:17 | DRSVH ---
PROCEDURE: CT BRAIN WITHOUT CONTRAST ([id number]) INDICATIONS: seizures TECHNIQUE: Noncontrast 4.5 mm thick angled axial sections acquired from the foramen magnum to the vertex, with c oronal reformats. COMPARISON: [facility], CT, CT BRAIN WO CON, 12/04/2016, 8:19. FINDINGS: Image quality: Excellent. CSF spaces: Basal cisterns are patent. No extra-axial fluid collections. The ventricles are symmet damon in size and shape. Brain: No intracranial bleeds or masses. There is cerebral volume loss for age, with resultant vent ricular and sulcal prominence. There are periventricular and deep white matter chronic small vessel ischemic changes. Incidental note made of cavum septi pellucidi et vergae. There is intracranial inte rnal carotid artery atherosclerosis. Skull and face: Calvarium and visualized facial bones appear intact, without suspicious lesions. Pre sence of endotracheal tube noted. Sinuses: Air-fluid level noted in the left maxillary sinus. The mastoids are clear. IMPRESSION: No acute intracranial disease process. Dictated by: Alma Chen MD, PhD on 01/12/2017 at 15:12 Approved by: Alma Chen MD, PhD on 01/12/2017 at 15:16
--- NOTE | 2017-01-12 15:18 | ABG ---
DateTimeAnalyzed 15:10:11 -_ pH ____7.550 - 7.350 7.450 pCO2 ___28.2__ -mmHg 35.0 45.0 pO2 ___89.2__ -mmHg 69.0 116 HCO3- ___24.7__ -mmol/L 22.0 26.0 ABE ____2.3__ -mmol/L tHb ___11.3__ -g/dL O2Hb ___97.1__ -% COHb ____1.1__ -% 1.5 MetHb ____0.2__ -% sO2 ___98.4__ -% FIO2 ___50.0__ -% Drawn By rs - Date/Time Notified____ 15:17:00 -_ Notified By rs - Notified Whom Dewitt, John - K+ ____3.4__ -mmol/L tO2 ___15.6__ -Vol% Regan test N/A -
--- NOTE | 2017-01-12 15:23 | NUR ---
Med Rec defer and Med bottles A bag of Rx. meds (in bottle) was transferred to ER with pt. Most of the meds are , dated as old as 2013. Medications were issues by various pharmacies and providers in [facility]. Unable to get home med info from pt. due to his current status (intubated). Will send home med to [facility] pharmacy. Addendum: 01/12/17 at 1602 by JENNY HERNANDEZ RN Put pt. home meds in 2 bags and sent to pharmacy. CCU nurse, Dianelys Mercado RN was notified. Medication plastic slips in chart.
--- NOTE | 2017-01-12 15:36 | ABG ---
DateTimeAnalyzed 15:10:11 -_ pH ____7.550 - 7.350 7.450 pCO2 ___28.2__ -mmHg 35.0 45.0 pO2 ___89.2__ -mmHg 69.0 116 HCO3- ___24.7__ -mmol/L 22.0 26.0 ABE ____2.3__ -mmol/L tHb ___11.3__ -g/dL O2Hb ___97.1__ -% COHb ____1.1__ -% 1.5 MetHb ____0.2__ -% sO2 ___98.4__ -% FIO2 ___50.0__ -% PRVC 510 - PEEP ____5.0__ -cmH2O Drawn By rs - Date/Time Notified____ 15:17:00 -_ Spontaneous_RR 18 -b/min Oxygen Device 1 VENTILATOR - Notified By rs - Notified Whom ___Dr. Okelley - K+ ____3.4__ -mmol/L tO2 ___15.6__ -Vol% Regan test _Positive -
[2017-01-12] MEDS ORDERED: Vancomycin Inj 1,250 MG in 0.9% Sodium Chloride 250 ML IV ONE (15:40)
[2017-01-12 15:51] LABS: APPEARANCE,CSF CLEAR (CLEAR); WHITE BLOOD CELL,CSF 1 /mm3 (0-5)
[2017-01-12 15:52] LABS: COLOR,CSF COLORLESS (COLORLESS)
--- NOTE | 2017-01-12 16:05 | NUR ---
Arrival to room 2016 Patient arrived to room 2016. Precedex and NS infusing at time of arrival. Paralytic administered prior to transfer, CIWA < 10. web content specialist applied, ST 110s to 120s. Hypertensive. Febrile, 38.6. Sp02 >92% on 40% fi02 with peep of 5. Will continue to monitor.
[2017-01-12] MEDS ORDERED: Rocuronium 10 mg/mL 5 mL Inj IVPUSH ONE ×2 (16:20)
[2017-01-12] MEDS ORDERED: PHENobarbital 65 mg/mL Inj IV ONE (16:20)
[2017-01-12] MEDS ORDERED: Etomidate 2 mg/mL 20 mL Inj IV ONE (16:20)
[2017-01-12] MEDS ORDERED: fentaNYL-PF 50 mCg/mL 2 mL Inj IVPUSH PRN (17:05)
[2017-01-12] MEDS: Midazolam Inj 100 MG in IV Premix 1 EACH IV SCH ×2 (17:16→23:20)
[2017-01-12] MEDS: Propofol Inj 1,000,000 MCG in IV Premix 1 EACH IV SCH ×2 (17:16→20:16)
[2017-01-12] MEDS: 0.9% Sodium Chloride 1,000 ML IV SCH (17:18)
[2017-01-12] MEDS ORDERED: DEXTROSE 5% IV ONE (17:20)
[2017-01-12] MEDS ORDERED: PHENOBARBITAL IV ONE (17:20)
--- NOTE | 2017-01-12 17:36 | PCM.HPMED ---
Subjective Date of Service Jan 12, 2017 Primary Provider: Admitting Physician: John Dewitt MD [facility]: John Dewitt MD Admit Status: From the Emergency Department, Admit to [facility] Team Chief Complaint: 61-year-old man with severe relapsing alcohol abuse disorder presents with toxic encephalopathy and signs of alcohol withdrawal History of Present Illness: The patient has a long-standing history of alcohol abuse. In remission admissions to endorse drinking approximately 1 quart of alcohol per day. He was discharged from [facility] following alcohol withdrawal on . He presented today to the emergency department with symptoms of tremor and altered mental status. He was minimally verbal on presentation to the emergency department and motor activity was symmetric. During the course of his evaluation he was disoriented and uncooperative with care and was sedated and intubated. Currently no further history is available. Review of Systems: Patient is unable to perform review of systems due to encephalopathy and sedation. Allergies Coded Allergies: No Known Allergies (Verified , 12/28/16) Home Medications Albuterol Symbicort Vitamin D 2000 units Vitamin B12 1000 g daily Gabapentin 600 mg 3 times a day Methocarbamol 750 mg twice a day when necessary Thiamine 100 mg daily Spiriva 18 g daily Venlafaxine 150 mg at bedtime PMH # Alcohol abuse disorder # DJD - bilateral hip arthroplasty, shoulder, left elbow and left knee pain # COPD # Depression # Obstructive sleep apnea - CPAP # History of hospitalization for pneumonia in September 2015 # Restrictive lung disease - status post right lobe lung resection Family History Unable to obtain at present Social History Hx Alcohol Use: Yes (1 QUART VODKA/DAY) Hx Substance Use: Yes (MARIJAUNA daily) Hx Tobacco Use: No Smoking Status: Former Smoker Living Arrangement: with Friends/Roommate Exam Vital Signs Vital Sign - Last Date Time Temp Pulse Resp B/P Pulse Ox O2 Delivery O2 Flow Rate FiO2 01/12/17 17:13 38.6 103 19 109/74 93 Mechanical Ventilator 40 Exam General: Middle-age man, intubated HEENT: sclerae anicteric, no obvious trauma Neck: no adenopathy or JVD Chest: Ventilator sounds but generally clear to auscultation Cardiac: S1S2, no murmur Abdomen: BS normal, not rigid Extremities: No pitting edema, abrasion on knee, scattered ecchymoses Neuro: Sedated, face appears symmetric, motor tone is symmetric, mild myoclonic twitching left forearm Lab and Diagnostics Labs Lactic acid 2.5, anion gap 23 Magnesium 1.1 LFTs normal, CPK 388 Procalcitonin 0.12 Serum osmolality 284 measured, calculated 280 Urinary tox screen (ED) - benzodiazepine only Arterial blood gas: DateTimeAnalyzed 15:10:11 -_ pH ____7.550 - 7.350 7.450 pCO2 ___28.2__ -mmHg 35.0 45.0 pO2 ___89.2__ -mmHg 69.0 116 HCO3- ___24.7__ -mmol/L 22.0 26.0 ABE ____2.3__ -mmol/L tHb ___11.3__ -g/dL O2Hb ___97.1__ -% COHb ____1.1__ -% 1.5 MetHb ____0.2__ -% sO2 ___98.4__ -% FIO2 ___50.0__ -% Lumbar puncture, CSF analysis: 1 WBC, glucose 92, total protein 39 . Result Diagram: 01/12/17 1227 01/12/17 1227 X-Rays, CTs and MRIs PROCEDURE: CT BRAIN WITHOUT CONTRAST ([id number]) IMPRESSION: No acute intracranial disease process. Dictated by: Alma Chen MD, PhD on 01/12/2017 at 15:12 PROCEDURE: X-RAY CHEST ONE VIEW, PORTABLE ([id number]) IMPRESSION: Stable chest. No acute cardiopulmonary process is evident. Dictated by: Kemal Nguyen M.D. on 01/12/2017 at 13:24 PROCEDURE: X-RAY CHEST ONE VIEW, PORTABLE ([id number]) IMPRESSION: 1. Endotracheal tube is positioned approximately 4 cm above the olayinka. 2. Mild basilar atelectasis. Dictated by: Kemal Nguyen M.D. on 01/12/2017 at 13:32 . 12-lead ECG 01/12/17 15:07 sinus tachycardia rate 110, conduction interval normal except QTc 504, mild T-wave inversion in aVL, no acute ST changes Assessment & Plan 61-year-old man with history of alcohol abuse presents with acute toxic encephalopathy, fever and probable alcohol withdrawal # Acute encephalopathy, present on admission. Differential diagnosis is benzodiazepine intoxication, alcohol withdrawal, other concomitant ingestion or medication overdose, sepsis less likely. Blood alcohol level was negative at time of admission. Tox screen otherwise notable for benzodiazepines. Dual reuptake inhibitor (venlafaxine) overdose as possible. - [facility] protocol for alcohol withdrawal; banana bag administered; daily thiamine - Sedation and supportive measures at present - Sedation holiday and assessment as clinical picture stabilizes # Acute respiratory failure. Inability to defend her airway and comply with medical procedures resulted in intubation. No apparent active pulmonary disease. May require prolonged intubation due to active alcohol withdrawal interfering with weaning efforts. - Ventilator bundle - Vent management per ICU service # Fever, acute. Associated with SIRS criteria of: Heart rate 115, respiratory rate 21, white blood cell 14.5. Lactic acid mildly elevated 2.5. Procalcitonin elevated at 0.12. These meets sepsis criteria there is no evidence for acute bacterial infection at this time. Plausibly related to stress alcohol withdrawal and toxic ingestion. Acute bacterial meningitis seems ruled out. Urinalysis is benign. Chest x-ray unremarkable, although patient was at high risk for aspiration. Patient did not identify abdominal pain at time of presentation to ED when he was minimally verbal. - Empirically dosed with Zosyn and vancomycin, which I would suggest to discontinue unless ICU service wishes to continue - Await blood cultures - Monitor fever and obtain appropriate culture data as indicated # Hypomagnesemia, acute. Of moderate concern in setting of prolonged QTC. - Reflexive potassium and magnesium repletion - Repeat electrolyte panel at appropriate interval # Alcohol abuse, chronic, recurrent. - Counseling and supportive measures Disposition: Patient is admitted to inpatient status with expectation of several days acute inpatient care for toxic encephalopathy, acute fever, and alcohol withdrawal. GI Prophylaxis: H2 zeb VTE Prophylaxis: Sub-Q Heparin (Unfractionated) Resuscitation Status: CPR: Attempt Resuscitation Time spent 60 minutes John Dewitt MD Jan 12, 2017 17:36
--- NOTE | 2017-01-12 17:42 | PCM.CHPMED ---
Subjective Date of Service: Jan 12, 2017 Provider requesting consult: John Dewitt MD Primary Physician: Admitting Physician: John Dewitt MD [facility] Attending Physician: John Dewitt MD Admit Status: Admit to Yellow Team, Critical Care Chief Complaint: Chief Complaint: CRITICAL CARE CONSULTATION, FOR ALCOHOL WITHDRAWAL WITH SUBSEQUENT INTUBATION. History of Present Illness: Patricio Cardozo is a 61-year-old man with past medical history significant for restrictive lung disease and alcohol abuse who presents to the [facility] emergency department via EMS due to severe alcohol withdrawal and altered mental status. The patient has had multiple prior admissions due to alcohol withdrawal, with two others in the last two months. He was recently discharged from [facility] on 01/03/17 after 5 days in this hospital for alcohol withdrawal. From prior admission the patient noted to drink one quart of vodka per day. He denied any withdrawal seizures. The patient stated that he has been sober before and the longest lasting period was 18 months. Patient is not taking his normally prescribed medications. The patient was seen in the emergency department on 12/04/16 due to a ground level fall due to intoxication. Patient denies any history of cirrhosis, GI bleed, varices, esophagitis. In the ED the patient was altered and agitated and difficult to control so he was electively intubated so he could undergo an LP and a head CT, neither of which revealed significant pathology. He was tachycardic and febrile in the ED. He was given a total of 90 mg of Valium without much success. He was briefly paralyzed with rocuronium for better control. Review of Systems: A comprehensive review of systems could not be performed as the patient is intubated and sedated. PMH Past Medical History Chronic shoulder and left elbow and left knee pain COPD Depression History of obstructive sleep apnea History of alcohol use History of hospitalization for pneumonia in September 2015 History of colon polyps History of orthostasis Restricted lung disease Surgical History Lower right lung lobectomy Hiatal hernia repair Bilateral hips Bilateral knees Tonsillectomy Adenoidectomy Home Medications Scheduled Budesonide/Formoterol 80-4.5 mcg Inh (Symbicort 80-4.5 mcg Inh) 120 Puff Inhaler 2 PUFF INHALATION BID Cholecalciferol (Vitamin D3) (Vitamin D3) 2,000 Unit Capsule 2,000 UNIT PO DAILY Cyanocobalamin (Vitamin B-12) (Vitamin B-12) 1,000 Mcg Tablet 1,000 MCG PO DAILY Gabapentin (Gabapentin) 300 Mg Capsule 600 MG PO TID Garlic Extract (Garlipure) 600 Mg Tablet 600 MG PO DAILY Grape Seed Extract (Grape Seed) 50 Mg Tablet 50 MG PO DAILY Multivits-Min/FA/Lycopene/Lut (Centrum Silver Tablet) 1 Each Tablet 1 EACH PO DAILY [place]-3/Dha/Epa/Fish Oil (Fish Oil 1,000 mg Softgel) 1 Each Capsule 1 EACH PO DAILY Thiamine Mononitrate (Vitamin B-1) 100 Mg Tablet 100 MG PO DAILY Tiotropium [place] (Spiriva) 18 Mcg Cap.w.dev 18 MCG IH DAILY Venlafaxine ER (Venlafaxine ER) 150 Mg Cap.er.24h 150 MG PO HS Scheduled PRN Albuterol HFA (Proair HFA) 8.5 Gm Hfa.aer.ad 2 PUFFS INHALATION Q4H PRN PRN For Shortness of Breath Methocarbamol (Methocarbamol) 750 Mg Tablet 750-1,500 MG PO BID PRN PRN For Spasm Metronidazole (Metronidazole Gel) 1 Applic/0.25 Gm Gel 1 APPLIC TOP DAILY PRN PRN rosacea Allergies: Coded Allergies: No Known Allergies (Verified , 12/28/16) Family History Family History High blood pressure Social History Hx Alcohol Use: Yes (1 QUART VODKA/DAY)Hx Substance Use: Yes (MARIJAUNA daily) Hx Tobacco Use: No Smoking Status: Former Smoker Exam Vital Signs Vital Sign - Last Date Time Temp Pulse Resp B/P Pulse Ox O2 Delivery O2 Flow Rate FiO2 01/12/17 17:13 38.6 103 19 109/74 93 Mechanical Ventilator 40 Additional Information: General: Well-developed man, intubated, sedated. HEENT: Normocephalic, atraumatic. External ears without defect. Pupils equal, round, and reactive to light and accommodation. Anicteric sclerae, moist conjunctivae, and no lid lag. Oropharynx free of erythema and cobble stoning with moist mucosa. ET tube in place. OG tube in place. Neck: Supple with full range of motion. No jugular venous distension. No lymphadenopathy or thyromegaly. Cardiovascular: Regular rhythm, tachycardic with no murmurs, rubs, or gallops appreciated Pulmonary: Diffuse wheezing auscultated. Normal respiratory effort with no use of accessory muscles. Abdomen: Bowel tones present. Soft, nontender, nondistended. No hepatosplenomegaly or masses appreciated. Extremities: No clubbing, cyanosis, edema, or lymphadenopathy appreciated. Small excoriation on right knee. Skin: Normal temperature, turgor, and texture; no rash, ulcers, or subcutaneous nodules appreciated. Neurological: Normal muscle strength, tone, and bulk. Mild tremor. Psychiatric: Agitated. Lab and Diagnostics Labs Item Value Date Time Lactic Acid Level 2.5 mmol/L H 01/12/17 1345 Total Creatine Kinase 388 U/L H 01/12/17 1227 Osmolality 284 01/12/17 1227 Procalcitonin 0.12 ng/mL H 01/12/17 1227 Magnesium Level 1.1 mg/dL *L 01/12/17 1227 Neutrophils (%) (Auto) 86.2 % H 01/12/17 1227 Mean Corpuscular Volume 100.8 fL H 01/12/17 1227 White Blood Count 14.5 th/mm3 H 01/12/17 1227 Red Blood Count 3.57 mil/mm3 L 01/12/17 1227 Hemoglobin 12.0 g/dL L 01/12/17 1227 Alcohols < 10 mg/dL 01/12/17 1227 Urine Benzodiazepines Screen Positive 01/12/17 1448 Laboratory Tests Test 01/12/17 14:48 Urine Color Yellow Urine Appearance Clear Urine pH 8.5 Urine Specific [place] 1.015 Urine Protein Negativemg/dL Urine Glucose (UA) Negativemg/dL Urine Ketones 15mg/dL Urine Occult Blood Negative Urine Nitrite Negative Urine Bilirubin Negative Urine Urobilinogen Normalmg/dL Urine Leukocyte Esterase Negative Urine RBC 0-2/hpf Urine WBC 0-5/hpf Urine Epithelial Cells Occasional/hpf Urine Crystals None seen Urine Bacteria None/hpf Urine Hyaline Casts None/lpf Urine Granular Casts None seen Urine Waxy Casts None seen Urine Red Blood Cell Casts None seen Urine White Blood Cell Casts None seen Urine Mucus None seen Urine Trichomonas None seen Urine Yeast None Urinalysis Comment None Urine Culture Reflexed Not indicated Lumbar Puncture Item Value Date Time CSF Appearance Clear 01/12/17 1537 CSF Color Colorless 01/12/17 1537 CSF WBC 1 /mm3 01/12/17 1537 CSF RBC 16 /mm3 01/12/17 1537 CSF Glucose 92 mg/dL H 01/12/17 1537 CSF Total Protein 39 mg/dL 01/12/17 1537 Result Diagram: 01/12/17 1227 01/12/17 1227 X-Rays, CTs and MRIs X-RAY CHEST ONE VIEW, PORTABLE IMPRESSION: 1. Endotracheal tube is positioned approximately 4 cm above the olayinka. 2. Mild basilar atelectasis. Dictated by: Kemal Nguyen M.D. on 01/12/2017 at 13:32 CT BRAIN WITHOUT CONTRAST IMPRESSION: No acute intracranial disease process. Dictated by: Alma Chen MD, PhD on 01/12/2017 at 15:12 Additional Diagnostics: ABG on PRVC FiO2 50% PEEP 5 RR 18 TV 510 DateTimeAnalyzed 15:10:11 -_ pH ____7.550 - 7.350 7.450 pCO2 ___28.2__ -mmHg 35.0 45.0 pO2 ___89.2__ -mmHg 69.0 116 HCO3- ___24.7__ -mmol/L 22.0 26.0 Assessment & Plan Assessment Patricio Cardozo is a 61-year-old man with past medical history significant for restrictive lung disease and alcohol abuse who presents to the [facility] emergency department via EMS due to severe alcohol withdrawal and altered mental status. Alcohol withdrawal without history of seizures -Patient received 90 mg of Valium without good response -260 mg of phenobarbital now, reassess tomorrow with another dose of 130 mg tomorrow -Started on Versed drip in the ED, continue. Give 2-5 mg IV pushes as needed for control, start with 5 mg and move towards 2 mg pushes. Goal RASS 0 to -1. -Propofol for sedation as well for now. About 1 hr after patient receives phenobarbital attempt to titrate off Propofol -Fentanyl 50 mg IV pushes Q2 as needed for pain. -D/C'ed Precedex. -Thiamine, folate supplementation -Chemical dependency counseling once stable Intubation for airway protection -No evidence of respiratory failure -Titrate FiO2 down to 40% and further to O2 sat >95% and PaO2 of >80 mmHg -Reduced respiratory rate to 12 Leukocytosis and fever -Fever may be due to EtOH withdrawal. -No obvious signs of infection or obvious source. Due to altered mentation aspiration may be possible. -Procalcitonin not elevated currently, repeat tomorrow AM -ED gave patient one time dose of Zosyn and Vancomycin, will hold off on continuing for now -Blood and sputum cultures obtained -Respiratory viral PCR. Amylase and lipase to rule out pancreatitis. Hypomagnesemia -given 4 g IV in the ED. Recheck level tonight and give another 4 g of supplementation if less than 2 mg/dL. Depression -Restart patient's outpatient medications: Venlafaxine Prophylaxis GI: Famotidine DVT: Heparin subQ CODE STATUS: FULL CODE Thank you for allowing us to participate in the care of this patient, we will follow along with you. Problems: Time spent A total of 45 minutes of critical care time was spent in the coordination and care of this patient. Attending Statement I have seen and examined this patient with the resident physician. Vital signs , labs, imaging have been reviewed. I agree with the assessment and plan above. Please refer to my separately dictated progress note for any modifications to above. Date of service 01/12/17 Erma Bailon M.D. Pulmonary and Critical Care medicine Pager [phone] Cheli Funes DO Jan 12, 2017 17:42 Erma Bailon MD Jan 13, 2017 08:16
[2017-01-12 18:33] LABS: Magnesium 2.1 mg/dL (1.6-2.6)
--- NOTE | 2017-01-12 18:44 | NUR ---
Pt status Propofol infusing at 20mcg/kg/min and versed continued at 7mg/hr. CIWAs 8 to 10. Phenobarbital infused as scheduled. ST per playground monitor, HR low 100s to 110s. MAP 65. Febrile, 39.5. Tylenol administered and themostat adjusted. Continues on ventilator with 40% fi02 and peep of 5. Overbreathing ventilator, RR 18 to low 20s. Moderate amount of thick, clear oral secretions. Morrell to DD with adequate output. Will continue to monitor.
--- NOTE | 2017-01-12 19:48 | CONS ---
[address] [address] CONSULTATION REPORT PATIENT: MARINA JOSUE : 1955 MR#: [id number] ADMIT: 01/12/2017 JOB ID: [id number] DATE OF SERVICE: 01/12/2017 IDENTIFICATION: The patient is a 61-year-old man with longstanding history of alcohol abuse admitted with alcohol withdrawal associated delirium tremens seen in consultation at the request of Dr. Dewitt for respiratory failure requiring mechanical ventilation. The patient was seen and evaluated with resident physician, Cheli Funse. Please refer to her separate detailed history and physical note for complete information. HISTORY OF PRESENT ILLNESS: The patient was intubated by the time I met him, so all of the history is per review of medical records. He has had multiple prior hospitalizations for alcohol abuse/alcohol withdrawal and presented to the emergency department in obvious delirium tremens with altered mental status, tremulousness. He also had a fever of 39. He was intubated electively because of alteration in mental status and distress. Following that, the ED staff performed a lumbar puncture to rule out infection and this was essentially benign. He has received 80 mg of Valium and multiple doses of midazolam with no response. He is currently on a midazolam drip as well as propofol infusion and with that has finally calmed down. Past medical history, social history, family history, and review of systems could not be obtained since the patient is intubated. Reportedly, he drinks a quart of vodka a day based on prior notes and also smokes cigarettes but this could not be confirmed. PHYSICAL EXAMINATION: Vital signs reviewed. Please refer to Dr. Funes's note for a complete physical exam. On my evaluation, he was intubated and sedated, quite calm on infusions of midazolam and propofol. Pupils were equal, but slightly dilated. Chest: Clear to auscultation. Heart: Regular rate, rhythm. Skin: Abrasions on the knee and arms. No rashes. Abdomen: Soft, nontender. LABORATORIES: Reviewed and notable for elevated WBC of 14.5. LFTs are normal. Magnesium was extremely low at 1.1. Lactate 2.5. Arterial blood gas post intubation shows a pH of 7.55 with a primary respiratory alkalosis. Chest x-ray reviewed and shows ET tube in normal position and no evidence of pulmonary infiltrates. ASSESSMENT AND RECOMMENDATIONS: 1. Alcohol withdrawal with delirium tremens. 2. Acute respiratory failure on mechanical ventilation. 3. Fever to 38.9, systemic inflammatory response syndrome. 4. Hypomagnesemia. 5. Leukocytosis. This 61-year-old man with a longstanding history of alcohol abuse and withdrawal is presenting with what appears to be delirium tremens with fever and respiratory failure. He was intubated essentially for mental status issues. With regards to his alcohol withdrawal, he is going to receive phenobarbital 360 mg IV once. I am hoping that with this we can wean off the propofol completely and reduce the midazolam as well. We can use midazolam boluses as needed for breakthrough symptoms, but I expect the phenobarb will work much better than the other drugs. He is also getting multivitamin, folate and thiamine and already got a banana bag. The magnesium is most likely low due to alcohol withdrawal so we will aggressively replete that and also check for a phos level. With regards to respiratory issues, his respiratory rate was 18 with a pH of 7.55, so this was reduced to 12 and he is overbreathing the vent at this time. With regards to the fever, this could be due to the alcohol withdrawal, but we would like to look for other etiologies. LP was sent and results initially appear benign, but cultures, etc. are still pending. We will check a respiratory viral PCR. Procalcitonin was low in the emergency department, but we will repeat it tomorrow morning. If his fever persists, we can look for additional sources such as abdominal. LFTs are normal, but we will check an amylase and lipase to rule out pancreatitis as source of fever. Blood cultures and sputum cultures are pending. He is going to get heparin 5000 units subcu q.8 h. for DVT prophylaxis. He is getting famotidine for GI prophylaxis. He is a FULL CODE. Critical care time 40 minutes.
[2017-01-12] MEDS: Famotidine 20 mg/50 mL NS Premix IV SCH (20:14)
[2017-01-12] MEDS: Venlafaxine XR 75 mg ER24 Capsule PO SCH (20:15)
[2017-01-13] VITALS (14 sets, daily range): BP systolic 87–112; BP diastolic 55–77; PULSE 69–90; RESP 14–24; O2SAT 98–100
[2017-01-13] MEDS: Heparin 5,000 Unit/mL Inj SUBQ SCH ×3 (00:57→15:37)
[2017-01-13] MEDS: 0.9% Sodium Chloride 1,000 ML IV SCH ×4 (00:59→23:45)
[2017-01-13 03:19] LABS: BASOPHILS % (AUTO) 0.2 % (0-3); EOSINOPHILS % (AUTO) 0.1 % (0-5); MONOCYTES % (AUTO) 4.7 % (4-12); Mean Corpuscular Hemoglobin 33.3 pg (27.0-35.0); Mean Corpuscular Volume 100.3 fL (81-100); NEUTROPHILS % (AUTO) 82.2 % (40-74); Platelet Count 201 bil/L (150-400)
[2017-01-13 03:52] LABS: Magnesium 1.9 mg/dL (1.6-2.6); Phosphorus 3.5 mg/dL (2.5-4.9)
[2017-01-13] MEDS: KCl 40 mEq/500 mL D5W (K < 3 & Creat <2) IV SCH ×2 (04:23→08:07)
--- NOTE | 2017-01-13 05:04 | ABG ---
DateTimeAnalyzed 04:57:45 -_ pH ____7.540 - 7.350 7.450 pCO2 ___29.5__ -mmHg 35.0 45.0 pO2 147 -mmHg 69.0 116 HCO3- ___25.2__ -mmol/L 22.0 26.0 ABE ____2.5__ -mmol/L tHb ___10.8__ -g/dL O2Hb ___98.5__ -% COHb ____1.0__ -% 1.5 MetHb ____0.5__ -% sO2 __100.0__ -% FIO2 ___40.0__ -% PEEP ____5.0__ -cmH2O Set_RR 12 -b/min Vt __510.0__ -L Drawn By MK - Date/Time Notified____ 05:04:00 -_ Oxygen Device 1 VENTILATOR - Notified By MK - K+ ____2.8__ -mmol/L tO2 ___15.3__ -Vol% Regan test _Positive -
--- NOTE | 2017-01-13 05:24 | NUR ---
Weaned propofol down through the night. Propofol now at 10 mcg, however, pt still requires occasional bolus's to calm agitation. In addition to the propofol pt is also on 7 mg/hr of versed. Neurologically, pt is awake and did squeeze hands bilaterally but is not nodding to "yes"/"no" questions. Pt does track with eyes. Pt does try and grab at tube and fights with resistance while repositioning. Hr has improved with a rate now 70-80's, NSR with prolonged QTc. Potassium on am labs was 2.8. Ordered 40 meq riders x2 for a total of 80 meq. Must be over 8 hrs for both bags due to pt only having PIV's. Pt does become slightly hypotensive with sedation bolus but rebounds back up after time. Will continue to monitor pt closely.
[2017-01-13] MEDS ORDERED: Rocuronium 10 mg/mL 5 mL Inj ONE (05:29)
[2017-01-13] MEDS ORDERED: Etomidate 2 mg/mL 20 mL Inj IV ONE (05:29)
[2017-01-13 06:12] LABS: Hepatitis A Antibody IgM Negative (Negative); Hepatitis B Core Antibody IgM Negative (Negative)
--- NOTE | 2017-01-13 07:43 | PCM.PNMED ---
Subjective Date of Service Jan 13, 2017 Subjective Patient is intubated, he is very awake and walking around however. He appears to be relatively calm. View of systems and subjective not obtainable. Exam Vital Signs Vital Sign - Last Date Time Temp Pulse Resp B/P Pulse Ox O2 Delivery O2 Flow Rate FiO2 01/13/17 04:44 70 109/74 99 40 01/13/17 04:30 Ventilator 01/13/17 04:30 36.7 14 Intake and Output 01/12/17 01/12/17 01/13/17 Cumulative From/Thru 15:00 23:00 07:00 01/12/17 12:59 - 01/13/17 06:14 Intake Total 1000 ml 2343 ml 2016 ml 5359 ml Output Total 2375 ml 860 ml 3235 ml Balance 1000 ml -32 ml 1156 ml 2124 ml Intake IV Total 1000 ml 2343 ml 2016 ml 5359 ml Output Urine Total 2375 ml 800 ml 3175 ml Gastric Drainage Total 60 ml 60 ml # Bowel Movements 2 2 Exam Alert and in no distress. Intubated. Anicteric sclera. Lungs are clear with normal rate and effort Heart is regular without murmur gallop or rub Abdomen soft nontender, flat Extremities are free of edema. Skin is free of rash or lesions, he does have some forearm ecchymosis. IVs and Medications Medications Reviewed: Medications were reviewed in detail Lab and Diagnostics Result Diagram: 01/13/17 0255 01/13/17 0255 X-Rays, CTs and MRIs PROCEDURE: CT BRAIN WITHOUT CONTRAST ([id number]) IMPRESSION: No acute intracranial disease process. Dictated by: Alma Chen MD, PhD on 01/12/2017 at 15:12 PROCEDURE: X-RAY CHEST ONE VIEW, PORTABLE ([id number]) IMPRESSION: Stable chest. No acute cardiopulmonary process is evident. Dictated by: Kemal Nguyen M.D. on 01/12/2017 at 13:24 PROCEDURE: X-RAY CHEST ONE VIEW, PORTABLE ([id number]) IMPRESSION: 1. Endotracheal tube is positioned approximately 4 cm above the olayinka. 2. Mild basilar atelectasis. Dictated by: Kemal Nguyen M.D. on 01/12/2017 at 13:32 . 12-lead ECG 01/12/17 15:07 sinus tachycardia rate 110, conduction interval normal except QTc 504, mild T-wave inversion in aVL, no acute ST changes Assessment & Plan 61-year-old man with history of alcohol abuse presents with acute toxic encephalopathy, fever and probable alcohol withdrawal # Acute encephalopathy, present on admission. This appears to be improving however the patient still intubated symptoms difficult to assess. He is much more alert. # Acute respiratory failure. This appears to be improved. Inability to defend her airway and comply with medical procedures resulted in intubation. No apparent active pulmonary disease. May require prolonged intubation due to active alcohol withdrawal interfering with weaning efforts. - Ventilator bundle - Vent management per ICU service We will anticipate a breathing trial today is with pole off the per side and hopefully extubate this morning. # Fever, acute. Resolved. Associated with SIRS criteria of: Heart rate 115, respiratory rate 21, white blood cell 14.5. Lactic acid mildly elevated 2.5. Procalcitonin elevated at 0.12. These meets sepsis criteria there is no evidence for acute bacterial infection at this time. Plausibly related to stress alcohol withdrawal and toxic ingestion. Acute bacterial meningitis seems ruled out. Urinalysis is benign. Chest x-ray unremarkable, although patient was at high risk for aspiration. Patient did not identify abdominal pain at time of presentation to ED when he was minimally verbal. - Empirically dosed with Zosyn and vancomycin, which I would suggest to discontinue unless ICU service wishes to continue - Await blood cultures - Monitor fever and obtain appropriate culture data as indicated We will continue to watch off from antibiotics. Chest x-ray appears to be unremarkable. # Hypomagnesemia, resolved. Of moderate concern in setting of prolonged QTC. - Reflexive potassium and magnesium repletion - Repeat electrolyte panel at appropriate interval # Alcohol abuse with probable withdrawal. Active. -CIWA protocol will continue. #. Hypokalemia, active. Patient is given an additional 40 mg potassium at this time. #. Hypovolemic hyponatremia, active. We will continue saline 125 and follow. GI and DVT prophylaxis. Disposition: Patient is admitted to inpatient status with expectation of several days acute inpatient care for toxic encephalopathy, acute fever, and alcohol withdrawal. GI Prophylaxis: H2 zeb VTE Prophylaxis: Sub-Q Heparin (Unfractionated) VTE Mechanical Devices: Intermittant Pneumatic CD Resuscitation Status: CPR: Attempt Resuscitation Regan Dao MD Jan 13, 2017 07:43
[2017-01-13] MEDS: Multivit-Miner-Folic Acid-Iron Tablet PO SCH (08:07)
[2017-01-13] MEDS: Famotidine 20 mg/50 mL NS Premix IV SCH ×2 (08:07→20:22)
--- NOTE | 2017-01-13 09:03 | DRSVH ---
PROCEDURE: X-RAY CHEST ONE VIEW, PORTABLE ([id number]) INDICATIONS: intubated TECHNIQUE: One view of the chest was acquired. COMPARISON: [facility], CR, XR CHEST 1VW (PORTABLE), 01/12/2017, 14:11. FINDINGS: Surgical changes and devices: Endotracheal tube is present and unchanged. Nasogastric tube is noted w ith distal tip projecting below the left hemidiaphragm. Lungs and pleura: There is normal appearance of patchy opacity within the right base, appearing new c ompared to prior exam. Mediastinum: Mediastinal contours appear normal. Heart size is normal. Bones and chest wall: No suspicious bony lesions. Overlying soft tissues appear unremarkable. IMPRESSION: Support lines as above. Minimal appearance of new patchy right basilar opacity, possibly atelectasis versus developing pneumonia. Dictated by: Margarita Briggs M.D. on 01/13/2017 at 9:01 Approved by: Margarita Briggs M.D. on 01/13/2017 at 9:02
[2017-01-13] MEDS ORDERED: PHENobarbital 65 mg/mL Inj IV ONE (09:15)
[2017-01-13] MEDS ORDERED: LORazepam 100 mg/100 mL NS 100 MG in IV Premix 100 EACH IV SCH (09:15)
[2017-01-13] MEDS ORDERED: Vancomycin Dose per Pharmacist XX SCH (09:15)
[2017-01-13] MEDS: Piperacillin-Tazo 3.375 Gm Inj 3.375 GM in Dextrose 5% Minibag Plus 50 ML IV SCH ×2 (10:04→15:37)
[2017-01-13] MEDS ORDERED: PREN1TAB87 PO (10:15)
[2017-01-13] MEDS ORDERED: VENL75TA3 PO (10:15)
[2017-01-13] MEDS ORDERED: MS15TCR PO (10:15)
[2017-01-13] MEDS ORDERED: ETOD400T PO (10:15)
[2017-01-13] MEDS ORDERED: VENL75CA95 PO (10:15)
[2017-01-13] MEDS ORDERED: TIOT18CA3 IH (10:15)
--- NOTE | 2017-01-13 10:39 | PROG NOTE ---
[address] [address] PROGRESS NOTE PATIENT: MARINA JOSUE : 1955 MR#: [id number] ADMIT: 01/12/2017 JOB ID: [id number] DATE: 01/13/2017 PULMONARY CRITICAL CARE PROGRESS NOTE: The patient is a 61-year-old man with history of longstanding alcohol abuse, admitted with severe alcohol withdrawal and respiratory failure requiring mechanical ventilation. The patient was seen and evaluated with resident physician, Cheli Funes DO. Please refer to her separate detailed note for additional information. INTERVAL HISTORY: Remains intubated but wide awake on 7 mg/hour of midazolam. He is doing well on a pressure support trial this morning. REVIEW OF SYSTEMS: Unable to obtain. PHYSICAL EXAMINATION: Vital signs reviewed. T-max of 39.3 at 6 p.m. yesterday. He has been afebrile since. He is on 30% FiO2 on the vent and hemodynamically stable. General: Eyes open, trying to mouth words around the ET tube. He is trying to climb out of bed. Chest: Clear to auscultation. LABORATORIES: Reviewed. WBC down to 10.9 from 14.5. Chemistry also reviewed. Potassium is low at 2.8. Lipase checked yesterday. It was only 17. Amylase 30. LFT remained stable today. Procalcitonin is up slightly to 1.4 from 0.1 yesterday. Chest x-ray from this morning shows some right middle lobe infiltrate, new compared to yesterday. Arterial blood gas from this morning shows pH of 7.54, pCO2 of 29, pO2 of 147, bicarb of 25. ASSESSMENT AND RECOMMENDATIONS: 1. Acute alcohol withdrawal with delirium tremens. 2. Acute respiratory failure on mechanical ventilation since January 12, 2017. 3. Fever 39.3 on January 12, 2017. 4. Electrolyte abnormalities including hypokalemia, hypomagnesemia. 5. Aspiration pneumonia in the right middle lobe. A 61-year-old man with longstanding history of alcohol abuse and recurrent hospitalizations for issues related to that. He is presenting with severe alcohol withdrawal requiring mechanical ventilation. He received phenobarbital yesterday evening, and we are going to repeat another dose of 130 mg this morning. He is currently on 7 mg an hour of midazolam and seems to be intermittently reasonably controlled with that combined with propofol. He is doing reasonably well on a pressure support trial but I am not sure if extubating him is a good idea given his high sedation/alcohol withdrawal medication needs. We will reassess this at a later point after he has received the phenobarbital. He has a primary respiratory alkalosis and seems to be overbreathing the vent. He has a chest x-ray infiltrate, increase in procalcitonin, all of which suggest aspiration pneumonia. There is some history of positive methicillin-resistant Staphylococcus aureus but on this particular admission his methicillin-resistant Staphylococcus aureus nasal screen is negative. I will stop the vancomycin and continue Zosyn alone until we have further data on the sputum cultures. If sputum cultures remain negative, we could narrow to Unasyn alone for aspiration pneumonia. He is on appropriate deep venous thrombosis and gastrointestinal prophylaxis. We are correcting his potassium. He is a FULL CODE. CRITICAL CARE TIME: 45 minutes.
--- NOTE | 2017-01-13 10:53 | NUR ---
NUTRITION ASSESSMENT: ASSESS: Pt is a 61yo M admitted to CCU for etoh withdrawal and respiratory failure requiring mechanical ventilation. Pt is on PST today. Possible extubation soon. He has been NPOx1 day. Received banana bag at admit. PMHX: etoh, DJD, COPD, Depression, pneumonia, restrictive lung disease, GIORGIO LABS: Reviewed. Na 133, K 2.8, Bun 7, flaker operator .52, Glu 124, Ca 7.3, Alb 3.1 MEDS: Reviewed. MVI, banana bag GI: BMx2 01/13 SKIN: wound consult pending CURRENT WTS: 69.8kg, BMI 20.9kg/m2 DIET: NPO EST. NEEDS: vent Kcals: 1398-1745kcal/day (20-25kcal/kg) Pro: 105-125g/day (1.5-1.8g/kg) Fluids: ~1745ml/day NUTRITION DIAGNOSIS: 1.) Inadequate oral intake related to decreased ability to consume sufficient energy as evidenced by current NPO status NUTRITION INTERVENTION: 1.) Will continue to monitor NPO/vent status. Recommend nutrition support if pt continues to be on vent for next 24-48 hrs. MONITOR / EVAL: NPO/vent, nutr support?, GI, labs, wt, POC, nutrition status. Will continue to monitor per high nutrition risk guidelines.
--- NOTE | 2017-01-13 11:18 | PCM.PNMED ---
Subjective Date of Service Jan 13, 2017 Subjective CRITICAL CARE PROGRESS NOTE, ATTENDING: DR. CARLEY Curry Cas is a 61-year-old man with past medical history significant for restrictive lung disease and alcohol abuse who presents to the [facility] emergency department via EMS due to severe alcohol withdrawal and altered mental status. Overnight: The patient's propofol was titrated down to 10 mcg/hr Today: The patient is alert and awake and able to follow minimal commands. A comprehensive ROS is not obtainable. Exam Vital Signs Vital Sign - Last Date Time Temp Pulse Resp B/P Pulse Ox O2 Delivery O2 Flow Rate FiO2 01/13/17 07:55 100 30 01/13/17 07:50 78 112/77 01/13/17 07:44 Ventilator 01/13/17 07:44 37.1 18 Intake and Output 01/12/17 01/12/17 01/13/17 Cumulative From/Thru 15:00 23:00 07:00 01/12/17 12:59 - 01/13/17 06:14 Intake Total 1000 ml 2343 ml 2016 ml 5359 ml Output Total 2375 ml 860 ml 3235 ml Balance 1000 ml -32 ml 1156 ml 2124 ml Intake IV Total 1000 ml 2343 ml 2016 ml 5359 ml Output Urine Total 2375 ml 800 ml 3175 ml Gastric Drainage Total 60 ml 60 ml # Bowel Movements 2 2 Exam General: Well-developed man, intubated, alert and awake HEENT: Normocephalic, atraumatic. External ears without defect. Pupils equal, round, and reactive to light and accommodation. Anicteric sclerae, moist conjunctivae, and no lid lag. Oropharynx free of erythema and cobble stoning with moist mucosa. ET tube in place. OG tube in place. Neck: Supple with full range of motion. No jugular venous distension. No lymphadenopathy or thyromegaly. Cardiovascular: Regular rate and rhythm with no murmurs, rubs, or gallops appreciated Pulmonary: Diffuse wheezing auscultated. Normal respiratory effort with no use of accessory muscles. Abdomen: Bowel tones present. Soft, nontender, nondistended. No hepatosplenomegaly or masses appreciated. Extremities: No clubbing, cyanosis, edema, or lymphadenopathy appreciated. Small excoriation on right knee. Skin: Normal temperature, turgor, and texture; no rash, ulcers, or subcutaneous nodules appreciated. Neurological: Normal muscle strength, tone, and bulk. Cranial nerves grossly intact. Psychiatric: Awake, alert, communicating somewhat appropriately. IVs and Medications Medications Reviewed: Medications were reviewed in detail Lab and Diagnostics Result Diagram: 01/13/17 0255 01/13/17 025 X-Rays, CTs and MRIs X-RAY CHEST ONE VIEW, PORTABLE IMPRESSION: 1. Endotracheal tube is positioned approximately 4 cm above the olayinka. 2. Mild basilar atelectasis. Dictated by: Kemal Nguyen M.D. on 01/12/2017 at 13:32 CT BRAIN WITHOUT CONTRAST IMPRESSION: No acute intracranial disease process. Dictated by: Alma Chen MD, PhD on 01/12/2017 at 15:12 X-RAY CHEST ONE VIEW, PORTABLE IMPRESSION: Support lines as above. Minimal appearance of new patchy right basilar opacity, possibly atelectasis versus developing pneumonia. Dictated by: Margarita Briggs M.D. on 01/13/2017 at 9:01 12-lead ECG 01/12/17 15:07 sinus tachycardia rate 110, conduction interval normal except QTc 504, mild T-wave inversion in aVL, no acute ST changes Assessment & Plan Patricio Cardozo is a 61-year-old man with past medical history significant for restrictive lung disease and alcohol abuse who presents to the [facility] emergency department via EMS due to severe alcohol withdrawal and altered mental status. Ventilator day #2. Alcohol withdrawal without history of seizures -Patient received 90 mg of Valium in the ED without good response -260 mg of phenobarbital loading dose, repeat 130 mg today. -D/C Versed drip in exchange for Ativan drip, starting at 7 mg/hr (his current rate of Versed) and titrate down. Goal RASS 0 to -1. -Titrate off Propofol completely. -Fentanyl 50 mg IV pushes Q2 as needed for pain. -Thiamine, folate supplementation -Chemical dependency counseling once stable Intubation for airway protection -No evidence of respiratory failure -Titrated FiO2 down to 30% and further to O2 sat >95% and PaO2 of >80 mmHg -Reduced respiratory rate to 12, however patient is breathing spontaneously so his rate is 17-22. Respiratory Alkalosis -Anticipate will improve with improvement of withdrawal symptoms Leukocytosis and fever -Fever may be due to EtOH withdrawal. -Procalcitonin now elevated. Concern for possible aspiration PNA. -Blood and sputum cultures obtained -Restart Zosyn. MRSA screen negative. -Respiratory viral PCR negative. Hypokalemia -80 mEq given, will recheck K and replace as necessary Hypomagnesemia, resolved. Depression -Restart patient's outpatient medications: Venlafaxine Prophylaxis GI: Famotidine DVT: Heparin subQ CODE STATUS: FULL CODE Thank you for allowing us to participate in the care of this patient, we will follow along with you. GI Prophylaxis: H2 zeb VTE Prophylaxis: Sub-Q Heparin (Unfractionated) VTE Mechanical Devices: Intermittant Pneumatic CD Resuscitation Status: CPR: Attempt Resuscitation Attending Statement I have seen and examined this patient with the resident physician. Vital signs , labs, imaging have been reviewed. I agree with the assessment and plan above. Please refer to my separately dictated progress note for any modifications to above. Erma Bailon M.D. Pulmonary and Critical Care medicine Pager [phone] Cheli Funes DO Jan 13, 2017 10:10 Erma Bailon MD Jan 13, 2017 17:13
--- NOTE | 2017-01-13 14:08 | NUR ---
Social Work Note - Brief note Patricio Cardozo is a 61 yr old who was admitted for alcohol withdrawal. Pt is currently vented, weaning down on medications, unable to talk. EMR reviewed: Pt has [employer] insurance, his PCP is the [facility]. Pt's daughter Radha is his DPOA> [employer] spoke with Radha Peoples on the phone [phone]. She states that Pt has had long hx of ETOH dependence. He is currently homeless, living in a hotel. Per his daughter, pt went to [facility] on of last week to have an assessment for ETOH treatment. Daughter states that he came back and told her that "[facility] didn't think I was bad enough to need inpt." She states she does not know how to help him. Radha states she will bring in DPOA paperwork. Radha wants to be involved in Pt's d/c planning. [employer] provided support and will continue to follow. TEE Mathews
--- NOTE | 2017-01-13 17:43 | NUR ---
Wound Note Pressure ulcer protocol received, patient seen at bedside. Presents with no pressure related skin issues but does have abrasion at his left kneecap, left shoulder and some small skin tears at his right upper arm. Knee and right arm are dressed with calmoseptine and adhesive foam dressings, these can be changed by nursing PRN. Off note patient presents with a mobile mass at his left posterior thigh that is approx 10 cm in size and may represent either a lipoma or chronic ham,string tear or avulsion. No wound care needs at this time.
--- NOTE | 2017-01-13 17:57 | NUR ---
Vent PS trail/sedation 7h and 10min ventilator pressure support trail today- patient tolerated it well. Propofol and versed drip were discontinued at the beginning of PS trial. Patient was started on Ativan drip per MD order. prior to that patient was on versed drip at 7mg/h- MD requested that Ativan be started at 1mg per 1mg of versed drip or close to that- please see CCU flow sheet for sedation drip titration. Patient was able to open his eyes spontaneously or to verbal stimulation and was able for most part to follow simple commands only. However few hours after Ativan was started patient began to relax more and took longer time to wake up. No seizure, tremors or sweating were noted.
[2017-01-13] MEDS: Venlafaxine XR 75 mg ER24 Capsule PO SCH (20:22)
[2017-01-14] VITALS (10 sets, daily range): BP systolic 106–123; BP diastolic 64–83; PULSE 60–77; RESP 18–24; O2SAT 96–100
[2017-01-14] MEDS: LORazepam Inj 100 MG in 0.9% Sodium Chloride 50 ML IV SCH (00:18)
[2017-01-14] MEDS: Piperacillin-Tazo 3.375 Gm Inj 3.375 GM in Dextrose 5% Minibag Plus 50 ML IV SCH ×2 (00:41→08:06)
[2017-01-14] MEDS: Heparin 5,000 Unit/mL Inj SUBQ SCH ×3 (00:41→16:48)
[2017-01-14 04:07] LABS: BASOPHILS % (AUTO) 0.2 % (0-3); EOSINOPHILS % (AUTO) 3.8 % (0-5); MONOCYTES % (AUTO) 4.8 % (4-12); Mean Corpuscular Hemoglobin 33.7 pg (27.0-35.0); NEUTROPHILS % (AUTO) 69.1 % (40-74); Platelet Count 126 bil/L (150-400)
[2017-01-14 04:47] LABS: Magnesium 1.7 mg/dL (1.6-2.6); Phosphorus 2.6 mg/dL (2.5-4.9)
[2017-01-14] MEDS ORDERED: KCl 40 mEq/500 mL D5W(K 3 - 3.7 & Creat < 2) IV ONE (05:35)
[2017-01-14] MEDS: 0.9% Sodium Chloride 1,000 ML IV SCH (06:14)
[2017-01-14] MEDS: Famotidine 20 mg/50 mL NS Premix IV SCH ×2 (08:01→20:41)
[2017-01-14] MEDS: Multivit-Miner-Folic Acid-Iron Tablet PO SCH (08:01)
--- NOTE | 2017-01-14 10:43 | PROG NOTE ---
[address] [address] PROGRESS NOTE PATIENT: MARINA JOSUE : 1955 MR#: [id number] ADMIT: 01/12/2017 JOB ID: [id number] DATE: 01/14/2017 PULMONARY CRITICAL CARE PROGRESS NOTE: The patient is a 61-year-old man with history of recurrent hospitalizations for alcohol withdrawal re-admitted with delirium tremens, respiratory failure. INTERVAL HISTORY: He is doing well on a spontaneous breathing trial this morning. Ativan drip has been tapered down overnight and is now at 4 mg from 7 mg originally yesterday. REVIEW OF SYSTEMS: Unable to obtain since the patient is intubated. PHYSICAL EXAMINATION: Vital signs reviewed. Afebrile. Pulse 57, respirations 18, BP 109/64, sats 100% on 30% FiO2. General: Eyes open, alert, tries to nod in response to questions. Chest is clear to auscultation. LABORATORIES: Reviewed. WBC down to 6.5, platelets 126. Chemistry also reviewed and within normal limits except for mild hypokalemia with potassium 3.2, serum bicarbonate is down to 17. Procalcitonin has trended down to 0.6 from 1.4. Cultures: No growth to date. ASSESSMENT AND RECOMMENDATIONS: 1. Acute alcohol withdrawal/delirium tremens. 2. Acute hypoxic respiratory failure on mechanical ventilation since January 12. 3. Fever to 39.3 on January 12, 2017. 4. Aspiration pneumonia in the right middle lobe. This 61-year-old man presenting with severe delirium tremens requiring mechanical ventilation seems to be improving slowly. His Ativan drip is down to 4 mg an hour and he did not require any additional boluses. He is on no other sedation. He seems comfortable and alert with his eyes open. He has done well on his spontaneous breathing trial with pressure support of 5/5 pulling tidal volumes around 400. I would like to go ahead and extubate him and continue the Ativan drip with a plan to taper down as tolerated and use lorazepam pushes as needed for breakthrough symptoms of alcohol withdrawal. He is on antibiotics for aspiration pneumonia and seems to be responding. Sputum cultures are negative so we will narrow to Unasyn alone. MRSA nasal swab PCR is negative as well. He is on appropriate DVT and GI prophylaxis. He is a FULL CODE. CRITICAL CARE TIME: 40 minutes.
--- NOTE | 2017-01-14 11:07 | DRSVH ---
PROCEDURE: X-RAY CHEST ONE VIEW, PORTABLE ([id number]) INDICATIONS: intubated TECHNIQUE: One view of the chest was acquired. COMPARISON: [facility], CR, XR CHEST 1VW (PORTABLE), 01/13/2017, 8:05. FINDINGS: Surgical changes and devices: ETT tip projected 3.3 cm above the olayinka a nasogastric tube tip helena ses the GE junction Lungs and pleura: No pleural effusions or pneumothorax. Mid/basilar patchy airspace opacities redem onstrated otherwise lungs are clear. Mediastinum: Mediastinal contours appear normal. Heart size is normal. Bones and chest wall: No suspicious bony lesions. Overlying soft tissues appear unremarkable. IMPRESSION: Mid/basilar patchy bilateral airspace opacities suggestive of pneumonia. Dictated by: Todd Chapin [facility] Interpreted: Donaldo Sunshine MD on 01/14/2017 at 9:06 Approved by: Donaldo Sunshine M.D. on 01/14/2017 at 11:04
--- NOTE | 2017-01-14 13:51 | NUR ---
Evaluation completed. Please go to "Notes" then click on "Assessments and Notes" (bottom left corner of screen). Then select appropriate discipline tab on top of screen.
--- NOTE | 2017-01-14 14:11 | PCM.PNMED ---
Subjective Date of Service Jan 14, 2017 Subjective Patient is extubated and doing generally well. No dyspnea. Minimal pain and agitation. Exam Vital Signs Vital Sign - Last Date Time Temp Pulse Resp B/P Pulse Ox O2 Delivery O2 Flow Rate FiO2 01/14/17 10:20 78 24 119/83 99 30 01/14/17 08:30 Ventilator 01/14/17 08:30 36.8 Intake and Output 01/13/17 01/13/17 01/14/17 Cumulative From/Thru 15:00 23:00 07:00 01/12/17 12:59 - 01/14/17 06:21 Intake Total 425 ml 1884 ml 7668 ml Output Total 1975 ml 1150 ml 6360 ml Balance -1550 ml 734 ml 1308 ml Intake IV Total 350 ml 1884 ml 7593 ml Tube Irrigant 75 ml 75 ml Output Urine Total 1900 ml 1100 ml 6175 ml Gastric Drainage Total 75 ml 50 ml 185 ml # Bowel Movements 1 2 5 Exam Alert and oriented -3, no distress. He is somewhat lethargic but is still on lorazepam drip. Anicteric sclera. Lungs are clear with normal rate and effort Heart is regular without murmur gallop or rub Abdomen soft nontender, flat Extremities are free of edema. Skin is free of rash or lesions. IVs and Medications Medications Reviewed: Medications were reviewed in detail Lab and Diagnostics Result Diagram: 01/14/17 0332 01/14/17 1154 X-Rays, CTs and MRIs X-RAY CHEST ONE VIEW, PORTABLE IMPRESSION: 1. Endotracheal tube is positioned approximately 4 cm above the olayinka. 2. Mild basilar atelectasis. Dictated by: Kemal Nguyen M.D. on 01/12/2017 at 13:32 CT BRAIN WITHOUT CONTRAST IMPRESSION: No acute intracranial disease process. Dictated by: Alma Chen MD, PhD on 01/12/2017 at 15:12 X-RAY CHEST ONE VIEW, PORTABLE IMPRESSION: Support lines as above. Minimal appearance of new patchy right basilar opacity, possibly atelectasis versus developing pneumonia. Dictated by: Margarita Briggs M.D. on 01/13/2017 at 9:01 12-lead ECG 01/12/17 15:07 sinus tachycardia rate 110, conduction interval normal except QTc 504, mild T-wave inversion in aVL, no acute ST changes Assessment & Plan Patricio Cardozo is a 61-year-old man with past medical history significant for restrictive lung disease and alcohol abuse who presents to the [facility] emergency department via EMS due to severe alcohol withdrawal and altered mental status. Ventilator day #2. #. Alcohol withdrawal without history of seizures, improving. At this point he will have his lorazepam drip tapered and then will move to resumption of a CIWA protocol. #. Pneumonia with Leukocytosis and fever, improved. Probable aspiration. Improving. -Continue Unasyn. #. Hypokalemia, improved -80 mEq given, will recheck K and replace as necessary #. Hypomagnesemia, resolved. #. Depression, POA and stable -Restart patient's outpatient medications: Venlafaxine Prophylaxis GI: Famotidine DVT: Heparin subQ CODE STATUS: FULL CODE GI Prophylaxis: H2 zeb VTE Prophylaxis: Sub-Q Heparin (Unfractionated) VTE Mechanical Devices: Intermittant Pneumatic CD Resuscitation Status: CPR: Attempt Resuscitation Regan Dao MD Jan 14, 2017 14:11
[2017-01-14] MEDS: Ampicillin-Sulbactam Inj 3,000 MG in 0.9% Sodium Chloride 100 ML IV SCH ×2 (14:30→20:41)
--- NOTE | 2017-01-14 16:22 | NUR ---
Social Work: Attempted Initial Assessment Pt extubated today. SHIPPING/RECEIVING CLERK attempted to meet with pt for initial assessment. Pt sleeping soundly and not appropriate for assessment at this time. SHIPPING/RECEIVING CLERK will attempt at a later time. WENDY Ordoñez
--- NOTE | 2017-01-14 18:34 | NUR ---
Extubate Extubated at 1020. Pt tolerated well on 2L NC. RA at 1500 and remained at 97% Pt answering questions with some moderate confusion. Ativan gtt running at 4mg/hr. CIWA at 9. Morrell draining 2500cc. NS stopped. PT worked with him today. X2 person max assist to BSC, became weak and fatigued. Small soft stool. Daughter Radha called today stating she would like to talk with rn social services about a rehab for him after discharge. X2 attempt to get out of bed, bed alarm and close to nurses station.
[2017-01-14] MEDS: Venlafaxine XR 75 mg ER24 Capsule PO SCH (20:42)
[2017-01-15] VITALS (8 sets, daily range): BP systolic 94–144; BP diastolic 59–79; PULSE 57–114; RESP 18–24; O2SAT 97–98
[2017-01-15] MEDS: Heparin 5,000 Unit/mL Inj SUBQ SCH ×3 (00:42→16:36)
[2017-01-15] MEDS: LORazepam Inj 100 MG in 0.9% Sodium Chloride 50 ML IV SCH ×2 (01:23→23:53)
[2017-01-15] MEDS: Ampicillin-Sulbactam Inj 3,000 MG in 0.9% Sodium Chloride 100 ML IV SCH ×4 (03:25→21:17)
[2017-01-15 04:17] LABS: Mean Corpuscular Hemoglobin 33.7 pg (27.0-35.0); Mean Corpuscular Volume 101.5 fL (81-100); NEUTROPHILS % (AUTO) 62.5 % (40-74); Platelet Count 137 bil/L (150-400)
[2017-01-15 04:18] LABS: BASOPHILS % (AUTO) 0.5 % (0-3); EOSINOPHILS % (AUTO) 4.8 % (0-5); MONOCYTES % (AUTO) 7.3 % (4-12)
[2017-01-15 04:41] LABS: Magnesium 1.6 mg/dL (1.6-2.6)
[2017-01-15] MEDS ORDERED: KCl 40 mEq/500 mL D5W(K 3 - 3.7 & Creat < 2) IV ONE (05:40)
[2017-01-15] MEDS ORDERED: Magnesium Sulf 2 Gm/50mL Water 2 GM in IV Premix 1 EACH IV ONE (07:50)
--- NOTE | 2017-01-15 07:52 | PCM.PNMED ---
Subjective Date of Service Jan 15, 2017 Subjective Patient is sedated from his lorazepam drip at 5. He is not able to answer questions. He did have a good night according to the nurse. His CIWA scores have been in the 8-9 range. No other difficulties or events overnight. Exam Vital Signs Vital Sign - Last Date Time Temp Pulse Resp B/P Pulse Ox O2 Delivery O2 Flow Rate FiO2 01/15/17 04:30 36.5 57 20 122/59 98 Room Air 01/14/17 12:30 2.00 01/14/17 10:20 30 Intake and Output 01/14/17 01/14/17 01/15/17 Cumulative From/Thru 15:00 23:00 07:00 01/12/17 12:59 - 01/15/17 06:18 Intake Total 1144 ml 230 ml 9042 ml Output Total 2500 ml 1550 ml 22478 ml Balance -1356 ml -1320 ml -1368 ml Intake IV Total 1144 ml 230 ml 8967 ml Tube Irrigant 75 ml Output Urine Total 2500 ml 1550 ml 08511 ml Gastric Drainage Total 185 ml # Bowel Movements 1 6 Exam Somnolent, no distress. Fluent speech Anicteric sclera. Lungs are clear with normal rate and effort Heart is regular without murmur gallop or rub Abdomen soft nontender, flat Extremities are free of edema. Skin is free of rash or lesions. IVs and Medications Medications Reviewed: Medications were reviewed in detail Lab and Diagnostics Result Diagram: 01/15/17 0405 01/15/17 0405 X-Rays, CTs and MRIs X-RAY CHEST ONE VIEW, PORTABLE IMPRESSION: 1. Endotracheal tube is positioned approximately 4 cm above the olayinka. 2. Mild basilar atelectasis. Dictated by: Kemal Nguyen M.D. on 01/12/2017 at 13:32 CT BRAIN WITHOUT CONTRAST IMPRESSION: No acute intracranial disease process. Dictated by: Alma Chen MD, PhD on 01/12/2017 at 15:12 X-RAY CHEST ONE VIEW, PORTABLE IMPRESSION: Support lines as above. Minimal appearance of new patchy right basilar opacity, possibly atelectasis versus developing pneumonia. Dictated by: Margarita Briggs M.D. on 01/13/2017 at 9:01 12-lead ECG 01/12/17 15:07 sinus tachycardia rate 110, conduction interval normal except QTc 504, mild T-wave inversion in aVL, no acute ST changes Assessment & Plan Patricio Cardozo is a 61-year-old man with past medical history significant for restrictive lung disease and alcohol abuse who presents to the [facility] emergency department via EMS due to severe alcohol withdrawal and altered mental status. Ventilator day #2. #. Alcohol withdrawal without history of seizures, improving. The patient was extubated yesterday. He had been intubated for airway protection and has done relatively well on her lorazepam drip last 18 hours. We will attempt to wean the drip this morning. #. Pneumonia, Probable aspiration. Improving. -Continue Unasyn. #. Hypokalemia, recurrent -40 mEq given, will recheck K and replace as necessary #. Hypomagnesemia, recurrent. Replete today and follow.. #. Depression, POA and stable -Restart patient's outpatient medications: Venlafaxine Prophylaxis GI: Famotidine DVT: Heparin subQ CODE STATUS: FULL CODE GI Prophylaxis: H2 zeb VTE Prophylaxis: Sub-Q Heparin (Unfractionated) VTE Mechanical Devices: Intermittant Pneumatic CD Resuscitation Status: CPR: Attempt Resuscitation Regan Dao MD Jan 15, 2017 07:52
[2017-01-15] MEDS: Famotidine 20 mg/50 mL NS Premix IV SCH (08:06)
--- NOTE | 2017-01-15 11:31 | NUR ---
Spoke with Reta in patient access at [facility] and this patient is 60% service connected but not PNT and does not hold any other insurance. Updated [employer]
--- NOTE | 2017-01-15 12:30 | PROG NOTE ---
[address] [address] PROGRESS NOTE PATIENT: MARINA JOSUE : 1955 MR#: [id number] ADMIT: 01/12/2017 JOB ID: [id number] DATE: 01/15/2017 PULMONARY CRITICAL CARE PROGRESS NOTE: The patient is a 61-year-old man with history of recurrent hospitalizations for alcohol withdrawal. Readmitted with respiratory failure and delirium tremens on January 12. INTERVAL HISTORY: He was extubated yesterday and has been doing well on room air, although still lethargic on Ativan drip. Today he opens his eyes and tracks for me but is having difficulty speaking. REVIEW OF SYSTEMS: Could not be obtained due to mentation. PHYSICAL EXAMINATION: Vital signs reviewed. Afebrile. He is 98% on room air. General: Lethargic appearing, but opens his eyes. Trying to speak, but speech is somewhat slurred. Chest: Clear to auscultation. LABORATORIES: Reviewed. ASSESSMENT AND RECOMMENDATIONS: 1. Delirium tremens/severe alcohol withdrawal. 2. Acute hypoxic respiratory failure on mechanical ventilation January 12 until January 14. 3. Aspiration pneumonia of the right middle lobe. This 61-year-old man presenting in alcohol withdrawal with respiratory failure is doing better now, extubated yesterday. We will wean off his Ativan drip today. We will use IV lorazepam boluses if needed for alcohol withdrawal. We will have speech see him and see if he can start taking something p.o. He is on Unasyn for aspiration pneumonia. Hopefully this can be switched to Augmentin and we can complete a seven day course. He is on appropriate DVT prophylaxis. Gastrointestinal prophylaxis is no longer indicated. CRITICAL CARE TIME: 30 minutes.
--- NOTE | 2017-01-15 13:23 | NUR ---
Evaluation completed. Please go to "Notes" then click on "Assessments and Notes" (bottom left corner of screen). Then select appropriate discipline tab on top of screen.
--- NOTE | 2017-01-15 14:15 | NUR ---
NUTRITION ASSESSMENT: ASSESS: Pt is a 61 YO male admitted to CCU with withdrawal and respiratory failure, requiring mechanical ventilation. He was successfully extubated at 1020 (01/14). However, he has been extremely somnolent, such that he failed his swallow evaluation today. He has been NPO x 3 D. PMHX: ETOH, DJD, COPD, Depression, pneumonia, restrictive lung disease, GIORGIO. LABS: Reviewed. BUN 3, Cr 0.49, Ca 8.2, Alb 2.7. MEDS:Reviewed. MVI, thiamin, ativan. GI: BM x 1 today. SKIN: Per Notereader, no pressure related skin issues but does have abrasion at his left kneecap, left shoulder and some small skin tears at his right upper arm. WT: 70.1 kg, BMI 20.0 kg/m2. Admit weight: 69.8kg, BMI 20.9kg/m2 DIET: NPO EST. NEEDS: vent Kcals: 1398-1745kcal/day (20-25kcal/kg) Pro: 105-125g/day (1.5-1.8g/kg) Fluids: ~1745ml/day NUTRITION DIAGNOSIS: 1) Inadequate oral intake related to decreased ability to consume sufficient energy as evidenced by current NPO status - PERSISTS. 2) Chewing / swallowing issues related to somnolence, as evidenced by continued NPO recommendation by Speech Therapy. NUTRITION INTERVENTION: 1) Will continue to monitor NPO/vent status. Recommend nutrition support if pt continues to be on vent for next 24-48 hrs. MONITOR / EVAL: NPO status, diet advance / tolerance, PO intake, GI, labs, wt, POC, nutrition status. Will continue to monitor per high nutrition risk guidelines.
[2017-01-15] MEDS: Multivit-Miner-Folic Acid-Iron Tablet PO SCH (15:05)
--- NOTE | 2017-01-15 15:17 | NUR ---
ETOH withdrawal.. Pt was able to have Ativan weaned 50% this am due to a zero CIWA score and somnolence. Continued to do well on lower dose and was able to have gtt dc'd at 1145. Is now scoring a 3 on CIWA but pts behavior is controlled, and he has been resting most of shift. AM po meds held until he passed his swallow eval for crushed meds this afternoon. His daughter Radha has been updated by phone and will be coming in to see the pt later this afternoon.
[2017-01-16] VITALS (9 sets, daily range): BP systolic 104–131; BP diastolic 67–77; PULSE 53–69; RESP 15–22; O2SAT 94–99
[2017-01-16] MEDS: Heparin 5,000 Unit/mL Inj SUBQ SCH ×4 (00:56→23:43)
[2017-01-16] MEDS: Ampicillin-Sulbactam Inj 3,000 MG in 0.9% Sodium Chloride 100 ML IV SCH ×4 (02:44→20:29)
--- NOTE | 2017-01-16 06:50 | NUR ---
Incontinence/Affect Pt incontinent of stool, multiple small BM. Pt is not calling to be cleansed. Q2 turns. Pt has mumbled speech and voiced concerns over observed enough. Pt reassured. During the night, pt slept mostly and did not voice any concerns.
[2017-01-16] MEDS: LORazepam Inj 100 MG in 0.9% Sodium Chloride 50 ML IV SCH (12:13)
[2017-01-16] MEDS: Multivit-Miner-Folic Acid-Iron Tablet PO SCH (16:15)
--- NOTE | 2017-01-16 18:58 | NUR ---
CIWA=6/Awake, oriented x2/Progressive mobility w/ P.T. SR 60s, VVS. Cooperative, responsive to care, appropriate verbal responses. (speaks very quietly). Up to edge of bed x~5min, stood also with P.T. 2person assist. Weak, unsteady, trembling legs when standing. P: safety priority; [place] bed alarm on @ all times; call light within pt reach.
--- NOTE | 2017-01-16 19:02 | NUR ---
Transfer to [facility] 2008 Chart, meds, belongings transferred with pt. Eyeglasses, upper denture in place. Report to be given @ bedside RN-to-RN; verbal report given to SPEED BELT SANDER TENDER upon transfer.
[2017-01-17] VITALS (8 sets, daily range): BP systolic 114–138; BP diastolic 69–78; PULSE 54–78; RESP 15–16; O2SAT 95–97
[2017-01-17] MEDS: Ampicillin-Sulbactam Inj 3,000 MG in 0.9% Sodium Chloride 100 ML IV SCH ×4 (02:58→20:04)
--- NOTE | 2017-01-17 06:07 | NUR ---
CIWA/mentation/activity pts CIWA 3-6 all shift no medications given, pt appears more alert as the has night gone on. pt with a delayed speech and soft spoken but able to answers questions more accurate, pt moving in bed independently most of night, still needs some assist to turn to complete side, pt stating he needed to have BM x2 and used the bedpan successfully. tele SB-SR
--- NOTE | 2017-01-17 07:26 | PCM.PNMED ---
Subjective Date of Service Jan 17, 2017 Subjective Patient is feeling better. Denies hallucinations. Slept well. He knows he is at [facility] and thinks it is 1917. Denies any shortness of breath, no chest or abdominal pain. No nausea. No overnight events Exam Vital Signs Vital Sign - Last Date Time Temp Pulse Resp B/P Pulse Ox O2 Delivery O2 Flow Rate FiO2 01/17/17 03:37 36.6 54 15 137/78 95 Room Air 01/14/17 12:30 2.00 01/14/17 10:20 30 Intake and Output 01/16/17 01/16/17 01/17/17 Cumulative From/Thru 15:00 23:00 07:00 01/12/17 12:59 - 01/17/17 05:53 Intake Total 230 ml 405 ml 253 ml 84610 ml Output Total 600 ml 450 ml 52295 ml Balance 230 ml -195 ml -197 ml -2119 ml Intake Oral 20 ml 20 ml IV Total 230 ml 385 ml 253 ml 13986 ml Tube Irrigant 75 ml Output Urine Total 600 ml 450 ml 11143 ml Gastric Drainage Total 185 ml # Bowel Movements 5 2 14 Exam Alert and oriented -3, no distress. Fluent speech Anicteric sclera. Lungs are clear with normal rate and effort Heart is regular without murmur gallop or rub Abdomen soft nontender, flat Extremities are free of edema. Skin is free of rash or lesions. IVs and Medications Medications Reviewed: Medications were reviewed in detail Lab and Diagnostics Result Diagram: 01/15/17 0405 01/16/17 0230 X-Rays, CTs and MRIs X-RAY CHEST ONE VIEW, PORTABLE IMPRESSION: 1. Endotracheal tube is positioned approximately 4 cm above the olayinka. 2. Mild basilar atelectasis. Dictated by: Kemal Nguyen M.D. on 01/12/2017 at 13:32 CT BRAIN WITHOUT CONTRAST IMPRESSION: No acute intracranial disease process. Dictated by: Alma Chen MD, PhD on 01/12/2017 at 15:12 X-RAY CHEST ONE VIEW, PORTABLE IMPRESSION: Support lines as above. Minimal appearance of new patchy right basilar opacity, possibly atelectasis versus developing pneumonia. Dictated by: Margarita Briggs M.D. on 01/13/2017 at 9:01 12-lead ECG 01/12/17 15:07 sinus tachycardia rate 110, conduction interval normal except QTc 504, mild T-wave inversion in aVL, no acute ST changes Assessment & Plan Patricio Cardozo is a 61-year-old man with past medical history significant for restrictive lung disease and alcohol abuse who presents to the [facility] emergency department via EMS due to severe alcohol withdrawal and altered mental status. Ventilator day #2. #. Alcohol withdrawal without history of seizures, much improved. We will transfer to medical floor today. #. Metabolic encephalopathy secondary to alcohol withdrawal, POA. Improving rapidly. Continue expectant management. #. Pneumonia, Probable aspiration. Improving. We will discontinue Unasyn and start Augmentin orally. #. Hypokalemia, resolved. #. Hypomagnesemia, resolved. #. Depression, POA and stable -Restart patient's outpatient medications: Venlafaxine Prophylaxis GI: Famotidine DVT: Heparin subQ CODE STATUS: FULL CODE We will transfer to medical floor today, home in 2-3 days. Social work is working on examining OR resources for rehabilitation. GI Prophylaxis: H2 zeb VTE Prophylaxis: Sub-Q Heparin (Unfractionated) VTE Mechanical Devices: Intermittant Pneumatic CD Resuscitation Status: CPR: Attempt Resuscitation Regan Dao MD Jan 17, 2017 07:26
[2017-01-17] MEDS: Multivit-Miner-Folic Acid-Iron Tablet PO SCH (08:45)
[2017-01-17] MEDS: Heparin 5,000 Unit/mL Inj SUBQ SCH ×2 (08:46→16:28)
--- NOTE | 2017-01-17 14:00 | NUR ---
Activity and behavior CIWA 4 for the last checks. Pt. is cooperative. He is forgetful about instructions. He was assisted to chair with 1p min. assist. He ate 50% of lunch (Dys. mechanical, NT). No aspiration or coughing noted with oral intake. Morrell catheter removed per hospital policy at 1330. Urinal available at bedside. Continue [place] alarm as pt. is impulsive and he could get out of bed by himself without assist. Call light within reach.
--- NOTE | 2017-01-17 16:49 | NUR ---
Social Work Note: Continued Discharge Planning Data& Assessment: SW met with pt at bedside to discuss discharge planning. Per MD orders, SW presented pt with a SNF list for preferences per PT recommendations. SW explained that the two local SNF's that contract with the [place] are [facility] in [place] and [facility] in [place]. Pt does not have a preference and agreed for referrals to be sent to both facilities. SW also attempted to complete Substance Use assessment per MD orders, however pt requested we complete this assessment tomorrow. Pt denies any other needs at this time. SW to follow up with [facility] and [facility] regarding referral. SW to continue to follow. Plan: Anticipated discharge to SNF pending acceptance. SW to follow up with [facility] and [facility] regarding referral. SW to follow up with pt regarding Substance Use assessment and offer resources. WENDY Spicer
--- NOTE | 2017-01-17 18:32 | NUR ---
Morrell catheter removed at 1330. Pt. had not voided. He reported comfortable and denied any urge to void. Bladder scanner indicated 88 mL in the bladder.
[2017-01-17] MEDS: LORazepam Inj 100 MG in 0.9% Sodium Chloride 50 ML IV SCH (23:27)
[2017-01-18] VITALS (10 sets, daily range): BP systolic 127–145; BP diastolic 79–87; PULSE 58–91; RESP 14–22; O2SAT 94–96
[2017-01-18] MEDS: Heparin 5,000 Unit/mL Inj SUBQ SCH ×3 (00:06→16:32)
[2017-01-18] MEDS: Ampicillin-Sulbactam Inj 3,000 MG in 0.9% Sodium Chloride 100 ML IV SCH ×2 (02:57→09:55)
--- NOTE | 2017-01-18 04:48 | NUR ---
voiding pts mullins was DCd pt finally voiding 500cc thi urine, pt having two incontinant stools this shift, pt tolerating dysaphia mechanical diet. pt using call light, CIWA 3 no medications given
--- NOTE | 2017-01-18 09:03 | NUR ---
Faxed referral to [facility] in [place], [facility] in [place] and [facility] in [place] per AFTER SCHOOL TEACHER Addendum: 01/18/17 at 1047 by RUBIN CRABTREE CM [facility] in [place] is now [facility] and they can no clinically meet the patient's needs. Updated AFTER SCHOOL TEACHER Addendum: 01/20/17 at 1230 by RUBIN CRABTREE CM [facility] in [place] unable to meet patient needs. [facility] in [place] is unable to accept patient due to no bed.
[2017-01-18] MEDS: Multivit-Miner-Folic Acid-Iron Tablet PO SCH (09:56)
--- NOTE | 2017-01-18 10:12 | NUR ---
NUTRITION FOLLOW UP: ASSESS: 61 YO M with ETOH withdrawal and respiratory failure, requiring mechanical ventilation. He was successfully extubated 01/14. Diet was advanced to dysphagia mechanical, no PO intake recorded yet. Per nursing notes, pt tolerating diet. PMHX: ETOH, DJD, COPD, Depression, pneumonia, restrictive lung disease, GIORGIO. LABS: Reviewed. BUN 3, Cr 0.52, Ca 8.4 MEDS:Reviewed. MVI. GI: BM x 2 (01/18). SKIN: Per Hair Dresser, no pressure related skin issues. WT: 71.0 kg, BMI 21.2 kg/m2. Admit weight: 69.8 kg, BMI 20.9 kg/m2 DIET: Dysphagia mechanical, nectar thick liquids. No PO Intake recorded. ESTIMATED NEEDS: (COPD) Calories: 9374-4912 kcal/day (30-35 kcal/kg BW) Protein: 85-107 g/day (1.2-1.5 g/kg BW) Fluids: ~1745 ml/day (25 ml/kcal) NUTRITION DIAGNOSIS: 1) Inadequate oral intake related to decreased ability to consume sufficient energy as evidenced by current NPO status - IMPROVING. 2) Chewing/Swallowing issues related to somnolence, as evidenced by continued NPO recommendation by Speech Therapy.-IMPROVING. NUTRITION INTERVENTION: 1) Continue to advance diet as tolerated per speech therapy recommendations. 2) If PO intake is poor, will consider adding nutrition supplements. MONITOR/EVALUATE: Diet advance/tolerance, PO intake, GI, labs, wt, POC, nutrition status. Follow per moderate nutrition risk guidelines.
--- NOTE | 2017-01-18 13:07 | PCM.PNMED ---
Subjective Date of Service Jan 18, 2017 Subjective Overnight: no event. Morrell was discontinued yesterday and patient was able to void with no difficulty. CIWA 3 no medications given. Today: Patient reports to feel better and denies anxiety or hallucinations. He is alert and oriented to self and place, but still thinks the year is 1916. He denies any CP, SOB, abdominal pain, nausea, or vomiting. He has not been ambulating. Exam Vital Signs Vital Sign - Last Date Time Temp Pulse Resp B/P Pulse Ox O2 Delivery O2 Flow Rate FiO2 01/18/17 12:10 37.0 66 20 144/85 95 Room Air 01/14/17 12:30 2.00 01/14/17 10:20 30 Intake and Output 01/17/17 01/17/17 01/18/17 Cumulative From/Thru 15:00 23:00 07:00 01/12/17 12:59 - 01/18/17 06:12 Intake Total 1010 ml 686 ml 64980 ml Output Total 300 ml 500 ml 02468 ml Balance 710 ml 186 ml -1223 ml Intake Oral 760 ml 436 ml 1216 ml IV Total 250 ml 250 ml 24536 ml Tube Irrigant 75 ml Output Urine Total 300 ml 500 ml 88407 ml Gastric Drainage Total 185 ml # Bowel Movements 2 2 18 Exam General: Alert and awake, older than stated age, no acute distress. HEENT: Normocephalic, atraumatic. External ears without defect. Pupils equal, round, and reactive to light and accommodation. Anicteric sclerae, moist conjunctivae, and no lid lag. Oropharynx free of erythema and cobble stoning with moist mucosa. Neck: Supple with full range of motion. No jugular venous distension. No lymphadenopathy or thyromegaly. Cardiovascular: Regular rate and rhythm with no murmurs, rubs, or gallops appreciated Pulmonary: Normal respiratory effort with no use of accessory muscles. Some rales in the left lung. Abdomen: Bowel tones present. Soft, nontender, nondistended. No hepatosplenomegaly or masses appreciated. Extremities: No clubbing, cyanosis, edema, or lymphadenopathy appreciated. Skin: Normal temperature, turgor, and texture; no rash, ulcers, or subcutaneous nodules appreciated. Neurological: Normal muscle strength, tone, and bulk. Normal speech. Cranial nerves grossly intact. Psychiatric: Awake, alert, restricted affect, poor insight. IVs and Medications Medications Reviewed: Medications were reviewed in detail Lab and Diagnostics Result Diagram: 01/15/17 0405 01/16/17 0230 X-Rays, CTs and MRIs X-RAY CHEST ONE VIEW, PORTABLE IMPRESSION: 1. Endotracheal tube is positioned approximately 4 cm above the olayinka. 2. Mild basilar atelectasis. Dictated by: Kemal Nguyen M.D. on 01/12/2017 at 13:32 CT BRAIN WITHOUT CONTRAST IMPRESSION: No acute intracranial disease process. Dictated by: Alma Chen MD, PhD on 01/12/2017 at 15:12 X-RAY CHEST ONE VIEW, PORTABLE IMPRESSION: Support lines as above. Minimal appearance of new patchy right basilar opacity, possibly atelectasis versus developing pneumonia. Dictated by: Margarita Briggs M.D. on 01/13/2017 at 9:01 12-lead ECG 01/12/17 15:07 sinus tachycardia rate 110, conduction interval normal except QTc 504, mild T-wave inversion in aVL, no acute ST changes Assessment & Plan Patricio Cardozo is a 61-year-old man with past medical history significant for restrictive lung disease and alcohol abuse who presents to the [facility] emergency department via EMS due to severe alcohol withdrawal and altered mental status. #. Alcohol withdrawal without history of seizures, POA. Much improved. - On ventilator for 2 days. Extubated on 01/14. - Patient continues to do well with no signs of withdrawal. CIWA score of 3. - Continue Thiamine and multivitamin daily. - We will transfer to [facility] today. #. Metabolic encephalopathy secondary to alcohol withdrawal, POA. Improving rapidly. - Continue expectant management. #. Pneumonia, Probable aspiration. Improving. -Blood and sputum cultures negative. -MRSA screen negative. -Respiratory viral PCR negative. -Will discontinue Zosyn today and start Augmentin orally. #. Hypokalemia, resolved. #. Hypomagnesemia, resolved. #. Depression, POA and stable -Resume patient's outpatient medications: Venlafaxine Prophylaxis GI: Famotidine DVT: Heparin subQ CODE STATUS: FULL CODE Dispo: We will transfer to [facility] today, home in 2-3 days. Social work is working on examining [place] resources for rehabilitation. Pain Evaluation: Adequate Pain Control GI Prophylaxis: H2 ezb VTE Prophylaxis: Sub-Q Heparin (Unfractionated) VTE Mechanical Devices: Intermittant Pneumatic CD Resuscitation Status: CPR: Attempt Resuscitation Time spent Patient was seen and examined with house staff. Agree with all attached documentation Esdras Polanco DO Jan 18, 2017 13:07 Regan Dao MD Jan 19, 2017 14:31 -Titrated FiO2 down to 30% and further to O2 sat >95% and PaO2 of >80 mmHg -Reduced respiratory rate to 12, however patient is breathing spontaneously so his rate is 17-22. Respiratory Alkalosis -Anticipate will improve with improvement of withdrawal symptoms Leukocytosis and fever -Fever may be due to EtOH withdrawal. -Procalcitonin now elevated. Concern for possible aspiration PNA. -Blood and sputum cultures obtained -Restart Zosyn. MRSA screen negative. -Respiratory viral PCR negative. Hypokalemia -80 mEq given, will recheck K and replace as necessary Hypomagnesemia, resolved. Depression -Restart patient's outpatient medications: Venlafaxine Prophylaxis GI: Famotidine DVT: Heparin subQ CODE STATUS: FULL CODE GI Prophylaxis: H2 zeb VTE Prophylaxis: Sub-Q Heparin (Unfractionated) VTE Mechanical Devices: Intermittant Pneumatic CD Resuscitation Status: CPR: Attempt Resuscitation Esdras Polanco DO Jan 18, 2017 13:07
--- NOTE | 2017-01-18 18:10 | NUR ---
CIWA/Mentation Patient alert and oriented x3 this AM, REESE, reports full sensation. Patient still fairly weak, up 1PA to BSC today, slightly unsteady on feet. Delayed responses, forgetful and impulsive but uses call light appropriately for the most part. Bed alarm on. CIWA score of 1 throughout shift. Denies chest pain/pressure/discomfort. Tele sinus in the 80s to 90s, no ectopy. BP within normal limits. Distal pulses strong and palpable. No edema noted. Patient states, "I'm always a little short of breath", worsens with activity. SPO2 on RA mid 90s, denies cough. No reports of n/v/d/c or abdominal pain. Brief on, per report patient has episodes of incontinence. Patient very weak, using mostly bedpan but encouraging BSC use if able. Tolerating PO intake well.
[2017-01-18] MEDS: Amoxicillin-Clav 875-125 mg Tablet PO SCH (21:40)
[2017-01-18] MEDS: LORazepam Inj 100 MG in 0.9% Sodium Chloride 50 ML IV SCH (21:41)
--- NOTE | 2017-01-18 22:03 | NUR ---
Care/Transfer Assumed care 1915, pt. A/O x3, cooperative and verbalized needs appropriately. Denies pain, or discomfort. Tele SR in 80's no ectopy, CIWA score 0. Last scheduled medications given and pt. transfered to [facility] - report given to Anahi Arreguin RN. Pt. has home medications in pharmacy and valuables in safe, receiving nurse informed.
[2017-01-19] VITALS (8 sets, daily range): BP systolic 127–158; BP diastolic 78–84; PULSE 62–75; RESP 14–18; O2SAT 94–96
[2017-01-19] MEDS: Heparin 5,000 Unit/mL Inj SUBQ SCH ×3 (00:26→15:34)
--- NOTE | 2017-01-19 06:36 | NUR ---
NOC PT received from [facility] around 2214 last yeimi. PT on tele and is in NSR. PT on RA. V/S WNL. PT denies any pain. CIWA score has been less than 7. PT slept on and off. PT remains cognitively impaired and was unable to tell this RN the month or date. PT uses call light appropriately. VOids per urinal. SCD's in place. PLan if for pt to d/c to SNF when appropriate. WIll CTM for cognitive changes.
[2017-01-19] MEDS: Amoxicillin-Clav 875-125 mg Tablet PO SCH ×2 (07:36→20:15)
[2017-01-19] MEDS: Multivit-Miner-Folic Acid-Iron Tablet PO SCH (07:36)
[2017-01-19 09:06] LABS: Magnesium 1.4 mg/dL (1.6-2.6)
--- NOTE | 2017-01-19 10:21 | NUR ---
Lab Miguel Ángel posada hospitalist r/t low magnesium. awaiting response.
--- NOTE | 2017-01-19 12:19 | NUR ---
lab Notified Dr. Bah for magnesium 1.4 lab during morning meeting and aware.
[2017-01-19] MEDS ORDERED: Magnesium Sulf 2 Gm/50mL Water 2 GM in IV Premix 1 EACH IV ONE (13:35)
[2017-01-19] MEDS ORDERED: Potassium Chloride 20 mEq SR Tablet PO ONE (13:35)
[2017-01-19] MEDS ORDERED: 0.9% Sodium Chloride 250 ML ONE (13:44)
--- NOTE | 2017-01-19 16:48 | NUR ---
Mentation Alert and oriented X2, Able to make needs known and uses call light appropriately. Stable Vital signs with stable oxygenation room air. no sign and symptoms of cardiac or respiratory symptoms noted. Denies pain or discomfort. Patient seen by speech therapy and placed on soft diet. Able to tolerate meals with out swallowing difficulty. Received all PO medications as ordered. Up with physical therapy before lunch using FWW. One person assist for all ADL's but independent with all meals at bed side. Encouraged hydration and tolerating PO Fluids. IV Magnesium replaced as ordered. BM this shift. CIWA 0 this shift. No tremors noted. Stable mood. No nausea or vomiting reported. Continue to monitor vital signs, pain, ETOH with draw sign and symptoms, safety, and hydration.
--- NOTE | 2017-01-19 18:03 | PCM.PNMED ---
Subjective Date of Service Jan 19, 2017 Subjective Denies any new issues/complaints. Exam Vital Signs Vital Sign - Last Date Time Temp Pulse Resp B/P Pulse Ox O2 Delivery O2 Flow Rate FiO2 01/19/17 16:32 37.2 72 14 127/78 95 Room Air 01/14/17 12:30 2.00 01/14/17 10:20 30 Intake and Output 01/18/17 01/18/17 01/19/17 Cumulative From/Thru 15:00 23:00 07:00 01/12/17 12:59 - 01/19/17 05:44 Intake Total 737 ml 400 ml 55336 ml Output Total 500 ml 650 ml 20624 ml Balance 237 ml -250 ml -1236 ml Intake Oral 600 ml 400 ml 2216 ml IV Total 137 ml 82177 ml Tube Irrigant 75 ml Output Urine Total 500 ml 650 ml 88250 ml Gastric Drainage Total 185 ml # Bowel Movements 1 19 General: Alert, Oriented X3, Cooperative, No Acute Distress Head: Normal Eyes: Scleral Anicteric Nose: Mucous Membr Moist/[place] Mouth: Mucous Membr Moist/[place] Neck: Supple Chest & Lungs: Chest Wall Normal, Clear to auscultation & percussion Cardiovascular: Regular Rate/Rhythm Abdomen: Non-tender, Non-distended, Normoactive bowel tones, Soft Extremities: No cyanosis/clubbing/edma bilat Neurological: Grossly Neurologically Intact, Normal Speech IVs and Medications Medications Reviewed: Medications were reviewed in detail Lab and Diagnostics Result Diagram: 01/15/17 0405 01/19/17 0830 X-Rays, CTs and MRIs X-RAY CHEST ONE VIEW, PORTABLE IMPRESSION: 1. Endotracheal tube is positioned approximately 4 cm above the olayinka. 2. Mild basilar atelectasis. Dictated by: Kemal Nguyen M.D. on 01/12/2017 at 13:32 CT BRAIN WITHOUT CONTRAST IMPRESSION: No acute intracranial disease process. Dictated by: Alma Chen MD, PhD on 01/12/2017 at 15:12 X-RAY CHEST ONE VIEW, PORTABLE IMPRESSION: Support lines as above. Minimal appearance of new patchy right basilar opacity, possibly atelectasis versus developing pneumonia. Dictated by: Margarita Briggs M.D. on 01/13/2017 at 9:01 12-lead ECG 01/12/17 15:07 sinus tachycardia rate 110, conduction interval normal except QTc 504, mild T-wave inversion in aVL, no acute ST changes Assessment & Plan 61-year-old man with past medical history significant for restrictive lung disease and alcohol abuse who presents to the [facility] emergency department via EMS due to severe alcohol withdrawal and altered mental status. # Acute alcohol withdrawal without history of seizures, POA. Much improved. - On ventilator for 2 days. Extubated on 01/14. - Patient continues to do well with no signs of withdrawal. - Continue Thiamine and multivitamin daily. # Acute metabolic encephalopathy secondary to alcohol withdrawal, present on admission. Resolved. - Continue with supportive care # Acute Pneumonia, Probable aspiration. Improving. - Blood and sputum cultures negative. - MRSA screen negative. - Respiratory viral PCR negative. - Zosyn was discontinued on 01/18 and started Augmentin orally (day 7 of Abx). Stop Abx in 1-2 days # Acute Hypokalemia, resolved. # Acute hypomagnesemia, present on admission. Ongoing - Replete and followup # Chronic Depression. stable - Continue outpatient medications: Venlafaxine Dispo: Social work is working on examining [place] resources for rehabilitation. GI Prophylaxis: H2 zeb VTE Prophylaxis: Sub-Q Heparin (Unfractionated) VTE Mechanical Devices: Intermittant Pneumatic CD Resuscitation Status: CPR: Attempt Resuscitation Fritz Koehler Jan 19, 2017 18:03
[2017-01-20 00:16] VITALS: BP 128/73; PULSE 73; RESP 14; O2SAT 96
[2017-01-20 03:26] VITALS: BP 134/78; PULSE 63; RESP 14; O2SAT 96
--- NOTE | 2017-01-20 05:27 | NUR ---
Ambulatory Patient is able to walk to restroom with walker, without assistance and change own brief. Also uses bedside urinal. Had some trouble getting to sleep but once asleep he slept all night. VSS, negative Sinus Tachycardia during this shift and in good spirts. CIWA=0
[2017-01-20] MEDS: LORazepam Inj 100 MG in 0.9% Sodium Chloride 50 ML IV SCH (07:15)
[2017-01-20 07:40] LABS: BASOPHILS % (AUTO) 0.5 % (0-3); EOSINOPHILS % (AUTO) 5.1 % (0-5); MONOCYTES % (AUTO) 18.3 % (4-12); Mean Corpuscular Hemoglobin 33.4 pg (27.0-35.0); Mean Corpuscular Volume 98.9 fL (81-100); NEUTROPHILS % (AUTO) 39.3 % (40-74); Platelet Count 262 bil/L (150-400)
[2017-01-20 07:49] LABS: Magnesium 1.9 mg/dL (1.6-2.6)
[2017-01-20 08:45] VITALS: BP 121/75; PULSE 83; RESP 14; O2SAT 94
[2017-01-20] MEDS: Amoxicillin-Clav 875-125 mg Tablet PO SCH ×2 (08:50→20:15)
[2017-01-20] MEDS: Multivit-Miner-Folic Acid-Iron Tablet PO SCH (08:50)
--- NOTE | 2017-01-20 14:07 | PCM.PNMED ---
Subjective Date of Service Jan 20, 2017 Subjective Denies any new issues/complaints. Exam Vital Signs Vital Sign - Last Date Time Temp Pulse Resp B/P Pulse Ox O2 Delivery O2 Flow Rate FiO2 01/20/17 10:48 Room Air 01/20/17 08:45 37.0 83 14 121/75 94 01/14/17 12:30 2.00 01/14/17 10:20 30 Intake and Output 01/19/17 01/19/17 01/20/17 Cumulative From/Thru 15:00 23:00 07:00 01/12/17 12:59 - 01/20/17 06:04 Intake Total 2588 ml 800 ml 71610 ml Output Total 1501 ml 650 ml 39659 ml Balance 1087 ml 150 ml 1 ml Intake Oral 2481 ml 4697 ml IV Total 107 ml 800 ml 77832 ml Tube Irrigant 75 ml Output Urine Total 1500 ml 650 ml 22905 ml Urine/Stool Mix 1 ml 1 ml Gastric Drainage Total 185 ml # Voids 2 2 # Bowel Movements 1 20 Exam General: Alert, Oriented X3, Cooperative, No Acute Distress Head: Normal Eyes: Scleral Anicteric Nose: Mucous Membr Moist/[place] Mouth: Mucous Membr Moist/[place] Neck: Supple Chest & Lungs: Chest Wall Normal, Clear to auscultation bilat Cardiovascular: Regular Rate/Rhythm Abdomen: Non-tender, Non-distended, Normoactive bowel tones, Soft Extremities: No cyanosis/clubbing/edema bilat Neurological: Grossly Neurologically Intact, Normal Speech IVs and Medications Medications Reviewed: Medications were reviewed in detail Lab and Diagnostics Result Diagram: 01/20/17 0645 01/20/17 0645 X-Rays, CTs and MRIs X-RAY CHEST ONE VIEW, PORTABLE IMPRESSION: 1. Endotracheal tube is positioned approximately 4 cm above the olayinka. 2. Mild basilar atelectasis. Dictated by: Kemal Nguyen M.D. on 01/12/2017 at 13:32 CT BRAIN WITHOUT CONTRAST IMPRESSION: No acute intracranial disease process. Dictated by: Alma Chen MD, PhD on 01/12/2017 at 15:12 X-RAY CHEST ONE VIEW, PORTABLE IMPRESSION: Support lines as above. Minimal appearance of new patchy right basilar opacity, possibly atelectasis versus developing pneumonia. Dictated by: Margarita Briggs M.D. on 01/13/2017 at 9:01 12-lead ECG 01/12/17 15:07 sinus tachycardia rate 110, conduction interval normal except QTc 504, mild T-wave inversion in aVL, no acute ST changes Assessment & Plan 61-year-old man with past medical history significant for restrictive lung disease and alcohol abuse who presents to the [facility] emergency department via EMS due to severe alcohol withdrawal and altered mental status. # Acute alcohol withdrawal without history of seizures, POA. Much improved. - On ventilator for 2 days. Extubated on 01/14. - Patient continues to do well with no signs of withdrawal. - Continue Thiamine and multivitamin daily. # Acute metabolic encephalopathy secondary to alcohol withdrawal, present on admission. Resolved. - Continue with supportive care # Acute Pneumonia, Probable aspiration. Improving. - Blood and sputum cultures negative. - MRSA screen negative. - Respiratory viral PCR negative. - Zosyn was discontinued on 01/18 and started Augmentin orally (day 7 of Abx). Stop Abx in 1-2 days # Acute Hypokalemia, resolved. # Acute hypomagnesemia, present on admission. - Resolved # Chronic Depression. stable - Continue outpatient medications: Venlafaxine Dispo: Social work is working on examining [place] resources for rehabilitation. GI Prophylaxis: H2 zeb VTE Prophylaxis: Sub-Q Heparin (Unfractionated) VTE Mechanical Devices: Intermittant Pneumatic CD Resuscitation Status: CPR: Attempt Resuscitation Fritz Koehler Jan 20, 2017 14:07
--- NOTE | 2017-01-20 15:15 | NUR ---
Called and spoke with Zoë [phone] RAMP BOSS at [facility] and let her know patient is planning to discharge to the [facility] in [place]. Zoë is coordinating with the RN and they will work on getting Home Health in place. Faxed clinicals to [phone] so they can meet needs for Home Health. This coordination will Updated RAMP BOSS
--- NOTE | 2017-01-20 15:41 | NUR ---
Social Work: Continued d/c planning Data: Pt is on day 8 of hospitalization. EMR reviewed. CENTRIFUGAL SCREEN TENDER spoke with pt and informed him that all [place] SNF's have declined to take him. He can either pay out of pocket for SNF or go home with HH. Pt declined SNF private pay. CENTRIFUGAL SCREEN TENDER updated MD. CENTRIFUGAL SCREEN TENDER acknowledged MD orders for HH. CENTRIFUGAL SCREEN TENDER spoke with pt regarding HH choice, none stated. UR specialist working on HH through the [place], see her previous note. CENTRIFUGAL SCREEN TENDER and UR specialist will continue to work on this for pt. Pt state he will d/c to [facility] in [place], he has a walking stick and declined any further DME support. CENTRIFUGAL SCREEN TENDER will continue to follow. Plan: Pt will d/c home via taxi to [facility] in [facility] with HH set up through [place], currently in progress. CENTRIFUGAL SCREEN TENDER will continue to follow. WENDY Ordoñez Addendum: 01/20/17 at 1545 by OSCAR NAIR SS Pt gave permission for CENTRIFUGAL SCREEN TENDER to speak with his daughter regarding plan, CENTRIFUGAL SCREEN TENDER spoke with pt's daughter and updated her on the plan. Pt's daughter requested information on LTC options, CENTRIFUGAL SCREEN TENDER left Senior Resource book in pt's room. WENDY Ordoñez
[2017-01-20 16:48] VITALS: BP 131/81; PULSE 69; RESP 15; O2SAT 94
--- NOTE | 2017-01-20 18:23 | NUR ---
No IV access IV started leaking this afternoon. DCd intact. MD notified and he is ok with having no IV access.
[2017-01-20 19:28] VITALS: BP 125/79; PULSE 69; RESP 16; O2SAT 95
[2017-01-21 00:08] VITALS: BP 125/74; PULSE 69; RESP 14; O2SAT 95
--- NOTE | 2017-01-21 06:01 | NUR ---
Good Spirits Patient VSS, he is in good spirts and really to discharge today. Belonging are with [facility] and home medications are in the Pharmacy.
[2017-01-21] MEDS: LORazepam Inj 100 MG in 0.9% Sodium Chloride 50 ML IV SCH (07:02)
[2017-01-21 08:18] VITALS: BP 111/81; PULSE 71; RESP 18; O2SAT 96
[2017-01-21] MEDS: Amoxicillin-Clav 875-125 mg Tablet PO SCH ×2 (08:22→20:38)
[2017-01-21] MEDS: Multivit-Miner-Folic Acid-Iron Tablet PO SCH (08:22)
--- NOTE | 2017-01-21 10:53 | NUR ---
Called and spoke with Edith at [facility] [phone] and she is working on funding. She asked me to refer to [facility] since they will accept the [place] funding. Spoke with Emily at [facility] and gave access she will by this afternoon to garbage pick up man patient's clinicals and face to face. Updated WENDY Addendum: 01/21/17 at 1415 by RUBIN CRABTREE CM Spoke with Edith and [facility] has let us know a late start date would be next week to open. Consulted with WENDY and this should be ok for patient. Plan is to discharge today to [facility] and then work with [facility]. Updated WENDY
--- NOTE | 2017-01-21 11:50 | NUR ---
Social Work: Readiness for Discharge/CD Assessment D: Pt reviewed with [facility]; [facility] has awarded HH contract to [facility]. HH Order placed and [facility] has placed referral to [facility] [place]. [facility] is coming today to pickup pt's clinicals and F2F. Pt has not yet been formally accepted for services at this time. LENS HARDENER met with pt at bedside to confirm discharge plan and complete CD assessment. Current Situation: Pt admitted to [facility] on 01/12/2017 stating "I drank too much and passed out." Pt reports drinking "maybe a quart" of hard alcohol but cannot remember all the events leading up to his admission. Pt states he is interested in treatment through the [place] but has "fought with them trying to get help." Pt states that several days prior to his admission the pt went to complete an CD assessment the [facility] however they told him he did not qualify for inpatient treatment. Pt expressed that he is interested in getting into the [facility] or some other form of transitional sober housing while he attempts to get into treatment at the [place]. Pt signed YUVAL for [facility], the [facility] and [facility] in [place]. HX CD use: Pt state he has been drinking "too long" and expresses embarrassment and remorse for his drinking. Pt states that he has completed many rounds of treatment and states "I'm done with it this time." Pt denies any history of ETOH related seizures. MH History/Suicide risk: Pt denies any MH history and declines history or current Suicidal, homicidal ideation/plan/intent. Natural Supports: Pt states his daughter is one of his only supports but even she has distanced herself because of his drinking habits. left message with the [facility] inquiring about their census. t/c to Lance Guerrero at [facility]; at this time they do not have openings but are accepting referrals. They encouraged LENS HARDENER to complete Referral Form and fax to [phone]. They will contact the patient when they have a space available. A: Pt who is I at baseline. P: Evolving; Anticipate pt to discharge to the [facility] with [facility] for PT; LENS HARDENER will meet with pt to complete Referral to [facility]. WENDY Rodas
[2017-01-21 16:34] VITALS: BP_SYST 108; BP_SYST 127; BP_DIAS 72; BP_DIAS 84; PULSE 67; PULSE 80; RESP 18; O2SAT 94; O2SAT 97
--- NOTE | 2017-01-21 18:12 | NUR ---
Activity Pt. pleasant and cooperative today with no complaints. He was able to shower, shave and get cleaned up independently and states he feels much better after his shower. CIWA score 0.
[2017-01-21 22:14] VITALS: BP 125/78; PULSE 68; RESP 17; O2SAT 96
--- NOTE | 2017-01-21 23:48 | PCM.PNMED ---
Subjective Date of Service Jan 21, 2017 Subjective The patient has no new complaints. He is determined to quit drinking alcohol after this admission. Exam Vital Signs Vital Sign - Last Date Time Temp Pulse Resp B/P Pulse Ox O2 Delivery O2 Flow Rate FiO2 01/21/17 22:14 36.7 68 17 125/78 96 Room Air Intake and Output 01/20/17 01/20/17 01/21/17 Cumulative From/Thru 15:00 23:00 07:00 01/12/17 12:59 - 01/21/17 00:53 Intake Total 940 ml 1800 ml 27320 ml Output Total 875 ml 1300 ml 86741 ml Balance 65 ml 500 ml 566 ml Intake Oral 920 ml 1800 ml 7417 ml IV Total 48983 ml Tube Irrigant 20 ml 95 ml Output Urine Total 875 ml 800 ml 89627 ml Urine/Stool Mix 500 ml 501 ml Gastric Drainage Total 185 ml # Voids 3 5 # Bowel Movements 20 Exam General: Patient is resting comfortably in bed. He is in no apparent distress. HEENT: Head is atraumatic and normocephalic. Eyes: Pupils are equally round and reactive to light and accommodation. Extraocular muscles are intact. Sclera are white, anicteric. Subconjunctival mucosa is pink. Ears and nose are unremarkable. Oropharynx: There is no mucosal lesions, there is no thrush, there is no pharyngitis. Neck: Is supple, there are no nodes, or masses or tenderness. Chest: Is clear to auscultation and percussion. There are no rales, rhonchi, wheezes or rubs. Heart: Rate, rhythm is regular. There is no murmur, rub or gallop. Abdomen: Good bowel sounds are present. Abdomen is soft, nontender, no organomegaly or masses were appreciated. Extremities: Are symmetrical and well perfused. There is no edema, there is no cellulitis, no rash. Neurologic: There are no focal neurological deficits. Cranial nerves II through XII are intact. There are no sensory or motor deficits. Psychiatric: Patients mood is calm and shows no sign of agitation. Genital: Deferred Rectal: Deferred Lab and Diagnostics Result Diagram: 01/20/17 0645 01/20/17 0645 X-Rays, CTs and MRIs X-RAY CHEST ONE VIEW, PORTABLE IMPRESSION: 1. Endotracheal tube is positioned approximately 4 cm above the olayinka. 2. Mild basilar atelectasis. Dictated by: Kemal Nguyen M.D. on 01/12/2017 at 13:32 CT BRAIN WITHOUT CONTRAST IMPRESSION: No acute intracranial disease process. Dictated by: Alma Chen MD, PhD on 01/12/2017 at 15:12 X-RAY CHEST ONE VIEW, PORTABLE IMPRESSION: Support lines as above. Minimal appearance of new patchy right basilar opacity, possibly atelectasis versus developing pneumonia. Dictated by: Margarita Briggs M.D. on 01/13/2017 at 9:01 12-lead ECG 01/12/17 15:07 sinus tachycardia rate 110, conduction interval normal except QTc 504, mild T-wave inversion in aVL, no acute ST changes Assessment & Plan The patient is a 61-year-old man with past medical history significant for restrictive lung disease and alcohol abuse who presents to the [facility] emergency department via EMS due to severe alcohol withdrawal and altered mental status. She was admitted to the hospitalist service for further evaluation and treatment. # Acute alcohol withdrawal without history of seizures, POA. Much improved. - On ventilator for 2 days. Extubated on 01/14. - Patient continues to do well with no signs of withdrawal. - Continue Thiamine and multivitamin daily. # Acute metabolic encephalopathy secondary to alcohol withdrawal, present on admission. Resolved. - Continue with supportive care # Acute Pneumonia, Probable aspiration. Improving. - Blood and sputum cultures negative. - MRSA screen negative. - Respiratory viral PCR negative. - Zosyn was discontinued on 01/18 and started Augmentin orally (day 7 of Abx). Stop Abx in 1-2 days # Acute Hypokalemia, resolved. # Acute hypomagnesemia, present on admission. - Resolved # Chronic Depression. stable - Continue outpatient medications: Venlafaxine Dispo: Social work is working on examining [place] resources for rehabilitation. Pain Evaluation: Adequate Pain Control GI Prophylaxis: H2 zeb VTE Prophylaxis: Sub-Q Heparin (Unfractionated) VTE Mechanical Devices: Intermittant Pneumatic CD Resuscitation Status: CPR: Attempt Resuscitation Jeremiah Murillo MD Jan 21, 2017 23:48
[2017-01-22 06:30] VITALS: BP 130/74; PULSE 66; RESP 20; O2SAT 100
[2017-01-22 06:38] LABS: BASOPHILS % (AUTO) 0.4 % (0-3); EOSINOPHILS % (AUTO) 2.9 % (0-5); MONOCYTES % (AUTO) 13.2 % (4-12); Mean Corpuscular Hemoglobin 33.1 pg (27.0-35.0); Mean Corpuscular Volume 100.8 fL (81-100); NEUTROPHILS % (AUTO) 51.1 % (40-74); Platelet Count 328 bil/L (150-400)
[2017-01-22 07:00] LABS: Magnesium 1.7 mg/dL (1.6-2.6)
[2017-01-22] MEDS: Amoxicillin-Clav 875-125 mg Tablet PO SCH (08:08)
[2017-01-22] MEDS: Multivit-Miner-Folic Acid-Iron Tablet PO SCH (08:09)
--- NOTE | 2017-01-22 11:33 | NUR ---
Social Work: Discharge D; Pt discussed in am rounds. Pt is medically stable for discharge. has signed F2F for home health PT- copy faxed to [facility] and placed on chart. Pt is still saying that he wishes to get into transitional/sober housing and is telling staffing program manager that he is discharging to a treatment facility. CITY PLANNING ENGINEER met with the patient at bedside to confirm discharge plan. CITY PLANNING ENGINEER completed referral for [facility] and clarified to patient that there are no beds available today and that staff will contact him to complete a formal intake when a bed is available. CITY PLANNING ENGINEER stressed to patient that he will need to remain sober until this time so that he is ready to complete intake when he has a spot. Pt states that "I'm going to do it" referring to staying sober. CITY PLANNING ENGINEER faxed YUVAL and referral form to [phone] [facility]. Pt states that he is going to a motel in [place] but cannot remember the name. He agrees with the plan for home health through [facility] for PT and will await a phone call from them to schedule an intake. CITY PLANNING ENGINEER spoke with Sharona Conn at [facility] to notify of pt's discharge; she states that the patient informed her that he was going to treatment and would not require HH at this time. CITY PLANNING ENGINEER informed her that the pt was confused by admission/intake process and that he is still interested in home health. A: Pt who has been ambulating I during admission. P: Pt to discharge back to his motel via POV and [facility] for PT. Pt is on waitlist for [facility]. WENDY Rodas
--- NOTE | 2017-01-22 14:00 | PCM.DIMED ---
Discharge Instructions Date of Service Jan 22, 2017 Dates of Hospitalization Jan 12, 2017 at 14:31 Discharge Diagnosis Discharge Diagnosis Alcohol Withdrawal Diet Discharge Diet: Heart Healthy Activity Discharge Activity: No restrictions Call your provider Call your provider for: Fever or Chills, Shortness of breath, Bleeding, Chest pain, Vomitting, Excessive diarrhea, Weakness (unilateral), Other Patient Instructions [facility]-up Provider: [facility] Follow-up with PCP in: 1 week Jeremiah Murillo MD Jan 22, 2017 14:00
--- NOTE | 2017-01-22 16:26 | NUR ---
Discharge Patient left floor at 1623 via wheelchair to be driven to hotel by taxi. All discharge information discussed with patient including medications and follow up appointment. All belongings left with patient including home medications and valuables from [facility].
--- NOTE | 2017-01-23 02:14 | PCM.DC.MED ---
Discharge Summary Date of Service January 22, 2017 Dates of Hospitalization Date of Hospital Admission Jan 12, 2017 at 14:31 Date of Discharge: Jan 22, 2017 Providers: Admitting Physician: Jeremiah Murillo MD [facility] Attending Physician: Jeremiah Murillo MD Diagnosis at Time of Discharge Diagnosis at Time of Discharge Alcohol Withdrawal Procedures XRay, CTs & MRIs X-RAY CHEST ONE VIEW, PORTABLE IMPRESSION: 1. Endotracheal tube is positioned approximately 4 cm above the olayinka. 2. Mild basilar atelectasis. Dictated by: Kemal Nguyen M.D. on 01/12/2017 at 13:32 CT BRAIN WITHOUT CONTRAST IMPRESSION: No acute intracranial disease process. Dictated by: Alma Chen MD, PhD on 01/12/2017 at 15:12 X-RAY CHEST ONE VIEW, PORTABLE IMPRESSION: Support lines as above. Minimal appearance of new patchy right basilar opacity, possibly atelectasis versus developing pneumonia. Dictated by: Margarita Briggs M.D. on 01/13/2017 at 9:01 ECG 12 Lead 01/12/17 15:07 sinus tachycardia rate 110, conduction interval normal except QTc 504, mild T-wave inversion in aVL, no acute ST changes Brief History The patient has a long-standing history of alcohol abuse. In remission admissions to endorse drinking approximately 1 quart of alcohol per day. He was discharged from [facility] following alcohol withdrawal on . He presented today to the emergency department with symptoms of tremor and altered mental status. He was minimally verbal on presentation to the emergency department and motor activity was symmetric. During the course of his evaluation he was disoriented and uncooperative with care and was sedated and intubated. Currently no further history is available. Hospital Course The patient is a 61-year-old man with past medical history significant for restrictive lung disease and alcohol abuse who presents to the [facility] emergency department via EMS due to severe alcohol withdrawal and altered mental status. She was admitted to the hospitalist service for further evaluation and treatment. # Acute alcohol withdrawal without history of seizures, POA. Much improved. - On ventilator for 2 days. Extubated on 01/14. - Patient continues to do well with no signs of withdrawal. - Continue Thiamine and multivitamin daily. # Acute metabolic encephalopathy secondary to alcohol withdrawal, present on admission. Resolved. - Continue with supportive care # Acute Pneumonia, Probable aspiration. Improving. - Blood and sputum cultures negative. - MRSA screen negative. - Respiratory viral PCR negative. - Zosyn was discontinued on 01/18 and started Augmentin orally (day 7 of Abx). Stop Abx in 1-2 days # Acute Hypokalemia, resolved. # Acute hypomagnesemia, present on admission. - Resolved # Chronic Depression. stable - Continue outpatient medications: Venlafaxine Dispo: Social work is working on examining [place] resources for rehabilitation. Exam Vital Signs (Last) Date Time Temp Pulse Resp B/P Pulse Ox O2 Delivery O2 Flow Rate FiO2 01/22/17 08:04 Ventilator 01/22/17 06:30 36.4 66 20 130/74 100 Exam General: Patient is resting comfortably in bed. He is in no apparent distress. HEENT: Head is atraumatic and normocephalic. Eyes: Pupils are equally round and reactive to light and accommodation. Extraocular muscles are intact. Sclera are white, anicteric. Subconjunctival mucosa is pink. Ears and nose are unremarkable. Oropharynx: There is no mucosal lesions, there is no thrush, there is no pharyngitis. Neck: Is supple, there are no nodes, or masses or tenderness. Chest: Is clear to auscultation and percussion. There are no rales, rhonchi, wheezes or rubs. Heart: Rate, rhythm is regular. There is no murmur, rub or gallop. Abdomen: Good bowel sounds are present. Abdomen is soft, nontender, no organomegaly or masses were appreciated. Extremities: Are symmetrical and well perfused. There is no edema, there is no cellulitis, no rash. Neurologic: There are no focal neurological deficits. Cranial nerves II through XII are intact. There are no sensory or motor deficits. Psychiatric: Patients mood is calm and shows no sign of agitation. Genital: Deferred Rectal: Deferred Test 01/12/17 12:27 01/12/17 13:45 01/12/17 14:48 01/12/17 15:37 Prothrombin Time 10.5sec (8.1-12.5) Prothromb Time International Ratio 0.98ratio Osmolality 284 (275-300) Total Creatine Kinase 388U/L (21-232) Troponin T < 0.010ug/L (0.0-0.011) Alcohols < 10mg/dL (0-10) Hepatitis A IgM Antibody Negative (Negative) Hepatitis B Surface Antigen Negative (Negative) Hepatitis B Core IgM Antibody Negative (Negative) Hepatitis C Antibody <0.1s/co ratio (0.0-0.9) Hepatitis C Comment Comment (.) Lactic Acid Level 2.5mmol/L (0.4-2.0) Urine Color Yellow (YELLOW) Urine Appearance Clear (CLEAR,HAZY) Urine pH 8.5 (5.0-8.0) Urine Specific [place] 1.015 (1.003-1.035) Urine Protein Negativemg/dL (NEG,TRACE) Urine Glucose (UA) Negativemg/dL (NEGATIVE) Urine Ketones 15mg/dL (NEGATIVE) Urine Occult Blood Negative (NEGATIVE) Urine Nitrite Negative (NEGATIVE) Urine Bilirubin Negative (NEGATIVE) Urine Urobilinogen Normalmg/dL (NORMAL) Urine Leukocyte Esterase Negative (NEGATIVE) Urine RBC 0-2/hpf (0-2) Urine WBC 0-5/hpf (0-5) Urine Epithelial Cells Occasional/hpf (NONE-MOD) Urine Crystals None seen (NONE SEEN) Urine Bacteria None/hpf (NONE-FEW) Urine Hyaline Casts None/lpf (NONE) Urine Granular Casts None seen (NONE SEEN) Urine Waxy Casts None seen (NONE SEEN) Urine Red Blood Cell Casts None seen (NONE SEEN) Urine White Blood Cell Casts None seen (NONE SEEN) Urine Mucus None seen (None Seen) Urine Trichomonas None seen (NONE SEEN) Urine Yeast None (NONE SEEN) Urinalysis Comment None Urine Culture Reflexed Not indicated Urine Opiates Screen Negative Urine Methadone Screen Negative Urine Barbiturates Screen Negative Urine Amphetamines Screen Negative Urine Benzodiazepines Screen Positive Urine Cocaine Metabolite Screen Negative Urine Cannabinoids Screen Negative CSF Appearance Clear (CLEAR) CSF Color Colorless (COLORLESS) CSF WBC 1/mm3 (0-5) CSF RBC 16/mm3 CSF Mononuclear WBCs % CSF Polynuclear WBCs % CSF Other Cells CSF Glucose 92mg/dL (45-90) CSF Total Protein 39mg/dL (15-45) Test 01/12/17 18:00 01/14/17 03:32 01/22/17 06:10 Amylase Level 30U/L (28-100) Lipase 11U/L (13-60) Phosphorus Level 2.6mg/dL (2.5-4.9) Procalcitonin 0.64ng/mL (0.00-0.08) White Blood Count 7.1th/mm3 (3.8-10.1) Red Blood Count 3.93mil/mm3 (4.40-5.80) Hemoglobin 13.0g/dL (13.8-17.2) Hematocrit 39.6% (41.0-50.0) Mean Corpuscular Volume 100.8fL (81-100) Mean Corpuscular Hemoglobin 33.1pg (27.0-35.0) Mean Corpuscular Hemoglobin Concent 32.8% (32.0-37.0) Red Cell Distribution Width 13.4% (12.3-15.4) Platelet Count 328bil/L (150-400) Neutrophils (%) (Auto) 51.1% (40-74) Lymphocytes (%) (Auto) 31.8% (14-46) Monocytes (%) (Auto) 13.2% (4-12) Eosinophils (%) (Auto) 2.9% (0-5) Basophils (%) (Auto) 0.4% (0-3) Sodium Level 136mEq/L (134-144) Potassium Level 4.2mEq/L (3.5-5.2) Chloride Level 99mEq/L (97-108) Carbon Dioxide Level 24mmol/L (18-29) Blood Urea Nitrogen 7mg/dL (8-27) Creatinine 0.61mg/dL (0.76-1.27) Estimat Glomerular Filtration Rate 143mL/min (>59) Glucose Level 116mg/dL (60-99) Calcium Level 9.6mg/dL (8.5-10.1) Magnesium Level 1.7mg/dL (1.6-2.6) Total Bilirubin 0.2mg/dL (0.0-1.2) Aspartate Amino Transf (AST/SGOT) 18U/L (0-50) Alanine Aminotransferase (ALT/SGPT) 14U/L (0-44) Alkaline Phosphatase 80U/L (25-160) Total Protein 6.3g/dL (6.4-8.4) Albumin 3.7g/dL (3.4-5.0) Discharge Medications Discharge Medications Budesonide/Formoterol 80-4.5 mcg Inh (Symbicort 80-4.5 mcg Inh) 120 Puff Inhaler 2 PUFF INHALATION BID (Reported) Cholecalciferol (Vitamin D3) (Vitamin D3) 2,000 Unit Capsule 2,000 UNIT PO DAILY (Reported) Cyanocobalamin (Vitamin B-12) (Vitamin B-12) 1,000 Mcg Tablet 1,000 MCG PO DAILY (Reported) Gabapentin (Gabapentin) 300 Mg Capsule 600 MG PO TID (Reported) Morphine Sulfate ER (MS Contin) 15 Mg Tablet.er 15 MG PO BID (Reported) Vit W-Ca,Fe,FA(<1 mg) ( Vitamins) 1 Each Tablet 1 EACH PO DAILY (Reported) Thiamine Mononitrate (Vitamin B-1) 100 Mg Tablet 100 MG PO DAILY (Reported) Tiotropium [place] (Spiriva) 18 Mcg Cap.w.dev 18 MCG IH DAILY (Reported) Venlafaxine ER (Venlafaxine ER) 150 Mg Cap.er.24h 150 MG PO BID (Reported) As needed Albuterol HFA (Proair HFA) 8.5 Gm Hfa.aer.ad 2 PUFFS INHALATION Q4H PRN PRN For Shortness of Breath (Reported) Followup Plan Disposition: Patient is being discharged home. Until he is able to get into a house, such as a [facility], he is going to stay at a motel such as the [facility]. Discharge Diet: Heart Healthy Discharge Activity: No restrictions Follow-up Provider: [facility] Follow-up with PCP in: 1 week Time spent Time spent on discharging this patient was greater than 35 minutes, over half of which was involved in counseling and coordination of care. Jeremiah Murillo MD Jan 23, 2017 02:14
== END 2017-01-22 16:23 | disposition home health service (06) | DRG 896 ==
LOC: SED 12:04 → EDBD 12:04 → EDUNIT# 12:04 → CCU 14:31 → PCC 01-15 16:50 → MOC 01-18 21:56
PROVIDERS: ADMIT Internal Medicine Infectious Disease; ATTEND Internal Medicine
PROC: 0BH17EZ Insertion of Endotracheal Airway into Trachea, Via Natural or Artificial Opening (ICD-10-PCS; principal; 2017-01-12)
PROC: 5A1945Z Respiratory Ventilation, 24-96 Consecutive Hours (ICD-10-PCS; 2017-01-12)
PROC: 009U3ZX Drainage of Spinal Canal, Percutaneous Approach, Diagnostic (ICD-10-PCS; 2017-01-12)
PROC: 4A033R1 Measurement of Arterial Saturation, Peripheral, Percutaneous Approach (ICD-10-PCS; 2017-01-12)
DX: F10.231 Alcohol dependence with withdrawal delirium (principal); G93.41 Metabolic encephalopathy; J69.0 Pneumonitis due to inhalation of food and vomit; E87.1 Hypo-osmolality and hyponatremia; E87.6 Hypokalemia; E83.42 Hypomagnesemia; F32.9 Major depressive disorder, single episode, unspecified; J44.9 Chronic obstructive pulmonary disease, unspecified; Z87.891 Personal history of nicotine dependence; G47.33 Obstructive sleep apnea (adult) (pediatric); R50.9 Fever, unspecified

== ENCOUNTER 2017-04-15 08:01 | Emergency (ER) | payer OTHER ==
[~2017-04-15] VITALS: Ht 182.9 cm; Wt 79.5 kg
[~2017-04-15 08:01] MED LIST changes: -AZIT500T5 PO; -CHOL10008 PO; -CYAN500 PO; -ETOD400T PO; -FISH OIL DR 1,1 EAC1 PO; -GARL600T2 PO; -GRAP25CA PO; -GRAP50TA2 PO; -METH750T3 PO; -METR45GE TOP; -MORP15TA PO; +MS15TCR PO; -MULT-1073 PO; -OMEG-38 PO; -OMEG500C PO; -PREN1TAB25 PO; +PREN1TAB87 PO; -Thiamine PO; -VENL75TA3 PO; -Vancomycin Dose per Pharmacist XX ONE; -[UNRECOGNIZED DRUG - CODE] PO
[2017-04-15 08:04] VITALS: BP 113/74; PULSE 73; RESP 20; O2SAT 100
[2017-04-15] MEDS ORDERED: Albuterol 2.5 mg/3 mL Inhalation Solution NEB ONE (08:20)
--- NOTE | 2017-04-15 08:26 | ED.REPORT ---
HPI-Dyspnea / Wheezing Date of Service Apr 15, 2017 ED Provider: Pa Reeder DO Patient is a 61 year old male with a hx of orthostatic hypotension, chronic lung disease and RLL lobectomy who presents to the ED complaining of SOB onset this morning. Associated symptoms include trouble focusing, shaking, and cough. Patient reports he has chronic dizziness and gait problems (for over a year), which occur every morning and only with transitioning to the standing position that are worse today. He attributes this to his breathing and states he is "not having a stroke." He last felt normal yesterday, but again, admits to daily symptoms of positional dizziness. He denies fever, chills, abdominal pain, vomiting, headache, focal or any other symptoms. Pt reports he stopped drinking 2 months ago after an admission for delerium tremens, which required intubation and prolonged hospitalization. He is not on blood thinners and does not take ASA. He lives at [facility]. Nursing Notes Stated Complaint: NO BALANCE/ SOB Chief Complaint: Respiratory Complaints Nursing Notes Reviewed: Yes Allergies: Coded Allergies: No Known Allergies (Verified , 12/28/16) Scheduled Budesonide/Formoterol 80-4.5 mcg Inh (Symbicort 80-4.5 mcg Inh) 120 Puff Inhaler 2 PUFF INHALATION BID Cholecalciferol (Vitamin D3) (Vitamin D3) 2,000 Unit Capsule 2,000 UNIT PO DAILY Cyanocobalamin (Vitamin B-12) (Vitamin B-12) 1,000 Mcg Tablet 1,000 MCG PO DAILY Gabapentin (Gabapentin) 300 Mg Capsule 600 MG PO TID Morphine Sulfate ER (MS Contin) 15 Mg Tablet.er 15 MG PO BID Vit W-Ca,Fe,FA(<1 mg) ( Vitamins) 1 Each Tablet 1 EACH PO DAILY Thiamine Mononitrate (Vitamin B-1) 100 Mg Tablet 100 MG PO DAILY Tiotropium [place] (Spiriva) 18 Mcg Cap.w.dev 18 MCG IH DAILY Venlafaxine ER (Venlafaxine ER) 150 Mg Cap.er.24h 150 MG PO BID Scheduled PRN Albuterol HFA (Proair HFA) 8.5 Gm Hfa.aer.ad 2 PUFFS INHALATION Q4H PRN PRN For Shortness of Breath General Time Seen by MD: 08:19 Chief Complaint Shortness of breath Hx Obtained From: Patient Arrived By: Walk-in Sudden in Onset?: No Onset Occurred: 1 - 4 hours ago Symptom Duration: Since onset Severity: Current: No pain currently Severity: Maximum: No pain Past Medical History Past Medical History Notes: Seen in ED 01/24 and 02/16/2016 for orthostatic hypotension on chronic pain management morphine [facility] meds are mailed and will not show on ADMISSIONS RECRUITER Past Medical History Chronic pain COPD Depression History of obstructive sleep apnea History of alcohol use History of hospitalization for pneumonia in September 2015 History of colon polyps History of orthostasis Past Surgical History Lower right lung lobectomy Hiatal hernia repair Bilateral hips Bilateral knees Tonsillectomy Adenoidectomy Family History High blood pressure Smoking History Former Smoker Social History Hx of EtOH abuse (1 quart vodka/day) has a nebulizer and 3 inhalers Alcohol Use: In recovery Drug Use: THC Other Social History: Local resident Occupation lives with roommate, no work or school 09/21/2016 Ambulatory Status Cane Review of Systems Review of Systems Note: +trouble focusing Constitutional: Denies: Chills, Fever Respiratory: Reports: Non-productive cough, Shortness of breath Complete sys rev & neg: except as marked. GI: Denies: Abdominal pain, Vomiting Neurologic: Reports: Dizziness, Problem walking, Shaking, Denies: Headache Physical Exam Initial Vital Signs Vital Signs (First) Date Time Temp Pulse Resp B/P Pulse Ox O2 Delivery O2 Flow Rate FiO2 04/15/17 08:04 36.6 73 20 113/74 100 Room Air Initial VS: Reviewed, Vital signs normal Head / Eyes: Atraumatic, Normocephalic Abdomen / GI: Soft, Non-tender Skin: Warm, Dry Neurologic: Alert, Oriented, Nonfocal Psychiatric: Mood/affect normal General/Constitutional: Awake, Alert Distress / Hydration: Positive: Distress mild Neck: Supple, Full range of motion Respiratory / Chest: Atraumatic, Breath sounds NL, Breath sounds = bilat, No respiratory distress Cardiovascular: Heart rate NL, Regular rhythm, Heart sounds NL Interpretation & Diagnostics Lab Results Interpretation Result Diagram: 04/15/17 0830 04/15/17 0830 Test 04/15/17 08:30 04/15/17 08:50 White Blood Count 5.4th/mm3 (3.8-10.1) Red Blood Count 4.25mil/mm3 (4.40-5.80) Hemoglobin 14.1g/dL (13.8-17.2) Hematocrit 42.4% (41.0-50.0) Mean Corpuscular Volume 99.8fL (81-100) Mean Corpuscular Hemoglobin 33.2pg (27.0-35.0) Mean Corpuscular Hemoglobin Concent 33.3% (32.0-37.0) Red Cell Distribution Width 14.6% (12.3-15.4) Platelet Count 135bil/L (150-400) Neutrophils (%) (Auto) 57.8% (40-74) Lymphocytes (%) (Auto) 29.1% (14-46) Monocytes (%) (Auto) 9.9% (4-12) Eosinophils (%) (Auto) 2.8% (0-5) Basophils (%) (Auto) 0.2% (0-3) D-Dimer < 0.50mg/L FEU (<0.50) Sodium Level 136mEq/L (134-144) Potassium Level 4.0mEq/L (3.5-5.2) Chloride Level 101mEq/L (97-108) Carbon Dioxide Level 19mmol/L (18-29) Blood Urea Nitrogen 15mg/dL (8-27) Creatinine 0.78mg/dL (0.76-1.27) Estimat Glomerular Filtration Rate 108mL/min (>59) Glucose Level 133mg/dL (60-99) Calcium Level 9.1mg/dL (8.5-10.1) Magnesium Level 1.7mg/dL (1.6-2.6) Total Bilirubin 0.4mg/dL (0.0-1.2) Aspartate Amino Transf (AST/SGOT) 15U/L (0-50) Alanine Aminotransferase (ALT/SGPT) 14U/L (0-44) Alkaline Phosphatase 97U/L (25-160) Troponin T 0.010ug/L (0.0-0.011) Pro-B-Type Natriuretic Peptide 45.48pg/mL (0-210) Total Protein 6.5g/dL (6.4-8.4) Albumin 4.1g/dL (3.4-5.0) Hold Millan Top Tube Received (Received) Lab Results Interpretation: CT BRAIN: IMPRESSION: No acute intracranial disease process. Dictated by: Alma Chen MD, PhD on 04/15/2017 at 9:59 Approved by: Alma Chen MD, PhD on 04/15/2017 at 10:03 ECG Interpretation ECG Interpretation: Sinus rate 70 Atrial premature complex Nonspecific T abnormalites, anterolateral leads Time: 08:22 Interpreted by: ED physician X-Ray Chest Interpretation Chest Xray Interpretation: IMPRESSION: No acute abnormality can be seen. Postoperative change of the right perihilar region. Dictated by: Champ Paul M.D. on 04/15/2017 at 8:46 Approved by: Champ aPul M.D. on 04/15/2017 at 8:47 View: Portable, 1 view Interpretation / Wet Read by: Interpret - Radiologist Re-Eval/Medical Decision Med Decision/Clinical Course Patient presents with orthostatic dizziness which is chronic and somewhat worsening. He is neurologically intact no evidence of stroke, gets up and ambulates at normal baseline. Workup in the ER is unremarkable for any cardiopulmonary cause or any evidence of acute CVA. The patient is a poor historian, however he does admit that he has been seen multiple times for this and that his primary care doctor is aware of this ongoing problem. It does not sound like an acute issue such as a TIA or CVA, there is no evidence of any pathology. Discussed with the patient and his workup is reassuring, he is amenable to discharge and will follow up with his primary care doctor. Extensive discussion is given regarding the signs and symptoms of stroke and the reasons with which to return to the ER. Re-Evaluation/Progress #1: Time of Eval: 10:10 )( Re-Eval Resp / Chest: Breath sounds normal Re-Evaluation/Progress Note: Rechecked pt and road tested him. He appeared lightheaded ambulates with his walking stick. He is currently at his baseline. He reported that his symptoms were much worse earlier when standing and he was "bouncing off vergara trying to walk." Re-Evaluation/Progress #2: Time of Eval: 11:08 )( Re-Eval Resp / Chest: Breath sounds normal Re-Evaluation/Progress Note: Rechecked pt. Discussed CT, xray, EKG, and lab results. Discussed plan for discharge with close f/u. Patient understands and agrees with plan. All questions addressed at this time Counseled Regarding: Diagnosis, Lab results, Need for follow-up, When/why to return to ED Discharge & Departure Impression: Primary Impression: Orthostatic dizziness Disposition: Home Discharge Condition All VS Reviewed: Yes Condition: Stable Patient Instructions: Hypotension (ED) Additional Instructions: Your workup in the ER is reassuring. Continue your regular medicine. Follow- up with her primary care doctor in the next few days. Watch for signs and symptoms of stroke as we discussed. Return to the ER as needed for new onset of strokelike symptoms or other concerns. Referrals: DANNY JAINKY KEEGAN (PCP) Ricibcinthia Attestation Portions of this note were transcribed by Kaiden Charles. I, Dr. Reeder personally performed the history, physical exam and medical decision-making; I reviewed and confirmed the accuracy of the information in the transcribed note. Signed by: Lamine Tolentino, 04/15/17 copies to: DANNY JAINKY Pa Cota DO Apr 15, 2017 08:26 KAIDEN CHARLES Apr 15, 2017 08:33
[2017-04-15] MEDS ORDERED: LORazepam 0.5 mg Tablet PO PRN (08:30)
[2017-04-15 08:36] VITALS: PULSE 101; RESP 18; O2SAT 92
[2017-04-15 08:48] LABS: BASOPHILS % (AUTO) 0.2 % (0-3); EOSINOPHILS % (AUTO) 2.8 % (0-5); MONOCYTES % (AUTO) 9.9 % (4-12); Mean Corpuscular Hemoglobin 33.2 pg (27.0-35.0); Mean Corpuscular Volume 99.8 fL (81-100); NEUTROPHILS % (AUTO) 57.8 % (40-74); Platelet Count 135 bil/L (150-400)
--- NOTE | 2017-04-15 08:49 | DRSVH ---
PROCEDURE: X-RAY CHEST ONE VIEW, PORTABLE ([id number]) INDICATIONS: Short of breath TECHNIQUE: One view of the chest was acquired. COMPARISON: [facility], CR, XR CHEST 1VW (PORTABLE), 01/13/2017, 8:05. [facility], CR, XR CHEST 1VW (PORTABLE), 01/14/2017, 4:54. FINDINGS: Surgical changes and devices: Left perihilar beverly are seen. Lungs and pleura: On this semiupright portable chest examination, no large pneumothorax or large ple ural effusions are seen. No focal infiltrates are seen. Mediastinum: Mediastinal contours appear normal. Heart size is normal. Bones and chest wall: Age-appropriate bony degenerative changes are seen. No suspicious bony lesion s. Overlying soft tissues appear unremarkable. IMPRESSION: No acute abnormality can be seen. Postoperative change of the right perihilar region. Dictated by: Champ Paul M.D. on 04/15/2017 at 8:46 Approved by: Cahmp Paul M.D. on 04/15/2017 at 8:47
[2017-04-15 09:15] LABS: TROPONIN T 0.01 ug/L (0.0-0.011)
[2017-04-15 09:27] LABS: Magnesium 1.7 mg/dL (1.6-2.6)
--- NOTE | 2017-04-15 11:04 | DRSVH ---
PROCEDURE: CT BRAIN WITHOUT CONTRAST ([id number]) INDICATIONS: ATAXIA TECHNIQUE: Noncontrast 4.5 mm thick angled axial sections acquired from the foramen magnum to the vertex, with c oronal reformats. COMPARISON: [facility], CT, CT BRAIN WO CON, 01/12/2017, 14:32. [facility], CT, CT BRAIN WO CON, 12/04/2016, 8:19. [facility], CT, CT BRAIN WO CON, 07/26/2016, 18:31. [facility], CT, CT BRAIN WO CON, 01/10/2016, 11:26. FINDINGS: Image quality: Excellent. CSF spaces: Basal cisterns are patent. No extra-axial fluid collections. The ventricles are symmet damon in size and shape. Brain: No intracranial bleeds or masses. There is cerebral volume loss for age, with resultant vent ricular and sulcal prominence. There are periventricular and deep white matter chronic small vessel ischemic changes. Cavum septi pellucii et vergae incidentally noted.. There is intracranial internal carotid artery atherosclerosis. Skull and face: Calvarium and visualized facial bones appear intact, without suspicious lesions. Sinuses: Visualized sinuses and mastoids are clear. IMPRESSION: No acute intracranial disease process. Dictated by: Alma Chen MD, PhD on 04/15/2017 at 9:59 Approved by: Alma Chen MD, PhD on 04/15/2017 at 10:03
[2017-04-15 11:35] VITALS: BP 116/78; PULSE 57; O2SAT 97
== END 2017-04-15 11:30 | disposition home or self-care (01) ==
LOC: SED 08:01
DX: I95.1 Orthostatic hypotension (principal); F12.10 Cannabis abuse, uncomplicated; J44.9 Chronic obstructive pulmonary disease, unspecified; F10.21 Alcohol dependence, in remission; Z90.2 Acquired absence of lung [part of]; Z87.891 Personal history of nicotine dependence; Z79.51 Long term (current) use of inhaled steroids; Z79.82 Long term (current) use of aspirin
CPT/HCPCS: 36415; 70450; 71010; 80053; 83735; 83880; 84484; 85025; 85378; 93005; 99285; J7613